=== PATIENT | female | born 1970 | race Hispanic/Latino ===

== ENCOUNTER 2019-10-09 22:31 | Observation (INO) | payer OTHER, SELFPAY ==
--- OUTSIDE RECORDS SUMMARY | 2019-10-09 22:42 | XMS REPORT ---
:1970 [facility] [address] [place] [place] [address] Care Team Providers Name Role Phone UNKNOWN, REFFERING Primary Care Provider Unavailable RASSOLI, AMIR Unavailable Unavailable Payers Payer Name Policy Type Policy Number Effective Date Expiration Date Problems This patient has no known problems. Allergies, Adverse Reactions, Alerts Allergy Allergy Status Severity Reaction(s) Onset Inactive Treating Comments Name Type Date Date Clinician No Known DA Active U 2019-09 Allergies - 00:00:0 0 No Known DA Active U 2019-09 Allergies - 00:00:0 0 No Known DA Active U 2019-08 Allergies - 00:00:0 0 No Known DA Active U 2018-10 Allergies - 00:00:0 0 No Known DA Active U 2011-06 Allergies - 00:00:0 0 Medications This patient has no known medications. Encounters Start End Encounter Admission Attending Care Care Encounter Date/Time Date/Time Type Type Clinicians Facility Department ID 2018-12-08 Inpatient E [facility] 7503 15:29:00 Results Test Description Test Time Test Comments Text Results Atomic Results Result Comments - XR CHEST 1 V 2019-09-14 09:25:00 Patient Name: ESTHER LOZANO Unit No: [id number] EXAMS: CPT: [id number] XR CHEST 1 V 64743 CHEST RADIOGRAPH, ONE VIEW: FRONTAL HISTORY: Shortness of breath. COMPARISON: September 05, 2019. FINDINGS: The lungs are clear and the cardiovascular silhouette is normal. No infiltrates or pulmonary edema is present. No pleural effusions are seen. IMPRESSION: No acute lung findings. at 0925 Reported and signed by: Michael Saucedo MD CC: Sanjeev Quinones MD; Magdiel Good Jr, MD Technologist: Bobbi Avalos Time: DAP (Gy m2): Air Kerma (mGy): Trscr Dt/Tm: 09/14/2019 (09) by:[email or web address] Orig Print D/T: S: 09/14/2019 (928) BATCH NO: N/A Name: ESTHER LOZANO [facility] Phys: Sanjeve Peterson MD [address] [facility] : 1970 Age: 49 Sex: [place] [phone] Loc: N.ERS Exam Date: 09/13/2019 Status: DEP ER PH: FAX: PAGE 1 Signed Report GLUBED 2019-09-13 23:03:00 Test Item Value Reference Range Comments GLUBED (test code=GLUBED) 68 MG/DL 70-105 [id number] 22:50:00 Test Item Value Reference Range Comments GLUBED (test code=GLUBED) 49 MG/DL 70-105 [id number] 22:50:00 Test Item Value Reference Range Comments GLUBED (test code=GLUBED) 44 MG/DL 70-105 BASIC METABOLIC [id number] 22:42:00 Test Item Value Reference Range Comments SODIUM (test code=NA) 129 mmol/L 135-145 POTASSIUM (test code=K) 2.8 mmol/L 3.6-5.0 Critical Value reported toFirst Name:FITO Last Name:CODY READ BACK AND VERIFIEDby [facility], on 09/13/19, @ 6760. CHLORIDE (test code=CL) 90 mmol/L 101-111 CARBON DIOXIDE (test 30 mmol/L 21-31 code=CO2) GLUCOSE (test code=GLU) 75 mg/dl 70-100 BLOOD UREA NITROGEN (test 5 mg/dl 6-20 code=BUN) GLOMERULAR FILTRATION >=60 max estimate >60 The estimated glomerular RATE (test code=GFR) filtration rate is computed usingpatient race, age (>18), sex, and serum creatinine. If anyof the needed data elements are missing the Laboratory cannot compute an estimation of the glomerular filtration rate. CREATININE (test 0.43 mg/dL 0.44-1.03 code=CREAT) CALCIUM (test code=CA) 8.5 mg/dL 8.5-10.5 - XR ABDOMEN [id number] 22:19:00Patient Name: ESTHER LOZANO Unit No: [id number] EXAMS: CPT: [id number] XR ABDOMEN 1V 22070 ABDOMEN 1 VIEW: CLINICAL HISTORY: Abdominal pain COMPARISON: 03/30/2019 FINDINGS: The bowel gas pattern is nonobstructed. There is mild gaseous distention of the left colon. No significant osseous abnormalities are seen. The lung bases are clear. IMPRESSION:Mild colonic distention on the left. at 2219 Reported and signed by: Shan Moe MD CC: Magdiel Good Jr, MD Technologist: Bobbi Avalos Time: DAP (Gy m2): Air Kerma (mGy): Trscr Dt/Tm: 09/13/2019 (2218) by:[email or web address] Orig Print D/T: S: (2223) BATCH NO: N/A Name: ESTHER LOZANO [facility] Phys: Silvano Hammond DO [address] [facility] : 1970 Age: 49 Sex: [place] [phone] Loc: N.ERS Exam Date: 09/13/2019 Status: REG ER PH: FAX: PAGE 1 Signed [id number] 21:40:00 Test Item Value Reference Range Comments TROPONIN-I (test 0.086 ng/mL 0.000-0.034 Critical Value reported toFirst code=TROPI) Name:DR Argueta Name:SAMARIA READ BACK AND VERIFIEDby KWADWO, on 09/13/19, @ 2137. B-TYPE NATRIURETIC [id number] 21:30:00 Test Item Value Reference Range Comments B-TYPE NATRIURETIC PEPTIDE (test code=BNP) 51 pg/ml 0-100 CBC W/AUTO [id number] 21:29:00 Test Item Value Reference Range Comments WHITE BLOOD CELL (test 3.7 x10 3/uL 3.2-11.5 code=WBC) CORRECTED WBC (test code=CWBC) 3.7 x10 3/uL 3.2-11.5 -- | ~~ Corrected WBC Result ~~ || WBC has been corrected due to NRBC | RED BLOOD CELL (test code=RBC) 3.39 x10(6)/m 3.70-5.10 HEMOGLOBIN (test code=HGB) 9.0 g/dL 12.0-15.0 HEMATOCRIT (test code=HCT) 28.6 % 35.7-44.8 MEAN CELL VOLUME (test 84 fL 80-100 code=MCV) MEAN CELL HGB (test code=MCH) 26.6 pg 26.2-33.8 MEAN CELL HGB CONCENTRATION 31.6 g/dL 30.0-34.0 (test code=MCHC) RED CELL DISTRIBUTION WIDTH 19.2 % 11.3-14.5 (test code=RDW) PLATELET COUNT (test code=PLT) 149 x10 3/uL 130-408 MEAN PLATELET VOLUME (test 8.5 fl 6.4-10.5 code=MPV) WBC [id number] 21:29:00 Test Item Value Reference Range Comments TOTAL CELLS COUNTED (test code=TCC) 100 #CELLS SEGMENTED NEUTROPHILS (test code=SEG) 45 % 43-65 BAND NEUTROPHIL (test code=BAND) 1 % 0-1 LYMPHOCYTE (test code=LYMPH) 49 % 20.5-45.5 MONOCYTE (test code=MON) 4 % 5.5-11.7 METAMYELOCYTE (test code=META) 1 % 0-0 BAND ABSOLUTE (test code=BAND#) 0.04 10 3/uL 0.00-0.70 NEUTROPHIL ABSOLUTE (test code=SEG#) 1.67 10 3/uL 6.00-26.00 LYMPH ABSOLUTE (test code=LYMPH#) 1.8 10 3/uL 2.00-17.00 ATYPICAL LYMPH ABSOLUTE (test code=ALYMPH#) 0.00 10 3/uL 0.00-0.00 MONOCYTE ABSOLUTE (test code=MON#) 0.14 10 3/uL 0.40-3.10 BASOPHIL ABSOLUTE (test code=BASO#) 0.00 10 3/uL 0.00-0.20 EOSINOPHIL ABSOLUTE (test code=EOS#) 0.00 10 3/uL 0.00-0.50 METAMYELOCYTE ABSOLUTE (test code=META#) 0.04 10 3/uL 0.00-0.00 MYELOCYTE ABSOLUTE (test code=MYELO#) 0.00 10 3/uL 0.00-0.00 PROMYELOCYTE ABSOLUTE (test code=PROM#) 0.00 10 3/uL 0.00-0.00 BLASTS ABSOLUTE (test code=BLAST#) 0.00 10 3/uL 0.00-0.00 OTHER CELLS ABSOLUTE (test code=OCT#) 0.00 10 3/uL 0.00-0.00 ANISOCYTOSIS (test code=ANISO) 1+ NONE SEEN RBC MORPHOLOGY COMMENT (test code=MOC) See comment NORMAL PLATELET MORPHOLOGY (test code=PLTMORPH) NORMAL NORMAL BASIC METABOLIC [id number] 21:28:00 Test Item Value Reference Range Comments SODIUM (test code=NA) 126 mmol/L 135-145 POTASSIUM (test code=K) 3.2 mmol/L 3.6-5.0 CHLORIDE (test code=CL) 87 mmol/L 101-111 CARBON DIOXIDE (test 26 mmol/L 21-31 code=CO2) GLUCOSE (test code=GLU) 196 mg/dl 70-100 BLOOD UREA NITROGEN (test 6 mg/dl 6-20 code=BUN) GLOMERULAR FILTRATION >=60 max estimate >60 The estimated glomerular RATE (test code=GFR) filtration rate is computed usingpatient race, age (>18), sex, and serum creatinine. If anyof the needed data elements are missing the Laboratory cannot compute an estimation of the glomerular filtration rate. CREATININE (test 0.53 mg/dL 0.44-1.03 code=CREAT) CALCIUM (test code=CA) 8.8 mg/dL 8.5-10.5 LIVER FUNCTION [id number] 21:28:00 Test Item Value Reference Range Comments TOTAL PROTEIN (test code=PROT) 6.6 g/dL 6.7-8.2 ALBUMIN (test code=ALB) 3.6 g/dL 3.2-5.5 BILIRUBIN TOTAL (test code=BILT) 1.20 mg/dL 0.2-1.3 BILIRUBIN DIRECT (test code=BILD) 0.2 mg/dL 0.00-0.20 SGOT/AST (test code=AST) 178 U/L 10-42 SGPT/ALT (test code=ALT) 111 U/L 10-60 ALKALINE PHOSPHATASE (test code=ALKP) 129 U/L 42-121 [id number] 21:28:00 Test Item Value Reference Range Comments LIPASE (test code=LIP) 31 IU/L 22-51 HCG SERUM [id number] 21:19:00 Test Item Value Reference Range Comments HCG SERUM QUAL (test NEGATIVE NEGATIVE This is a qualitative screening code=HCGQL) test.The quantitative Bhcg may be helpful.Weakly positive results should be repeated in 48 hours. BASIC METABOLIC [id number] 21:16:00 Test Item Value Reference Range Comments SODIUM (test code=NA) 126 mmol/L 135-145 POTASSIUM (test code=K) 3.2 mmol/L 3.6-5.0 CHLORIDE (test code=CL) 87 mmol/L 101-111 CARBON DIOXIDE (test 26 mmol/L 21-31 code=CO2) GLUCOSE (test code=GLU) 196 mg/dl 70-100 BLOOD UREA NITROGEN (test 6 mg/dl 6-20 code=BUN) GLOMERULAR FILTRATION >=60 max estimate >60 The estimated glomerular RATE (test code=GFR) filtration rate is computed usingpatient race, age (>18), sex, and serum creatinine. If anyof the needed data elements are missing the Laboratory cannot compute an estimation of the glomerular filtration rate. CREATININE (test 0.53 mg/dL 0.44-1.03 code=CREAT) CALCIUM (test code=CA) 8.8 mg/dL 8.5-10.5 LIVER FUNCTION [id number] 21:16:00 Test Item Value Reference Range Comments TOTAL PROTEIN (test code=PROT) 6.6 g/dL 6.7-8.2 ALBUMIN (test code=ALB) 3.6 g/dL 3.2-5.5 BILIRUBIN TOTAL (test code=BILT) mg/dL 0.2-1.3 BILIRUBIN DIRECT (test code=BILD) mg/dL 0.00-0.20 SGOT/AST (test code=AST) U/L 10-42 SGPT/ALT (test code=ALT) U/L 10-60 ALKALINE PHOSPHATASE (test code=ALKP) U/L 42-121 [id number] 21:16:00 Test Item Value Reference Range Comments LIPASE (test code=LIP) 31 IU/L 22-51 CBC W/AUTO [id number] 21:06:00 Test Item Value Reference Range Comments WHITE BLOOD CELL (test code=WBC) 3.7 x10 3/uL 3.2-11.5 RED BLOOD CELL (test code=RBC) 3.39 x10(6)/m 3.70-5.10 HEMOGLOBIN (test code=HGB) 9.0 g/dL 12.0-15.0 HEMATOCRIT (test code=HCT) 28.6 % 35.7-44.8 MEAN CELL VOLUME (test code=MCV) 84 fL 80-100 MEAN CELL HGB (test code=MCH) 26.6 pg 26.2-33.8 MEAN CELL HGB CONCENTRATION (test code=MCHC) 31.6 g/dL 30.0-34.0 RED CELL DISTRIBUTION WIDTH (test code=RDW) 19.2 % 11.3-14.5 PLATELET COUNT (test code=PLT) 149 x10 3/uL 130-408 MEAN PLATELET VOLUME (test code=MPV) 8.5 fl 6.4-10.5 WBC [id number] 21:06:00 Test Item Value Reference Range Comments TOTAL CELLS COUNTED (test code=TCC) #CELLS RBC MORPHOLOGY COMMENT (test code=MOC) NORMAL PLATELET MORPHOLOGY (test code=PLTMORPH) NORMAL URINALYSIS [id number] 21:06:00 Test Item Value Reference Range Comments UA COLOR (test code=COLU) Colorless YELLOW UA APPEARANCE (test code=APPU) Clear CLEAR UA GLUCOSE DIPSTICK (test code=DGLUU) 3+ NEGATIVE UA BILIRUBIN DIPSTICK (test code=BILU) NEGATIVE NEGATIVE UA KETONE DIPSTICK (test code=KETU) Trace NEGATIVE UA SPECIFIC GRAVITY (test code=SGU) 1.006 1.001-1.030 UA BLOOD DIPSTICK (test code=TRISHA) NEGATIVE NEGATIVE UA PH DIPSTICK (test code=HELENA) 6.0 5.0-9.0 UA PROTEIN DIPSTICK (test code=PROU) NEGATIVE NEGATIVE UA UROBILINOGEN DIPSTICK (test code=URO) NEGATIVE <=1.0 UA NITRITE DIPSTICK (test code=BRIAN) NEGATIVE NEGATIVE UA ASCORBIC ACID DIPSTICK (test code=AAU) NEGATIVE UA LEUKOCYTE ESTERASE DIPSTICK (test code=LEUU) NEGATIVE NEGATIVE UA WBC (test code=WBCU) 0-5 /HPF 0-5 UA RBC (test code=RBCU) None /HPF 0-5 UA EPITHELIAL CELLS (test code=EPIU) RARE /LPF NONE-FEW UA BACTERIA (test code=BACU) None /HPF NONE SEEN CBC W/AUTO [id number] 21:04:00 Test Item Value Reference Range Comments WHITE BLOOD CELL (test code=WBC) 3.7 x10 3/uL 3.2-11.5 RED BLOOD CELL (test code=RBC) 3.39 x10(6)/m 3.70-5.10 HEMOGLOBIN (test code=HGB) 9.0 g/dL 12.0-15.0 HEMATOCRIT (test code=HCT) 28.6 % 35.7-44.8 MEAN CELL VOLUME (test code=MCV) 84 fL 80-100 MEAN CELL HGB (test code=MCH) 26.6 pg 26.2-33.8 MEAN CELL HGB CONCENTRATION (test code=MCHC) 31.6 g/dL 30.0-34.0 RED CELL DISTRIBUTION WIDTH (test code=RDW) 19.2 % 11.3-14.5 PLATELET COUNT (test code=PLT) 149 x10 3/uL 130-408 MEAN PLATELET VOLUME (test code=MPV) 8.5 fl 6.4-10.5 WBC [id number] 21:04:00 Test Item Value Reference Range Comments TOTAL CELLS COUNTED (test code=TCC) #CELLS RBC MORPHOLOGY COMMENT (test code=MOC) NORMAL PLATELET MORPHOLOGY (test code=PLTMORPH) NORMAL [id number] 20:52:00 Test Item Value Reference Range Comments GLUBED (test code=GLUBED) 243 MG/DL 70-105 [id number] 15:45:00 Test Item Value Reference Range Comments GLUBED (test code=GLUBED) 86 MG/DL 70-105 BASIC METABOLIC [id number] 14:12:00 Test Item Value Reference Range Comments SODIUM (test code=NA) 135 mmol/L 135-145 POTASSIUM (test code=K) 3.4 mmol/L 3.6-5.0 CHLORIDE (test code=CL) 101 mmol/L 101-111 CARBON DIOXIDE (test 24 mmol/L 21-31 code=CO2) GLUCOSE (test code=GLU) 141 mg/dl 70-100 BLOOD UREA NITROGEN (test < 5 mg/dl 6-20 code=BUN) GLOMERULAR FILTRATION >=60 max estimate >60 The estimated glomerular RATE (test code=GFR) filtration rate is computed usingpatient race, age (>18), sex, and serum creatinine. If anyof the needed data elements are missing the Laboratory cannot compute an estimation of the glomerular filtration rate. CREATININE (test 0.53 mg/dL 0.44-1.03 code=CREAT) CALCIUM (test code=CA) 8.3 mg/dL 8.5-10.5 BASIC METABOLIC [id number] 09:30:00 Test Item Value Reference Range Comments SODIUM (test code=NA) 135 mmol/L 135-145 POTASSIUM (test code=K) 2.7 mmol/L 3.6-5.0 Critical Value reported toFirst Name:MIGNON Last Name:SEDRICK RESULTS READ BACK AND VERIFIEDby N.LAB.CL, on 09/07/19, @ 3415. CHLORIDE (test code=CL) 103 mmol/L 101-111 CARBON DIOXIDE (test 27 mmol/L 21-31 code=CO2) GLUCOSE (test code=GLU) 66 mg/dl 70-100 BLOOD UREA NITROGEN (test < 5 mg/dl 6-20 code=BUN) GLOMERULAR FILTRATION >=60 max estimate >60 The estimated glomerular RATE (test code=GFR) filtration rate is computed usingpatient race, age (>18), sex, and serum creatinine. If anyof the needed data elements are missing the Laboratory cannot compute an estimation of the glomerular filtration rate. CREATININE (test 0.35 mg/dL 0.44-1.03 code=CREAT) CALCIUM (test code=CA) 8.5 mg/dL 8.5-10.5 CBC W/AUTO [id number] 09:18:00 Test Item Value Reference Range Comments WHITE BLOOD CELL (test code=WBC) 3.0 x10 3/uL 3.2-11.5 RED BLOOD CELL (test code=RBC) 3.16 x10(6)/m 3.70-5.10 HEMOGLOBIN (test code=HGB) 8.5 g/dL 12.0-15.0 HEMATOCRIT (test code=HCT) 26.1 % 35.7-44.8 MEAN CELL VOLUME (test code=MCV) 82 fL 80-100 MEAN CELL HGB (test code=MCH) 27.0 pg 26.2-33.8 MEAN CELL HGB CONCENTRATION (test code=MCHC) 32.7 g/dL 30.0-34.0 RED CELL DISTRIBUTION WIDTH (test code=RDW) 17.7 % 11.3-14.5 PLATELET COUNT (test code=PLT) 151 x10 3/uL 130-408 MEAN PLATELET VOLUME (test code=MPV) 7.9 fl 6.4-10.5 NEUTROPHIL % (test code=NT%) 38.5 % 40.0-70.0 LYMPHOCYTE % (test code=LY%) 49.4 % 20-40 MONOCYTE % (test code=MO%) 9.3 % 1-10 EOSINOPHIL % (test code=EO%) 1.6 % 1.0-5.0 BASOPHIL % (test code=BA%) 1.2 % 0.0-1.0 NEUTROPHIL # (test code=NT#) 1.1 x10 3/uL 1.6-7.2 LYMPHOCYTE # (test code=LY#) 1.50 x10 3/uL 1.1-2.7 MONOCYTE # (test code=MO#) 0.3 x10 3/uL 0.3-0.8 EOSINOPHIL # (test code=EO#) 0.0 x10 3/uL 0.0-0.5 BASOPHIL # (test code=BA#) 0.0 x10 3/uL 0.0-0.1 [id number] 06:45:00 Test Item Value Reference Range Comments GLUBED (test code=GLUBED) 102 MG/DL 70-105 [id number] 22:06:00 Test Item Value Reference Range Comments TROPONIN-I (test code=TROPI) 0.083 ng/mL 0.000-0.034 PREVIOUSLY CALLED [id number] 21:28:00 Test Item Value Reference Range Comments GLUBED (test code=GLUBED) 196 MG/DL 70-105 [id number] 19:05:00 Test Item Value Reference Range Comments GLUBED (test code=GLUBED) 241 MG/DL 70-105 [id number] 16:12:00 Test Item Value Reference Range Comments GLUBED (test code=GLUBED) 254 MG/DL 70-105 [id number] 15:34:00 Test Item Value Reference Range Comments GLUBED (test code=GLUBED) 273 MG/DL 70-105 [id number] 11:20:00 Test Item Value Reference Range Comments GLUBED (test code=GLUBED) 51 MG/DL 70-105 [id number] 11:20:00 Test Item Value Reference Range Comments GLUBED (test code=GLUBED) 54 MG/DL 70-105 CBC W/AUTO [id number] 08:07:00 Test Item Value Reference Range Comments WHITE BLOOD CELL (test 4.1 x10 3/uL 3.2-11.5 code=WBC) RED BLOOD CELL (test code=RBC) 3.18 x10(6)/m 3.70-5.10 HEMOGLOBIN (test code=HGB) 8.5 g/dL 12.0-15.0 HEMATOCRIT (test code=HCT) 26.3 % 35.7-44.8 MEAN CELL VOLUME (test 83 fL 80-100 VERIFIED BY RECOLLECTION code=MCV) MEAN CELL HGB (test code=MCH) 26.6 pg 26.2-33.8 MEAN CELL HGB CONCENTRATION 32.2 g/dL 30.0-34.0 (test code=MCHC) RED CELL DISTRIBUTION WIDTH 17.7 % 11.3-14.5 (test code=RDW) PLATELET COUNT (test code=PLT) 179 x10 3/uL 130-408 MEAN PLATELET VOLUME (test 7.8 fl 6.4-10.5 code=MPV) NEUTROPHIL % (test code=NT%) 57.7 % 40.0-70.0 LYMPHOCYTE % (test code=LY%) 28.1 % 20-40 MONOCYTE % (test code=MO%) 12.3 % 1-10 EOSINOPHIL % (test code=EO%) 1.2 % 1.0-5.0 BASOPHIL % (test code=BA%) 0.7 % 0.0-1.0 NEUTROPHIL # (test code=NT#) 2.3 x10 3/uL 1.6-7.2 LYMPHOCYTE # (test code=LY#) 1.10 x10 3/uL 1.1-2.7 MONOCYTE # (test code=MO#) 0.5 x10 3/uL 0.3-0.8 EOSINOPHIL # (test code=EO#) 0.0 x10 3/uL 0.0-0.5 BASOPHIL # (test code=BA#) 0.0 x10 3/uL 0.0-0.1 BASIC METABOLIC [id number] 06:25:00 Test Item Value Reference Range Comments SODIUM (test code=NA) 130 mmol/L 135-145 POTASSIUM (test code=K) 3.9 mmol/L 3.6-5.0 CHLORIDE (test code=CL) 101 mmol/L 101-111 CARBON DIOXIDE (test 19 mmol/L 21-31 code=CO2) GLUCOSE (test code=GLU) 252 mg/dl 70-100 BLOOD UREA NITROGEN (test < 5 mg/dl 6-20 code=BUN) GLOMERULAR FILTRATION >=60 max estimate >60 The estimated glomerular RATE (test code=GFR) filtration rate is computed usingpatient race, age (>18), sex, and serum creatinine. If anyof the needed data elements are missing the Laboratory cannot compute an estimation of the glomerular filtration rate. CREATININE (test 0.61 mg/dL 0.44-1.03 code=CREAT) CALCIUM (test code=CA) 7.8 mg/dL 8.5-10.5 [id number] 06:25:00 Test Item Value Reference Range Comments PHOSPHOROUS (test code=PHOS) 4.7 mg/dl 2.5-4.6 [id number] 06:25:00 Test Item Value Reference Range Comments MAGNESIUM (test code=MAG) 1.6 mg/dl 1.8-2.5 [id number] 21:50:00 Test Item Value Reference Range Comments GLUBED (test code=GLUBED) 86 MG/DL 70-105 BASIC METABOLIC [id number] 21:43:00 Test Item Value Reference Range Comments SODIUM (test code=NA) 131 mmol/L 135-145 POTASSIUM (test code=K) 3.2 mmol/L 3.6-5.0 CHLORIDE (test code=CL) 103 mmol/L 101-111 CARBON DIOXIDE (test 16 mmol/L 21-31 code=CO2) GLUCOSE (test code=GLU) 59 mg/dl 70-100 BLOOD UREA NITROGEN (test 6 mg/dl 6-20 code=BUN) GLOMERULAR FILTRATION >=60 max estimate >60 The estimated glomerular RATE (test code=GFR) filtration rate is computed usingpatient race, age (>18), sex, and serum creatinine. If anyof the needed data elements are missing the Laboratory cannot compute an estimation of the glomerular filtration rate. CREATININE (test 0.83 mg/dL 0.44-1.03 code=CREAT) CALCIUM (test code=CA) 8.5 mg/dL 8.5-10.5 [id number] 21:43:00 Test Item Value Reference Range Comments PHOSPHOROUS (test code=PHOS) < 1.0 mg/dl 2.5-4.6 Critical Value reported toFirst Name: Last Name:RESULTS READ BACK AND VERIFIEDby XI, on 09/05/19, @ 2143. [id number] 21:43:00 Test Item Value Reference Range Comments MAGNESIUM (test code=MAG) 2.0 mg/dl 1.8-2.5 [id number] 20:31:00 Test Item Value Reference Range Comments GLUBED (test code=GLUBED) 80 MG/DL 70-105 [id number] 19:46:00 Test Item Value Reference Range Comments GLUBED (test code=GLUBED) 129 MG/DL 70-105 [id number] 19:15:00 Test Item Value Reference Range Comments GLUBED (test code=GLUBED) 211 MG/DL 70-105 BASIC METABOLIC [id number] 18:31:00 Test Item Value Reference Range Comments SODIUM (test code=NA) 128 mmol/L 135-145 POTASSIUM (test code=K) 3.6 mmol/L 3.6-5.0 CHLORIDE (test code=CL) 99 mmol/L 101-111 CARBON DIOXIDE (test 6 mmol/L 21-31 Critical Value reported code=CO2) toFirst Name:TA Last Name:JG READ BACK AND VERIFIEDby N.LAB.LAC, on 09/05/19, @ 1831. GLUCOSE (test code=GLU) 348 mg/dl 70-100 BLOOD UREA NITROGEN (test 8 mg/dl 6-20 code=BUN) GLOMERULAR FILTRATION RATE 44 >60 The estimated glomerular (test code=GFR) filtration rate is computed usingpatient race, age (>18), sex, and serum creatinine. If anyof the needed data elements are missing the Laboratory cannot compute an estimation of the glomerular filtration rate. CREATININE (test code=CREAT) 1.36 mg/dL 0.44-1.03 CALCIUM (test code=CA) 8.2 mg/dL 8.5-10.5 [id number] 18:31:00 Test Item Value Reference Range Comments PHOSPHOROUS (test code=PHOS) 1.9 mg/dl 2.5-4.6 [id number] 18:31:00 Test Item Value Reference Range Comments MAGNESIUM (test code=MAG) 1.5 mg/dl 1.8-2.5 [id number] 18:21:00 Test Item Value Reference Range Comments TROPONIN-I (test code=TROPI) 0.086 ng/mL 0.000-0.034 PREVIOUSLY CALLED. HGBA1C - GLYCOSYLATED [id number] 18:07:00 Test Item Value Reference Range Comments GLYCOSYLATED HEMOGLOBIN (HA1C) 10.6 % 4.0-6.0 Interpretive Data: Caution (test code=GLYHGB) should be exercised when interpreting the HgbA1c in patients with hemolytic anemia, iron deficiency and when the total hemoglobin is < 9g/dL, due to a decrease in average age of red blood cells URINALYSIS [id number] 17:29:00 Test Item Value Reference Range Comments UA COLOR (test code=COLU) STRAW YELLOW UA APPEARANCE (test code=APPU) CLEAR CLEAR UA GLUCOSE DIPSTICK (test code=DGLUU) 3+ NEGATIVE UA BILIRUBIN DIPSTICK (test code=BILU) NEGATIVE NEGATIVE UA KETONE DIPSTICK (test code=KETU) 3+ NEGATIVE UA SPECIFIC GRAVITY (test code=SGU) 1.019 1.001-1.030 UA BLOOD DIPSTICK (test code=TRISHA) NEGATIVE NEGATIVE UA PH DIPSTICK (test code=HELENA) 5.0 5.0-9.0 UA PROTEIN DIPSTICK (test code=PROU) NEGATIVE NEGATIVE UA UROBILINOGEN DIPSTICK (test code=URO) NEGATIVE <=1.0 UA NITRITE DIPSTICK (test code=BRIAN) NEGATIVE NEGATIVE UA ASCORBIC ACID DIPSTICK (test code=AAU) Test not performed UA LEUKOCYTE ESTERASE DIPSTICK (test NEGATIVE NEGATIVE code=LEUU) UA WBC (test code=WBCU) 0-5 /HPF 0-5 UA RBC (test code=RBCU) 0-5 /HPF 0-5 UA EPITHELIAL CELLS (test code=EPIU) FEW /LPF NONE-FEW UA BACTERIA (test code=BACU) NONE SEEN /HPF NONE SEEN UA FINE GRANULAR CAST (test code=FINEU) 2-5 /LPF NONE SEEN [id number] 17:18:00 Test Item Value Reference Range Comments GLUBED (test code=GLUBED) 467 MG/DL 70-105 [id number] 15:53:00 Test Item Value Reference Range Comments GLUBED (test code=GLUBED) 527 MG/DL 70-105 [id number] 15:53:00 Test Item Value Reference Range Comments POTASSIUM (test code=K) 4.4 mmol/L 3.6-5.0 [id number] 15:53:00 Test Item Value Reference Range Comments PHOSPHOROUS (test code=PHOS) 4.4 mg/dl 2.5-4.6 [id number] 15:53:00 Test Item Value Reference Range Comments MAGNESIUM (test code=MAG) 1.7 mg/dl 1.8-2.5 THYROID STIMULATING [id number] 15:53:00 Test Item Value Reference Range Comments THYROID STIMULATING HORMONE (test code=TSH) 1.585 uIU/ml 0.450-5.330 [id number] 15:36:00 Test Item Value Reference Range Comments POTASSIUM (test code=K) 4.4 mmol/L 3.6-5.0 [id number] 15:36:00 Test Item Value Reference Range Comments PHOSPHOROUS (test code=PHOS) 4.4 mg/dl 2.5-4.6 [id number] 15:36:00 Test Item Value Reference Range Comments MAGNESIUM (test code=MAG) 1.7 mg/dl 1.8-2.5 THYROID STIMULATING [id number] 15:36:00 Test Item Value Reference Range Comments THYROID STIMULATING HORMONE (test code=TSH) uIU/ml 0.450-5.330 [id number] 15:33:00 Test Item Value Reference Range Comments POTASSIUM (test code=K) 4.4 mmol/L 3.6-5.0 [id number] 15:33:00 Test Item Value Reference Range Comments PHOSPHOROUS (test code=PHOS) 4.4 mg/dl 2.5-4.6 [id number] 15:33:00 Test Item Value Reference Range Comments MAGNESIUM (test code=MAG) mg/dl 1.8-2.5 THYROID STIMULATING [id number] 15:33:00 Test Item Value Reference Range Comments THYROID STIMULATING HORMONE (test code=TSH) uIU/ml 0.450-5.330 [id number] 15:03:00 Test Item Value Reference Range Comments TROPONIN-I (test 0.081 ng/mL 0.000-0.034 Critical Value reported toFirst code=TROPI) Name:TA Argueta Name:HARMONRESULTS READ BACK AND VERIFIEDby N.LAB.VES, on 09/05/19, @ 7545. COMPREHENSIVE METABOLIC [id number] 15:01:00 Test Item Value Reference Range Comments SODIUM (test code=NA) 122 mmol/L 135-145 POTASSIUM (test code=K) 4.3 mmol/L 3.6-5.0 CHLORIDE (test code=CL) 88 mmol/L 101-111 CARBON DIOXIDE (test < 5 mmol/L 21-31 Critical Value reported code=CO2) toFirst Name:TA Argueta Name:CAITLINRESULTS READ BACK AND VERIFIEDby N.LAB.VES, on 09/05/19, @ 1448. GLUCOSE (test code=GLU) 573 mg/dl 70-100 Critical Value reported toFirst Name:TA Last Name:ELEONORAULTS READ BACK AND VERIFIEDby N.LAB.VES, on 09/05/19, @ 1448. BLOOD UREA NITROGEN (test 7 mg/dl 6-20 code=BUN) GLOMERULAR FILTRATION RATE 41 >60 The estimated glomerular (test code=GFR) filtration rate is computed usingpatient race, age (>18), sex, and serum creatinine. If anyof the needed data elements are missing the Laboratory cannot compute an estimation of the glomerular filtration rate. CREATININE (test code=CREAT) 1.45 mg/dL 0.44-1.03 TOTAL PROTEIN (test 7.3 g/dL 6.7-8.2 code=PROT) ALBUMIN (test code=ALB) 4.0 g/dL 3.2-5.5 CALCIUM (test code=CA) 8.4 mg/dL 8.5-10.5 BILIRUBIN TOTAL (test 3.30 mg/dL 0.2-1.3 code=BILT) SGOT/AST (test code=AST) 120 U/L 10-42 SGPT/ALT (test code=ALT) 167 U/L 10-60 ALKALINE PHOSPHATASE (test 209 U/L 42-121 code=ALKP) [id number] 15:01:00 Test Item Value Reference Range Comments LIPASE (test code=LIP) 24 IU/L 22-51 BETA [id number] 15:01:00 Test Item Value Reference Range Comments BETA HYDROBUTYRATE (test code=BETHYD) 11.77 mmol/L 0.02-0.27 COMPREHENSIVE METABOLIC [id number] 14:48:00 Test Item Value Reference Range Comments SODIUM (test code=NA) 122 mmol/L 135-145 POTASSIUM (test code=K) 4.3 mmol/L 3.6-5.0 CHLORIDE (test code=CL) 88 mmol/L 101-111 CARBON DIOXIDE (test < 5 mmol/L 21-31 Critical Value reported code=CO2) toFirst Name:TA Last Name:ELEONORAULTS READ BACK AND VERIFIEDby N.LAB.VES, on 09/05/19, @ 1448. GLUCOSE (test code=GLU) 573 mg/dl 70-100 Critical Value reported toFirst Name:TA Last Name:JOHN READ BACK AND VERIFIEDby N.LAB.VES, on 09/05/19, @ 144. BLOOD UREA NITROGEN (test 7 mg/dl 6-20 code=BUN) GLOMERULAR FILTRATION RATE 41 >60 The estimated glomerular (test code=GFR) filtration rate is computed usingpatient race, age (>18), sex, and serum creatinine. If anyof the needed data elements are missing the Laboratory cannot compute an estimation of the glomerular filtration rate. CREATININE (test code=CREAT) 1.45 mg/dL 0.44-1.03 TOTAL PROTEIN (test 7.3 g/dL 6.7-8.2 code=PROT) ALBUMIN (test code=ALB) 4.0 g/dL 3.2-5.5 CALCIUM (test code=CA) 8.4 mg/dL 8.5-10.5 BILIRUBIN TOTAL (test 3.30 mg/dL 0.2-1.3 code=BILT) SGOT/AST (test code=AST) 120 U/L 10-42 SGPT/ALT (test code=ALT) 167 U/L 10-60 ALKALINE PHOSPHATASE (test 209 U/L 42-121 code=ALKP) [id number] 14:48:00 Test Item Value Reference Range Comments LIPASE (test code=LIP) 24 IU/L 22-51 BETA [id number] 14:48:00 Test Item Value Reference Range Comments BETA HYDROBUTYRATE (test code=BETHYD) mmol/L 0.02-0.27 CBC W/AUTO [id number] 14:33:00 Test Item Value Reference Range Comments WHITE BLOOD CELL (test code=WBC) 6.2 x10 3/uL 3.2-11.5 RED BLOOD CELL (test code=RBC) 3.68 x10(6)/m 3.70-5.10 HEMOGLOBIN (test code=HGB) 9.9 g/dL 12.0-15.0 HEMATOCRIT (test code=HCT) 34.5 % 35.7-44.8 MEAN CELL VOLUME (test code=MCV) 94 fL 80-100 MEAN CELL HGB (test code=MCH) 26.8 pg 26.2-33.8 MEAN CELL HGB CONCENTRATION (test code=MCHC) 28.6 g/dL 30.0-34.0 RED CELL DISTRIBUTION WIDTH (test code=RDW) 18.2 % 11.3-14.5 PLATELET COUNT (test code=PLT) 285 x10 3/uL 130-408 MEAN PLATELET VOLUME (test code=MPV) 8.2 fl 6.4-10.5 NEUTROPHIL % (test code=NT%) 63.8 % 40.0-70.0 LYMPHOCYTE % (test code=LY%) 21.9 % 20-40 MONOCYTE % (test code=MO%) 13.0 % 1-10 EOSINOPHIL % (test code=EO%) 0.1 % 1.0-5.0 BASOPHIL % (test code=BA%) 1.2 % 0.0-1.0 NEUTROPHIL # (test code=NT#) 4.0 x10 3/uL 1.6-7.2 LYMPHOCYTE # (test code=LY#) 1.40 x10 3/uL 1.1-2.7 MONOCYTE # (test code=MO#) 0.8 x10 3/uL 0.3-0.8 EOSINOPHIL # (test code=EO#) 0.0 x10 3/uL 0.0-0.5 BASOPHIL # (test code=BA#) 0.1 x10 3/uL 0.0-0.1 - XR CHEST 1 [id number] 14:12:00Patient Name: ESTHER LOZANO Unit No: [id number] EXAMS: CPT: [id number] XR CHEST 1 V 15165 STUDY: - XR CHEST 1 V INDICATION: Shortness of breathTECHNIQUE: Single AP view of the chest. COMPARISON: Chest radiograph from . FINDINGS: No mediastinal shift or enlargement. Normal cardiac silhouette. Normal symmetric lung inflation. No evidence of pulmonary edema, airspace pathology, pleural effusion or pneumothorax. Degenerative changes about bilateral shoulders and along the thoracic spine. Right upper quadrant abdomen surgical clips. IMPRESSION: No evidence of acute pulmonary process. at 1412 Reported and signed by: JOURDAN SOLIMAN MD CC: Magdiel Good Jr, MD Technologist: Ej Avalos Time: DAP (Gy m2): Air Kerma (mGy): Trscr Dt/Tm: 09/05/2019 (1412) by:Shyla Orig Print D/T: S: 09/05 (1415) BATCH NO: N /A Name: ESTHER LOZANO [facility] Phys: ROME. - Bora Alexander MD [address] [place] : 1970 Age: 49 Sex: [place] [address] Loc: N.ERS Exam Date: 03/2019 Status:PRE ER PH: FAX: PAGE 1 Signed [id number] 13:40:00 Test Item Value Reference Range Comments GLUBED (test code=GLUBED) 558 MG/DL 70-105 [id number] 11:41:00 Test Item Value Reference Range Comments GLUBED (test code=GLUBED) 279 MG/DL 70-105 BASIC METABOLIC [id number] 06:41:00 Test Item Value Reference Range Comments SODIUM (test code=NA) 131 mmol/L 135-145 POTASSIUM (test code=K) 4.6 mmol/L 3.6-5.0 CHLORIDE (test code=CL) 96 mmol/L 101-111 CARBON DIOXIDE (test 30 mmol/L 21-31 code=CO2) GLUCOSE (test code=GLU) 312 mg/dl 70-100 BLOOD UREA NITROGEN (test 5 mg/dl 6-20 code=BUN) GLOMERULAR FILTRATION >=60 max estimate >60 The estimated glomerular RATE (test code=GFR) filtration rate is computed usingpatient race, age (>18), sex, and serum creatinine. If anyof the needed data elements are missing the Laboratory cannot compute an estimation of the glomerular filtration rate. CREATININE (test 0.42 mg/dL 0.44-1.03 code=CREAT) CALCIUM (test code=CA) 8.5 mg/dL 8.5-10.5 CBC W/AUTO [id number] 06:23:00 Test Item Value Reference Range Comments WHITE BLOOD CELL (test code=WBC) 3.1 x10 3/uL 3.2-11.5 RED BLOOD CELL (test code=RBC) 3.32 x10(6)/m 3.70-5.10 HEMOGLOBIN (test code=HGB) 8.9 g/dL 12.0-15.0 HEMATOCRIT (test code=HCT) 27.8 % 35.7-44.8 MEAN CELL VOLUME (test code=MCV) 84 fL 80-100 MEAN CELL HGB (test code=MCH) 26.9 pg 26.2-33.8 MEAN CELL HGB CONCENTRATION (test code=MCHC) 32.2 g/dL 30.0-34.0 RED CELL DISTRIBUTION WIDTH (test code=RDW) 17.7 % 11.3-14.5 PLATELET COUNT (test code=PLT) 157 x10 3/uL 130-408 MEAN PLATELET VOLUME (test code=MPV) 8.5 fl 6.4-10.5 NEUTROPHIL % (test code=NT%) 47.2 % 40.0-70.0 LYMPHOCYTE % (test code=LY%) 40.0 % 20-40 MONOCYTE % (test code=MO%) 10.4 % 1-10 EOSINOPHIL % (test code=EO%) 1.7 % 1.0-5.0 BASOPHIL % (test code=BA%) 0.7 % 0.0-1.0 NEUTROPHIL # (test code=NT#) 1.5 x10 3/uL 1.6-7.2 LYMPHOCYTE # (test code=LY#) 1.20 x10 3/uL 1.1-2.7 MONOCYTE # (test code=MO#) 0.3 x10 3/uL 0.3-0.8 EOSINOPHIL # (test code=EO#) 0.1 x10 3/uL 0.0-0.5 BASOPHIL # (test code=BA#) 0.0 x10 3/uL 0.0-0.1 [id number] 06:08:00 Test Item Value Reference Range Comments GLUBED (test code=GLUBED) 323 MG/DL 70-105 [id number] 21:00:00 Test Item Value Reference Range Comments GLUBED (test code=GLUBED) 217 MG/DL 70-105 [id number] 16:59:00 Test Item Value Reference Range Comments GLUBED (test code=GLUBED) 99 MG/DL 70-105 CBC W/AUTO [id number] 11:19:00 Test Item Value Reference Range Comments WHITE BLOOD CELL (test code=WBC) 3.0 x10 3/uL 3.2-11.5 RED BLOOD CELL (test code=RBC) 3.26 x10(6)/m 3.70-5.10 HEMOGLOBIN (test code=HGB) 8.6 g/dL 12.0-15.0 HEMATOCRIT (test code=HCT) 26.9 % 35.7-44.8 MEAN CELL VOLUME (test code=MCV) 82 fL 80-100 MEAN CELL HGB (test code=MCH) 26.4 pg 26.2-33.8 MEAN CELL HGB CONCENTRATION (test code=MCHC) 32.0 g/dL 30.0-34.0 RED CELL DISTRIBUTION WIDTH (test code=RDW) 17.1 % 11.3-14.5 PLATELET COUNT (test code=PLT) 112 x10 3/uL 130-408 MEAN PLATELET VOLUME (test code=MPV) 8.2 fl 6.4-10.5 NEUTROPHIL % (test code=NT%) 54.2 % 40.0-70.0 LYMPHOCYTE % (test code=LY%) 31.5 % 20-40 MONOCYTE % (test code=MO%) 11.8 % 1-10 EOSINOPHIL % (test code=EO%) 1.5 % 1.0-5.0 BASOPHIL % (test code=BA%) 1.0 % 0.0-1.0 NEUTROPHIL # (test code=NT#) 1.6 x10 3/uL 1.6-7.2 LYMPHOCYTE # (test code=LY#) 0.90 x10 3/uL 1.1-2.7 MONOCYTE # (test code=MO#) 0.4 x10 3/uL 0.3-0.8 EOSINOPHIL # (test code=EO#) 0.0 x10 3/uL 0.0-0.5 BASOPHIL # (test code=BA#) 0.0 x10 3/uL 0.0-0.1 [id number] 10:58:00 Test Item Value Reference Range Comments TROPONIN-I (test code=TROPI) 0.078 ng/mL 0.000-0.034 PREVIOUSLY CALLED. [id number] 10:56:00 Test Item Value Reference Range Comments MAGNESIUM (test code=MAG) 1.7 mg/dl 1.8-2.5 Spec Comments: Repeat Serum Magnesium level in AM if not alreadyComments to Phleb: ordered.Comments to Phleb: Repeat Serum K level in AM if not already ordered.[id number] 10:54:00 Test Item Value Reference Range Comments GLUBED (test code=GLUBED) 313 MG/DL 70-105 BASIC METABOLIC [id number] 10:54:00 Test Item Value Reference Range Comments SODIUM (test code=NA) 133 mmol/L 135-145 POTASSIUM (test code=K) 3.7 mmol/L 3.6-5.0 CHLORIDE (test code=CL) 98 mmol/L 101-111 CARBON DIOXIDE (test 27 mmol/L 21-31 code=CO2) GLUCOSE (test code=GLU) 209 mg/dl 70-100 BLOOD UREA NITROGEN (test < 5 mg/dl 6-20 code=BUN) GLOMERULAR FILTRATION >=60 max estimate >60 The estimated glomerular RATE (test code=GFR) filtration rate is computed usingpatient race, age (>18), sex, and serum creatinine. If anyof the needed data elements are missing the Laboratory cannot compute an estimation of the glomerular filtration rate. CREATININE (test 0.53 mg/dL 0.44-1.03 code=CREAT) CALCIUM (test code=CA) 8.6 mg/dL 8.5-10.5 [id number] 06:36:00 Test Item Value Reference Range Comments GLUBED (test code=GLUBED) 214 MG/DL 70-105 [id number] 19:50:00 Test Item Value Reference Range Comments GLUBED (test code=GLUBED) 91 MG/DL 70-105 BASIC METABOLIC [id number] 19:35:00 Test Item Value Reference Range Comments SODIUM (test code=NA) 131 mmol/L 135-145 POTASSIUM (test code=K) 2.7 mmol/L 3.6-5.0 Critical Value reported toFirst Name:HERMILA Last Name:ABDULAZIZANGELA READ BACK AND VERIFIEDby N.LAB.NB1, on 08/27/19, @ 1933. CHLORIDE (test code=CL) 96 mmol/L 101-111 CARBON DIOXIDE (test 26 mmol/L -31 code=CO2) GLUCOSE (test code=GLU) 39 mg/dl 70-100 Critical Value reported toFirst Name:HERMILA Last Name:LOREN READ BACK AND VERIFIEDby N.LAB.NB1, on 08/27/19, @ 1935. BLOOD UREA NITROGEN (test < 5 mg/dl 6-20 code=BUN) GLOMERULAR FILTRATION >=60 max estimate >60 The estimated glomerular RATE (test code=GFR) filtration rate is computed usingpatient race, age (>18), sex, and serum creatinine. If anyof the needed data elements are missing the Laboratory cannot compute an estimation of the glomerular filtration rate. CREATININE (test 0.61 mg/dL 0.44-1.03 code=CREAT) CALCIUM (test code=CA) 8.9 mg/dL 8.5-10.5 [id number] 16:19:00 Test Item Value Reference Range Comments GLUBED (test code=GLUBED) 222 MG/DL 70-105 BASIC METABOLIC [id number] 13:40:00 Test Item Value Reference Range Comments SODIUM (test code=NA) 131 mmol/L 135-145 POTASSIUM (test code=K) 3.6 mmol/L 3.6-5.0 CHLORIDE (test code=CL) 93 mmol/L 101-111 CARBON DIOXIDE (test 22 mmol/L 21-31 code=CO2) GLUCOSE (test code=GLU) 210 mg/dl 70-100 BLOOD UREA NITROGEN (test < 5 mg/dl 6-20 code=BUN) GLOMERULAR FILTRATION >=60 max estimate >60 The estimated glomerular RATE (test code=GFR) filtration rate is computed usingpatient race, age (>18), sex, and serum creatinine. If anyof the needed data elements are missing the Laboratory cannot compute an estimation of the glomerular filtration rate. CREATININE (test 0.59 mg/dL 0.44-1.03 code=CREAT) CALCIUM (test code=CA) 8.8 mg/dL 8.5-10.5 LACTIC [id number] 13:17:00 Test Item Value Reference Range Comments LACTIC ACID (test code=LACT) 1.3 mmol/L 0.5-2.0 [id number] 12:51:00 Test Item Value Reference Range Comments GLUBED (test code=GLUBED) 232 MG/DL 70-105 HGBA1C - GLYCOSYLATED [id number] 12:11:00 Test Item Value Reference Range Comments GLYCOSYLATED HEMOGLOBIN (HA1C) 11.3 % 4.0-6.0 Interpretive Data: Caution (test code=GLYHGB) should be exercised when interpreting the HgbA1c in patients with hemolytic anemia, iron deficiency and when the total hemoglobin is < 9g/dL, due to a decrease in average age of red blood cells [id number] 10:17:00 Test Item Value Reference Range Comments GLUBED (test code=GLUBED) 180 MG/DL 70-105 [id number] 09:17:00 Test Item Value Reference Range Comments GLUBED (test code=GLUBED) 273 MG/DL 70-105 B-TYPE NATRIURETIC [id number] 08:38:00 Test Item Value Reference Range Comments B-TYPE NATRIURETIC PEPTIDE (test code=BNP) 48 pg/ml 0-100 BASIC METABOLIC [id number] 08:25:00 Test Item Value Reference Range Comments SODIUM (test code=NA) 127 mmol/L 135-145 POTASSIUM (test code=K) 3.2 mmol/L 3.6-5.0 CHLORIDE (test code=CL) 89 mmol/L 101-111 CARBON DIOXIDE (test 22 mmol/L 21-31 code=CO2) GLUCOSE (test code=GLU) 334 mg/dl 70-100 BLOOD UREA NITROGEN (test 8 mg/dl 6-20 code=BUN) GLOMERULAR FILTRATION >=60 max estimate >60 The estimated glomerular RATE (test code=GFR) filtration rate is computed usingpatient race, age (>18), sex, and serum creatinine. If anyof the needed data elements are missing the Laboratory cannot compute an estimation of the glomerular filtration rate. CREATININE (test 0.69 mg/dL 0.44-1.03 code=CREAT) CALCIUM (test code=CA) 8.6 mg/dL 8.5-10.5 THYROID STIMULATING [id number] 08:25:00 Test Item Value Reference Range Comments THYROID STIMULATING HORMONE (test code=TSH) 1.052 uIU/ml 0.450-5.330 [id number] 08:24:00 Test Item Value Reference Range Comments TROPONIN-I (test code=TROPI) 0.078 ng/mL 0.000-0.034 PREVIOUSLY CALLED. LIPID PROFILE (CORONARY RISK)[id number] 08:14:00 Test Item Value Reference Range Comments TRIGLYCERIDES (test code=TRIG) 83 mg/dL 35-160 CHOLESTEROL (test code=CHOL) 144 mg/dL 0-200 HDL CHOLESTEROL (test 40 mg/dL 29-89 code=HDL) LIPOPROTEIN LDL (test 88 mg/dl 0-100 LDL NORMAL RANGE:Desirable code=LDLC) <100 mg/dLBorderline Risk 130-159 mg/dLHigh Risk >160 mg/dL CORONARY RISK FACTOR (test 3.60 Interpretive Datai1: LDL Calc code=RISK) LDL Normal Range Desirable <100 mg/dl Borderline High 130-159 mg/dl >160 mg/dl High Risk >160 mg/dl i2: Chol/HDL Ratio of Total Cholesterol to HDL Risk Men Women Very Low (1/2 avg) <3.4 <3.3 Low Risk 4.0 3.8 Avg Risk 5.0 4.5 Moderate Risk (2x avg) 9.5 7.0 High Risk (3x risk) >23 >11 CBC W/AUTO [id number] 08:07:00 Test Item Value Reference Range Comments WHITE BLOOD CELL (test code=WBC) 4.8 x10 3/uL 3.2-11.5 RED BLOOD CELL (test code=RBC) 3.55 x10(6)/m 3.70-5.10 HEMOGLOBIN (test code=HGB) 9.4 g/dL 12.0-15.0 HEMATOCRIT (test code=HCT) 28.9 % 35.7-44.8 MEAN CELL VOLUME (test code=MCV) 81 fL 80-100 MEAN CELL HGB (test code=MCH) 26.4 pg 26.2-33.8 MEAN CELL HGB CONCENTRATION (test code=MCHC) 32.5 g/dL 30.0-34.0 RED CELL DISTRIBUTION WIDTH (test code=RDW) 16.5 % 11.3-14.5 PLATELET COUNT (test code=PLT) 235 x10 3/uL 130-408 MEAN PLATELET VOLUME (test code=MPV) 8.1 fl 6.4-10.5 NEUTROPHIL % (test code=NT%) 50.6 % 40.0-70.0 LYMPHOCYTE % (test code=LY%) 37.0 % 20-40 MONOCYTE % (test code=MO%) 11.0 % 1-10 EOSINOPHIL % (test code=EO%) 0.6 % 1.0-5.0 BASOPHIL % (test code=BA%) 0.8 % 0.0-1.0 NEUTROPHIL # (test code=NT#) 2.4 x10 3/uL 1.6-7.2 LYMPHOCYTE # (test code=LY#) 1.80 x10 3/uL 1.1-2.7 MONOCYTE # (test code=MO#) 0.5 x10 3/uL 0.3-0.8 EOSINOPHIL # (test code=EO#) 0.0 x10 3/uL 0.0-0.5 BASOPHIL # (test code=BA#) 0.0 x10 3/uL 0.0-0.1 BASIC METABOLIC [id number] 08:05:00 Test Item Value Reference Range Comments SODIUM (test code=NA) 127 mmol/L 135-145 POTASSIUM (test code=K) 3.2 mmol/L 3.6-5.0 CHLORIDE (test code=CL) 89 mmol/L 101-111 CARBON DIOXIDE (test 22 mmol/L 21-31 code=CO2) GLUCOSE (test code=GLU) 334 mg/dl 70-100 BLOOD UREA NITROGEN (test 8 mg/dl 6-20 code=BUN) GLOMERULAR FILTRATION >=60 max estimate >60 The estimated glomerular RATE (test code=GFR) filtration rate is computed usingpatient race, age (>18), sex, and serum creatinine. If anyof the needed data elements are missing the Laboratory cannot compute an estimation of the glomerular filtration rate. CREATININE (test 0.69 mg/dL 0.44-1.03 code=CREAT) CALCIUM (test code=CA) 8.6 mg/dL 8.5-10.5 THYROID STIMULATING [id number] 08:05:00 Test Item Value Reference Range Comments THYROID STIMULATING HORMONE (test code=TSH) uIU/ml 0.450-5.330 [id number] 07:29:00 Test Item Value Reference Range Comments GLUBED (test code=GLUBED) 355 MG/DL 70-105 OSMOLALITY [id number] 03:03:00 Test Item Value Reference Range Comments OSMOLALITY SERUM (test code=OSMO) 285 mOsm/kg 275-295 - XR CHEST 1 [id number] 03:03:00Patient Name: ESTHER LOZANO Unit No: [id number] EXAMS: CPT: [id number] XR CHEST 1 V 24691 CHEST 1 VIEW CLINICAL HISTORY: Chest pain COMPARISON :06/20/2019. A single frontal view of the chest is submitted. FINDINGS: The cardiac silhouette is normal in size. Vascularity appears normal. The lungs areclear. No pleural effusion or pneumothorax is seen. No osseous abnormalities are seen. IMPRESSION: Negative chest radiograph. at 0303 Reported and signed by: Shan Moe MD CC : Magdiel Good Jr, MD Technologist: PRESTON Avalos Time: DAP (Gy m2): Air Kerma (mGy): Trscr Dt/Tm: 2018 (302) by:[email or web address] Orig Print D/T: S: 08/27/2019 (030) BATCH NO: N/ A Name: ESTHER LOZANO [facility] Phys: Silvano Hammond DO [address] [place] : 03/1970 Age: 49 Sex: [place] [address] Loc: N.ERSD 1 Exam Date: Status: ADM IN PH: FAX: PAGE 1 Signed ReportB-TYPE NATRIURETIC [id number] 02:52:00 Test Item Value Reference Range Comments B-TYPE NATRIURETIC PEPTIDE (test code=BNP) 40 pg/ml 0-100 DRUGS OF ABUSE SCREEN [id number] 02:46:00 Test Item Value Reference Range Comments UR COCAINE (test code=COCAU) NEGATIVE NEGATIVE This is a toxicology qualitative screening test only. Ifconfirmatory testing is desired please request drug screenconfirmation. These results are unconfirmed and should beused only for medical purposes. Cut-off concentration for Cocaine is 300 ng/mLRecommended screening cut-off concentrations by the[facility] Abuse and Mental Health Services Administration. UR CANABINOIDS (test NEGATIVE NEGATIVE This is a toxicology qualitative code=CANU) screening test only. Ifconfirmatory testing is desired please request drug screenconfirmation. These results are unconfirmed and should beused only for medical purposes. Cut-off concentration for THC is 50 ng/mLRecommended screening cut-off concentrations by theSubstance Abuse and Mental Health Services Administration. UR AMPHETAMINE (test NEGATIVE NEGATIVE The ingestion of natural herbal code=AMPHU) and plant productscontaining Ephedra/Ephedra-Metabolites can produce in urineone or more substances capable of cross-reacting withAmphetamine/Methamphetamine immunoassays. This testprovides a preliminary result only. A more specificalternative chemical method must be used to obtain aconfirmed analytical result. This is a toxicology qualitative screening test only. Ifconfirmatory testing is desired please request drug screenconfirmation. These results are unconfirmed and should beused only for medical purposes. Cut-off concentration for Amphetamines is 1000 ng/mLRecommended screening cut-off concentrations by theSubstance Abuse and Mental Health Services Administration. UR BARBITURATE (test NEGATIVE NEGATIVE This is a toxicology qualitative code=BARBQLU) screening test only. Ifconfirmatory testing is desired please request drug screenconfirmation. These results are unconfirmed and should beused only for medical purposes. Cut-off concentration for Barbiturates is 200 ng/mLRecommended screening cut-off concentrations by theSubstance Abuse and Mental Health Services Administration. UR BENZODIAZEPINE (test NEGATIVE NEGATIVE This is a toxicology qualitative code=BENZU) screening test only. Ifconfirmatory testing is desired please request drug screenconfirmation. These results are unconfirmed and should beused only for medical purposes. Cut-off concentration for Benzodiazepines is 200 ng/mLRecommended screening cut-off concentrations by theSubstance Abuse and Mental Health Services Administration. UR OPIATES QUAL (test NEGATIVE NEGATIVE This is a toxicology qualitative code=OPIAQLU) screening test only. Ifconfirmatory testing is desired please request drug screenconfirmation. These results are unconfirmed and should beused only for medical purposes. Cut-off concentration for Opiates is 300 ng/mLRecommended screening cut-off concentrations by theSubstance Abuse and Mental Health Services Administration. UR PHENCYCLIDINE (PCP) (test NEGATIVE NEGATIVE This is a toxicology qualitative code=PHENCU) screening test only. Ifconfirmatory testing is desired please request drug screenconfirmation. These results are unconfirmed and should beused only for medical purposes. Cut-off concentration for PCP is 25 ng/mLRecommended screening cut-off concentrations by the[facility] Abuse and Mental Health Services Administration. PROTHROMBIN [id number] 02:12:00 Test Item Value Reference Range Comments PROTHROMBIN TIME PATIENT 11.5 SECONDS 9.6-13.0 (test code=PTP) INTERNATIONAL NORMAL RATIO 1.0 The INR is to be used only (test code=INR) for monitoring oral anticoagulanttherapy. INDICATION INR VALUE 1. Prophylaxis, deep venous thrombosis, 2.0 - 2.5 including high-risk surgery.2. Prophylaxis, deep venous thrombosis, 2.0 - 3.0 hip surgery, treatment for deep venous thrombosis or pulmonary prevention of systemic embolism in patients with valvular heart disease, atrial fibrillation, tissue heart valve, or acute myocardial infarction.3. Mechanical prosthesis heart valves, 3.0 - 4.5 recurrent systemic embolism. THROMBOPLASTIN TIME [id number] 02:12:00 Test Item Value Reference Range Comments THROMBOPLASTIN TIME PARTIAL (test code=PTT) 24 SECONDS 25-37 [id number] 02:12:00 Test Item Value Reference Range Comments TROPONIN-I (test 0.074 ng/mL 0.000-0.034 Critical Value reported toFirst code=TROPI) Name:PASCALEGEOVANI Argueta Name:STELLA READ BACK AND VERIFIEDby N.LAB., on 08/27/19, @ 0212. LACTIC [id number] 02:12:00 Test Item Value Reference Range Comments LACTIC ACID (test 2.1 mmol/L 0.5-2.0 Critical Value reported toFirst code=LACT) Name:PASCALE Argueta Name:STELLA READ BACK AND VERIFIEDby N.LAB., on 08/27/19, @ 0212. BASIC METABOLIC [id number] 02:11:00 Test Item Value Reference Range Comments SODIUM (test code=NA) 125 mmol/L 135-145 POTASSIUM (test code=K) 3.6 mmol/L 3.6-5.0 CHLORIDE (test code=CL) 86 mmol/L 101-111 CARBON DIOXIDE (test 21 mmol/L 21-31 code=CO2) GLUCOSE (test code=GLU) 303 mg/dl 70-100 BLOOD UREA NITROGEN (test 9 mg/dl 6-20 code=BUN) GLOMERULAR FILTRATION >=60 max estimate >60 The estimated glomerular RATE (test code=GFR) filtration rate is computed usingpatient race, age (>18), sex, and serum creatinine. If anyof the needed data elements are missing the Laboratory cannot compute an estimation of the glomerular filtration rate. CREATININE (test 0.77 mg/dL 0.44-1.03 code=CREAT) CALCIUM (test code=CA) 9.2 mg/dL 8.5-10.5 LIVER FUNCTION [id number] 02:11:00 Test Item Value Reference Range Comments TOTAL PROTEIN (test code=PROT) 8.1 g/dL 6.7-8.2 ALBUMIN (test code=ALB) 4.4 g/dL 3.2-5.5 BILIRUBIN TOTAL (test code=BILT) 1.50 mg/dL 0.2-1.3 BILIRUBIN DIRECT (test code=BILD) 0.2 mg/dL 0.00-0.20 SGOT/AST (test code=AST) 67 U/L 10-42 SGPT/ALT (test code=ALT) 101 U/L 10-60 ALKALINE PHOSPHATASE (test code=ALKP) 143 U/L 42-121 [id number] 02:11:00 Test Item Value Reference Range Comments LIPASE (test code=LIP) 20 IU/L 22-51 BETA [id number] 02:11:00 Test Item Value Reference Range Comments BETA HYDROBUTYRATE (test code=BETHYD) 3.87 mmol/L 0.02-0.27 HCG SERUM [id number] 02:07:00 Test Item Value Reference Range Comments HCG SERUM QUAL (test NEGATIVE NEGATIVE This is a qualitative screening code=HCGQL) test.The quantitative Bhcg may be helpful.Weakly positive results should be repeated in 48 hours. CBC W/AUTO [id number] 02:00:00 Test Item Value Reference Range Comments WHITE BLOOD CELL (test code=WBC) 4.7 x10 3/uL 3.2-11.5 RED BLOOD CELL (test code=RBC) 4.06 x10(6)/m 3.70-5.10 HEMOGLOBIN (test code=HGB) 10.7 g/dL 12.0-15.0 HEMATOCRIT (test code=HCT) 33.2 % 35.7-44.8 MEAN CELL VOLUME (test code=MCV) 82 fL 80-100 MEAN CELL HGB (test code=MCH) 26.3 pg 26.2-33.8 MEAN CELL HGB CONCENTRATION (test code=MCHC) 32.1 g/dL 30.0-34.0 RED CELL DISTRIBUTION WIDTH (test code=RDW) 17.1 % 11.3-14.5 PLATELET COUNT (test code=PLT) 269 x10 3/uL 130-408 MEAN PLATELET VOLUME (test code=MPV) 8.1 fl 6.4-10.5 NEUTROPHIL % (test code=NT%) 58.0 % 40.0-70.0 LYMPHOCYTE % (test code=LY%) 33.6 % 20-40 MONOCYTE % (test code=MO%) 6.8 % 1-10 EOSINOPHIL % (test code=EO%) 0.2 % 1.0-5.0 BASOPHIL % (test code=BA%) 1.4 % 0.0-1.0 NEUTROPHIL # (test code=NT#) 2.7 x10 3/uL 1.6-7.2 LYMPHOCYTE # (test code=LY#) 1.60 x10 3/uL 1.1-2.7 MONOCYTE # (test code=MO#) 0.3 x10 3/uL 0.3-0.8 EOSINOPHIL # (test code=EO#) 0.0 x10 3/uL 0.0-0.5 BASOPHIL # (test code=BA#) 0.1 x10 3/uL 0.0-0.1 BASIC METABOLIC [id number] 01:59:00 Test Item Value Reference Range Comments SODIUM (test code=NA) 125 mmol/L 135-145 POTASSIUM (test code=K) 3.6 mmol/L 3.6-5.0 CHLORIDE (test code=CL) 86 mmol/L 101-111 CARBON DIOXIDE (test 21 mmol/L 21-31 code=CO2) GLUCOSE (test code=GLU) 303 mg/dl 70-100 BLOOD UREA NITROGEN (test 9 mg/dl 6-20 code=BUN) GLOMERULAR FILTRATION >=60 max estimate >60 The estimated glomerular RATE (test code=GFR) filtration rate is computed usingpatient race, age (>18), sex, and serum creatinine. If anyof the needed data elements are missing the Laboratory cannot compute an estimation of the glomerular filtration rate. CREATININE (test 0.77 mg/dL 0.44-1.03 code=CREAT) CALCIUM (test code=CA) 9.2 mg/dL 8.5-10.5 LIVER FUNCTION [id number] 01:59:00 Test Item Value Reference Range Comments TOTAL PROTEIN (test code=PROT) 8.1 g/dL 6.7-8.2 ALBUMIN (test code=ALB) 4.4 g/dL 3.2-5.5 BILIRUBIN TOTAL (test code=BILT) mg/dL 0.2-1.3 BILIRUBIN DIRECT (test code=BILD) mg/dL 0.00-0.20 SGOT/AST (test code=AST) U/L 10-42 SGPT/ALT (test code=ALT) U/L 10-60 ALKALINE PHOSPHATASE (test code=ALKP) U/L 42-121 [id number] 01:59:00 Test Item Value Reference Range Comments LIPASE (test code=LIP) 20 IU/L 22-51 BETA [id number] 01:59:00 Test Item Value Reference Range Comments BETA HYDROBUTYRATE (test code=BETHYD) mmol/L 0.02-0.27 UA RFLX MICR CULT IF [id number] 01:58:00 Test Item Value Reference Range Comments UA COLOR (test code=COLU) YELLOW YELLOW UA APPEARANCE (test code=APPU) HAZY CLEAR UA GLUCOSE DIPSTICK (test code=DGLUU) 3+ NEGATIVE UA BILIRUBIN DIPSTICK (test code=BILU) NEGATIVE NEGATIVE UA KETONE DIPSTICK (test code=KETU) 1+ NEGATIVE UA SPECIFIC GRAVITY (test code=SGU) 1.023 1.001-1.030 UA BLOOD DIPSTICK (test code=TRISHA) NEGATIVE NEGATIVE UA PH DIPSTICK (test code=HELENA) 6.0 5.0-9.0 UA PROTEIN DIPSTICK (test code=PROU) NEGATIVE NEGATIVE UA UROBILINOGEN DIPSTICK (test code=URO) NEGATIVE <=1.0 UA NITRITE DIPSTICK (test code=BRIAN) POSITIVE NEGATIVE UA ASCORBIC ACID DIPSTICK (test code=AAU) NEGATIVE UA LEUKOCYTE ESTERASE DIPSTICK (test code=LEUU) TRACE NEGATIVE UA WBC (test code=WBCUR) 6-10 /HPF 0-5 UA RBC (test code=RBCU) 0-5 /HPF 0-5 UA EPITHELIAL CELLS (test code=EPIU) RARE /LPF NONE-FEW UA BACTERIA (test code=BACU) 1+ /HPF NONE SEEN UA MUCUS (test code=MUCU) 1+ /LPF NONE SEEN Indication for culture: Sev. Sepsis-no other srcARTERIAL BLOOD [id number] 01:12:00 Test Item Value Reference Range Comments ARTERIAL BLOOD GAS PH (test code=PHA) 7.401 7.35-7.45 ARTERIAL BLOOD GAS PCO2 (test code=PCO2A) 32.4 mmHg 45-55 ARTERIAL BLOOD GAS PO2 (test code=PO2A) 134.5 mmHg 80-100 BICARBONATE TOTAL HCO3 (test code=HCO3) 19.7 mmol/L 22-26 BASE EXCESS (test code=TEJAS) -4.3 mmol/L (+/-)2.0 ABG O2 SATURATION (test code=SATA) 98.4 % 95.0-100.0 ABG TYPE (test code=TYPEA) Arterial ARTERIAL FIO2 (test code=FIO2A) 21.0 % ABG VENT MODE (test code=MODEA) Room Air ALLENS TEST (test code=ALLENS) Yes TOTAL HGB (test code=THB) 10.7 g/dL 12.0-16.0 [id number] 16:43:00 Test Item Value Reference Range Comments GLUBED (test code=GLUBED) 350 MG/DL 70-105 [id number] 11:30:00 Test Item Value Reference Range Comments GLUBED (test code=GLUBED) 126 MG/DL 70-105 BASIC METABOLIC [id number] 09:46:00 Test Item Value Reference Range Comments SODIUM (test code=NA) 133 mmol/L 135-145 POTASSIUM (test code=K) 3.1 mmol/L 3.6-5.0 CHLORIDE (test code=CL) 99 mmol/L 101-111 CARBON DIOXIDE (test 23 mmol/L 21-31 code=CO2) GLUCOSE (test code=GLU) 192 mg/dl 70-100 BLOOD UREA NITROGEN (test < 5 mg/dl 6-20 code=BUN) GLOMERULAR FILTRATION >=60 max estimate >60 The estimated glomerular RATE (test code=GFR) filtration rate is computed usingpatient race, age (>18), sex, and serum creatinine. If anyof the needed data elements are missing the Laboratory cannot compute an estimation of the glomerular filtration rate. CREATININE (test 0.59 mg/dL 0.44-1.03 code=CREAT) CALCIUM (test code=CA) 8.9 mg/dL 8.5-10.5 CBC W/AUTO [id number] 08:45:00 Test Item Value Reference Range Comments WHITE BLOOD CELL (test code=WBC) 4.3 x10 3/uL 3.2-11.5 RED BLOOD CELL (test code=RBC) 3.85 x10(6)/m 3.70-5.10 HEMOGLOBIN (test code=HGB) 10.6 g/dL 12.0-15.0 HEMATOCRIT (test code=HCT) 33.6 % 35.7-44.8 MEAN CELL VOLUME (test code=MCV) 87 fL 80-100 MEAN CELL HGB (test code=MCH) 27.5 pg 26.2-33.8 MEAN CELL HGB CONCENTRATION (test code=MCHC) 31.5 g/dL 30.0-34.0 RED CELL DISTRIBUTION WIDTH (test code=RDW) 17.3 % 11.3-14.5 PLATELET COUNT (test code=PLT) 200 x10 3/uL 130-408 MEAN PLATELET VOLUME (test code=MPV) 8.1 fl 6.4-10.5 NEUTROPHIL % (test code=NT%) 41.2 % 40.0-70.0 LYMPHOCYTE % (test code=LY%) 48.7 % 20-40 MONOCYTE % (test code=MO%) 6.9 % 1-10 EOSINOPHIL % (test code=EO%) 2.3 % 1.0-5.0 BASOPHIL % (test code=BA%) 0.9 % 0.0-1.0 NEUTROPHIL # (test code=NT#) 1.8 x10 3/uL 1.6-7.2 LYMPHOCYTE # (test code=LY#) 2.10 x10 3/uL 1.1-2.7 MONOCYTE # (test code=MO#) 0.3 x10 3/uL 0.3-0.8 EOSINOPHIL # (test code=EO#) 0.1 x10 3/uL 0.0-0.5 BASOPHIL # (test code=BA#) 0.0 x10 3/uL 0.0-0.1 [id number] 08:21:00 Test Item Value Reference Range Comments GLUBED (test code=GLUBED) 235 MG/DL 70-105 [id number] 06:52:00 Test Item Value Reference Range Comments GLUBED (test code=GLUBED) 288 MG/DL 70-105 [id number] 20:06:00 Test Item Value Reference Range Comments GLUBED (test code=GLUBED) 262 MG/DL 70-105 [id number] 17:48:00 Test Item Value Reference Range Comments GLUBED (test code=GLUBED) 225 MG/DL 70-105 [id number] 16:52:00 Test Item Value Reference Range Comments GLUBED (test code=GLUBED) 60 MG/DL 70-105 [id number] 16:52:00 Test Item Value Reference Range Comments GLUBED (test code=GLUBED) 53 MG/DL 70-105 [id number] 11:53:00 Test Item Value Reference Range Comments GLUBED (test code=GLUBED) 214 MG/DL 70-105 [id number] 06:28:00 Test Item Value Reference Range Comments GLUBED (test code=GLUBED) 214 MG/DL 70-105 BASIC METABOLIC [id number] 05:08:00 Test Item Value Reference Range Comments SODIUM (test code=NA) 132 mmol/L 135-145 POTASSIUM (test code=K) 4.7 mmol/L 3.6-5.0 CHLORIDE (test code=CL) 105 mmol/L 101-111 CARBON DIOXIDE (test 18 mmol/L 21-31 code=CO2) GLUCOSE (test code=GLU) 226 mg/dl 70-100 BLOOD UREA NITROGEN (test < 5 mg/dl 6-20 code=BUN) GLOMERULAR FILTRATION >=60 max estimate >60 The estimated glomerular RATE (test code=GFR) filtration rate is computed usingpatient race, age (>18), sex, and serum creatinine. If anyof the needed data elements are missing the Laboratory cannot compute an estimation of the glomerular filtration rate. CREATININE (test 0.62 mg/dL 0.44-1.03 code=CREAT) CALCIUM (test code=CA) 7.9 mg/dL 8.5-10.5 [id number] 05:08:00 Test Item Value Reference Range Comments PHOSPHOROUS (test code=PHOS) 2.6 mg/dl 2.5-4.6 [id number] 05:08:00 Test Item Value Reference Range Comments MAGNESIUM (test code=MAG) 1.7 mg/dl 1.8-2.5 [id number] 04:51:00 Test Item Value Reference Range Comments GLUBED (test code=GLUBED) 141 MG/DL 70-105 [id number] 03:42:00 Test Item Value Reference Range Comments GLUBED (test code=GLUBED) 90 MG/DL 70-105 [id number] 02:50:00 Test Item Value Reference Range Comments GLUBED (test code=GLUBED) 117 MG/DL 70-105 [id number] 01:08:00 Test Item Value Reference Range Comments GLUBED (test code=GLUBED) 191 MG/DL 70-105 BASIC METABOLIC [id number] 00:17:00 Test Item Value Reference Range Comments SODIUM (test code=NA) 131 mmol/L 135-145 POTASSIUM (test code=K) 4.4 mmol/L 3.6-5.0 CHLORIDE (test code=CL) 104 mmol/L 101-111 CARBON DIOXIDE (test 11 mmol/L 21-31 Critical Value reported code=CO2) toFirst Name:SHAQ Last Name:ARELY READ BACK AND VERIFIEDby [email or web address], on 06/21/19, @ 0017. GLUCOSE (test code=GLU) 289 mg/dl 70-100 BLOOD UREA NITROGEN (test < 5 mg/dl 6-20 code=BUN) GLOMERULAR FILTRATION >=60 max estimate >60 The estimated glomerular RATE (test code=GFR) filtration rate is computed usingpatient race, age (>18), sex, and serum creatinine. If anyof the needed data elements are missing the Laboratory cannot compute an estimation of the glomerular filtration rate. CREATININE (test 0.84 mg/dL 0.44-1.03 code=CREAT) CALCIUM (test code=CA) 7.7 mg/dL 8.5-10.5 [id number] 00:17:00 Test Item Value Reference Range Comments PHOSPHOROUS (test code=PHOS) 3.1 mg/dl 2.5-4.6 [id number] 00:17:00 Test Item Value Reference Range Comments MAGNESIUM (test code=MAG) 2.9 mg/dl 1.8-2.5 [id number] 00:10:00 Test Item Value Reference Range Comments GLUBED (test code=GLUBED) 248 MG/DL 70-105 [id number] 23:00:00 Test Item Value Reference Range Comments GLUBED (test code=GLUBED) 202 MG/DL 70-105 [id number] 21:43:00 Test Item Value Reference Range Comments GLUBED (test code=GLUBED) 139 MG/DL 70-105 COMPREHENSIVE METABOLIC [id number] 21:09:00 Test Item Value Reference Range Comments SODIUM (test code=NA) 134 mmol/L 135-145 POTASSIUM (test code=K) 3.1 mmol/L 3.6-5.0 CHLORIDE (test code=CL) 107 mmol/L 101-111 CARBON DIOXIDE (test 13 mmol/L 21-31 code=CO2) GLUCOSE (test code=GLU) 160 mg/dl 70-100 BLOOD UREA NITROGEN (test 5 mg/dl 6-20 code=BUN) GLOMERULAR FILTRATION >=60 max estimate >60 The estimated glomerular RATE (test code=GFR) filtration rate is computed usingpatient race, age (>18), sex, and serum creatinine. If anyof the needed data elements are missing the Laboratory cannot compute an estimation of the glomerular filtration rate. CREATININE (test 1.01 mg/dL 0.44-1.03 code=CREAT) TOTAL PROTEIN (test 6.3 g/dL 6.7-8.2 code=PROT) ALBUMIN (test code=ALB) 3.2 g/dL 3.2-5.5 CALCIUM (test code=CA) 7.6 mg/dL 8.5-10.5 BILIRUBIN TOTAL (test 1.80 mg/dL 0.2-1.3 code=BILT) SGOT/AST (test code=AST) 41 U/L 10-42 SGPT/ALT (test code=ALT) 49 U/L 10-60 ALKALINE PHOSPHATASE 91 U/L 42-121 (test code=ALKP) [id number] 21:09:00 Test Item Value Reference Range Comments PHOSPHOROUS (test code=PHOS) 1.5 mg/dl 2.5-4.6 [id number] 21:09:00 Test Item Value Reference Range Comments MAGNESIUM (test code=MAG) 1.4 mg/dl 1.8-2.5 THYROID STIMULATING [id number] 21:09:00 Test Item Value Reference Range Comments THYROID STIMULATING HORMONE (test code=TSH) 1.407 uIU/ml 0.450-5.330 HGBA1C - GLYCOSYLATED [id number] 21:02:00 Test Item Value Reference Range Comments GLYCOSYLATED HEMOGLOBIN (HA1C) 11.9 % 4.0-6.0 Interpretive Data: Caution (test code=GLYHGB) should be exercised when interpreting the HgbA1c in patients with hemolytic anemia, iron deficiency and when the total hemoglobin is < 9g/dL, due to a decrease in average age of red blood cells COMPREHENSIVE METABOLIC [id number] 20:58:00 Test Item Value Reference Range Comments SODIUM (test code=NA) 134 mmol/L 135-145 POTASSIUM (test code=K) 3.1 mmol/L 3.6-5.0 CHLORIDE (test code=CL) 107 mmol/L 101-111 CARBON DIOXIDE (test 13 mmol/L code=CO2) GLUCOSE (test code=GLU) 160 mg/dl 70-100 BLOOD UREA NITROGEN (test 5 mg/dl 6-20 code=BUN) GLOMERULAR FILTRATION >=60 max estimate >60 The estimated glomerular RATE (test code=GFR) filtration rate is computed usingpatient race, age (>18), sex, and serum creatinine. If anyof the needed data elements are missing the Laboratory cannot compute an estimation of the glomerular filtration rate. CREATININE (test 1.01 mg/dL 0.44-1.03 code=CREAT) TOTAL PROTEIN (test 6.3 g/dL 6.7-8.2 code=PROT) ALBUMIN (test code=ALB) 3.2 g/dL 3.2-5.5 CALCIUM (test code=CA) 7.6 mg/dL 8.5-10.5 BILIRUBIN TOTAL (test 1.80 mg/dL 0.2-1.3 code=BILT) SGOT/AST (test code=AST) 41 U/L 10-42 SGPT/ALT (test code=ALT) 49 U/L 10-60 ALKALINE PHOSPHATASE 91 U/L 42-121 (test code=ALKP) [id number] 20:58:00 Test Item Value Reference Range Comments PHOSPHOROUS (test code=PHOS) 1.5 mg/dl 2.5-4.6 [id number] 20:58:00 Test Item Value Reference Range Comments MAGNESIUM (test code=MAG) 1.4 mg/dl 1.8-2.5 THYROID STIMULATING [id number] 20:58:00 Test Item Value Reference Range Comments THYROID STIMULATING HORMONE (test code=TSH) uIU/ml 0.450-5.330 [id number] 20:37:00 Test Item Value Reference Range Comments GLUBED (test code=GLUBED) 96 MG/DL 70-105 THYROID STIMULATING [id number] 19:49:00 Test Item Value Reference Range Comments THYROID STIMULATING HORMONE (test code=TSH) 1.135 uIU/ml 0.450-5.330 [id number] 19:05:00 Test Item Value Reference Range Comments GLUBED (test code=GLUBED) 241 MG/DL 70-105 [id number] 18:38:00 Test Item Value Reference Range Comments GLUBED (test code=GLUBED) 273 MG/DL 70-105 [id number] 17:42:00 Test Item Value Reference Range Comments GLUBED (test code=GLUBED) 521 MG/DL 70-105 ARTERIAL BLOOD [id number] 16:50:00 Test Item Value Reference Range Comments ARTERIAL BLOOD GAS PH (test 7.103 7.35-7.45 Critical Value reported code=PHA) toFirst Name:CLOUD ENGAGEMENT PARTNER Last Name:BOBBYULTS READ BACK AND VERIFIEDby Marisa, on 06/20/19, @ 1650. ARTERIAL BLOOD GAS PCO2 (test 15.4 mmHg 35-45 Critical Value reported code=PCO2A) toFirst Name:CLOUD ENGAGEMENT PARTNER Last Name:YI READ BACK AND VERIFIEDby [email or web address], on 06/20/19, @ 1650. ARTERIAL BLOOD GAS PO2 (test 124.0 mmHg 80-100 code=PO2A) BICARBONATE TOTAL HCO3 (test 4.7 mmol/L 22-26 code=HCO3) BASE EXCESS (test code=TEJAS) -22.9 mmol/L (+/-)2.0 ABG O2 SATURATION (test 97.5 % 95.0-100.0 code=SATA) ABG TYPE (test code=TYPEA) Arterial ARTERIAL FIO2 (test 21.0 % code=FIO2A) ABG VENT MODE (test Room Air code=MODEA) ABG SITE (test code=SITEA) Right Radial ALLENS TEST (test Yes code=ALLENS) TOTAL HGB (test code=THB) 11.0 g/dL 12.0-16.0 BASIC METABOLIC [id number] 16:50:00 Test Item Value Reference Range Comments SODIUM (test code=NA) 127 mmol/L 135-145 POTASSIUM (test code=K) 4.5 mmol/L 3.6-5.0 CHLORIDE (test code=CL) 93 mmol/L 101-111 CARBON DIOXIDE (test 7 mmol/L 21-31 Critical Value reported code=CO2) toFirst Name:STEPH Last Name:HUEY READ BACK AND VERIFIEDby N.LAB.NB1, on 06/20/19, @ 1646. GLUCOSE (test code=GLU) 517 mg/dl 70-100 Critical Value reported toFirst Name:JUDIE Last Name:HUEY READ BACK AND VERIFIEDby N.LAB.NB1, on 06/20/19, @ 1650. BLOOD UREA NITROGEN (test 6 mg/dl 6-20 code=BUN) GLOMERULAR FILTRATION RATE 47 >60 The estimated glomerular (test code=GFR) filtration rate is computed usingpatient race, age (>18), sex, and serum creatinine. If anyof the needed data elements are missing the Laboratory cannot compute an estimation of the glomerular filtration rate. CREATININE (test code=CREAT) 1.28 mg/dL 0.44-1.03 CALCIUM (test code=CA) 8.6 mg/dL 8.5-10.5 LIVER FUNCTION [id number] 16:50:00 Test Item Value Reference Range Comments TOTAL PROTEIN (test code=PROT) 7.8 g/dL 6.7-8.2 ALBUMIN (test code=ALB) 4.0 g/dL 3.2-5.5 BILIRUBIN TOTAL (test code=BILT) 2.60 mg/dL 0.2-1.3 BILIRUBIN DIRECT (test code=BILD) 0.2 mg/dL 0.00-0.20 SGOT/AST (test code=AST) 39 U/L 10-42 SGPT/ALT (test code=ALT) 60 U/L 10-60 ALKALINE PHOSPHATASE (test code=ALKP) 117 U/L 42-121 [id number] 16:50:00 Test Item Value Reference Range Comments TROPONIN-I (test code=TROPI) 0.080 ng/mL 0.000-0.034 PREVIOUSLY CALLED. UA RFLX MICR CULT IF [id number] 16:15:00 Test Item Value Reference Range Comments UA COLOR (test code=COLU) Straw YELLOW UA APPEARANCE (test code=APPU) Clear CLEAR UA GLUCOSE DIPSTICK (test code=DGLUU) 3+ NEGATIVE UA BILIRUBIN DIPSTICK (test code=BILU) NEGATIVE NEGATIVE UA KETONE DIPSTICK (test code=KETU) 2+ NEGATIVE UA SPECIFIC GRAVITY (test code=SGU) 1.021 1.001-1.030 UA BLOOD DIPSTICK (test code=TRISHA) 1+ NEGATIVE UA PH DIPSTICK (test code=HELENA) 5.0 5.0-9.0 UA PROTEIN DIPSTICK (test code=PROU) 1+ NEGATIVE UA UROBILINOGEN DIPSTICK (test code=URO) NEGATIVE <=1.0 UA NITRITE DIPSTICK (test code=BRIAN) NEGATIVE NEGATIVE UA ASCORBIC ACID DIPSTICK (test code=AAU) NEGATIVE UA LEUKOCYTE ESTERASE DIPSTICK (test code=LEUU) NEGATIVE NEGATIVE UA WBC (test code=WBCUR) 6-10 /HPF 0-5 UA RBC (test code=RBCU) 0-5 /HPF 0-5 UA EPITHELIAL CELLS (test code=EPIU) RARE /LPF NONE-FEW UA BACTERIA (test code=BACU) 1+ /HPF NONE SEEN UA MUCUS (test code=MUCU) 1+ /LPF NONE SEEN Indication for culture: Sev. Sepsis-no other srcLACTIC [id number] 16:12: 00 Test Item Value Reference Range Comments LACTIC ACID (test code=LACT) 1.5 mmol/L 0.5-2.0 CBC W/AUTO [id number] 15:54:00 Test Item Value Reference Range Comments WHITE BLOOD CELL (test code=WBC) 6.4 x10 3/uL 3.2-11.5 RED BLOOD CELL (test code=RBC) 4.05 x10(6)/m 3.70-5.10 HEMOGLOBIN (test code=HGB) 11.1 g/dL 12.0-15.0 HEMATOCRIT (test code=HCT) 37.0 % 35.7-44.8 MEAN CELL VOLUME (test code=MCV) 92 fL 80-100 MEAN CELL HGB (test code=MCH) 27.4 pg 26.2-33.8 MEAN CELL HGB CONCENTRATION (test code=MCHC) 30.0 g/dL 30.0-34.0 RED CELL DISTRIBUTION WIDTH (test code=RDW) 17.2 % 11.3-14.5 PLATELET COUNT (test code=PLT) 239 x10 3/uL 130-408 MEAN PLATELET VOLUME (test code=MPV) 8.5 fl 6.4-10.5 NEUTROPHIL % (test code=NT%) 73.7 % 40.0-70.0 LYMPHOCYTE % (test code=LY%) 16.8 % 20-40 MONOCYTE % (test code=MO%) 8.7 % 1-10 EOSINOPHIL % (test code=EO%) 0.1 % 1.0-5.0 BASOPHIL % (test code=BA%) 0.7 % 0.0-1.0 NEUTROPHIL # (test code=NT#) 4.7 x10 3/uL 1.6-7.2 LYMPHOCYTE # (test code=LY#) 1.10 x10 3/uL 1.1-2.7 MONOCYTE # (test code=MO#) 0.6 x10 3/uL 0.3-0.8 EOSINOPHIL # (test code=EO#) 0.0 x10 3/uL 0.0-0.5 BASOPHIL # (test code=BA#) 0.0 x10 3/uL 0.0-0.1 - XR CHEST 1 [id number] 15:13:00Patient Name: ESTHER LOZANO Unit No: [id number] EXAMS: CPT: [id number] XR CHEST 1 V [id number] History: Weakness Portable AP chest compared to 05/23/2019: The heart size and mediastinum are within normal limits. Advanced chronic obstructive lung disease and emphysematous changes of the lungs unchanged from before.IMPRESSION: No acute abnormalities. Electronically Signed by Sukhwinder Yadav on at 1513 Reported and signed by: Sukhwinder De La Rosa MD CC: Chucho Perez MD; Magdiel Good Jr, MD Technologist: Kaz Avalos Time: DAP (Gy m2): Air Kerma (mGy): Trscr Dt/Tm: 06/20/2019 (151) by:Jaswinder Orig Print D/T: S: 2018 (151) BATCH NO: N/A Name: [facility] EDPhys: Chucho Sow MD [facility] : 1970 Age: 49 Sex: F [place], [place] [address] Loc: N.ERS Exam Date: 06/20/2019 Status: PRE ER PH: FAX: PAGE1 Signed [id number] 12:03:00 Test Item Value Reference Range Comments GLUBED (test code=GLUBED) 82 MG/DL 70-105 [id number] 05:53:00 Test Item Value Reference Range Comments GLUBED (test code=GLUBED) 212 MG/DL 70-105 BASIC METABOLIC [id number] 05:24:00 Test Item Value Reference Range Comments SODIUM (test code=NA) 137 mmol/L 135-145 POTASSIUM (test code=K) 3.9 mmol/L 3.6-5.0 CHLORIDE (test code=CL) 105 mmol/L 101-111 CARBON DIOXIDE (test 28 mmol/L 21-31 code=CO2) GLUCOSE (test code=GLU) 194 mg/dl 70-100 BLOOD UREA NITROGEN (test < 5 mg/dl 6-20 code=BUN) GLOMERULAR FILTRATION >=60 max estimate >60 The estimated glomerular RATE (test code=GFR) filtration rate is computed usingpatient race, age (>18), sex, and serum creatinine. If anyof the needed data elements are missing the Laboratory cannot compute an estimation of the glomerular filtration rate. CREATININE (test 0.36 mg/dL 0.44-1.03 code=CREAT) CALCIUM (test code=CA) 8.0 mg/dL 8.5-10.5 LIPID PROFILE (CORONARY RISK)[id number] 05:24:00 Test Item Value Reference Range Comments TRIGLYCERIDES (test code=TRIG) 77 mg/dL 35-160 CHOLESTEROL (test code=CHOL) 128 mg/dL 0-200 HDL CHOLESTEROL (test 46 mg/dL 29-89 code=HDL) LIPOPROTEIN LDL (test 67 mg/dl 0-100 LDL NORMAL RANGE:Desirable code=LDLC) <100 mg/dLBorderline Risk 130-159 mg/dLHigh Risk >160 mg/dL CORONARY RISK FACTOR (test 2.78 Interpretive Datai1: LDL Calc code=RISK) LDL Normal Range Desirable <100 mg/dl Borderline High 130-159 mg/dl >160 mg/dl High Risk >160 mg/dl i2: Chol/HDL Ratio of Total Cholesterol to HDL Risk Men Women Very Low (1/2 avg) <3.4 <3.3 Low Risk 4.0 3.8 Avg Risk 5.0 4.5 Moderate Risk (2x avg) 9.5 7.0 High Risk (3x risk) >23 >11 [id number] 05:24:00 Test Item Value Reference Range Comments MAGNESIUM (test code=MAG) 1.6 mg/dl 1.8-2.5 CBC W/AUTO [id number] 05:18:00 Test Item Value Reference Range Comments WHITE BLOOD CELL (test code=WBC) 3.6 x10 3/uL 3.2-11.5 RED BLOOD CELL (test code=RBC) 3.01 x10(6)/m 3.70-5.10 HEMOGLOBIN (test code=HGB) 8.6 g/dL 12.0-15.0 HEMATOCRIT (test code=HCT) 26.2 % 35.7-44.8 MEAN CELL VOLUME (test code=MCV) 87 fL 80-100 MEAN CELL HGB (test code=MCH) 28.7 pg 26.2-33.8 MEAN CELL HGB CONCENTRATION (test code=MCHC) 33.0 g/dL 30.0-34.0 RED CELL DISTRIBUTION WIDTH (test code=RDW) 17.3 % 11.3-14.5 PLATELET COUNT (test code=PLT) 218 x10 3/uL 130-408 MEAN PLATELET VOLUME (test code=MPV) 8.2 fl 6.4-10.5 NEUTROPHIL % (test code=NT%) 49.9 % 40.0-70.0 LYMPHOCYTE % (test code=LY%) 36.4 % 20-40 MONOCYTE % (test code=MO%) 11.6 % 1-10 EOSINOPHIL % (test code=EO%) 1.4 % 1.0-5.0 BASOPHIL % (test code=BA%) 0.7 % 0.0-1.0 NEUTROPHIL # (test code=NT#) 1.8 x10 3/uL 1.6-7.2 LYMPHOCYTE # (test code=LY#) 1.30 x10 3/uL 1.1-2.7 MONOCYTE # (test code=MO#) 0.4 x10 3/uL 0.3-0.8 EOSINOPHIL # (test code=EO#) 0.1 x10 3/uL 0.0-0.5 BASOPHIL # (test code=BA#) 0.0 x10 3/uL 0.0-0.1 [id number] 21:00:00 Test Item Value Reference Range Comments GLUBED (test code=GLUBED) 169 MG/DL 70-105 [id number] 16:21:00 Test Item Value Reference Range Comments GLUBED (test code=GLUBED) 202 MG/DL 70-105 - XR CHEST 1 [id number] 16:09:00Patient Name: ESTHER LOZANO Unit No: [id number] EXAMS: CPT: [id number] XR CHEST 1 V [id number] CHEST RADIOGRAPH, ONE VIEW: FRONTAL HISTORY: Shortness of breath. COMPARISON: May 14, 2019 FINDINGS: The lungs are clear and the cardiovascular silhouette is normal. No infiltrates or pulmonary edema is present. No pleural effusions are seen. IMPRESSION: No acute lung findings. at 1609 Reported and signed by:Michael Saucedo MD CC: Helena Silver DO; Jory Olmstead DO; Magdiel Good Jr, MD Technologist: Harley Avalos Time: DAP (Gy m2): AirKerma (mGy): Trscr Dt/Tm: 05/23/2019 (4028) by:[email or web address] Orig Print D/T: S: 05/23/2019 (1613) BATCH NO: N/A Name: ESTHER LOZANO [facility] Phys: HENRY Ian Jory Olmstead [address] [place] : 1970 Age: 49 Sex: F [place] [id number] Loc: N.[id number] 1 Exam Date: 05/23/2019 Status: ADM IN PH: FAX: PAGE 1 Signed [id number] 11:50:00 Test Item Value Reference Range Comments GLUBED (test code=GLUBED) 92 MG/DL 70-105 BASIC METABOLIC [id number] 11:39:00 Test Item Value Reference Range Comments SODIUM (test code=NA) 135 mmol/L 135-145 POTASSIUM (test code=K) 3.4 mmol/L 3.6-5.0 CHLORIDE (test code=CL) 103 mmol/L 101-111 CARBON DIOXIDE (test 26 mmol/L 21-31 code=CO2) GLUCOSE (test code=GLU) 107 mg/dl 70-100 BLOOD UREA NITROGEN (test < 5 mg/dl 6-20 code=BUN) GLOMERULAR FILTRATION >=60 max estimate >60 The estimated glomerular RATE (test code=GFR) filtration rate is computed usingpatient race, age (>18), sex, and serum creatinine. If anyof the needed data elements are missing the Laboratory cannot compute an estimation of the glomerular filtration rate. CREATININE (test 0.49 mg/dL 0.44-1.03 code=CREAT) CALCIUM (test code=CA) 8.2 mg/dL 8.5-10.5 [id number] 11:39:00 Test Item Value Reference Range Comments MAGNESIUM (test code=MAG) 1.7 mg/dl 1.8-2.5 CBC W/AUTO [id number] 11:28:00 Test Item Value Reference Range Comments WHITE BLOOD CELL (test code=WBC) 3.1 x10 3/uL 3.2-11.5 RED BLOOD CELL (test code=RBC) 3.32 x10(6)/m 3.70-5.10 HEMOGLOBIN (test code=HGB) 9.4 g/dL 12.0-15.0 HEMATOCRIT (test code=HCT) 29.1 % 35.7-44.8 MEAN CELL VOLUME (test code=MCV) 87 fL 80-100 MEAN CELL HGB (test code=MCH) 28.3 pg 26.2-33.8 MEAN CELL HGB CONCENTRATION (test code=MCHC) 32.4 g/dL 30.0-34.0 RED CELL DISTRIBUTION WIDTH (test code=RDW) 17.2 % 11.3-14.5 PLATELET COUNT (test code=PLT) 230 x10 3/uL 130-408 MEAN PLATELET VOLUME (test code=MPV) 8.0 fl 6.4-10.5 NEUTROPHIL % (test code=NT%) 54.9 % 40.0-70.0 LYMPHOCYTE % (test code=LY%) 32.5 % 20-40 MONOCYTE % (test code=MO%) 10.4 % 1-10 EOSINOPHIL % (test code=EO%) 1.5 % 1.0-5.0 BASOPHIL % (test code=BA%) 0.7 % 0.0-1.0 NEUTROPHIL # (test code=NT#) 1.7 x10 3/uL 1.6-7.2 LYMPHOCYTE # (test code=LY#) 1.00 x10 3/uL 1.1-2.7 MONOCYTE # (test code=MO#) 0.3 x10 3/uL 0.3-0.8 EOSINOPHIL # (test code=EO#) 0.0 x10 3/uL 0.0-0.5 BASOPHIL # (test code=BA#) 0.0 x10 3/uL 0.0-0.1 [id number] 09:38:00 Test Item Value Reference Range Comments GLUBED (test code=GLUBED) 62 MG/DL 70-105 [id number] 05:50:00 Test Item Value Reference Range Comments GLUBED (test code=GLUBED) 111 MG/DL 70-105 [id number] 21:20:00 Test Item Value Reference Range Comments GLUBED (test code=GLUBED) 126 MG/DL 70-105 [id number] 17:50:00 Test Item Value Reference Range Comments GLUBED (test code=GLUBED) 200 MG/DL 70-105 [id number] 17:02:00 Test Item Value Reference Range Comments GLUBED (test code=GLUBED) 50 MG/DL 70-105 [id number] 13:36:00 Test Item Value Reference Range Comments GLUBED (test code=GLUBED) 164 MG/DL 70-105 [id number] 12:28:00 Test Item Value Reference Range Comments GLUBED (test code=GLUBED) 68 MG/DL 70-105 [id number] 11:59:00 Test Item Value Reference Range Comments GLUBED (test code=GLUBED) 35 MG/DL 70-105 [id number] 08:40:00 Test Item Value Reference Range Comments GLUBED (test code=GLUBED) 221 MG/DL 70-105 [id number] 07:19:00 Test Item Value Reference Range Comments GLUBED (test code=GLUBED) 517 MG/DL 70-105 [id number] 06:14:00 Test Item Value Reference Range Comments GLUBED (test code=GLUBED) 234 MG/DL 70-105 [id number] 03:28:00 Test Item Value Reference Range Comments GLUBED (test code=GLUBED) 166 MG/DL 70-105 [id number] 01:24:00 Test Item Value Reference Range Comments GLUBED (test code=GLUBED) 80 MG/DL 70-105 BASIC METABOLIC [id number] 01:22:00 Test Item Value Reference Range Comments SODIUM (test code=NA) 136 mmol/L 135-145 POTASSIUM (test code=K) 4.3 mmol/L 3.6-5.0 CHLORIDE (test code=CL) 107 mmol/L 101-111 CARBON DIOXIDE (test 20 mmol/L 21-31 code=CO2) GLUCOSE (test code=GLU) 137 mg/dl 70-100 BLOOD UREA NITROGEN (test < 5 mg/dl 6-20 code=BUN) GLOMERULAR FILTRATION >=60 max estimate >60 The estimated glomerular RATE (test code=GFR) filtration rate is computed usingpatient race, age (>18), sex, and serum creatinine. If anyof the needed data elements are missing the Laboratory cannot compute an estimation of the glomerular filtration rate. CREATININE (test 0.58 mg/dL 0.44-1.03 code=CREAT) CALCIUM (test code=CA) 7.5 mg/dL 8.5-10.5 [id number] 01:22:00 Test Item Value Reference Range Comments PHOSPHOROUS (test code=PHOS) 1.6 mg/dl 2.5-4.6 [id number] 01:22:00 Test Item Value Reference Range Comments MAGNESIUM (test code=MAG) 1.9 mg/dl 1.8-2.5 [id number] 00:26:00 Test Item Value Reference Range Comments GLUBED (test code=GLUBED) 145 MG/DL 70-105 [id number] 22:35:00 Test Item Value Reference Range Comments GLUBED (test code=GLUBED) 264 MG/DL 70-105 [id number] 21:44:00 Test Item Value Reference Range Comments GLUBED (test code=GLUBED) 204 MG/DL 70-105 BASIC METABOLIC [id number] 21:02:00 Test Item Value Reference Range Comments SODIUM (test code=NA) 129 mmol/L 135-145 POTASSIUM (test code=K) 2.8 mmol/L 3.6-5.0 Critical Value reported toFirst Name:HUMBERTO Last Name:LAILABRYAN READ BACK AND VERIFIEDby N.LAB.IBT, on 05/21/19, @ 2050. CHLORIDE (test code=CL) 102 mmol/L 101-111 CARBON DIOXIDE (test 11 mmol/L 21-31 Critical Value reported code=CO2) toFirst Name:HUMBERTO Last Name:HEVER READ BACK AND VERIFIEDby N.LAB.IBT, on 05/21/19, @ 2050. GLUCOSE (test code=GLU) 290 mg/dl 70-100 BLOOD UREA NITROGEN (test 5 mg/dl 20 code=BUN) GLOMERULAR FILTRATION >=60 max estimate >60 The estimated glomerular RATE (test code=GFR) filtration rate is computed usingpatient race, age (>18), sex, and serum creatinine. If anyof the needed data elements are missing the Laboratory cannot compute an estimation of the glomerular filtration rate. CREATININE (test 0.97 mg/dL 0.44-1.03 code=CREAT) CALCIUM (test code=CA) 7.1 mg/dL 8.5-10.5 Spec Comments: If not previously obtained.Spec Comments: Q1S-Ywnah on insulin drip. If K is < 3.3 change orComments to Phleb: order to Q1H.[id number] 21:02:00 Test Item Value Reference Range Comments PHOSPHOROUS (test code=PHOS) 1.0 mg/dl 2.5-4.6 Critical Value reported toFirst Name:HUMBERTO Last Name:HEVER READ BACK AND VERIFIEDby ARNOLDIBT, on 05/21/19, @ 2051. Spec Comments: If not previously obtained.Spec Comments: U5N-Qymmh on insulin drip. If K is < 3.3 change orComments to Phleb: order to Q1H.CREATINE KINASE (CK)2019-05-21 21:02:00 Test Item Value Reference Range Comments CREATINE KINASE (CK) (test code=CK) 29 U/L 0-210 Spec Comments: If not previously obtained.Spec Comments: V1A-Qewtn on insulin drip. If K is < 3.3 change orComments to Phleb: order to Q1H.[id number] 21:02:00 Test Item Value Reference Range Comments AMYLASE (test code=BHARAT) 18 U/L 25-125 Spec Comments: If not previously obtained.Spec Comments: N8H-Teudr on insulin drip. If K is < 3.3 change orComments to Phleb: order to Q1H.[id number] 21:02:00 Test Item Value Reference Range Comments MAGNESIUM (test code=MAG) 1.7 mg/dl 1.8-2.5 Spec Comments: If not previously obtained.Spec Comments: Q2W-Lesdu on insulin drip. If K is < 3.3 change orComments to Phleb: order to Q1H.THYROID STIMULATING [id number] 21:02:00 Test Item Value Reference Range Comments THYROID STIMULATING HORMONE (test code=TSH) 0.616 uIU/ml 0.450-5.330 Spec Comments: If not previously obtained.Spec Comments: H6M-Htmcy on insulin drip. If K is < 3.3 change orComments to Phleb: order to Q1H.BASIC METABOLIC [id number] 20:52:00 Test Item Value Reference Range Comments SODIUM (test code=NA) 129 mmol/L 135-145 POTASSIUM (test code=K) 2.8 mmol/L 3.6-5.0 Critical Value reported toFirst Name:HUMBERTO Last Name:HEVER READ BACK AND VERIFIEDby N.LAB.IBT, on 05/21/19, @ 2050. CHLORIDE (test code=CL) 102 mmol/L 101-111 CARBON DIOXIDE (test 11 mmol/L 21-31 Critical Value reported code=CO2) toFirst Name:HUMBERTO Last Name:HEVER READ BACK AND VERIFIEDby N.LAB.IBT, on 05/21/19, @ 2050. GLUCOSE (test code=GLU) 290 mg/dl 70-100 BLOOD UREA NITROGEN (test 5 mg/dl 6-20 code=BUN) GLOMERULAR FILTRATION >=60 max estimate >60 The estimated glomerular RATE (test code=GFR) filtration rate is computed usingpatient race, age (>18), sex, and serum creatinine. If anyof the needed data elements are missing the Laboratory cannot compute an estimation of the glomerular filtration rate. CREATININE (test 0.97 mg/dL 0.44-1.03 code=CREAT) CALCIUM (test code=CA) 7.1 mg/dL 8.5-10.5 Spec Comments: If not previously obtained.Spec Comments: Y2L-Dnjoe on insulin drip. If K is < 3.3 change orComments to Phleb: order to Q1H.[id number] 20:52:00 Test Item Value Reference Range Comments PHOSPHOROUS (test code=PHOS) 1.0 mg/dl 2.5-4.6 Critical Value reported toFirst Name:HUMBERTO Last Name:HEVER READ BACK AND VERIFIEDby N.LAB.IBT, on 05/21/19, @ 2051. Spec Comments: If not previously obtained.Spec Comments: A6H-Cbodi on insulin drip. If K is < 3.3 change orComments to Phleb: order to Q1H.CREATINE KINASE (CK)2019-05-21 20:52:00 Test Item Value Reference Range Comments CREATINE KINASE (CK) (test code=CK) 29 U/L 0-210 Spec Comments: If not previously obtained.Spec Comments: Y4A-Vitvr on insulin drip. If K is < 3.3 change orComments to Phleb: order to Q1H.[id number] 20:52:00 Test Item Value Reference Range Comments AMYLASE (test code=BHARAT) 18 U/L 25-125 Spec Comments: If not previously obtained.Spec Comments: M8W-Whdxr on insulin drip. If K is < 3.3 change orComments to Phleb: order to Q1H.[id number] 20:52:00 Test Item Value Reference Range Comments MAGNESIUM (test code=MAG) 1.7 mg/dl 1.8-2.5 Spec Comments: If not previously obtained.Spec Comments: B4Z-Vujxg on insulin drip. If K is < 3.3 change orComments to Phleb: order to Q1H.THYROID STIMULATING [id number] 20:52:00 Test Item Value Reference Range Comments THYROID STIMULATING HORMONE (test code=TSH) uIU/ml 0.450-5.330 Spec Comments: If not previously obtained.Spec Comments: J8G-Cpkhq on insulin drip. If K is < 3.3 change orComments to Phleb: order to Q1H.[id number] 20:42:00 Test Item Value Reference Range Comments GLUBED (test code=GLUBED) 300 MG/DL 70-105 [id number] 20:37:00 Test Item Value Reference Range Comments TROPONIN-I (test code=TROPI) 0.086 ng/mL 0.000-0.034 PREVIOUSLY CALLED. [id number] 20:18:00 Test Item Value Reference Range Comments GLUBED (test code=GLUBED) 326 MG/DL 70-105 HGBA1C - GLYCOSYLATED [id number] 18:10:00 Test Item Value Reference Range Comments GLYCOSYLATED HEMOGLOBIN (HA1C) 10.7 % 4.0-6.0 Interpretive Data: Caution (test code=GLYHGB) should be exercised when interpreting the HgbA1c in patients with hemolytic anemia, iron deficiency and when the total hemoglobin is < 9g/dL, due to a decrease in average age of red blood cells BASIC METABOLIC [id number] 17:24:00 Test Item Value Reference Range Comments SODIUM (test code=NA) 123 mmol/L 135-145 POTASSIUM (test code=K) 4.2 mmol/L 3.6-5.0 CHLORIDE (test code=CL) 84 mmol/L 101-111 CARBON DIOXIDE (test 10 mmol/L 21-31 Critical Value reported code=CO2) toFirst Name:JUSTUS Last Name:PARIS READ BACK AND VERIFIEDby N.LAB.IBT, on 05/21/19, @ 1723. GLUCOSE (test code=GLU) 562 mg/dl 70-100 Critical Value reported toFirst Name:JUSTUS Last Name:BEVERLEY READ BACK AND VERIFIEDby N.LAB.IBT, on 05/21/19, @ 1724. BLOOD UREA NITROGEN (test 7 mg/dl 6-20 code=BUN) GLOMERULAR FILTRATION RATE 56 >60 The estimated glomerular (test code=GFR) filtration rate is computed usingpatient race, age (>18), sex, and serum creatinine. If anyof the needed data elements are missing the Laboratory cannot compute an estimation of the glomerular filtration rate. CREATININE (test code=CREAT) 1.11 mg/dL 0.44-1.03 CALCIUM (test code=CA) 8.2 mg/dL 8.5-10.5 [id number] 17:24:00 Test Item Value Reference Range Comments MAGNESIUM (test code=MAG) 1.7 mg/dl 1.8-2.5 [id number] 17:22:00 Test Item Value Reference Range Comments TROPONIN-I (test code=TROPI) 0.091 ng/mL 0.000-0.034 PREVIOUSLY CALLED. URINALYSIS [id number] 17:09:00 Test Item Value Reference Range Comments UA COLOR (test code=COLU) Straw YELLOW UA APPEARANCE (test code=APPU) Clear CLEAR UA GLUCOSE DIPSTICK (test code=DGLUU) 3+ NEGATIVE UA BILIRUBIN DIPSTICK (test code=BILU) NEGATIVE NEGATIVE UA KETONE DIPSTICK (test code=KETU) 2+ NEGATIVE UA SPECIFIC GRAVITY (test code=SGU) 1.017 1.001-1.030 UA BLOOD DIPSTICK (test code=TRISHA) 1+ NEGATIVE UA PH DIPSTICK (test code=HELENA) 5.0 5.0-9.0 UA PROTEIN DIPSTICK (test code=PROU) NEGATIVE NEGATIVE UA UROBILINOGEN DIPSTICK (test code=URO) NEGATIVE <=1.0 UA NITRITE DIPSTICK (test code=BRIAN) NEGATIVE NEGATIVE UA ASCORBIC ACID DIPSTICK (test code=AAU) NEGATIVE UA LEUKOCYTE ESTERASE DIPSTICK (test code=LEUU) NEGATIVE NEGATIVE UA WBC (test code=WBCU) 0-5 /HPF 0-5 UA RBC (test code=RBCU) 0-5 /HPF 0-5 UA EPITHELIAL CELLS (test code=EPIU) OCC /LPF NONE-FEW UA BACTERIA (test code=BACU) None /HPF NONE SEEN UA HYALINE CAST (test code=HYALU) 0-1 /LPF 0-1 UA MUCUS (test code=MUCU) 1+ /LPF NONE SEEN Spec Comments: If not previously obtainedOSMOLALITY [id number] 17:06:00 Test Item Value Reference Range Comments OSMOLALITY SERUM (test code=OSMO) 301 mOsm/kg 275-295 LACTIC [id number] 16:54:00 Test Item Value Reference Range Comments LACTIC ACID (test 2.6 mmol/L 0.5-2.0 Critical Value reported code=LACT) toFirst Name:DR ROSALES READ BACK AND VERIFIEDby N.LAB.IBT, on 05/21/19, @ 0682. ARTERIAL BLOOD [id number] 14:00:00 Test Item Value Reference Range Comments ARTERIAL BLOOD GAS PH (test 7.198 7.35-7.45 Critical Value reported code=PHA) toFirst Name:CLOUD ENGAGEMENT PARTNER Last Name:YI READ BACK AND VERIFIEDby [email or web address], on 05/21/19, @ 1400. ARTERIAL BLOOD GAS PCO2 (test 16.7 mmHg 35-45 Critical Value reported code=PCO2A) toFirst Name:CLOUD ENGAGEMENT PARTNER Last Name:YI READ BACK AND VERIFIEDby [email or web address], on 05/21/19, @ 1400. ARTERIAL BLOOD GAS PO2 (test 115.4 mmHg 80-100 code=PO2A) BICARBONATE TOTAL HCO3 (test 6.4 mmol/L 22-26 code=HCO3) BASE EXCESS (test code=TEJAS) -19.6 mmol/L (+/-)2.0 ABG O2 SATURATION (test 97.0 % 95.0-100.0 code=SATA) ABG TYPE (test code=TYPEA) Arterial ARTERIAL FIO2 (test 21.0 % code=FIO2A) ABG VENT MODE (test Room Air code=MODEA) ALLENS TEST (test Yes code=ALLENS) TOTAL HGB (test code=THB) 10.7 g/dL 12.0-16.0 COMPREHENSIVE METABOLIC [id number] 13:58:00 Test Item Value Reference Range Comments SODIUM (test code=NA) 122 mmol/L 135-145 POTASSIUM (test code=K) 3.8 mmol/L 3.6-5.0 CHLORIDE (test code=CL) 87 mmol/L 101-111 CARBON DIOXIDE (test 7 mmol/L 21-31 Critical Value reported code=CO2) toFirst Name:TRANG Last Name:ANA READ BACK AND VERIFIEDby N.LAB.IBT, on 05/21/19, @ 1256. GLUCOSE (test code=GLU) 574 mg/dl 70-100 Critical Value reported toFirst Name:TRANG Last Name:ANA READ BACK AND VERIFIEDby N.LAB.IBT, on 05/21/19, @ 1256. BLOOD UREA NITROGEN (test 7 mg/dl 6-20 code=BUN) GLOMERULAR FILTRATION RATE 48 >60 The estimated glomerular (test code=GFR) filtration rate is computed usingpatient race, age (>18), sex, and serum creatinine. If anyof the needed data elements are missing the Laboratory cannot compute an estimation of the glomerular filtration rate. CREATININE (test code=CREAT) 1.26 mg/dL 0.44-1.03 TOTAL PROTEIN (test 7.7 g/dL 6.7-8.2 code=PROT) ALBUMIN (test code=ALB) 3.5 g/dL 3.2-5.5 CALCIUM (test code=CA) 7.9 mg/dL 8.5-10.5 BILIRUBIN TOTAL (test 3.00 mg/dL 0.2-1.3 code=BILT) SGOT/AST (test code=AST) 51 U/L 10-42 SGPT/ALT (test code=ALT) 41 U/L 10-60 ALKALINE PHOSPHATASE (test 152 U/L 42-121 code=ALKP) BETA [id number] 13:58:00 Test Item Value Reference Range Comments BETA HYDROBUTYRATE (test code=BETHYD) 11.95 mmol/L 0.02-0.27 COMPREHENSIVE METABOLIC [id number] 12:56:00 Test Item Value Reference Range Comments SODIUM (test code=NA) 122 mmol/L 135-145 POTASSIUM (test code=K) 3.8 mmol/L 3.6-5.0 CHLORIDE (test code=CL) 87 mmol/L 101-111 CARBON DIOXIDE (test 7 mmol/L 21-31 Critical Value reported code=CO2) toFirst Name:TRANG Last Name:ANA READ BACK AND VERIFIEDby N.LAB.IBT, on 05/21/19, @ 1256. GLUCOSE (test code=GLU) 574 mg/dl 70-100 Critical Value reported toFirst Name:TRANG Last Name:ANA READ BACK AND VERIFIEDby N.LAB.IBT, on 05/21/19, @ 1256. BLOOD UREA NITROGEN (test 7 mg/dl 6-20 code=BUN) GLOMERULAR FILTRATION RATE 48 >60 The estimated glomerular (test code=GFR) filtration rate is computed usingpatient race, age (>18), sex, and serum creatinine. If anyof the needed data elements are missing the Laboratory cannot compute an estimation of the glomerular filtration rate. CREATININE (test code=CREAT) 1.26 mg/dL 0.44-1.03 TOTAL PROTEIN (test 7.7 g/dL 6.7-8.2 code=PROT) ALBUMIN (test code=ALB) 3.5 g/dL 3.2-5.5 CALCIUM (test code=CA) 7.9 mg/dL 8.5-10.5 BILIRUBIN TOTAL (test 3.00 mg/dL 0.2-1.3 code=BILT) SGOT/AST (test code=AST) 51 U/L 10-42 SGPT/ALT (test code=ALT) 41 U/L 10-60 ALKALINE PHOSPHATASE (test 152 U/L 42-121 code=ALKP) BETA [id number] 12:56:00 Test Item Value Reference Range Comments BETA HYDROBUTYRATE (test code=BETHYD) mmol/L 0.02-0.27 PROTHROMBIN [id number] 12:48:00 Test Item Value Reference Range Comments PROTHROMBIN TIME PATIENT 11.2 SECONDS 9.6-13.0 (test code=PTP) INTERNATIONAL NORMAL RATIO 1.0 The INR is to be used only (test code=INR) for monitoring oral anticoagulanttherapy. INDICATION INR VALUE 1. Prophylaxis, deep venous thrombosis, 2.0 - 2.5 including high-risk surgery.2. Prophylaxis, deep venous thrombosis, 2.0 - 3.0 hip surgery, treatment for deep venous thrombosis or pulmonary prevention of systemic embolism in patients with valvular heart disease, atrial fibrillation, tissue heart valve, or acute myocardial infarction.3. Mechanical prosthesis heart valves, 3.0 - 4.5 recurrent systemic embolism. THROMBOPLASTIN TIME [id number] 12:48:00 Test Item Value Reference Range Comments THROMBOPLASTIN TIME PARTIAL (test code=PTT) 17 SECONDS 25-37 CBC W/AUTO [id number] 12:29:00 Test Item Value Reference Range Comments WHITE BLOOD CELL (test code=WBC) 9.4 x10 3/uL 3.2-11.5 RED BLOOD CELL (test code=RBC) 3.71 x10(6)/m 3.70-5.10 HEMOGLOBIN (test code=HGB) 10.7 g/dL 12.0-15.0 HEMATOCRIT (test code=HCT) 34.2 % 35.7-44.8 MEAN CELL VOLUME (test code=MCV) 92 fL 80-100 MEAN CELL HGB (test code=MCH) 28.7 pg 26.2-33.8 MEAN CELL HGB CONCENTRATION (test code=MCHC) 31.2 g/dL 30.0-34.0 RED CELL DISTRIBUTION WIDTH (test code=RDW) 17.2 % 11.3-14.5 PLATELET COUNT (test code=PLT) 424 x10 3/uL 130-408 MEAN PLATELET VOLUME (test code=MPV) 8.1 fl 6.4-10.5 NEUTROPHIL % (test code=NT%) 74.6 % 40.0-70.0 LYMPHOCYTE % (test code=LY%) 15.2 % 20-40 MONOCYTE % (test code=MO%) 9.5 % 1-10 EOSINOPHIL % (test code=EO%) 0.1 % 1.0-5.0 BASOPHIL % (test code=BA%) 0.6 % 0.0-1.0 NEUTROPHIL # (test code=NT#) 7.0 x10 3/uL 1.6-7.2 LYMPHOCYTE # (test code=LY#) 1.40 x10 3/uL 1.1-2.7 MONOCYTE # (test code=MO#) 0.9 x10 3/uL 0.3-0.8 EOSINOPHIL # (test code=EO#) 0.0 x10 3/uL 0.0-0.5 BASOPHIL # (test code=BA#) 0.1 x10 3/uL 0.0-0.1 GLUCOSE BEDSIDE [id number] 17:01:00 Test Item Value Reference Range Comments GLUCOSE BEDSIDE TESTING (test code=GLUBED) 105 mg/dL 70-110 COMPREHENSIVE METABOLIC [id number] 16:02:00 Test Item Value Reference Range Comments SODIUM (test code=NA) 133 mmol/L 134-147 POTASSIUM (test code=K) 3.4 mmol/L 3.4-5.0 CHLORIDE (test code=CL) 97 mmol/L 100-108 CARBON DIOXIDE (test code=CO2) 24 mmol/L 21-32 ANION GAP (test code=GAP) 12.0 GAP calc 4.0-15.0 GLUCOSE (test code=GLU) 296 MG/DL 70-110 BLOOD UREA NITROGEN (test code=BUN) 2 MG/DL 7-18 GLOMERULAR FILTRATION RATE (test >=60 max estimate estGFR >60 code=GFR) CREATININE (test code=CREAT) 0.6 MG/DL 0.6-1.0 TOTAL PROTEIN (test code=PROT) 7.5 G/DL 6.4-8.2 ALBUMIN (test code=ALB) 3.4 G/DL 3.4-5.0 GLOBULIN (test code=GLOB) 4.1 GM/dL ALBUMIN/GLOBULIN RATIO (test 0.8 RATIO 1.2-2.2 code=A/G) CALCIUM (test code=CA) 7.9 MG/DL 8.5-10.1 BILIRUBIN TOTAL (test code=BILT) 0.60 MG/DL 0.2-1.2 SGOT/AST (test code=AST) 196 Unit/L 15-37 SGPT/ALT (test code=ALT) 86 Unit/L 12-78 ALKALINE PHOSPHATASE TOTAL (test 208 Unit/L 45-117 code=ALKP) Completed by Nursing: [id number] 16:02:00 Test Item Value Reference Range Comments TROPONIN-I (test < 0.015 NG/ML 0.000-0.045 Negative: </=0.045 Positive: code=TROPI) >/=0.046 Correlation with serial results, other cardiac markers, and clinical findings is necessary to determine the clinical significance of this result. Quantitative results using different methodologies should not be compared to one another as numerical results may varyby method. Completed by Nursing: NOURINALYSIS [id number] 15:45:00 Test Item Value Reference Range Comments UA GLUCOSE DIPSTICK (test code=DGLUU) NEGATIVE mg/dL NEG UA BILIRUBIN DIPSTICK (test code=BILU) NEGATIVE mg/DL (NEG) 0 UA KETONE DIPSTICK (test code=KETU) NEGATIVE mg/DL (NEG) 0 UA SPECIFIC GRAVITY (test code=SGU) 1.000 SG 1.005-1.030 UA BLOOD DIPSTICK (test code=TRISHA) NEGATIVE Norberto/mcL (NEG) 0 UA PH DIPSTICK (test code=HELENA) <=5.0 pH UNITS 5.0-7.0 UA PROTEIN DIPSTICK (test code=PROU) NEG mg/DL <30 UA UROBILINIOGEN DIPSTICK (test code=URO) NORMAL mg/DL (NORM) <2.0 UA NITRITE DIPSTICK (test code=BRIAN) NEGATIVE SCREEN NEG UA LEUKOCYTE ESTERASE DIPSTICK (test NEGATIVE Leuk/mcL (NEG) 0 code=LEUU) Urine Specimen Type: Clean CatchCBC W/AUTO [id number] 15:43:00 Test Item Value Reference Range Comments WHITE BLOOD CELL (test code=WBC) 4.5 K/mm3 3.5-11.0 RED BLOOD CELL (test code=RBC) 3.29 M/mm3 4.70-6.10 HEMOGLOBIN (test code=HGB) 9.7 G/DL 10.4-14.9 HEMATOCRIT (test code=HCT) 29.3 % 31.5-44.1 MEAN CELL VOLUME (test code=MCV) 89.1 Fl 84.5-98.6 MEAN CELL HGB (test code=MCH) 29.5 pg 27.0-34.2 MEAN CELL HGB CONCETRATION (test code=MCHC) 33.1 G/DL 31.5-34.0 RED CELL DISTRIBUTION WIDTH (test code=RDW) 16.8 SD 11.5-14.5 PLATELET COUNT (test code=PLT) 193.0 K/mm3 150-450 MEAN PLATELET VOLUME (test code=MPV) 11.40 fL 7.0-10.5 NEUTROPHIL % (test code=NT%) 41.2 % 40-76 LYMPHOCYTE % (test code=LY%) 44.8 % 20.5-51.1 MONOCYTE % (test code=MO%) 12.4 % 1.7-9.3 EOSINOPHIL % (test code=EO%) 0.7 % 0.0-6.0 BASOPHIL % (test code=BA%) 0.9 % 0.0-2.0 NEUTROPHIL # (test code=NT#) 1.86 K/mm3 1.8-7.6 LYMPHOCYTE # (test code=LY#) 2.0 K/mm3 0.6-3.2 MONOCYTE # (test code=MO#) 0.6 K/mm3 0.3-1.1 EOSINOPHIL # (test code=EO#) 0.0 K/mm3 0.0-0.4 BASOPHIL # (test code=BA#) 0.0 K/mm3 0.0-0.1 MANUAL DIFF REQUIRED (test code=MDIFF) NO DIFF/SCN CRITERIA - XR CHEST 1 [id number] 15:40:00 Name: ESTHER LOZANO [facility] : 1970 Age/S: 49 / F [id number] Unit #: [id number] Loc: [place] [address] Phys: Mingo James MD Acct: [id number] Dis Date: Status: REG ER PHONE #: [phone] Exam Date: 02/21/2019 1530 FAX #: Reason: chest tightness EXAMS: CPT: [id number] XR CHEST 1 V 34434 Fluoro Time: DAP (Gy m2): Air Kerma (mGy): Location of dictation: B2 Portable chest one view. HISTORY: chest tightness COMMENT: Compared to 02/02/19. The heart and mediastinum are normal. The lungs are clear with no new consolidation , pneumothorax or effusion. There are spondylitic changes of the spine. There has been no significant changes. IMPRESSION: No active disease in the chest. at 1540 Reported and signed by: Rika Abernathy M.D. CC: Mingo James MD PAGE 1 Signed Report Name: ESTHER LOZANO [place] : 03/1970 Age/S: 49 / F [id number] Unit #: [id number] Loc: [place] [address] Phys: Mingo James MD Acct: [id number] Dis Date: Status: REG ER PHONE #: [phone] Exam Date: 02/21/2019 1530 FAX #: Reason: chest tightness EXAMS: CPT: [id number] XR CHEST 1 V 25922 Fluoro Time: DAP (Gy m2): Air Kerma (mGy): <Continued> Technologist: Samara Tavarez RT(R)(CT)( MRI) Trnscb Date/Time: 02/21/2019 (0280) [id number] Orig Print D/T: S: 02/21/2019(8706) PAGE 2 Signed ReportGLUCOSE BEDSIDE [id number] 15:15: 00 Test Item Value Reference Range Comments GLUCOSE BEDSIDE TESTING (test code=GLUBED) 290 mg/dL 70-110 GLUCOSE BEDSIDE [id number] 12:06:00 Test Item Value Reference Range Comments GLUCOSE BEDSIDE TESTING (test code=GLUBED) 214 mg/dL 70-110 GLUCOSE BEDSIDE [id number] 07:54:00 Test Item Value Reference Range Comments GLUCOSE BEDSIDE TESTING (test code=GLUBED) 73 mg/dL 70-110 BASIC METABOLIC [id number] 06:15:00 Test Item Value Reference Range Comments SODIUM (test code=NA) 141 mmol/L 134-147 POTASSIUM (test code=K) 3.7 mmol/L 3.4-5.0 CHLORIDE (test code=CL) 103 mmol/L 100-108 CARBON DIOXIDE (test code=CO2) 34 mmol/L 21-32 ANION GAP (test code=GAP) 4.0 GAP calc 4.0-15.0 GLUCOSE (test code=GLU) 68 MG/DL 70-110 BLOOD UREA NITROGEN (test code=BUN) 3 MG/DL 7-18 GLOMERULAR FILTRATION RATE (test >=60 max estimate estGFR >60 code=GFR) CREATININE (test code=CREAT) 0.3 MG/DL 0.6-1.0 CALCIUM (test code=CA) 7.4 MG/DL 8.5-10.1 CBC W/AUTO [id number] 06:15:00 Test Item Value Reference Range Comments WHITE BLOOD CELL (test code=WBC) 4.1 K/mm3 3.5-11.0 RED BLOOD CELL (test code=RBC) 2.86 M/mm3 4.70-6.10 HEMOGLOBIN (test code=HGB) 8.3 G/DL 10.4-14.9 HEMATOCRIT (test code=HCT) 26.9 % 31.5-44.1 MEAN CELL VOLUME (test code=MCV) 94.1 Fl 84.5-98.6 MEAN CELL HGB (test code=MCH) 29.0 pg 27.0-34.2 MEAN CELL HGB CONCETRATION (test code=MCHC) 30.9 G/DL 31.5-34.0 RED CELL DISTRIBUTION WIDTH (test code=RDW) 19.7 SD 11.5-14.5 PLATELET COUNT (test code=PLT) 100.0 K/mm3 150-450 MEAN PLATELET VOLUME (test code=MPV) 10.90 fL 7.0-10.5 NEUTROPHIL % (test code=NT%) 48.4 % 40-76 LYMPHOCYTE % (test code=LY%) 35.9 % 20.5-51.1 MONOCYTE % (test code=MO%) 12.3 % 1.7-9.3 EOSINOPHIL % (test code=EO%) 3.2 % 0.0-6.0 BASOPHIL % (test code=BA%) 0.2 % 0.0-2.0 NEUTROPHIL # (test code=NT#) 1.97 K/mm3 1.8-7.6 LYMPHOCYTE # (test code=LY#) 1.5 K/mm3 0.6-3.2 MONOCYTE # (test code=MO#) 0.5 K/mm3 0.3-1.1 EOSINOPHIL # (test code=EO#) 0.1 K/mm3 0.0-0.4 BASOPHIL # (test code=BA#) 0.0 K/mm3 0.0-0.1 MANUAL DIFF REQUIRED (test code=MDIFF) NO DIFF/SCN CRITERIA GLUCOSE BEDSIDE [id number] 21:16:00 Test Item Value Reference Range Comments GLUCOSE BEDSIDE TESTING (test code=GLUBED) 111 mg/dL 70-110 CK [id number] 17:07:00 Test Item Value Reference Range Comments CK ISOENZYMES (test code=CKISOT) 35 U/L 24-173 CK MACRO TYPE 2 (test 0 % Not Observed code=CKMC2%) CKMM/CK3 % (test code=CKMM%) 100 % 97-100 CK MACRO TYPE 1 (test 0 % Not Observed code=CKMC1%) CKMB/CK2 % (test code=CKMB%) 0 % 0-3 CKBB/CK1 % (test code=CKBB%) 0 % >0 Performed At: [facility] [address] [id number] Kyle L MD Ph:[phone] At: [facility] [address] [place], [place] [id number] CN MD Ph:[phone] GLUCOSE BEDSIDE [id number] 11:43:00 Test Item Value Reference Range Comments GLUCOSE BEDSIDE TESTING (test code=GLUBED) 161 mg/dL 70-110 GLUCOSE BEDSIDE [id number] 07:47:00 Test Item Value Reference Range Comments GLUCOSE BEDSIDE TESTING (test code=GLUBED) 149 mg/dL 70-110 PROTHROMBIN [id number] 07:32:00 Test Item Value Reference Range Comments PT PATIENT (test code=PTP) 12.6 SECONDS 9.3-12.9 INTERNATIONAL NORMAL RATIO (test code=INR) 1.09 INR Unit 0.8-1.2 THROMBOPLASTIN TIME [id number] 07:32:00 Test Item Value Reference Range Comments THROMBOPLASTIN TIME PARTIAL (test code=PTT) 25.2 SECONDS 26-35 [id number] 07:32:00 Test Item Value Reference Range Comments FIBRINOGEN (test code=FIB) 143 mg/dL 185-453 PLATELET COUNT W/ [id number] 06:17:00 Test Item Value Reference Range Comments PLATELET COUNT (test code=PLT) 116.0 K/mm3 150-450 MEAN PLATELET VOLUME (test code=MPV) 10.50 fL 7.0-10.5 COMPREHENSIVE METABOLIC [id number] 05:52:00 Test Item Value Reference Range Comments SODIUM (test code=NA) 142 mmol/L 134-147 POTASSIUM (test code=K) 3.6 mmol/L 3.4-5.0 CHLORIDE (test code=CL) 104 mmol/L 100-108 CARBON DIOXIDE (test code=CO2) 33 mmol/L 21-32 ANION GAP (test code=GAP) 5.0 GAP calc 4.0-15.0 GLUCOSE (test code=GLU) 187 MG/DL 70-110 BLOOD UREA NITROGEN (test code=BUN) 2 MG/DL 7-18 GLOMERULAR FILTRATION RATE (test >=60 max estimate estGFR >60 code=GFR) CREATININE (test code=CREAT) 0.5 MG/DL 0.6-1.0 TOTAL PROTEIN (test code=PROT) 5.3 G/DL 6.4-8.2 ALBUMIN (test code=ALB) 2.3 G/DL 3.4-5.0 GLOBULIN (test code=GLOB) 3.0 GM/dL ALBUMIN/GLOBULIN RATIO (test 0.8 RATIO 1.2-2.2 code=A/G) CALCIUM (test code=CA) 7.2 MG/DL 8.5-10.1 BILIRUBIN TOTAL (test code=BILT) 0.20 MG/DL 0.2-1.2 SGOT/AST (test code=AST) 44 Unit/L 15-37 SGPT/ALT (test code=ALT) 33 Unit/L 12-78 ALKALINE PHOSPHATASE TOTAL (test 114 Unit/L 45-117 code=ALKP) COMPREHENSIVE METABOLIC [id number] 05:50:00 Test Item Value Reference Range Comments SODIUM (test code=NA) 142 mmol/L 134-147 POTASSIUM (test code=K) 3.6 mmol/L 3.4-5.0 CHLORIDE (test code=CL) 104 mmol/L 100-108 CARBON DIOXIDE (test code=CO2) 33 mmol/L 21-32 ANION GAP (test code=GAP) 5.0 GAP calc 4.0-15.0 GLUCOSE (test code=GLU) 187 MG/DL 70-110 BLOOD UREA NITROGEN (test code=BUN) 2 MG/DL 7-18 GLOMERULAR FILTRATION RATE (test code=GFR) estGFR >60 CREATININE (test code=CREAT) MG/DL 0.6-1.0 TOTAL PROTEIN (test code=PROT) G/DL 6.4-8.2 ALBUMIN (test code=ALB) 2.3 G/DL 3.4-5.0 GLOBULIN (test code=GLOB) GM/dL ALBUMIN/GLOBULIN RATIO (test code=A/G) RATIO 1.2-2.2 CALCIUM (test code=CA) 7.2 MG/DL 8.5-10.1 BILIRUBIN TOTAL (test code=BILT) MG/DL 0.2-1.2 SGOT/AST (test code=AST) Unit/L 15-37 SGPT/ALT (test code=ALT) Unit/L 12-78 ALKALINE PHOSPHATASE TOTAL (test code=ALKP) Unit/L 45-117 CBC W/AUTO [id number] 05:41:00 Test Item Value Reference Range Comments WHITE BLOOD CELL (test code=WBC) 3.0 K/mm3 3.5-11.0 RED BLOOD CELL (test code=RBC) 2.66 M/mm3 4.70-6.10 HEMOGLOBIN (test code=HGB) 7.8 G/DL 10.4-14.9 HEMATOCRIT (test code=HCT) 25.3 % 31.5-44.1 MEAN CELL VOLUME (test code=MCV) 95.1 Fl 84.5-98.6 MEAN CELL HGB (test code=MCH) 29.3 pg 27.0-34.2 MEAN CELL HGB CONCETRATION (test code=MCHC) 30.8 G/DL 31.5-34.0 RED CELL DISTRIBUTION WIDTH (test code=RDW) 19.4 SD 11.5-14.5 PLATELET COUNT (test code=PLT) 104.0 K/mm3 150-450 MEAN PLATELET VOLUME (test code=MPV) 11.20 fL 7.0-10.5 NEUTROPHIL % (test code=NT%) 50.7 % 40-76 LYMPHOCYTE % (test code=LY%) 35.1 % 20.5-51.1 MONOCYTE % (test code=MO%) 9.9 % 1.7-9.3 EOSINOPHIL % (test code=EO%) 4.0 % 0.0-6.0 BASOPHIL % (test code=BA%) 0.3 % 0.0-2.0 NEUTROPHIL # (test code=NT#) 1.53 K/mm3 1.8-7.6 LYMPHOCYTE # (test code=LY#) 1.1 K/mm3 0.6-3.2 MONOCYTE # (test code=MO#) 0.3 K/mm3 0.3-1.1 EOSINOPHIL # (test code=EO#) 0.1 K/mm3 0.0-0.4 BASOPHIL # (test code=BA#) 0.0 K/mm3 0.0-0.1 MANUAL DIFF REQUIRED (test code=MDIFF) NO DIFF/SCN CRITERIA GLUCOSE BEDSIDE [id number] 22:25:00 Test Item Value Reference Range Comments GLUCOSE BEDSIDE TESTING (test code=GLUBED) 144 mg/dL 70-110 GLUCOSE BEDSIDE [id number] 16:44:00 Test Item Value Reference Range Comments GLUCOSE BEDSIDE TESTING (test code=GLUBED) 144 mg/dL 70-110 GLUCOSE BEDSIDE [id number] 11:58:00 Test Item Value Reference Range Comments GLUCOSE BEDSIDE TESTING (test code=GLUBED) 122 mg/dL 70-110 GLUCOSE BEDSIDE [id number] 07:26:00 Test Item Value Reference Range Comments GLUCOSE BEDSIDE TESTING (test code=GLUBED) 91 mg/dL 70-110 FE W/TOTAL IRON BINDING CAP.2019-02-05 06:43:00 Test Item Value Reference Range Comments SERUM IRON (test code=IRON) 41 mcG/DL 50-170 TOTAL IRON BINDING CAPACITY (test code=TIBC) 289 mcG/DL 250-450 IRON SATURATION (test code=FESAT) 14 % calc 12-57 [id number] 06:43:00 Test Item Value Reference Range Comments FERRITIN (test code=YAN) 36.5 NG/ML 3.0-105.0 CBC W/AUTO [id number] 06:21:00 Test Item Value Reference Range Comments WHITE BLOOD CELL (test code=WBC) 3.8 K/mm3 3.5-11.0 RED BLOOD CELL (test code=RBC) 2.91 M/mm3 4.70-6.10 HEMOGLOBIN (test code=HGB) 8.4 G/DL 10.4-14.9 HEMATOCRIT (test code=HCT) 27.2 % 31.5-44.1 MEAN CELL VOLUME (test code=MCV) 93.5 Fl 84.5-98.6 MEAN CELL HGB (test code=MCH) 28.9 pg 27.0-34.2 MEAN CELL HGB CONCETRATION (test code=MCHC) 30.9 G/DL 31.5-34.0 RED CELL DISTRIBUTION WIDTH (test code=RDW) 19.0 SD 11.5-14.5 PLATELET COUNT (test code=PLT) 107.0 K/mm3 150-450 MEAN PLATELET VOLUME (test code=MPV) 10.60 fL 7.0-10.5 NEUTROPHIL % (test code=NT%) 55.6 % 40-76 LYMPHOCYTE % (test code=LY%) 33.9 % 20.5-51.1 MONOCYTE % (test code=MO%) 8.6 % 1.7-9.3 EOSINOPHIL % (test code=EO%) 1.6 % 0.0-6.0 BASOPHIL % (test code=BA%) 0.3 % 0.0-2.0 NEUTROPHIL # (test code=NT#) 2.13 K/mm3 1.8-7.6 LYMPHOCYTE # (test code=LY#) 1.3 K/mm3 0.6-3.2 MONOCYTE # (test code=MO#) 0.3 K/mm3 0.3-1.1 EOSINOPHIL # (test code=EO#) 0.1 K/mm3 0.0-0.4 BASOPHIL # (test code=BA#) 0.0 K/mm3 0.0-0.1 MANUAL DIFF REQUIRED (test code=MDIFF) NO DIFF/SCN CRITERIA BASIC METABOLIC [id number] 05:55:00 Test Item Value Reference Range Comments SODIUM (test code=NA) 140 mmol/L 134-147 POTASSIUM (test code=K) 3.9 mmol/L 3.4-5.0 CHLORIDE (test code=CL) 106 mmol/L 100-108 CARBON DIOXIDE (test code=CO2) 30 mmol/L 21-32 ANION GAP (test code=GAP) 4.0 GAP calc 4.0-15.0 GLUCOSE (test code=GLU) 93 MG/DL 70-110 BLOOD UREA NITROGEN (test code=BUN) 1 MG/DL 7-18 GLOMERULAR FILTRATION RATE (test >=60 max estimate estGFR >60 code=GFR) CREATININE (test code=CREAT) 0.4 MG/DL 0.6-1.0 CALCIUM (test code=CA) 7.5 MG/DL 8.5-10.1 GLUCOSE BEDSIDE [id number] 21:10:00 Test Item Value Reference Range Comments GLUCOSE BEDSIDE TESTING (test code=GLUBED) 148 mg/dL 70-110 GLUCOSE BEDSIDE [id number] 16:26:00 Test Item Value Reference Range Comments GLUCOSE BEDSIDE TESTING (test code=GLUBED) 69 mg/dL 70-110 - CT ABD PELVIS [id number] 16:25:00 Name: ESTHER LOZANO [facility] : 1970 Age/S: 49 / F [address] Unit #: [id number] Loc: [place] [address] Phys: Nasim Hunt MD Acct: [id number] Dis Date: Status : ADM IN PHONE #: [phone] Exam Date: 02/04/2019 8446 FAX #: Reason: Diarrhea , r/o Pancreatitis chronic EXAMS: CPT: [id number] CT ABD PELVIS W/CONT 60940 CLINICAL INFORMATION: Diarrhea. Chronic pancreatitis.. Dictation location: R 16 COMPARISON: CT 01/27/2011 reported cholelithiasis Technique: Axial scans reviewed in lung, soft tissue and bone windows. Coronal and axial reconstructions were made. Image optimization and dose reduction techniques were used. DLP 342 mGy-cm. FINDINGS: Breast implantsare noted with normal heart size. There is bibasilar compression atelectasis with air bronchograms and small pleural effusions. There is been a cholecystectomy. There is postsurgical change about the stomach in the left upper quadrant. No liver mass identified. The spleen, pancreas and adrenal glands appeared unremarkable. Both kidneys function with no apparent hydronephrosis, stones, or soft tissue mass. No periaortic adenopathy or aneurysm. No free air or fluid is seen in the abdomen. No dilated bowel loops identified. In the pelvis the urinary bladder is moderately distended. Postsurgical change about the cecum could be from appendix surgery. No gynecologic mass identified. No pelvic or inguinal adenopathy is noted. There is spondylosis with no apparent destructive bone lesion. IMPRESSION: 1. Breast implants. 2. Bibasilar atelectasis or infiltrates with effusions. 3. Cholecystectomy. 4. Postsurgical change about the stomach. 5. No urolithiasis. 6. Appendix not identified and may be surgically absent to be correlated clinically. 7. Spondylosis. Electronically Signed by Radha Farah on02/04/2019 at 1625 Reported and signed by: Mingo Farah M.D. CC: Nasim Hunt MD Technologist:Audra Sevilla, RT(R); ... CTDI: DLP : Trnscb Date/Time: 02/04/2019 (259) t.SDR.AGV Orig Print D/T: S:02/04/2019 (8472) CTDI: DLP: PAGE 1 Signed ReportGLUCOSE BEDSIDE [id number] 11:38:00 Test Item Value Reference Range Comments GLUCOSE BEDSIDE TESTING (test code=GLUBED) 164 mg/dL 70-110 GLUCOSE BEDSIDE [id number] 07:46:00 Test Item Value Reference Range Comments GLUCOSE BEDSIDE TESTING (test code=GLUBED) 73 mg/dL 70-110 BASIC METABOLIC [id number] 06:53:00 Test Item Value Reference Range Comments SODIUM (test code=NA) 142 mmol/L 134-147 POTASSIUM (test code=K) 3.6 mmol/L 3.4-5.0 CHLORIDE (test code=CL) 111 mmol/L 100-108 CARBON DIOXIDE (test code=CO2) 26 mmol/L 21-32 ANION GAP (test code=GAP) 5.0 GAP calc 4.0-15.0 GLUCOSE (test code=GLU) 68 MG/DL 70-110 BLOOD UREA NITROGEN (test code=BUN) 2 MG/DL 7-18 GLOMERULAR FILTRATION RATE (test >=60 max estimate estGFR >60 code=GFR) CREATININE (test code=CREAT) 0.5 MG/DL 0.6-1.0 CALCIUM (test code=CA) 8.0 MG/DL 8.5-10.1 CBC W/AUTO [id number] 06:52:00 Test Item Value Reference Range Comments WHITE BLOOD CELL (test code=WBC) 4.7 K/mm3 3.5-11.0 RED BLOOD CELL (test code=RBC) 3.30 M/mm3 4.70-6.10 HEMOGLOBIN (test code=HGB) 9.6 G/DL 10.4-14.9 HEMATOCRIT (test code=HCT) 30.7 % 31.5-44.1 MEAN CELL VOLUME (test code=MCV) 93.0 Fl 84.5-98.6 MEAN CELL HGB (test code=MCH) 29.1 pg 27.0-34.2 MEAN CELL HGB CONCETRATION (test code=MCHC) 31.3 G/DL 31.5-34.0 RED CELL DISTRIBUTION WIDTH (test code=RDW) 19.1 SD 11.5-14.5 PLATELET COUNT (test code=PLT) 142.0 K/mm3 150-450 MEAN PLATELET VOLUME (test code=MPV) 10.50 fL 7.0-10.5 NEUTROPHIL % (test code=NT%) 54.7 % 40-76 LYMPHOCYTE % (test code=LY%) 35.5 % 20.5-51.1 MONOCYTE % (test code=MO%) 6.4 % 1.7-9.3 EOSINOPHIL % (test code=EO%) 3.2 % 0.0-6.0 BASOPHIL % (test code=BA%) 0.2 % 0.0-2.0 NEUTROPHIL # (test code=NT#) 2.58 K/mm3 1.8-7.6 LYMPHOCYTE # (test code=LY#) 1.7 K/mm3 0.6-3.2 MONOCYTE # (test code=MO#) 0.3 K/mm3 0.3-1.1 EOSINOPHIL # (test code=EO#) 0.2 K/mm3 0.0-0.4 BASOPHIL # (test code=BA#) 0.0 K/mm3 0.0-0.1 MANUAL DIFF REQUIRED (test code=MDIFF) NO DIFF/SCN CRITERIA BASIC METABOLIC [id number] 06:49:00 Test Item Value Reference Range Comments SODIUM (test code=NA) 142 mmol/L 134-147 POTASSIUM (test code=K) 3.6 mmol/L 3.4-5.0 CHLORIDE (test code=CL) 111 mmol/L 100-108 CARBON DIOXIDE (test code=CO2) 26 mmol/L 21-32 ANION GAP (test code=GAP) 5.0 GAP calc 4.0-15.0 GLUCOSE (test code=GLU) 68 MG/DL 70-110 BLOOD UREA NITROGEN (test code=BUN) 2 MG/DL 7-18 GLOMERULAR FILTRATION RATE (test code=GFR) estGFR >60 CREATININE (test code=CREAT) MG/DL 0.6-1.0 CALCIUM (test code=CA) 8.0 MG/DL 8.5-10.1 PROCALCITONIN (PCT)2019-02-04 03:02:00 Test Item Value Reference Range Comments PROCALCITONIN (PCT) (test 0.07 ng/mL 0.00-0.05 PROCALCITONIN (PCT) NORMAL code=PROCAL) RANGE (ADULT): <0.05 NG/ML. * a concentration <0.5 ng/mL represents a low risk of severe sepsis and/or septic shock.* a concentration >2 ng/mL represents a high risk of severe sepsis and/or septic shock.Nevertheless, concentrations <0.5 ng/mL do not exclude aninfection, on account of localized infections (withoutsystemic signs) which can be associated with such lowconcentrations, or a systemic infection in its initialstages (< 6 hours). Furthermore, increased procalcitonincan occur without infection. PCT concentrations between 0.5and 2.0 ng/mL should be interpreted taking into account thepatient's history. It is recommended to retest PCT within6-24 hours if any concentrations <2 ng/mL are obtained. PROCALCITONIN (PCT)2019-02-04 03:02:00 Test Item Value Reference Range Comments PROCALCITONIN (PCT) (test 0.07 ng/mL 0.00-0.05 PROCALCITONIN (PCT) NORMAL code=PROCAL) RANGE (ADULT): <0.05 NG/ML. * a concentration <0.5 ng/mL represents a low risk of severe sepsis and/or septic shock.* a concentration >2 ng/mL represents a high risk of severe sepsis and/or septic shock.Nevertheless, concentrations <0.5 ng/mL do not exclude aninfection, on account of localized infections (withoutsystemic signs) which can be associated with such lowconcentrations, or a systemic infection in its initialstages (< 6 hours). Furthermore, increased procalcitonincan occur without infection. PCT concentrations between 0.5and 2.0 ng/mL should be interpreted taking into account thepatient's history. It is recommended to retest PCT within6-24 hours if any concentrations <2 ng/mL are obtained. GLUCOSE BEDSIDE [id number] 20:38:00 Test Item Value Reference Range Comments GLUCOSE BEDSIDE TESTING (test code=GLUBED) 135 mg/dL 70-110 GLUCOSE BEDSIDE [id number] 16:35:00 Test Item Value Reference Range Comments GLUCOSE BEDSIDE TESTING (test code=GLUBED) 332 mg/dL 70-110 GLUCOSE BEDSIDE [id number] 11:55:00 Test Item Value Reference Range Comments GLUCOSE BEDSIDE TESTING (test code=GLUBED) > 600 mg/dL 70-110 CHEMISTRY 8 [id number] 11:53:00 Test Item Value Reference Range Comments ISTAT-SODIUM (test code=NAP) 123 mmol/L 135-146 ISTAT-POTASSIUM (test code=KP) 4.2 mmol/L 3.5-4.9 ISTAT-CHLORIDE (test code=CLP) 83 mmol/L 98-109 ISTAT-CARBON DIOXIDE (test code=ISTAT-CO2) 18 mmol/L 24-29 ISTAT CALCIUM IONIZED (test code=ISTAT-IMANI) 1.11 mmol/L 1.12-1.32 ISTAT-GLUCOSE (test code=GLUP) > 700 mg/dL 70-105 ISTAT-BUN (test code=BUNP) 6 mg/dL 8-26 BEDSIDE CREATININE (test code=CREATBED) 0.9 mg/dL 0.6-1.3 GLOMERULAR FILTRATION RATE POC (test 71 58-135 code=GFRBED) CHEMISTRY 8 [id number] 11:52:00 Test Item Value Reference Range Comments ISTAT-SODIUM (test code=NAP) mmol/L 135-146 ISTAT-POTASSIUM (test code=KP) mmol/L 3.5-4.9 ISTAT-CHLORIDE (test code=CLP) mmol/L 98-109 ISTAT-CARBON DIOXIDE (test code=ISTAT-CO2) mmol/L 24-29 ISTAT CALCIUM IONIZED (test code=ISTAT-IMANI) mmol/L 1.12-1.32 ISTAT-GLUCOSE (test code=GLUP) mg/dL 70-105 ISTAT-BUN (test code=BUNP) mg/dL 8-26 BEDSIDE CREATININE (test code=CREATBED) mg/dL 0.6-1.3 GLOMERULAR FILTRATION RATE POC (test code=GFRBED) 71 58-135 CHEMISTRY 8 [id number] 11:52:00 Test Item Value Reference Range Comments ISTAT-SODIUM (test code=NAP) 123 mmol/L 135-146 ISTAT-POTASSIUM (test code=KP) 4.2 mmol/L 3.5-4.9 ISTAT-CHLORIDE (test code=CLP) 83 mmol/L 98-109 ISTAT-CARBON DIOXIDE (test code=ISTAT-CO2) 18 mmol/L 24-29 ISTAT CALCIUM IONIZED (test code=ISTAT-IMANI) 1.11 mmol/L 1.12-1.32 ISTAT-GLUCOSE (test code=GLUP) mg/dL 70-105 ISTAT-BUN (test code=BUNP) 6 mg/dL 8-26 BEDSIDE CREATININE (test code=CREATBED) 0.9 mg/dL 0.6-1.3 GLOMERULAR FILTRATION RATE POC (test 71 58-135 code=GFRBED) GLUCOSE BEDSIDE [id number] 11:34:00 Test Item Value Reference Range Comments GLUCOSE BEDSIDE TESTING (test code=GLUBED) 115 mg/dL 70-110 GLUCOSE BEDSIDE [id number] 07:52:00 Test Item Value Reference Range Comments GLUCOSE BEDSIDE TESTING (test code=GLUBED) 262 mg/dL 70-110 [id number] 04:36:00 Test Item Value Reference Range Comments PHOSPHOROUS (test code=PHOS) 1.8 MG/DL 2.5-4.9 Completed by Nursing: [id number] 04:36:00 Test Item Value Reference Range Comments TROPONIN-I (test < 0.015 NG/ML 0.000-0.045 Negative: </=0.045 Positive: code=TROPI) >/=0.046 Correlation with serial results, other cardiac markers, and clinical findings is necessary to determine the clinical significance of this result. Quantitative results using different methodologies should not be compared to one another as numerical results may varyby method. Completed by Nursing: NOBASIC METABOLIC [id number] 04:25:00 Test Item Value Reference Range Comments SODIUM (test code=NA) 140 mmol/L 134-147 POTASSIUM (test code=K) 3.3 mmol/L 3.4-5.0 CHLORIDE (test code=CL) 106 mmol/L 100-108 CARBON DIOXIDE (test code=CO2) 27 mmol/L 21-32 ANION GAP (test code=GAP) 7.0 GAP calc 4.0-15.0 GLUCOSE (test code=GLU) 134 MG/DL 70-110 BLOOD UREA NITROGEN (test code=BUN) 3 MG/DL 7-18 GLOMERULAR FILTRATION RATE (test >=60 max estimate estGFR >60 code=GFR) CREATININE (test code=CREAT) 0.7 MG/DL 0.6-1.0 CALCIUM (test code=CA) 8.3 MG/DL 8.5-10.1 [id number] 04:25:00 Test Item Value Reference Range Comments MAGNESIUM (test code=MAG) 2.4 MG/DL 1.8-2.4 GLUCOSE BEDSIDE [id number] 04:16:00 Test Item Value Reference Range Comments GLUCOSE BEDSIDE TESTING (test code=GLUBED) 136 mg/dL 70-110 CBC W/AUTO [id number] 04:15:00 Test Item Value Reference Range Comments WHITE BLOOD CELL (test code=WBC) 6.2 K/mm3 3.5-11.0 RED BLOOD CELL (test code=RBC) 3.12 M/mm3 4.70-6.10 HEMOGLOBIN (test code=HGB) 9.2 G/DL 10.4-14.9 HEMATOCRIT (test code=HCT) 27.8 % 31.5-44.1 MEAN CELL VOLUME (test code=MCV) 89.1 Fl 84.5-98.6 MEAN CELL HGB (test code=MCH) 29.5 pg 27.0-34.2 MEAN CELL HGB CONCETRATION (test code=MCHC) 33.1 G/DL 31.5-34.0 RED CELL DISTRIBUTION WIDTH (test code=RDW) 17.7 SD 11.5-14.5 PLATELET COUNT (test code=PLT) 144.0 K/mm3 150-450 MEAN PLATELET VOLUME (test code=MPV) 10.20 fL 7.0-10.5 NEUTROPHIL % (test code=NT%) 48.4 % 40-76 LYMPHOCYTE % (test code=LY%) 34.8 % 20.5-51.1 MONOCYTE % (test code=MO%) 12.6 % 1.7-9.3 EOSINOPHIL % (test code=EO%) 4.0 % 0.0-6.0 BASOPHIL % (test code=BA%) 0.2 % 0.0-2.0 NEUTROPHIL # (test code=NT#) 2.99 K/mm3 1.8-7.6 LYMPHOCYTE # (test code=LY#) 2.2 K/mm3 0.6-3.2 MONOCYTE # (test code=MO#) 0.8 K/mm3 0.3-1.1 EOSINOPHIL # (test code=EO#) 0.3 K/mm3 0.0-0.4 BASOPHIL # (test code=BA#) 0.0 K/mm3 0.0-0.1 MANUAL DIFF REQUIRED (test code=MDIFF) NO DIFF/SCN CRITERIA GLUCOSE BEDSIDE [id number] 03:16:00 Test Item Value Reference Range Comments GLUCOSE BEDSIDE TESTING (test code=GLUBED) 25 mg/dL 70-110 [id number] 01:51:00 Test Item Value Reference Range Comments TROPONIN-I (test < 0.015 NG/ML 0.000-0.045 Negative: </=0.045 Positive: code=TROPI) >/=0.046 Correlation with serial results, other cardiac markers, and clinical findings is necessary to determine the clinical significance of this result. Quantitative results using different methodologies should not be compared to one another as numerical results may varyby method. Completed by Nursing: NOCOMPREHENSIVE METABOLIC [id number] 01:39:00 Test Item Value Reference Range Comments SODIUM (test code=NA) 122 mmol/L 134-147 POTASSIUM (test code=K) 4.5 mmol/L 3.4-5.0 CHLORIDE (test code=CL) 82 mmol/L 100-108 CARBON DIOXIDE (test 16 mmol/L 21-32 code=CO2) ANION GAP (test code=GAP) 24.0 GAP calc 4.0-15.0 GLUCOSE (test code=GLU) 811 MG/DL 70-110 Previously reported result: 811 MG/DLEdited by: LUCRETIA on 02/03/19:0139 BLOOD UREA NITROGEN (test 7 MG/DL 7-18 code=BUN) GLOMERULAR FILTRATION RATE 51 estGFR >60 (test code=GFR) CREATININE (test code=CREAT) 1.2 MG/DL 0.6-1.0 TOTAL PROTEIN (test 8.3 G/DL 6.4-8.2 code=PROT) ALBUMIN (test code=ALB) 3.5 G/DL 3.4-5.0 GLOBULIN (test code=GLOB) 4.8 GM/dL ALBUMIN/GLOBULIN RATIO (test 0.7 RATIO 1.2-2.2 code=A/G) CALCIUM (test code=CA) 8.4 MG/DL 8.5-10.1 BILIRUBIN TOTAL (test 1.10 MG/DL 0.2-1.2 code=BILT) SGOT/AST (test code=AST) 74 Unit/L 15-37 SGPT/ALT (test code=ALT) 58 Unit/L 12-78 ALKALINE PHOSPHATASE TOTAL 197 Unit/L 45-117 (test code=ALKP) GLUCOSE BEDSIDE [id number] 01:15:00 Test Item Value Reference Range Comments GLUCOSE BEDSIDE TESTING (test code=GLUBED) 120 mg/dL 70-110 GLUCOSE BEDSIDE [id number] 00:32:00 Test Item Value Reference Range Comments GLUCOSE BEDSIDE TESTING (test code=GLUBED) 153 mg/dL 70-110 BASIC METABOLIC [id number] 23:48:00 Test Item Value Reference Range Comments SODIUM (test code=NA) 140 mmol/L 134-147 POTASSIUM (test code=K) 2.8 mmol/L 3.4-5.0 CHLORIDE (test code=CL) 104 mmol/L 100-108 CARBON DIOXIDE (test code=CO2) 29 mmol/L 21-32 ANION GAP (test code=GAP) 7.0 GAP calc 4.0-15.0 GLUCOSE (test code=GLU) 129 MG/DL 70-110 BLOOD UREA NITROGEN (test code=BUN) 4 MG/DL 7-18 GLOMERULAR FILTRATION RATE (test >=60 max estimate estGFR >60 code=GFR) CREATININE (test code=CREAT) 0.7 MG/DL 0.6-1.0 CALCIUM (test code=CA) 8.0 MG/DL 8.5-10.1 [id number] 23:48:00 Test Item Value Reference Range Comments PHOSPHOROUS (test code=PHOS) 1.8 MG/DL 2.5-4.9 [id number] 23:48:00 Test Item Value Reference Range Comments MAGNESIUM (test code=MAG) 1.3 MG/DL 1.8-2.4 HCG SERUM [id number] 23:23:00 Test Item Value Reference Range Comments HCG SERUM QUAL (test code=HCGQL) SERUM NEGATIVE SCREEN NEGATIVE GLUCOSE BEDSIDE [id number] 23:16:00 Test Item Value Reference Range Comments GLUCOSE BEDSIDE TESTING (test code=GLUBED) 123 mg/dL 70-110 GLUCOSE BEDSIDE [id number] 22:16:00 Test Item Value Reference Range Comments GLUCOSE BEDSIDE TESTING (test code=GLUBED) 26 mg/dL 70-110 GLUCOSE BEDSIDE [id number] 21:21:00 Test Item Value Reference Range Comments GLUCOSE BEDSIDE TESTING (test code=GLUBED) 140 mg/dL 70-110 GLUCOSE BEDSIDE [id number] 19:42:00 Test Item Value Reference Range Comments GLUCOSE BEDSIDE TESTING (test code=GLUBED) 404 mg/dL 70-110 RENAL FUNCTION [id number] 19:36:00 Test Item Value Reference Range Comments SODIUM (test code=NA) 122 mmol/L 134-147 POTASSIUM (test code=K) 4.4 mmol/L 3.4-5.0 CHLORIDE (test code=CL) 81 mmol/L 100-108 CARBON DIOXIDE (test code=CO2) 15 mmol/L 21-32 Previously reported result: 15 mmol/LEdited by: L.[email or web address] on 02/02/19:1858 GLUCOSE (test code=GLU) 772 MG/DL 70-110 Previously reported result: 772 MG/DLEdited by: L.[email or web address] on 02/02/19:1936~~~~~~~~~~~~~~~ ~~~~~~~~~~~~~~~~~~~~~~~~~ This is a CORRECTED REPORT BLOOD UREA NITROGEN (test 7 MG/DL 7-18 code=BUN) GLOMERULAR FILTRATION RATE 57 estGFR >60 (test code=GFR) CREATININE (test code=CREAT) 1.1 MG/DL 0.6-1.0 ALBUMIN (test code=ALB) 3.4 G/DL 3.4-5.0 CALCIUM (test code=CA) 8.4 MG/DL 8.5-10.1 PHOSPHOROUS (test code=PHOS) 3.8 MG/DL 2.5-4.9 Completed by Nursing: NOLIPID PROFILE (CORONARY RISK)2019-02-02 19:36:00 Test Item Value Reference Range Comments TRIGLYCERIDES (test code=TRIG) 450 MG/DL 0-150 CHOLESTEROL (test code=CHOL) 173 MG/DL 133-200 CHOLESTEROL/HDL RATIO (test code=CHOLHDL) 2.58 RATIO >0 HDL CHOLESTEROL (test code=HDL) 67 MG/DL 40-59 NON-HDL CHOLESTEROL (test code=NHDL) 106 mg/dL <130 LIPOPROTEIN LDL (test code=LDL) 62 MG/DL 0-129 LDL/HDL (test code=LDL/HDL) 0.92 Ratio 1.48-3.22 Avg Completed by Nursing: [id number] 19:36:00 Test Item Value Reference Range Comments AMYLASE (test code=BHARAT) 20 Unit/L 25-115 Completed by Nursing: [id number] 19:36:00 Test Item Value Reference Range Comments LIPASE (test code=LIP) 295 Unit/L 114-286 Completed by Nursing: [id number] 19:36:00 Test Item Value Reference Range Comments MAGNESIUM (test code=MAG) 1.7 MG/DL 1.8-2.4 Completed by Nursing: NOCPK-MB [id number] 19:36:00 Test Item Value Reference Range Comments CREATINE KINASE (CK) (test code=CK) 63 Unit/L 26-192 CKMB (test code=CKMBT) < 1.0 NG/ML 0.0-4.9 RELATIVE % INDEX (test code=REL%) 1.5 % 0.0-2.5 Completed by Nursing: [id number] 19:36:00 Test Item Value Reference Range Comments TROPONIN-I (test < 0.015 NG/ML 0.000-0.045 Negative: </=0.045 Positive: code=TROPI) >/=0.046 Correlation with serial results, other cardiac markers, and clinical findings is necessary to determine the clinical significance of this result. Quantitative results using different methodologies should not be compared to one another as numerical results may varyby method. Completed by Nursing: NOCK [id number] 19:36:00 Test Item Value Reference Range Comments CK MACRO TYPE 2 (test code=CKMC2%) CKMM/CK3 % (test code=CKMM%) CK MACRO TYPE 1 (test code=CKMC1%) CKMB/CK2 % (test code=CKMB%) CKBB/CK1 % (test code=CKBB%) Completed by Nursing: NOGLYCOSYLATED HEMOGLOBIN (HA1C)2019-02-02 19:33:00 Test Item Value Reference Range Comments GLYCOSYLATED HEMOGLOBIN (HA1C) (test code=GLYHGB) 10.3 % A1C 4.2-6.3 RENAL FUNCTION [id number] 18:59:00 Test Item Value Reference Range Comments SODIUM (test code=NA) 122 mmol/L 134-147 POTASSIUM (test code=K) 4.4 mmol/L 3.4-5.0 CHLORIDE (test code=CL) 81 mmol/L 100-108 CARBON DIOXIDE (test code=CO2) 15 mmol/L 21-32 Previously reported result: 15 mmol/LEdited by: L.LAB.DTS on 02/02/19:1858 GLUCOSE (test code=GLU) 772 MG/DL 70-110 BLOOD UREA NITROGEN (test 7 MG/DL 7-18 code=BUN) GLOMERULAR FILTRATION RATE 57 estGFR >60 (test code=GFR) CREATININE (test code=CREAT) 1.1 MG/DL 0.6-1.0 ALBUMIN (test code=ALB) 3.4 G/DL 3.4-5.0 CALCIUM (test code=CA) 8.4 MG/DL 8.5-10.1 PHOSPHOROUS (test code=PHOS) 3.8 MG/DL 2.5-4.9 Completed by Nursing: NOLIPID PROFILE (CORONARY RISK)2019-02-02 18:59:00 Test Item Value Reference Range Comments TRIGLYCERIDES (test code=TRIG) 450 MG/DL 0-150 CHOLESTEROL (test code=CHOL) 173 MG/DL 133-200 CHOLESTEROL/HDL RATIO (test code=CHOLHDL) 2.58 RATIO >0 HDL CHOLESTEROL (test code=HDL) 67 MG/DL 40-59 NON-HDL CHOLESTEROL (test code=NHDL) 106 mg/dL <130 LIPOPROTEIN LDL (test code=LDL) 62 MG/DL 0-129 LDL/HDL (test code=LDL/HDL) 0.92 Ratio 1.48-3.22 Avg Completed by Nursing: [id number] 18:59:00 Test Item Value Reference Range Comments AMYLASE (test code=BHARAT) 20 Unit/L 25-115 Completed by Nursing: [id number] 18:59:00 Test Item Value Reference Range Comments LIPASE (test code=LIP) 295 Unit/L 114-286 Completed by Nursing: [id number] 18:59:00 Test Item Value Reference Range Comments MAGNESIUM (test code=MAG) 1.7 MG/DL 1.8-2.4 Completed by Nursing: NOHCG SERUM [id number] 18:59:00 Test Item Value Reference Range Comments HCG SERUM QUAL (test code=HCGQL) SCREEN NEGATIVE Completed by Nursing: NOCPK-MB [id number] 18:59:00 Test Item Value Reference Range Comments CREATINE KINASE (CK) (test code=CK) 63 Unit/L 26-192 CKMB (test code=CKMBT) < 1.0 NG/ML 0.0-4.9 RELATIVE % INDEX (test code=REL%) 1.5 % 0.0-2.5 Completed by Nursing: [id number] 18:59:00 Test Item Value Reference Range Comments TROPONIN-I (test < 0.015 NG/ML 0.000-0.045 Negative: </=0.045 Positive: code=TROPI) >/=0.046 Correlation with serial results, other cardiac markers, and clinical findings is necessary to determine the clinical significance of this result. Quantitative results using different methodologies should not be compared to one another as numerical results may varyby method. Completed by Nursing: NOCK [id number] 18:59:00 Test Item Value Reference Range Comments CK MACRO TYPE 2 (test code=CKMC2%) CKMM/CK3 % (test code=CKMM%) CK MACRO TYPE 1 (test code=CKMC1%) CKMB/CK2 % (test code=CKMB%) CKBB/CK1 % (test code=CKBB%) Completed by Nursing: NORENAL FUNCTION [id number] 18:44:00 Test Item Value Reference Range Comments SODIUM (test code=NA) 122 mmol/L 134-147 POTASSIUM (test code=K) 4.4 mmol/L 3.4-5.0 CHLORIDE (test code=CL) 81 mmol/L 100-108 CARBON DIOXIDE (test code=CO2) 15 mmol/L 21-32 GLUCOSE (test code=GLU) 772 MG/DL 70-110 BLOOD UREA NITROGEN (test code=BUN) 7 MG/DL 7-18 GLOMERULAR FILTRATION RATE (test code=GFR) 57 estGFR >60 CREATININE (test code=CREAT) 1.1 MG/DL 0.6-1.0 ALBUMIN (test code=ALB) 3.4 G/DL 3.4-5.0 CALCIUM (test code=CA) 8.4 MG/DL 8.5-10.1 PHOSPHOROUS (test code=PHOS) 3.8 MG/DL 2.5-4.9 Completed by Nursing: NOLIPID PROFILE (CORONARY RISK)2019-02-02 18:44:00 Test Item Value Reference Range Comments TRIGLYCERIDES (test code=TRIG) 450 MG/DL 0-150 CHOLESTEROL (test code=CHOL) 173 MG/DL 133-200 CHOLESTEROL/HDL RATIO (test code=CHOLHDL) 2.58 RATIO >0 HDL CHOLESTEROL (test code=HDL) 67 MG/DL 40-59 NON-HDL CHOLESTEROL (test code=NHDL) 106 mg/dL <130 LIPOPROTEIN LDL (test code=LDL) 62 MG/DL 0-129 LDL/HDL (test code=LDL/HDL) 0.92 Ratio 1.48-3.22 Avg Completed by Nursing: [id number] 18:44:00 Test Item Value Reference Range Comments AMYLASE (test code=BHARAT) 20 Unit/L 25-115 Completed by Nursing: [id number] 18:44:00 Test Item Value Reference Range Comments LIPASE (test code=LIP) 295 Unit/L 114-286 Completed by Nursing: [id number] 18:44:00 Test Item Value Reference Range Comments MAGNESIUM (test code=MAG) 1.7 MG/DL 1.8-2.4 Completed by Nursing: NOHCG SERUM [id number] 18:44:00 Test Item Value Reference Range Comments HCG SERUM QUAL (test code=HCGQL) SCREEN NEGATIVE Completed by Nursing: NOCPK-MB [id number] 18:44:00 Test Item Value Reference Range Comments CREATINE KINASE (CK) (test code=CK) 63 Unit/L 26-192 CKMB (test code=CKMBT) < 1.0 NG/ML 0.0-4.9 RELATIVE % INDEX (test code=REL%) 1.5 % 0.0-2.5 Completed by Nursing: [id number] 18:44:00 Test Item Value Reference Range Comments TROPONIN-I (test < 0.015 NG/ML 0.000-0.045 Negative: </=0.045 Positive: code=TROPI) >/=0.046 Correlation with serial results, other cardiac markers, and clinical findings is necessary to determine the clinical significance of this result. Quantitative results using different methodologies should not be compared to one another as numerical results may varyby method. Completed by Nursing: NOCK [id number] 18:44:00 Test Item Value Reference Range Comments CK MACRO TYPE 2 (test code=CKMC2%) CKMM/CK3 % (test code=CKMM%) CK MACRO TYPE 1 (test code=CKMC1%) CKMB/CK2 % (test code=CKMB%) CKBB/CK1 % (test code=CKBB%) Completed by Nursing: NOGLUCOSE BEDSIDE [id number] 18:28:00 Test Item Value Reference Range Comments GLUCOSE BEDSIDE TESTING (test code=GLUBED) 542 mg/dL 70-110 [id number] 18:15:00 Test Item Value Reference Range Comments ARTERIAL BLOOD GAS PH (test code=PHA) 7.22 pH units 7.35-7.45 ARTERIAL BLOOD GAS PCO2 (test 38 mmHg 35-45 code=PCO2A) ARTERIAL BLOOD GAS PO2 (test code=PO2A) 101 mmHg 80-100 BICARBONATE TOTAL HCO3 (test code=HCO3) 15.5 mmol/L 22.0-26.0 BASE EXCESS (test code=TEJAS) -11.4 mmol/L -3.0-3.0 ABG O2 SATURATION (test code=SATA) 96 % 90-100 FIO2 (test code=FIO2A) 21 % e 21-100 ABG VENT MODE (test code=MODEA) Room Air Descript Vent Mode ABG SITE (test code=SITEA) Right Radial ARTKIT DESCRIPTION MODIFIED ITALO'S (test code=MODALL) Yes Circ.CHK POSITIVE TOTAL HGB (test code=THB) 9.4 GRAM/DL 12.0-18.0 HGB O2 SAT (test code=HBOSAT) 94.7 % (justin) 95.0-100.0 CARBOXYHEMOGLOBIN (test code=HOHGBT) 0.2 % 0.5-1.5 METHEMOGLOBIN (test code=METHGB) 0.9 % 0.0-0.0 COMPREHENSIVE METABOLIC [id number] 17:36:00 Test Item Value Reference Range Comments SODIUM (test code=NA) 122 mmol/L 134-147 POTASSIUM (test code=K) 4.5 mmol/L 3.4-5.0 CHLORIDE (test code=CL) 82 mmol/L 100-108 CARBON DIOXIDE (test code=CO2) 16 mmol/L 21-32 ANION GAP (test code=GAP) 24.0 GAP calc 4.0-15.0 GLUCOSE (test code=GLU) 811 MG/DL 70-110 BLOOD UREA NITROGEN (test code=BUN) 7 MG/DL 7-18 GLOMERULAR FILTRATION RATE (test code=GFR) 51 estGFR >60 CREATININE (test code=CREAT) 1.2 MG/DL 0.6-1.0 TOTAL PROTEIN (test code=PROT) 8.3 G/DL 6.4-8.2 ALBUMIN (test code=ALB) 3.5 G/DL 3.4-5.0 GLOBULIN (test code=GLOB) 4.8 GM/dL ALBUMIN/GLOBULIN RATIO (test code=A/G) 0.7 RATIO 1.2-2.2 CALCIUM (test code=CA) 8.4 MG/DL 8.5-10.1 BILIRUBIN TOTAL (test code=BILT) 1.10 MG/DL 0.2-1.2 SGOT/AST (test code=AST) 74 Unit/L 15-37 SGPT/ALT (test code=ALT) 58 Unit/L 12-78 ALKALINE PHOSPHATASE TOTAL (test code=ALKP) 197 Unit/L 45-117 GLUCOSE BEDSIDE [id number] 17:35:00 Test Item Value Reference Range Comments GLUCOSE BEDSIDE TESTING (test code=GLUBED) 504 mg/dL 70-110 URINALYSIS [id number] 17:29:00 Test Item Value Reference Range Comments UA COLOR (test code=COLU) LIGHT YELLOW discript YEL/STRAW UA APPEARANCE (test code=APPU) CLEAR discript CLEAR UA GLUCOSE DIPSTICK (test code=DGLUU) >1000 mg/dL NEG UA BILIRUBIN DIPSTICK (test code=BILU) NEGATIVE mg/DL (NEG) 0 UA KETONE DIPSTICK (test code=KETU) 2+ mg/DL (NEG) 0 UA SPECIFIC GRAVITY (test code=SGU) 1.005 SG 1.005-1.030 UA BLOOD DIPSTICK (test code=TRISHA) NEGATIVE Norberto/mcL (NEG) 0 UA PH DIPSTICK (test code=HELENA) <=5.0 pH UNITS 5.0-7.0 UA PROTEIN DIPSTICK (test code=PROU) NEGATIVE mg/DL <30 UA UROBILINIOGEN DIPSTICK (test NORMAL mg/DL (NORM) <2.0 code=URO) UA NITRITE DIPSTICK (test code=BRIAN) NEGATIVE SCREEN NEG UA LEUKOCYTE ESTERASE DIPSTICK (test NEGATIVE Leuk/mcL (NEG) 0 code=LEUU) DRUGS OF ABUSE SCREEN [id number] 17:29:00 Test Item Value Reference Range Comments URN COCAINE (test code=COCAURN) NEGATIVE SCcutoff <300 NG/ML URN CANNABINOIDS (test code=CANNABURN) NEGATIVE SCcutoff <50 NG/ML URN AMPHETAMINE (test code=AMPHETURN) NEGATIVE SCcutoff <1000 NG/ML URN BARBITURATE (test code=BARBITURN) NEGATIVE SCcutoff <200 NG/ML URN BENZODIAZEPINE (test code=BENZOURN) NEGATIVE SCcutoff <200 NG/ML URN OPIATES (test code=OPIATURN) NEGATIVE SCcutoff <2000 NG/ML URN PHENCYCLIDINE (PCP) (test NEGATIVE SCcutoff <25 NG/ML code=PHENCURN) URN METHADONE (test code=METHAURN) NEGATIVE SCcutoff <300 NG/ML URINALYSIS [id number] 17:07:00 Test Item Value Reference Range Comments UA COLOR (test code=COLU) LIGHT YELLOW discript YEL/STRAW UA APPEARANCE (test code=APPU) CLEAR discript CLEAR UA GLUCOSE DIPSTICK (test code=DGLUU) >1000 mg/dL NEG UA BILIRUBIN DIPSTICK (test code=BILU) NEGATIVE mg/DL (NEG) 0 UA KETONE DIPSTICK (test code=KETU) 2+ mg/DL (NEG) 0 UA SPECIFIC GRAVITY (test code=SGU) 1.005 SG 1.005-1.030 UA BLOOD DIPSTICK (test code=TRISHA) NEGATIVE Norberto/mcL (NEG) 0 UA PH DIPSTICK (test code=HELENA) <=5.0 pH UNITS 5.0-7.0 UA PROTEIN DIPSTICK (test code=PROU) NEGATIVE mg/DL <30 UA UROBILINIOGEN DIPSTICK (test NORMAL mg/DL (NORM) <2.0 code=URO) UA NITRITE DIPSTICK (test code=BRIAN) NEGATIVE SCREEN NEG UA LEUKOCYTE ESTERASE DIPSTICK (test NEGATIVE Leuk/mcL (NEG) 0 code=LEUU) DRUGS OF ABUSE SCREEN [id number] 17:07:00 Test Item Value Reference Range Comments URN COCAINE (test code=COCAURN) SCcutoff <300 NG/ML URN CANNABINOIDS (test code=CANNABURN) SCcutoff <50 NG/ML URN AMPHETAMINE (test code=AMPHETURN) SCcutoff <1000 NG/ML URN BARBITURATE (test code=BARBITURN) SCcutoff <200 NG/ML URN BENZODIAZEPINE (test code=BENZOURN) SCcutoff <200 NG/ML URN OPIATES (test code=OPIATURN) SCcutoff <2000 NG/ML URN PHENCYCLIDINE (PCP) (test code=PHENCURN) SCcutoff <25 NG/ML URN METHADONE (test code=METHAURN) SCcutoff <300 NG/ML HEPATIC FUNCTION [id number] 16:18:00 Test Item Value Reference Range Comments TOTAL PROTEIN (test code=PROT) 8.1 G/DL 6.4-8.2 ALBUMIN (test code=ALB) 3.5 G/DL 3.4-5.0 BILIRUBIN TOTAL (test code=BILT) 1.10 MG/DL 0.2-1.2 BILIRUBIN DIRECT (test code=BILD) 0.20 MG/DL 0.00-0.30 BILIRUBIN INDIRECT (test code=BILIND) 0.90 MG/DL 0.2-1.2 SGOT/AST (test code=AST) 71 Unit/L 15-37 SGPT/ALT (test code=ALT) 57 Unit/L 12-78 ALKALINE PHOSPHATASE TOTAL (test code=ALKP) 197 Unit/L 45-117 [id number] 16:18:00 Test Item Value Reference Range Comments LIPASE (test code=LIP) 286 Unit/L 114-286 NT PRO-BRAIN NATRIURETIC [id number] 16:18:00 Test Item Value Reference Range Comments NT PRO-BRAIN NATRIURETIC PEPTI (test code=PROBNP) 438 PG/ML 0-100 CPK-MB [id number] 16:18:00 Test Item Value Reference Range Comments CREATINE KINASE (CK) (test code=CK) 60 Unit/L 26-192 CKMB (test code=CKMBT) < 1.0 NG/ML 0.0-4.9 RELATIVE % INDEX (test code=REL%) 1.6 % 0.0-2.5 CBC W/O [id number] 15:55:00 Test Item Value Reference Range Comments WHITE BLOOD CELL (test code=WBC) 6.5 K/mm3 3.5-11.0 RED BLOOD CELL (test code=RBC) 3.53 M/mm3 4.70-6.10 HEMOGLOBIN (test code=HGB) 10.3 G/DL 10.4-14.9 HEMATOCRIT (test code=HCT) 32.4 % 31.5-44.1 MEAN CELL VOLUME (test code=MCV) 91.8 Fl 84.5-98.6 MEAN CELL HGB (test code=MCH) 29.2 pg 27.0-34.2 MEAN CELL HGB CONCETRATION (test code=MCHC) 31.8 G/DL 31.5-34.0 RED CELL DISTRIBUTION WIDTH (test code=RDW) 18.3 SD 11.5-14.5 PLATELET COUNT (test code=PLT) 219.0 K/mm3 150-450 MEAN PLATELET VOLUME (test code=MPV) 10.00 fL 7.0-10.5 PROTHROMBIN [id number] 15:55:00 Test Item Value Reference Range Comments PT PATIENT (test code=PTP) 10.7 SECONDS 9.3-12.9 INTERNATIONAL NORMAL RATIO (test code=INR) 0.93 INR Unit 0.8-1.2 - XR CHEST 1 [id number] 15:47:00 Name: ESTHER LOZANO [facility]ly [facility] : 1970 Age/S: 48 / F [address] Unit #: [id number] Loc: [place] [address] Phys: Weston Mittal MD Acct: [id number] Dis Date: Status: REG ER PHONE #: [phone] Exam Date: 02/02/2019 1530 FAX #: Reason: chest pain EXAMS: CPT: [id number] XR CHEST 1 V [id number] Fluoro Time: DAP (Gy m2): Air Kerma (mGy): EXAMINATION: - XR CHEST 1 V. LOCATION: B2. HISTORY : chest pain. COMPARISON: Radiograph dated 01/08/19. TECHNIQUE: Single AP view of the chest was obtained. FINDINGS: Theheart is normal in size. The lungs are clear. No acute osseous abnormality is identified. IMPRESSION: No acute cardiopulmonary abnormality. at 1547 Reported and signed by: Radha Hughes CC: Weston Mittal MD PAGE 1 Signed Report Name: ESTHER LOZANO [facility]ly [facility] : 1970 Age/S: 48 / F [address] [id number] Loc: [place] [address] Phys: Weston Mittal MD Acct: [id number] Dis Date: Status:REG ER PHONE #: [phone] Exam Date: 02/02/2019 1530 FAX #: Reason: chest pain EXAMS: CPT: [id number] XR CHEST 1 V [id number] Fluoro Time: DAP (Gy m2): Air Kerma (mGy): <Continued> Technologist: Ag Machuca, RT(R)(CT); ... Trnscb Date /Time: 02/02/2019 (8207) t.[id number] Orig Print D/T: S: 01/2019 (5347) PAGE 2 Signed ReportTROPONIN I [id number] 15:38:00 Test Item Value Reference Range Comments TROPONIN I RAPID (test 0.00 ng/mL 0.00-0.08 - The use of serial sampling code=TROPIRAP) and testing protocol is a recommended practice- An elevated troponin level alone is often not sufficient for diagnosis of myocardial infarction. GLUCOSE BEDSIDE [id number] 12:22:00 Test Item Value Reference Range Comments GLUCOSE BEDSIDE TESTING (test code=GLUBED) 123 mg/dL 70-110 GLUCOSE BEDSIDE [id number] 08:37:00 Test Item Value Reference Range Comments GLUCOSE BEDSIDE TESTING (test code=GLUBED) 201 mg/dL 70-110 BASIC METABOLIC [id number] 05:09:00 Test Item Value Reference Range Comments SODIUM (test code=NA) 138 mmol/L 134-147 POTASSIUM (test code=K) 4.1 mmol/L 3.4-5.0 CHLORIDE (test code=CL) 99 mmol/L 100-108 CARBON DIOXIDE (test code=CO2) 32 mmol/L 21-32 ANION GAP (test code=GAP) 7.0 GAP calc 4.0-15.0 GLUCOSE (test code=GLU) 252 MG/DL 70-110 BLOOD UREA NITROGEN (test code=BUN) 12 MG/DL 7-18 GLOMERULAR FILTRATION RATE (test code=GFR) 57 estGFR >60 CREATININE (test code=CREAT) 1.1 MG/DL 0.6-1.0 CALCIUM (test code=CA) 8.0 MG/DL 8.5-10.1 CBC W/AUTO [id number] 05:04:00 Test Item Value Reference Range Comments WHITE BLOOD CELL (test code=WBC) 3.6 K/mm3 3.5-11.0 RED BLOOD CELL (test code=RBC) 2.46 M/mm3 4.70-6.10 HEMOGLOBIN (test code=HGB) 6.8 G/DL 10.4-14.9 HEMATOCRIT (test code=HCT) 22.3 % 31.5-44.1 MEAN CELL VOLUME (test code=MCV) 90.7 Fl 84.5-98.6 MEAN CELL HGB (test code=MCH) 27.6 pg 27.0-34.2 MEAN CELL HGB CONCETRATION (test code=MCHC) 30.5 G/DL 31.5-34.0 RED CELL DISTRIBUTION WIDTH (test code=RDW) 18.4 SD 11.5-14.5 PLATELET COUNT (test code=PLT) 151.0 K/mm3 150-450 MEAN PLATELET VOLUME (test code=MPV) 10.60 fL 7.0-10.5 NEUTROPHIL % (test code=NT%) 34.4 % 40-76 LYMPHOCYTE % (test code=LY%) 36.4 % 20.5-51.1 MONOCYTE % (test code=MO%) 26.7 % 1.7-9.3 EOSINOPHIL % (test code=EO%) 2.2 % 0.0-6.0 BASOPHIL % (test code=BA%) 0.3 % 0.0-2.0 NEUTROPHIL # (test code=NT#) 1.24 K/mm3 1.8-7.6 LYMPHOCYTE # (test code=LY#) 1.3 K/mm3 0.6-3.2 MONOCYTE # (test code=MO#) 1.0 K/mm3 0.3-1.1 EOSINOPHIL # (test code=EO#) 0.1 K/mm3 0.0-0.4 BASOPHIL # (test code=BA#) 0.0 K/mm3 0.0-0.1 MANUAL DIFF REQUIRED (test code=MDIFF) NO DIFF/SCN CRITERIA GLUCOSE BEDSIDE [id number] 01:46:00 Test Item Value Reference Range Comments GLUCOSE BEDSIDE TESTING (test code=GLUBED) 263 mg/dL 70-110 GLUCOSE BEDSIDE [id number] 20:42:00 Test Item Value Reference Range Comments GLUCOSE BEDSIDE TESTING (test code=GLUBED) 195 mg/dL 70-110 GLUCOSE BEDSIDE [id number] 17:29:00 Test Item Value Reference Range Comments GLUCOSE BEDSIDE TESTING (test code=GLUBED) 75 mg/dL 70-110 GLUCOSE BEDSIDE [id number] 13:02:00 Test Item Value Reference Range Comments GLUCOSE BEDSIDE TESTING (test code=GLUBED) 64 mg/dL 70-110 CBC W/AUTO [id number] 11:34:00 Test Item Value Reference Range Comments WHITE BLOOD CELL (test code=WBC) 3.2 K/mm3 3.5-11.0 RED BLOOD CELL (test code=RBC) 2.62 M/mm3 4.70-6.10 HEMOGLOBIN (test code=HGB) 7.4 G/DL 10.4-14.9 HEMATOCRIT (test code=HCT) 23.2 % 31.5-44.1 MEAN CELL VOLUME (test code=MCV) 88.5 Fl 84.5-98.6 MEAN CELL HGB (test code=MCH) 28.2 pg 27.0-34.2 MEAN CELL HGB CONCETRATION (test code=MCHC) 31.9 G/DL 31.5-34.0 RED CELL DISTRIBUTION WIDTH (test code=RDW) 17.7 SD 11.5-14.5 PLATELET COUNT (test code=PLT) 96.0 K/mm3 150-450 MEAN PLATELET VOLUME (test code=MPV) 11.10 fL 7.0-10.5 NEUTROPHIL % (test code=NT%) 43.3 % 40-76 LYMPHOCYTE % (test code=LY%) 28.8 % 20.5-51.1 MONOCYTE % (test code=MO%) 26.3 % 1.7-9.3 EOSINOPHIL % (test code=EO%) 1.3 % 0.0-6.0 BASOPHIL % (test code=BA%) 0.3 % 0.0-2.0 NEUTROPHIL # (test code=NT#) 1.39 K/mm3 1.8-7.6 LYMPHOCYTE # (test code=LY#) 0.9 K/mm3 0.6-3.2 MONOCYTE # (test code=MO#) 0.8 K/mm3 0.3-1.1 EOSINOPHIL # (test code=EO#) 0.0 K/mm3 0.0-0.4 BASOPHIL # (test code=BA#) 0.0 K/mm3 0.0-0.1 MANUAL DIFF REQUIRED (test code=MDIFF) NO DIFF/SCN CRITERIA RBC [id number] 11:34:00 Test Item Value Reference Range Comments PLATELET ESTIMATE (test SLIGHTLY DECREASED ADEQUATE PLATE COUNT REVIEWED code=PLTEST) THOUSAND AND VERIFIED. PLATELET MORPHOLOGY NORMAL (test code=PLTMORPH) CBC W/AUTO [id number] 11:32:00 Test Item Value Reference Range Comments WHITE BLOOD CELL (test code=WBC) 3.2 K/mm3 3.5-11.0 RED BLOOD CELL (test code=RBC) 2.62 M/mm3 4.70-6.10 HEMOGLOBIN (test code=HGB) 7.4 G/DL 10.4-14.9 HEMATOCRIT (test code=HCT) 23.2 % 31.5-44.1 MEAN CELL VOLUME (test code=MCV) 88.5 Fl 84.5-98.6 MEAN CELL HGB (test code=MCH) 28.2 pg 27.0-34.2 MEAN CELL HGB CONCETRATION (test code=MCHC) 31.9 G/DL 31.5-34.0 RED CELL DISTRIBUTION WIDTH (test code=RDW) 17.7 SD 11.5-14.5 PLATELET COUNT (test code=PLT) 96.0 K/mm3 150-450 MEAN PLATELET VOLUME (test code=MPV) 11.10 fL 7.0-10.5 NEUTROPHIL % (test code=NT%) 43.3 % 40-76 LYMPHOCYTE % (test code=LY%) 28.8 % 20.5-51.1 MONOCYTE % (test code=MO%) 26.3 % 1.7-9.3 EOSINOPHIL % (test code=EO%) 1.3 % 0.0-6.0 BASOPHIL % (test code=BA%) 0.3 % 0.0-2.0 NEUTROPHIL # (test code=NT#) 1.39 K/mm3 1.8-7.6 LYMPHOCYTE # (test code=LY#) 0.9 K/mm3 0.6-3.2 MONOCYTE # (test code=MO#) 0.8 K/mm3 0.3-1.1 EOSINOPHIL # (test code=EO#) 0.0 K/mm3 0.0-0.4 BASOPHIL # (test code=BA#) 0.0 K/mm3 0.0-0.1 MANUAL DIFF REQUIRED (test code=MDIFF) NO DIFF/SCN CRITERIA CBC W/AUTO [id number] 11:32:00 Test Item Value Reference Range Comments WHITE BLOOD CELL (test code=WBC) 3.2 K/mm3 3.5-11.0 RED BLOOD CELL (test code=RBC) 2.62 M/mm3 4.70-6.10 HEMOGLOBIN (test code=HGB) 7.4 G/DL 10.4-14.9 HEMATOCRIT (test code=HCT) 23.2 % 31.5-44.1 MEAN CELL VOLUME (test code=MCV) 88.5 Fl 84.5-98.6 MEAN CELL HGB (test code=MCH) 28.2 pg 27.0-34.2 MEAN CELL HGB CONCETRATION (test code=MCHC) 31.9 G/DL 31.5-34.0 RED CELL DISTRIBUTION WIDTH (test code=RDW) 17.7 SD 11.5-14.5 PLATELET COUNT (test code=PLT) 96.0 K/mm3 150-450 MEAN PLATELET VOLUME (test code=MPV) 11.10 fL 7.0-10.5 NEUTROPHIL % (test code=NT%) 43.3 % 40-76 LYMPHOCYTE % (test code=LY%) 28.8 % 20.5-51.1 MONOCYTE % (test code=MO%) 26.3 % 1.7-9.3 EOSINOPHIL % (test code=EO%) 1.3 % 0.0-6.0 BASOPHIL % (test code=BA%) 0.3 % 0.0-2.0 NEUTROPHIL # (test code=NT#) 1.39 K/mm3 1.8-7.6 LYMPHOCYTE # (test code=LY#) 0.9 K/mm3 0.6-3.2 MONOCYTE # (test code=MO#) 0.8 K/mm3 0.3-1.1 EOSINOPHIL # (test code=EO#) 0.0 K/mm3 0.0-0.4 BASOPHIL # (test code=BA#) 0.0 K/mm3 0.0-0.1 MANUAL DIFF REQUIRED (test code=MDIFF) NO DIFF/SCN CRITERIA GLYCOSYLATED HEMOGLOBIN [id number] 10:40:00 Test Item Value Reference Range Comments GLYCOSYLATED HEMOGLOBIN (HA1C) (test 10.1 % A1C 4.2-6.3 code=GLYHGB) ESTIMATED AVERAGE GLUCOSE (test code=EAG) 243 MG/DLest GLUCOSE BEDSIDE [id number] 07:11:00 Test Item Value Reference Range Comments GLUCOSE BEDSIDE TESTING (test code=GLUBED) 178 mg/dL 70-110 COMPREHENSIVE METABOLIC [id number] 06:41:00 Test Item Value Reference Range Comments SODIUM (test code=NA) 137 mmol/L 134-147 POTASSIUM (test code=K) 2.8 mmol/L 3.4-5.0 CHLORIDE (test code=CL) 97 mmol/L 100-108 CARBON DIOXIDE (test code=CO2) 32 mmol/L 21-32 ANION GAP (test code=GAP) 8.0 GAP calc 4.0-15.0 GLUCOSE (test code=GLU) 178 MG/DL 70-110 BLOOD UREA NITROGEN (test code=BUN) 9 MG/DL 7-18 GLOMERULAR FILTRATION RATE (test code=GFR) 51 estGFR >60 CREATININE (test code=CREAT) 1.2 MG/DL 0.6-1.0 TOTAL PROTEIN (test code=PROT) 5.7 G/DL 6.4-8.2 ALBUMIN (test code=ALB) 2.5 G/DL 3.4-5.0 GLOBULIN (test code=GLOB) 3.2 GM/dL ALBUMIN/GLOBULIN RATIO (test code=A/G) 0.8 RATIO 1.2-2.2 CALCIUM (test code=CA) 8.2 MG/DL 8.5-10.1 BILIRUBIN TOTAL (test code=BILT) 0.40 MG/DL 0.2-1.2 SGOT/AST (test code=AST) 82 Unit/L 15-37 SGPT/ALT (test code=ALT) 35 Unit/L 12-78 ALKALINE PHOSPHATASE TOTAL (test code=ALKP) 93 Unit/L 45-117 CBC W/AUTO [id number] 06:31:00 Test Item Value Reference Range Comments WHITE BLOOD CELL (test code=WBC) 3.2 K/mm3 3.5-11.0 RED BLOOD CELL (test code=RBC) 2.62 M/mm3 4.70-6.10 HEMOGLOBIN (test code=HGB) 7.4 G/DL 10.4-14.9 HEMATOCRIT (test code=HCT) 23.2 % 31.5-44.1 MEAN CELL VOLUME (test code=MCV) 88.5 Fl 84.5-98.6 MEAN CELL HGB (test code=MCH) 28.2 pg 27.0-34.2 MEAN CELL HGB CONCETRATION (test code=MCHC) 31.9 G/DL 31.5-34.0 RED CELL DISTRIBUTION WIDTH (test code=RDW) 17.7 SD 11.5-14.5 PLATELET COUNT (test code=PLT) 96.0 K/mm3 150-450 MEAN PLATELET VOLUME (test code=MPV) 11.10 fL 7.0-10.5 NEUTROPHIL % (test code=NT%) % 40-76 LYMPHOCYTE % (test code=LY%) % 20.5-51.1 MONOCYTE % (test code=MO%) % 1.7-9.3 EOSINOPHIL % (test code=EO%) % 0.0-6.0 BASOPHIL % (test code=BA%) % 0.0-2.0 NEUTROPHIL # (test code=NT#) K/mm3 1.8-7.6 LYMPHOCYTE # (test code=LY#) K/mm3 0.6-3.2 MONOCYTE # (test code=MO#) K/mm3 0.3-1.1 EOSINOPHIL # (test code=EO#) K/mm3 0.0-0.4 BASOPHIL # (test code=BA#) K/mm3 0.0-0.1 MANUAL DIFF REQUIRED (test code=MDIFF) DIFF/SCN CRITERIA GLUCOSE BEDSIDE [id number] 05:13:00 Test Item Value Reference Range Comments GLUCOSE BEDSIDE TESTING (test code=GLUBED) 133 mg/dL 70-110 GLUCOSE BEDSIDE [id number] 04:39:00 Test Item Value Reference Range Comments GLUCOSE BEDSIDE TESTING (test code=GLUBED) 91 mg/dL 70-110 GLUCOSE BEDSIDE [id number] 04:39:00 Test Item Value Reference Range Comments GLUCOSE BEDSIDE TESTING (test code=GLUBED) 18 mg/dL 70-110 GLUCOSE BEDSIDE [id number] 20:48:00 Test Item Value Reference Range Comments GLUCOSE BEDSIDE TESTING (test code=GLUBED) 228 mg/dL 70-110 GLUCOSE BEDSIDE [id number] 17:05:00 Test Item Value Reference Range Comments GLUCOSE BEDSIDE TESTING (test code=GLUBED) 81 mg/dL 70-110 GLUCOSE BEDSIDE [id number] 11:42:00 Test Item Value Reference Range Comments GLUCOSE BEDSIDE TESTING (test code=GLUBED) 71 mg/dL 70-110 CBC W/AUTO [id number] 07:54:00 Test Item Value Reference Range Comments WHITE BLOOD CELL (test code=WBC) 3.5 K/mm3 3.5-11.0 RED BLOOD CELL (test code=RBC) 2.67 M/mm3 4.70-6.10 HEMOGLOBIN (test code=HGB) 7.5 G/DL 10.4-14.9 HEMATOCRIT (test code=HCT) 23.2 % 31.5-44.1 MEAN CELL VOLUME (test code=MCV) 86.9 Fl 84.5-98.6 MEAN CELL HGB (test code=MCH) 28.1 pg 27.0-34.2 MEAN CELL HGB CONCETRATION (test code=MCHC) 32.3 G/DL 31.5-34.0 RED CELL DISTRIBUTION WIDTH (test code=RDW) 17.6 SD 11.5-14.5 PLATELET COUNT (test code=PLT) 63.0 K/mm3 150-450 MEAN PLATELET VOLUME (test code=MPV) 11.20 fL 7.0-10.5 NEUTROPHIL % (test code=NT%) 40.4 % 40-76 LYMPHOCYTE % (test code=LY%) 35.9 % 20.5-51.1 MONOCYTE % (test code=MO%) 20.9 % 1.7-9.3 EOSINOPHIL % (test code=EO%) 2.5 % 0.0-6.0 BASOPHIL % (test code=BA%) 0.3 % 0.0-2.0 NEUTROPHIL # (test code=NT#) 1.43 K/mm3 1.8-7.6 LYMPHOCYTE # (test code=LY#) 1.3 K/mm3 0.6-3.2 MONOCYTE # (test code=MO#) 0.7 K/mm3 0.3-1.1 EOSINOPHIL # (test code=EO#) 0.1 K/mm3 0.0-0.4 BASOPHIL # (test code=BA#) 0.0 K/mm3 0.0-0.1 MANUAL DIFF REQUIRED (test code=MDIFF) NO DIFF/SCN CRITERIA RBC [id number] 07:54:00 Test Item Value Reference Range Comments PLATELET ESTIMATE (test ADEQUATE THOUSAND ADEQUATE PLATELET COUNT REVIEWED code=PLTEST) AND VERIFIED. PLATELET MORPHOLOGY (test NORMAL A FEW AGGREGATES SEEN. code=PLTMORPH) CBC W/AUTO [id number] 07:51:00 Test Item Value Reference Range Comments WHITE BLOOD CELL (test code=WBC) 3.5 K/mm3 3.5-11.0 RED BLOOD CELL (test code=RBC) 2.67 M/mm3 4.70-6.10 HEMOGLOBIN (test code=HGB) 7.5 G/DL 10.4-14.9 HEMATOCRIT (test code=HCT) 23.2 % 31.5-44.1 MEAN CELL VOLUME (test code=MCV) 86.9 Fl 84.5-98.6 MEAN CELL HGB (test code=MCH) 28.1 pg 27.0-34.2 MEAN CELL HGB CONCETRATION (test code=MCHC) 32.3 G/DL 31.5-34.0 RED CELL DISTRIBUTION WIDTH (test code=RDW) 17.6 SD 11.5-14.5 PLATELET COUNT (test code=PLT) 63.0 K/mm3 150-450 MEAN PLATELET VOLUME (test code=MPV) 11.20 fL 7.0-10.5 NEUTROPHIL % (test code=NT%) 40.4 % 40-76 LYMPHOCYTE % (test code=LY%) 35.9 % 20.5-51.1 MONOCYTE % (test code=MO%) 20.9 % 1.7-9.3 EOSINOPHIL % (test code=EO%) 2.5 % 0.0-6.0 BASOPHIL % (test code=BA%) 0.3 % 0.0-2.0 NEUTROPHIL # (test code=NT#) 1.43 K/mm3 1.8-7.6 LYMPHOCYTE # (test code=LY#) 1.3 K/mm3 0.6-3.2 MONOCYTE # (test code=MO#) 0.7 K/mm3 0.3-1.1 EOSINOPHIL # (test code=EO#) 0.1 K/mm3 0.0-0.4 BASOPHIL # (test code=BA#) 0.0 K/mm3 0.0-0.1 MANUAL DIFF REQUIRED (test code=MDIFF) NO DIFF/SCN CRITERIA CBC W/AUTO [id number] 07:51:00 Test Item Value Reference Range Comments WHITE BLOOD CELL (test code=WBC) 3.5 K/mm3 3.5-11.0 RED BLOOD CELL (test code=RBC) 2.67 M/mm3 4.70-6.10 HEMOGLOBIN (test code=HGB) 7.5 G/DL 10.4-14.9 HEMATOCRIT (test code=HCT) 23.2 % 31.5-44.1 MEAN CELL VOLUME (test code=MCV) 86.9 Fl 84.5-98.6 MEAN CELL HGB (test code=MCH) 28.1 pg 27.0-34.2 MEAN CELL HGB CONCETRATION (test code=MCHC) 32.3 G/DL 31.5-34.0 RED CELL DISTRIBUTION WIDTH (test code=RDW) 17.6 SD 11.5-14.5 PLATELET COUNT (test code=PLT) 63.0 K/mm3 150-450 MEAN PLATELET VOLUME (test code=MPV) 11.20 fL 7.0-10.5 NEUTROPHIL % (test code=NT%) 40.4 % 40-76 LYMPHOCYTE % (test code=LY%) 35.9 % 20.5-51.1 MONOCYTE % (test code=MO%) 20.9 % 1.7-9.3 EOSINOPHIL % (test code=EO%) 2.5 % 0.0-6.0 BASOPHIL % (test code=BA%) 0.3 % 0.0-2.0 NEUTROPHIL # (test code=NT#) 1.43 K/mm3 1.8-7.6 LYMPHOCYTE # (test code=LY#) 1.3 K/mm3 0.6-3.2 MONOCYTE # (test code=MO#) 0.7 K/mm3 0.3-1.1 EOSINOPHIL # (test code=EO#) 0.1 K/mm3 0.0-0.4 BASOPHIL # (test code=BA#) 0.0 K/mm3 0.0-0.1 MANUAL DIFF REQUIRED (test code=MDIFF) NO DIFF/SCN CRITERIA GLUCOSE BEDSIDE [id number] 07:27:00 Test Item Value Reference Range Comments GLUCOSE BEDSIDE TESTING (test code=GLUBED) 206 mg/dL 70-110 BASIC METABOLIC [id number] 06:20:00 Test Item Value Reference Range Comments SODIUM (test code=NA) 137 mmol/L 134-147 POTASSIUM (test code=K) 3.3 mmol/L 3.4-5.0 CHLORIDE (test code=CL) 97 mmol/L 100-108 CARBON DIOXIDE (test code=CO2) 34 mmol/L 21-32 ANION GAP (test code=GAP) 6.0 GAP calc 4.0-15.0 GLUCOSE (test code=GLU) 242 MG/DL 70-110 BLOOD UREA NITROGEN (test code=BUN) 8 MG/DL 7-18 GLOMERULAR FILTRATION RATE (test code=GFR) 57 estGFR >60 CREATININE (test code=CREAT) 1.1 MG/DL 0.6-1.0 CALCIUM (test code=CA) 8.1 MG/DL 8.5-10.1 CBC W/AUTO [id number] 06:18:00 Test Item Value Reference Range Comments WHITE BLOOD CELL (test code=WBC) 3.5 K/mm3 3.5-11.0 RED BLOOD CELL (test code=RBC) 2.67 M/mm3 4.70-6.10 HEMOGLOBIN (test code=HGB) 7.5 G/DL 10.4-14.9 HEMATOCRIT (test code=HCT) 23.2 % 31.5-44.1 MEAN CELL VOLUME (test code=MCV) 86.9 Fl 84.5-98.6 MEAN CELL HGB (test code=MCH) 28.1 pg 27.0-34.2 MEAN CELL HGB CONCETRATION (test code=MCHC) 32.3 G/DL 31.5-34.0 RED CELL DISTRIBUTION WIDTH (test code=RDW) 17.6 SD 11.5-14.5 PLATELET COUNT (test code=PLT) 63.0 K/mm3 150-450 MEAN PLATELET VOLUME (test code=MPV) 11.20 fL 7.0-10.5 NEUTROPHIL % (test code=NT%) % 40-76 LYMPHOCYTE % (test code=LY%) % 20.5-51.1 MONOCYTE % (test code=MO%) % 1.7-9.3 EOSINOPHIL % (test code=EO%) % 0.0-6.0 BASOPHIL % (test code=BA%) % 0.0-2.0 NEUTROPHIL # (test code=NT#) K/mm3 1.8-7.6 LYMPHOCYTE # (test code=LY#) K/mm3 0.6-3.2 MONOCYTE # (test code=MO#) K/mm3 0.3-1.1 EOSINOPHIL # (test code=EO#) K/mm3 0.0-0.4 BASOPHIL # (test code=BA#) K/mm3 0.0-0.1 MANUAL DIFF REQUIRED (test code=MDIFF) DIFF/SCN CRITERIA GLUCOSE BEDSIDE [id number] 20:45:00 Test Item Value Reference Range Comments GLUCOSE BEDSIDE TESTING (test code=GLUBED) 283 mg/dL 70-110 GLUCOSE BEDSIDE [id number] 19:47:00 Test Item Value Reference Range Comments GLUCOSE BEDSIDE TESTING (test code=GLUBED) 150 mg/dL 70-110 GLUCOSE BEDSIDE [id number] 16:52:00 Test Item Value Reference Range Comments GLUCOSE BEDSIDE TESTING (test code=GLUBED) 114 mg/dL 70-110 GLUCOSE BEDSIDE [id number] 07:49:00 Test Item Value Reference Range Comments GLUCOSE BEDSIDE TESTING (test code=GLUBED) 288 mg/dL 70-110 CBC W/AUTO [id number] 07:11:00 Test Item Value Reference Range Comments WHITE BLOOD CELL (test 3.8 K/mm3 3.5-11.0 code=WBC) RED BLOOD CELL (test code=RBC) 2.80 M/mm3 4.70-6.10 HEMOGLOBIN (test code=HGB) 7.8 G/DL 10.4-14.9 HEMATOCRIT (test code=HCT) 24.1 % 31.5-44.1 MEAN CELL VOLUME (test 86.1 Fl 84.5-98.6 code=MCV) MEAN CELL HGB (test code=MCH) 27.9 pg 27.0-34.2 MEAN CELL HGB CONCETRATION 32.4 G/DL 31.5-34.0 (test code=MCHC) RED CELL DISTRIBUTION WIDTH 16.8 SD 11.5-14.5 (test code=RDW) PLATELET COUNT (test code=PLT) 61.0 K/mm3 150-450 MEAN PLATELET VOLUME (test 11.50 fL 7.0-10.5 code=MPV) NEUTROPHIL % (test code=NT%) 43.5 % 40-76 LYMPHOCYTE % (test code=LY%) 38.6 % 20.5-51.1 MONOCYTE % (test code=MO%) 16.3 % 1.7-9.3 EOSINOPHIL % (test code=EO%) 1.3 % 0.0-6.0 BASOPHIL % (test code=BA%) 0.3 % 0.0-2.0 NEUTROPHIL # (test code=NT#) 1.66 K/mm3 1.8-7.6 LYMPHOCYTE # (test code=LY#) 1.5 K/mm3 0.6-3.2 MONOCYTE # (test code=MO#) 0.6 K/mm3 0.3-1.1 EOSINOPHIL # (test code=EO#) 0.1 K/mm3 0.0-0.4 BASOPHIL # (test code=BA#) 0.0 K/mm3 0.0-0.1 MANUAL DIFF REQUIRED (test NO DIFF/SCN CRITERIA SLIDE REVIEW CONSISTANT code=MDIFF) WITH AUTO DIFFERENTIAL. CBC W/AUTO [id number] 07:11:00 Test Item Value Reference Range Comments WHITE BLOOD CELL (test 3.8 K/mm3 3.5-11.0 code=WBC) RED BLOOD CELL (test code=RBC) 2.80 M/mm3 4.70-6.10 HEMOGLOBIN (test code=HGB) 7.8 G/DL 10.4-14.9 HEMATOCRIT (test code=HCT) 24.1 % 31.5-44.1 MEAN CELL VOLUME (test 86.1 Fl 84.5-98.6 code=MCV) MEAN CELL HGB (test code=MCH) 27.9 pg 27.0-34.2 MEAN CELL HGB CONCETRATION 32.4 G/DL 31.5-34.0 (test code=MCHC) RED CELL DISTRIBUTION WIDTH 16.8 SD 11.5-14.5 (test code=RDW) PLATELET COUNT (test code=PLT) 61.0 K/mm3 150-450 MEAN PLATELET VOLUME (test 11.50 fL 7.0-10.5 code=MPV) NEUTROPHIL % (test code=NT%) 43.5 % 40-76 LYMPHOCYTE % (test code=LY%) 38.6 % 20.5-51.1 MONOCYTE % (test code=MO%) 16.3 % 1.7-9.3 EOSINOPHIL % (test code=EO%) 1.3 % 0.0-6.0 BASOPHIL % (test code=BA%) 0.3 % 0.0-2.0 NEUTROPHIL # (test code=NT#) 1.66 K/mm3 1.8-7.6 LYMPHOCYTE # (test code=LY#) 1.5 K/mm3 0.6-3.2 MONOCYTE # (test code=MO#) 0.6 K/mm3 0.3-1.1 EOSINOPHIL # (test code=EO#) 0.1 K/mm3 0.0-0.4 BASOPHIL # (test code=BA#) 0.0 K/mm3 0.0-0.1 MANUAL DIFF REQUIRED (test NO DIFF/SCN CRITERIA SLIDE REVIEW CONSISTANT code=MDIFF) WITH AUTO DIFFERENTIAL. RBC [id number] 07:11:00 Test Item Value Reference Range Comments PLATELET ESTIMATE (test code=PLTEST) 92,000-115,000 THOUSAND ADEQUATE PLATELET MORPHOLOGY (test NORMAL code=PLTMORPH) CBC W/AUTO [id number] 07:11:00 Test Item Value Reference Range Comments WHITE BLOOD CELL (test 3.8 K/mm3 3.5-11.0 code=WBC) RED BLOOD CELL (test code=RBC) 2.80 M/mm3 4.70-6.10 HEMOGLOBIN (test code=HGB) 7.8 G/DL 10.4-14.9 HEMATOCRIT (test code=HCT) 24.1 % 31.5-44.1 MEAN CELL VOLUME (test 86.1 Fl 84.5-98.6 code=MCV) MEAN CELL HGB (test code=MCH) 27.9 pg 27.0-34.2 MEAN CELL HGB CONCETRATION 32.4 G/DL 31.5-34.0 (test code=MCHC) RED CELL DISTRIBUTION WIDTH 16.8 SD 11.5-14.5 (test code=RDW) PLATELET COUNT (test code=PLT) 61.0 K/mm3 150-450 MEAN PLATELET VOLUME (test 11.50 fL 7.0-10.5 code=MPV) NEUTROPHIL % (test code=NT%) 43.5 % 40-76 LYMPHOCYTE % (test code=LY%) 38.6 % 20.5-51.1 MONOCYTE % (test code=MO%) 16.3 % 1.7-9.3 EOSINOPHIL % (test code=EO%) 1.3 % 0.0-6.0 BASOPHIL % (test code=BA%) 0.3 % 0.0-2.0 NEUTROPHIL # (test code=NT#) 1.66 K/mm3 1.8-7.6 LYMPHOCYTE # (test code=LY#) 1.5 K/mm3 0.6-3.2 MONOCYTE # (test code=MO#) 0.6 K/mm3 0.3-1.1 EOSINOPHIL # (test code=EO#) 0.1 K/mm3 0.0-0.4 BASOPHIL # (test code=BA#) 0.0 K/mm3 0.0-0.1 MANUAL DIFF REQUIRED (test NO DIFF/SCN CRITERIA SLIDE REVIEW CONSISTANT code=MDIFF) WITH AUTO DIFFERENTIAL. COMPREHENSIVE METABOLIC [id number] 06:34:00 Test Item Value Reference Range Comments SODIUM (test code=NA) 136 mmol/L 134-147 POTASSIUM (test code=K) 2.7 mmol/L 3.4-5.0 CHLORIDE (test code=CL) 94 mmol/L 100-108 CARBON DIOXIDE (test code=CO2) 37 mmol/L 21-32 ANION GAP (test code=GAP) 5.0 GAP calc 4.0-15.0 GLUCOSE (test code=GLU) 249 MG/DL 70-110 BLOOD UREA NITROGEN (test code=BUN) 6 MG/DL 7-18 GLOMERULAR FILTRATION RATE (test code=GFR) 57 estGFR >60 CREATININE (test code=CREAT) 1.1 MG/DL 0.6-1.0 TOTAL PROTEIN (test code=PROT) 5.2 G/DL 6.4-8.2 ALBUMIN (test code=ALB) 2.2 G/DL 3.4-5.0 GLOBULIN (test code=GLOB) 3.0 GM/dL ALBUMIN/GLOBULIN RATIO (test code=A/G) 0.7 RATIO 1.2-2.2 CALCIUM (test code=CA) 7.3 MG/DL 8.5-10.1 BILIRUBIN TOTAL (test code=BILT) 0.90 MG/DL 0.2-1.2 SGOT/AST (test code=AST) 44 Unit/L 15-37 SGPT/ALT (test code=ALT) 25 Unit/L 12-78 ALKALINE PHOSPHATASE TOTAL (test code=ALKP) 73 Unit/L 45-117 [id number] 06:34:00 Test Item Value Reference Range Comments PHOSPHOROUS (test code=PHOS) 1.9 MG/DL 2.5-4.9 [id number] 06:34:00 Test Item Value Reference Range Comments MAGNESIUM (test code=MAG) 1.3 MG/DL 1.8-2.4 CBC W/AUTO [id number] 06:25:00 Test Item Value Reference Range Comments WHITE BLOOD CELL (test code=WBC) 3.8 K/mm3 3.5-11.0 RED BLOOD CELL (test code=RBC) 2.80 M/mm3 4.70-6.10 HEMOGLOBIN (test code=HGB) 7.8 G/DL 10.4-14.9 HEMATOCRIT (test code=HCT) 24.1 % 31.5-44.1 MEAN CELL VOLUME (test code=MCV) 86.1 Fl 84.5-98.6 MEAN CELL HGB (test code=MCH) 27.9 pg 27.0-34.2 MEAN CELL HGB CONCETRATION (test code=MCHC) 32.4 G/DL 31.5-34.0 RED CELL DISTRIBUTION WIDTH (test code=RDW) 16.8 SD 11.5-14.5 PLATELET COUNT (test code=PLT) 61.0 K/mm3 150-450 MEAN PLATELET VOLUME (test code=MPV) 11.50 fL 7.0-10.5 NEUTROPHIL % (test code=NT%) % 40-76 LYMPHOCYTE % (test code=LY%) % 20.5-51.1 MONOCYTE % (test code=MO%) % 1.7-9.3 EOSINOPHIL % (test code=EO%) % 0.0-6.0 BASOPHIL % (test code=BA%) % 0.0-2.0 NEUTROPHIL # (test code=NT#) K/mm3 1.8-7.6 LYMPHOCYTE # (test code=LY#) K/mm3 0.6-3.2 MONOCYTE # (test code=MO#) K/mm3 0.3-1.1 EOSINOPHIL # (test code=EO#) K/mm3 0.0-0.4 BASOPHIL # (test code=BA#) K/mm3 0.0-0.1 MANUAL DIFF REQUIRED (test code=MDIFF) DIFF/SCN CRITERIA PROCALCITONIN (PCT)[id number] 03:20:00 Test Item Value Reference Range Comments PROCALCITONIN (PCT) (test 0.36 ng/mL 0.00-0.05 PROCALCITONIN (PCT) NORMAL code=PROCAL) RANGE (ADULT): <0.05 NG/ML. * a concentration <0.5 ng/mL represents a low risk of severe sepsis and/or septic shock.* a concentration >2 ng/mL represents a high risk of severe sepsis and/or septic shock.Nevertheless, concentrations <0.5 ng/mL do not exclude aninfection, on account of localized infections (withoutsystemic signs) which can be associated with such lowconcentrations, or a systemic infection in its initialstages (< 6 hours). Furthermore, increased procalcitonincan occur without infection. PCT concentrations between 0.5and 2.0 ng/mL should be interpreted taking into account thepatient's history. It is recommended to retest PCT within6-24 hours if any concentrations <2 ng/mL are obtained. PROCALCITONIN (PCT)[id number] 03:19:00 Test Item Value Reference Range Comments PROCALCITONIN (PCT) (test 0.36 ng/mL 0.00-0.05 PROCALCITONIN (PCT) NORMAL code=PROCAL) RANGE (ADULT): <0.05 NG/ML. * a concentration <0.5 ng/mL represents a low risk of severe sepsis and/or septic shock.* a concentration >2 ng/mL represents a high risk of severe sepsis and/or septic shock.Nevertheless, concentrations <0.5 ng/mL do not exclude aninfection, on account of localized infections (withoutsystemic signs) which can be associated with such lowconcentrations, or a systemic infection in its initialstages (< 6 hours). Furthermore, increased procalcitonincan occur without infection. PCT concentrations between 0.5and 2.0 ng/mL should be interpreted taking into account thepatient's history. It is recommended to retest PCT within6-24 hours if any concentrations <2 ng/mL are obtained. GLUCOSE BEDSIDE [id number] 22:22:00 Test Item Value Reference Range Comments GLUCOSE BEDSIDE TESTING (test code=GLUBED) 91 mg/dL 70-110 GLUCOSE BEDSIDE [id number] 21:49:00 Test Item Value Reference Range Comments GLUCOSE BEDSIDE TESTING (test code=GLUBED) 66 mg/dL 70-110 GLUCOSE BEDSIDE [id number] 21:27:00 Test Item Value Reference Range Comments GLUCOSE BEDSIDE TESTING (test code=GLUBED) 63 mg/dL 70-110 GLUCOSE BEDSIDE [id number] 18:18:00 Test Item Value Reference Range Comments GLUCOSE BEDSIDE TESTING (test code=GLUBED) 171 mg/dL 70-110 GLUCOSE BEDSIDE [id number] 18:18:00 Test Item Value Reference Range Comments GLUCOSE BEDSIDE TESTING (test code=GLUBED) 164 mg/dL 70-110 GLUCOSE BEDSIDE [id number] 18:18:00 Test Item Value Reference Range Comments GLUCOSE BEDSIDE TESTING (test code=GLUBED) 145 mg/dL 70-110 GLUCOSE BEDSIDE [id number] 18:18:00 Test Item Value Reference Range Comments GLUCOSE BEDSIDE TESTING (test code=GLUBED) 163 mg/dL 70-110 GLUCOSE BEDSIDE [id number] 16:20:00 Test Item Value Reference Range Comments GLUCOSE BEDSIDE TESTING (test code=GLUBED) 251 mg/dL 70-110 BASIC METABOLIC [id number] 14:11:00 Test Item Value Reference Range Comments SODIUM (test code=NA) 144 mmol/L 134-147 POTASSIUM (test code=K) 3.2 mmol/L 3.4-5.0 CHLORIDE (test code=CL) 104 mmol/L 100-108 CARBON DIOXIDE (test code=CO2) 34 mmol/L 21-32 ANION GAP (test code=GAP) 6.0 GAP calc 4.0-15.0 GLUCOSE (test code=GLU) 186 MG/DL 70-110 BLOOD UREA NITROGEN (test code=BUN) 8 MG/DL 7-18 GLOMERULAR FILTRATION RATE (test code=GFR) 47 estGFR >60 CREATININE (test code=CREAT) 1.3 MG/DL 0.6-1.0 CALCIUM (test code=CA) 7.5 MG/DL 8.5-10.1 BASIC METABOLIC [id number] 14:04:00 Test Item Value Reference Range Comments SODIUM (test code=NA) 144 mmol/L 134-147 POTASSIUM (test code=K) 3.2 mmol/L 3.4-5.0 CHLORIDE (test code=CL) 104 mmol/L 100-108 CARBON DIOXIDE (test code=CO2) 34 mmol/L 21-32 ANION GAP (test code=GAP) 6.0 GAP calc 4.0-15.0 GLUCOSE (test code=GLU) 186 MG/DL 70-110 BLOOD UREA NITROGEN (test code=BUN) 8 MG/DL 7-18 GLOMERULAR FILTRATION RATE (test code=GFR) estGFR >60 CREATININE (test code=CREAT) MG/DL 0.6-1.0 CALCIUM (test code=CA) 7.5 MG/DL 8.5-10.1 GLUCOSE BEDSIDE [id number] 13:18:00 Test Item Value Reference Range Comments GLUCOSE BEDSIDE TESTING (test code=GLUBED) 202 mg/dL 70-110 GLUCOSE BEDSIDE [id number] 13:18:00 Test Item Value Reference Range Comments GLUCOSE BEDSIDE TESTING (test code=GLUBED) 233 mg/dL 70-110 GLUCOSE BEDSIDE [id number] 13:18:00 Test Item Value Reference Range Comments GLUCOSE BEDSIDE TESTING (test code=GLUBED) 254 mg/dL 70-110 GLUCOSE BEDSIDE [id number] 13:18:00 Test Item Value Reference Range Comments GLUCOSE BEDSIDE TESTING (test code=GLUBED) 269 mg/dL 70-110 GLUCOSE BEDSIDE [id number] 13:18:00 Test Item Value Reference Range Comments GLUCOSE BEDSIDE TESTING (test code=GLUBED) 222 mg/dL 70-110 BASIC METABOLIC [id number] 06:51:00 Test Item Value Reference Range Comments SODIUM (test code=NA) 145 mmol/L 134-147 POTASSIUM (test code=K) 2.7 mmol/L 3.4-5.0 CHLORIDE (test code=CL) 108 mmol/L 100-108 CARBON DIOXIDE (test code=CO2) 29 mmol/L 21-32 ANION GAP (test code=GAP) 8.0 GAP calc 4.0-15.0 GLUCOSE (test code=GLU) 97 MG/DL 70-110 BLOOD UREA NITROGEN (test code=BUN) 9 MG/DL 7-18 GLOMERULAR FILTRATION RATE (test code=GFR) 40 estGFR >60 CREATININE (test code=CREAT) 1.5 MG/DL 0.6-1.0 CALCIUM (test code=CA) 7.7 MG/DL 8.5-10.1 CBC W/AUTO [id number] 06:35:00 Test Item Value Reference Range Comments WHITE BLOOD CELL (test code=WBC) 5.9 K/mm3 3.5-11.0 RED BLOOD CELL (test code=RBC) 3.36 M/mm3 4.70-6.10 HEMOGLOBIN (test code=HGB) 9.4 G/DL 10.4-14.9 HEMATOCRIT (test code=HCT) 28.3 % 31.5-44.1 MEAN CELL VOLUME (test code=MCV) 84.2 Fl 84.5-98.6 MEAN CELL HGB (test code=MCH) 28.0 pg 27.0-34.2 MEAN CELL HGB CONCETRATION (test code=MCHC) 33.2 G/DL 31.5-34.0 RED CELL DISTRIBUTION WIDTH (test code=RDW) 16.3 SD 11.5-14.5 PLATELET COUNT (test code=PLT) 118.0 K/mm3 150-450 MEAN PLATELET VOLUME (test code=MPV) 10.90 fL 7.0-10.5 NEUTROPHIL % (test code=NT%) 68.0 % 40-76 LYMPHOCYTE % (test code=LY%) 17.9 % 20.5-51.1 MONOCYTE % (test code=MO%) 13.3 % 1.7-9.3 EOSINOPHIL % (test code=EO%) 0.5 % 0.0-6.0 BASOPHIL % (test code=BA%) 0.3 % 0.0-2.0 NEUTROPHIL # (test code=NT#) 4.02 K/mm3 1.8-7.6 LYMPHOCYTE # (test code=LY#) 1.1 K/mm3 0.6-3.2 MONOCYTE # (test code=MO#) 0.8 K/mm3 0.3-1.1 EOSINOPHIL # (test code=EO#) 0.0 K/mm3 0.0-0.4 BASOPHIL # (test code=BA#) 0.0 K/mm3 0.0-0.1 MANUAL DIFF REQUIRED (test code=MDIFF) NO DIFF/SCN CRITERIA GLUCOSE BEDSIDE [id number] 06:34:00 Test Item Value Reference Range Comments GLUCOSE BEDSIDE TESTING (test code=GLUBED) 95 mg/dL 70-110 GLUCOSE BEDSIDE [id number] 05:14:00 Test Item Value Reference Range Comments GLUCOSE BEDSIDE TESTING (test code=GLUBED) 122 mg/dL 70-110 GLUCOSE BEDSIDE [id number] 02:34:00 Test Item Value Reference Range Comments GLUCOSE BEDSIDE TESTING (test code=GLUBED) 197 mg/dL 70-110 GLUCOSE BEDSIDE [id number] 00:39:00 Test Item Value Reference Range Comments GLUCOSE BEDSIDE TESTING (test code=GLUBED) 135 mg/dL 70-110 VANCOMYCIN [id number] 22:37:00 Test Item Value Reference Range Comments VANCOMYCIN TROUGH (test code=VANCT) 21.6 mcG/ML 5-15 GLUCOSE BEDSIDE [id number] 22:33:00 Test Item Value Reference Range Comments GLUCOSE BEDSIDE TESTING (test code=GLUBED) 95 mg/dL 70-110 BASIC METABOLIC [id number] 22:25:00 Test Item Value Reference Range Comments SODIUM (test code=NA) 143 mmol/L 134-147 POTASSIUM (test code=K) 3.5 mmol/L 3.4-5.0 CHLORIDE (test code=CL) 111 mmol/L 100-108 CARBON DIOXIDE (test code=CO2) 25 mmol/L 21-32 ANION GAP (test code=GAP) 7.0 GAP calc 4.0-15.0 GLUCOSE (test code=GLU) 100 MG/DL 70-110 BLOOD UREA NITROGEN (test code=BUN) 11 MG/DL 7-18 GLOMERULAR FILTRATION RATE (test code=GFR) 40 estGFR >60 CREATININE (test code=CREAT) 1.5 MG/DL 0.6-1.0 CALCIUM (test code=CA) 7.9 MG/DL 8.5-10.1 GLUCOSE BEDSIDE [id number] 21:47:00 Test Item Value Reference Range Comments GLUCOSE BEDSIDE TESTING (test code=GLUBED) 93 mg/dL 70-110 GLUCOSE BEDSIDE [id number] 20:46:00 Test Item Value Reference Range Comments GLUCOSE BEDSIDE TESTING (test code=GLUBED) 98 mg/dL 70-110 GLUCOSE BEDSIDE [id number] 19:38:00 Test Item Value Reference Range Comments GLUCOSE BEDSIDE TESTING (test code=GLUBED) 213 mg/dL 70-110 GLUCOSE BEDSIDE [id number] 19:38:00 Test Item Value Reference Range Comments GLUCOSE BEDSIDE TESTING (test code=GLUBED) 205 mg/dL 70-110 GLUCOSE BEDSIDE [id number] 19:38:00 Test Item Value Reference Range Comments GLUCOSE BEDSIDE TESTING (test code=GLUBED) 306 mg/dL 70-110 BASIC METABOLIC [id number] 18:13:00 Test Item Value Reference Range Comments SODIUM (test code=NA) 140 mmol/L 134-147 POTASSIUM (test code=K) 2.6 mmol/L 3.4-5.0 CHLORIDE (test code=CL) 110 mmol/L 100-108 CARBON DIOXIDE (test code=CO2) 19 mmol/L 21-32 ANION GAP (test code=GAP) 11.0 GAP calc 4.0-15.0 GLUCOSE (test code=GLU) 242 MG/DL 70-110 BLOOD UREA NITROGEN (test code=BUN) 12 MG/DL 7-18 GLOMERULAR FILTRATION RATE (test code=GFR) 34 estGFR >60 CREATININE (test code=CREAT) 1.7 MG/DL 0.6-1.0 CALCIUM (test code=CA) 7.6 MG/DL 8.5-10.1 GLUCOSE BEDSIDE [id number] 16:57:00 Test Item Value Reference Range Comments GLUCOSE BEDSIDE TESTING (test code=GLUBED) 384 mg/dL 70-110 GLUCOSE BEDSIDE [id number] 16:57:00 Test Item Value Reference Range Comments GLUCOSE BEDSIDE TESTING (test code=GLUBED) 465 mg/dL 70-110 BASIC METABOLIC [id number] 16:04:00 Test Item Value Reference Range Comments SODIUM (test code=NA) 130 mmol/L 134-147 POTASSIUM (test code=K) 3.8 mmol/L 3.4-5.0 CHLORIDE (test code=CL) 99 mmol/L 100-108 CARBON DIOXIDE (test code=CO2) 13 mmol/L 21-32 ANION GAP (test code=GAP) 18.0 GAP calc 4.0-15.0 GLUCOSE (test code=GLU) 489 MG/DL 70-110 BLOOD UREA NITROGEN (test code=BUN) 14 MG/DL 7-18 GLOMERULAR FILTRATION RATE (test code=GFR) 34 estGFR >60 CREATININE (test code=CREAT) 1.7 MG/DL 0.6-1.0 CALCIUM (test code=CA) 7.5 MG/DL 8.5-10.1 URINALYSIS [id number] 13:51:00 Test Item Value Reference Range Comments UA COLOR (test code=COLU) YELLOW discript YEL/STRAW UA APPEARANCE (test code=APPU) CLEAR discript CLEAR UA GLUCOSE DIPSTICK (test code=DGLUU) 2+ mg/dL NEG UA BILIRUBIN DIPSTICK (test code=BILU) NEGATIVE mg/dL NEG UA KETONE DIPSTICK (test code=KETU) 3+ mg/dL NEG UA SPECIFIC GRAVITY (test code=SGU) 1.010 SG 1.005-1.030 UA BLOOD DIPSTICK (test code=TRISHA) TRACE mg/DL NEG UA PH DIPSTICK (test code=HELENA) 5.5 pH UNITS 5.0-7.0 UA PROTEIN DIPSTICK (test code=PROU) TRACE mg/dL NEG UA UROBILINIOGEN DIPSTICK (test code=URO) 0.2 mg/dL <2.0 UA NITRITE DIPSTICK (test code=BRIAN) NEGATIVE SCREEN NEG UA LEUKOCYTE ESTERASE DIPSTICK (test NEGATIVE Leuk/mcL NEGATIVE code=LEUU) UA WBC (test code=WBCU) 0-1 #WBC/HPF 0-3 UA RBC (test code=RBCU) 0-1 #RBC/HPF 0-3 UA BACTERIA (test code=BACU) NONE SEEN /HPF NONE-TRACE UA SQUAMOUS CELLS (test code=SQU) TRACE /HPF NONE URINALYSIS [id number] 13:14:00 Test Item Value Reference Range Comments UA COLOR (test code=COLU) YELLOW discript YEL/STRAW UA APPEARANCE (test code=APPU) CLEAR discript CLEAR UA GLUCOSE DIPSTICK (test code=DGLUU) 2+ mg/dL NEG UA BILIRUBIN DIPSTICK (test code=BILU) NEGATIVE mg/dL NEG UA KETONE DIPSTICK (test code=KETU) 3+ mg/dL NEG UA SPECIFIC GRAVITY (test code=SGU) 1.010 SG 1.005-1.030 UA BLOOD DIPSTICK (test code=TRISHA) TRACE mg/DL NEG UA PH DIPSTICK (test code=HELENA) 5.5 pH UNITS 5.0-7.0 UA PROTEIN DIPSTICK (test code=PROU) TRACE mg/dL NEG UA UROBILINIOGEN DIPSTICK (test code=URO) 0.2 mg/dL <2.0 UA NITRITE DIPSTICK (test code=BRIAN) NEGATIVE SCREEN NEG UA LEUKOCYTE ESTERASE DIPSTICK (test NEGATIVE Leuk/mcL NEGATIVE code=LEUU) - CT HEAD/BRAIN W/O [id number] 12:48:00 Name: ESTHER LOZANO [facility] : 1970 Age/S: 48 / F [id number] Unit #: [id number] Loc: [place] [address] Phys: Nasim Hunt MD Acct: [id number] Dis Date: Status : ADM IN PHONE #: [phone] Exam Date: 01/08/2019 1235 FAX #: Reason: AMS EXAMS: CPT: [id number] CT HEAD/BRAIN W/O CONT 21690 CT HEAD WITHOUT CONTRAST CLINICAL HISTORY : AMS COMPARISON: None available. TECHNIQUE: 5 mm axial images of the brain were obtained withoutcontrast. Coronal and sagittal reformats were obtained. One or more of the following dose reduction techniques were used: Automated exposure control , adjustment of the mA and/or kV according to patient size, and/or utilization of iterative reconstruction technique. FINDINGS: There is no acute intracranial hemorrhage or extra-axial collection. Wiley-white matter differentiation is well-preserved without evidence of edema or acute infarct. There is no hydrocephalus, midline shift, or mass effect. The cranial vault and skull base are intact. Mild mucosal thickening is seen in the left maxillary sinus. IMPRESSION: No acute intracranial abnormality Location: R16 Electronically Signed by Radha Valdivia on 2018 at 1248 Reported and signed by: Kaveh Valdivia M.D. CC: Nasim Hunt MD Technologist:TORIN STANTON , RT(R)(CT)(MR) CTDI: DLP: Trnscb Date/Time: 01/08/2019 (1248) [email or web address].[email or web address] Orig Print D/T: S: 01/08/2019 (7081)CTDI: DLP: PAGE 1 Signed ReportHCG [id number] 12:12:00 Test Item Value Reference Range Comments HCG SERUM (test code=HCG) < 1 mi-IU/ML 0-6 0 - 6 NOT > 6 SUGGESTIVE OF EARLY RISES TWO FOLD EVERY 2 DAYS; SUGGEST RECONFIRMING AFTER 2 DAYS. 150,000-200,[address] TRIMESTER 10,000 - 50,000 2ND & 3RD TRIMESTER - USG NDL PLACEMENT (Bxg/Asp)2019-01-08 10:59:00 Name: ESTHER LOZANO [facility] : 1970 Age/S: 48 / F [address] Unit #: [id number] Loc: [place] [address] Phys: Nasim Hunt MD Acct: [id number] Dis Date: Status : ADM IN PHONE #: [phone] Exam Date: 01/08/2019 1043 FAX #: Reason: CENTRALLINE PLACEMENT EXAMS: CPT: [id number] USG NDL PLACEMENT (Bxg/Asp) 21190 ULTRASOUND-GUIDED CENTRAL LINE PLACEMENT CLINICAL HISTORY: Diabetic ketoacidosis. PROCEDURE : Written informed consent was obtained. The right neck was evaluated with real-time ultrasound, and the right internal jugular vein was deemed to be patent and compressible.The skin overlying the area was sterilely prepped and draped and anesthetized with 1% lidocaine. All elements of maximal sterile barrier technique were employed. Under real -time ultrasound guidance, access into the right internal jugular vein was gained. An image was saved to the permanent record. A J-wire was advanced centrally. The needle was removed, and the soft tissues were dilated. Finally, a triple-lumen catheter was placed over the wire. The wire was removed. All ports aspirated and flushed well. The catheter was then secured to skin with nonabsorbable suture. The patient tolerated the procedure well. FINDINGS: Position: The post procedure chest radiograph shows the catheter tip in the right atrium. Complications: None IMPRESSION: Successful placement of a right neck central line. The line is ready for use. Location: R16 at 1059 Reported and signed by: Kaveh Valdivia M.D. CC: Nasim Hunt MD Technologist: AB CHINO Munoz SUPERVISOR [employer] RVS Trnscb Date/Time: 01/08/2019 (1059) [email or web address] PAGE 1 Signed Report Name: ESTHER LOZANO [place] : 1970 Age/S: 48 / F [address] Unit #: [id number] Loc: [place] [address] Phys: Nasim Hunt MD Acct: [id number] Dis Date: Status: ADM IN PHONE #: [phone] Exam Date: 01/08/2019 1043 FAX #: Reason: CENTRAL LINE PLACEMENT EXAMS:CPT: [id number] USG NDL PLACEMENT (Bxg/Asp) 44748 <Continued> Orig Print D/T: S: 01/08/2019 (6300) Probe: PAGE 2 Signed Report- XR CHEST 1 [id number] 10:56:00 Name: ESTHER LOZANO [place] : 1970 Age/S: 48 / F [address] Unit #: [id number] Loc: [place] [address] Phys: Nasim Hunt MD Acct: [id number] Dis Date: Status: ADM IN PHONE #: [phone] Exam Date: 01/08/2019 1045 FAX #: Reason: CENTRAL LINE PLACEMENT EXAMS: CPT: [id number] XR CHEST 1 V 20425 Fluoro Time: DAP (Gy m2): Air Kerma (mGy): Chest Radiograph History: CENTRAL LINE PLACEMENT Comparison: January 07, 2019 Location: R16 [place] frontal view of the chest is submitted. The heart appears unchanged in size. Pulmonary vasculature is unremarkable. The visualized lung bagley appear to be free of disease. The bones appear unchanged. IMPRESSION: There is no radiographic evidence of acute cardiopulmonary disease. A central venous catheter terminates in the right atrium. No pneumothorax is identified. at 1056 Reported and signed by: Regino Silva M.D. CC : Nasim Hunt MD PAGE 1 Signed Report Name: ESTHER LOZANO [place] : 1970 Age/S: 48 / F [address] Unit #: [id number] Loc: [place] [address] Phys: Nasim Hunt MD Acct: [id number] Dis Date: Status: ADM IN PHONE #: [phone] Exam Date: 01/08/2019 1045 FAX #: Reason: CENTRAL LINE PLACEMENT EXAMS: CPT: [id number] XR CHEST 1 V 13516 Fluoro Time: DAP (Gy m2): Air Kerma (mGy): <Continued> Technologist: Rita Melo, RT(R)(MR) Trnscb Date/Time: 01/08/2019 (1056) t.SDR.PMT Orig Print D/T:S: 01/09/2019 (010) PAGE 2 Signed ReportBASI METABOLIC [id number] 10:49:00 Test Item Value Reference Range Comments SODIUM (test code=NA) 130 mmol/L 134-147 POTASSIUM (test code=K) 2.6 mmol/L 3.4-5.0 Previously reported result: 2.6 mmol/LEdited by: SERINADTS on 01/08/19:1010 ~~~~~~~~~~~~~~~~~~~~~~~~~~~ ~~~~~~~~~~~~~ CHLORIDE (test code=CL) 99 mmol/L 100-108 CARBON DIOXIDE (test 8 mmol/L 21-32 Previously reported result: code=CO2) 8 mmol/LEdited by: SERINADTS on 01/08/19:1011~~~~~~~~~~~~~~ ~~~~~~~~~~~~~~~~~~~~~~~~~~* This is a CORRECTED REPORT ANION GAP (test code=GAP) 23.0 GAP calc 4.0-15.0 GLUCOSE (test code=GLU) 516 MG/DL 70-110 Previously reported result: 516 MG/DLEdited by: SERINADTS on 01/08/19:1048~~~~~~~~~~~~~~ ~~~~~~~~~~~~~~~~~~~~~~~~~~* This is a CORRECTED REPORT BLOOD UREA NITROGEN (test 15 MG/DL 18 code=BUN) GLOMERULAR FILTRATION RATE 34 estGFR >60 (test code=GFR) CREATININE (test code=CREAT) 1.7 MG/DL 0.6-1.0 CALCIUM (test code=CA) 7.4 MG/DL 8.5-10.1 PROTHROMBIN [id number] 10:12:00 Test Item Value Reference Range Comments PT PATIENT (test code=PTP) 12.3 SECONDS 9.3-12.9 INTERNATIONAL NORMAL RATIO (test code=INR) 1.07 INR Unit 0.8-1.2 THROMBOPLASTIN TIME [id number] 10:12:00 Test Item Value Reference Range Comments THROMBOPLASTIN TIME PARTIAL (test code=PTT) 26.5 SECONDS 26-35 BASIC METABOLIC [id number] 10:11:00 Test Item Value Reference Range Comments SODIUM (test code=NA) 130 mmol/L 134-147 POTASSIUM (test code=K) 2.6 mmol/L 3.4-5.0 Previously reported result: 2.6 mmol/LEdited by: L.LAB.DTS on 01/08/19:1010 ~~~~~~~~~~~~~~~~~~~~~~~~~~~ ~~~~~~~~~~~~~ CHLORIDE (test code=CL) 99 mmol/L 100-108 CARBON DIOXIDE (test 8 mmol/L 21-32 Previously reported result: code=CO2) 8 mmol/LEdited by: L.LAB.DTS on 01/08/19:1011~~~~~~~~~~~~~~ ~~~~~~~~~~~~~~~~~~~~~~~~~~* This is a CORRECTED REPORT ANION GAP (test code=GAP) 23.0 GAP calc 4.0-15.0 GLUCOSE (test code=GLU) 516 MG/DL 70-110 BLOOD UREA NITROGEN (test 15 MG/DL 05-18 code=BUN) GLOMERULAR FILTRATION RATE 34 estGFR >60 (test code=GFR) CREATININE (test code=CREAT) 1.7 MG/DL 0.6-1.0 CALCIUM (test code=CA) 7.4 MG/DL 8.5-10.1 BASIC METABOLIC [id number] 10:08:00 Test Item Value Reference Range Comments SODIUM (test code=NA) 130 mmol/L 134-147 POTASSIUM (test code=K) 2.6 mmol/L 3.4-5.0 CHLORIDE (test code=CL) 99 mmol/L 100-108 CARBON DIOXIDE (test code=CO2) 8 mmol/L 21-32 ANION GAP (test code=GAP) 23.0 GAP calc 4.0-15.0 GLUCOSE (test code=GLU) 516 MG/DL 70-110 BLOOD UREA NITROGEN (test code=BUN) 15 MG/DL 7-18 GLOMERULAR FILTRATION RATE (test code=GFR) 34 estGFR >60 CREATININE (test code=CREAT) 1.7 MG/DL 0.6-1.0 CALCIUM (test code=CA) 7.4 MG/DL 8.5-10.1 BASIC METABOLIC [id number] 10:01:00 Test Item Value Reference Range Comments SODIUM (test code=NA) 129 mmol/L 134-147 POTASSIUM (test code=K) 4.1 mmol/L 3.4-5.0 CHLORIDE (test code=CL) 98 mmol/L 100-108 CARBON DIOXIDE (test 6 mmol/L 21-32 Previously reported result: code=CO2) 6 mmol/LEdited by: L.LAB.DTS on 01/08/19:0748 ANION GAP (test code=GAP) 25.0 GAP calc 4.0-15.0 GLUCOSE (test code=GLU) 481 MG/DL 70-110 Previously reported result: 481 MG/DLEdited by: L.LAB.DTS on 01/08/19:1001 BLOOD UREA NITROGEN (test 14 MG/DL 7-18 code=BUN) GLOMERULAR FILTRATION RATE 40 estGFR >60 (test code=GFR) CREATININE (test code=CREAT) 1.5 MG/DL 0.6-1.0 CALCIUM (test code=CA) 7.3 MG/DL 8.5-10.1 GLUCOSE BEDSIDE [id number] 09:59:00 Test Item Value Reference Range Comments GLUCOSE BEDSIDE TESTING (test code=GLUBED) 491 mg/dL 70-110 CBC W/AUTO [id number] 09:12:00 Test Item Value Reference Range Comments WHITE BLOOD CELL (test 9.4 K/mm3 3.5-11.0 code=WBC) RED BLOOD CELL (test code=RBC) 3.45 M/mm3 4.70-6.10 HEMOGLOBIN (test code=HGB) 9.6 G/DL 10.4-14.9 HEMATOCRIT (test code=HCT) 29.5 % 31.5-44.1 MEAN CELL VOLUME (test 85.5 Fl 84.5-98.6 code=MCV) MEAN CELL HGB (test code=MCH) 27.8 pg 27.0-34.2 MEAN CELL HGB CONCETRATION 32.5 G/DL 31.5-34.0 (test code=MCHC) RED CELL DISTRIBUTION WIDTH 15.8 SD 11.5-14.5 (test code=RDW) PLATELET COUNT (test code=PLT) 126.0 K/mm3 150-450 MEAN PLATELET VOLUME (test 11.80 fL 7.0-10.5 code=MPV) NEUTROPHIL % (test code=NT%) 68.0 % 40-76 LYMPHOCYTE % (test code=LY%) 16.1 % 20.5-51.1 MONOCYTE % (test code=MO%) 14.4 % 1.7-9.3 EOSINOPHIL % (test code=EO%) 0.1 % 0.0-6.0 BASOPHIL % (test code=BA%) 1.4 % 0.0-2.0 NEUTROPHIL # (test code=NT#) 6.39 K/mm3 1.8-7.6 LYMPHOCYTE # (test code=LY#) 1.5 K/mm3 0.6-3.2 MONOCYTE # (test code=MO#) 1.4 K/mm3 0.3-1.1 EOSINOPHIL # (test code=EO#) 0.0 K/mm3 0.0-0.4 BASOPHIL # (test code=BA#) 0.1 K/mm3 0.0-0.1 MANUAL DIFF REQUIRED (test NO DIFF/SCN CRITERIA SLIDE REVIEW CONSISTANT code=MDIFF) WITH AUTO DIFFERENTIAL. BASIC METABOLIC [id number] 07:48:00 Test Item Value Reference Range Comments SODIUM (test code=NA) 129 mmol/L 134-147 POTASSIUM (test code=K) 4.1 mmol/L 3.4-5.0 CHLORIDE (test code=CL) 98 mmol/L 100-108 CARBON DIOXIDE (test 6 mmol/L 21-32 Previously reported result: code=CO2) 6 mmol/LEdited by: SERINADTS on 01/08/19:0748 ANION GAP (test code=GAP) 25.0 GAP calc 4.0-15.0 GLUCOSE (test code=GLU) 481 MG/DL 70-110 BLOOD UREA NITROGEN (test 14 MG/DL 7-18 code=BUN) GLOMERULAR FILTRATION RATE 40 estGFR >60 (test code=GFR) CREATININE (test code=CREAT) 1.5 MG/DL 0.6-1.0 CALCIUM (test code=CA) 7.3 MG/DL 8.5-10.1 GLUCOSE BEDSIDE [id number] 07:32:00 Test Item Value Reference Range Comments GLUCOSE BEDSIDE TESTING (test code=GLUBED) 467 mg/dL 70-110 BASIC METABOLIC [id number] 07:27:00 Test Item Value Reference Range Comments SODIUM (test code=NA) 129 mmol/L 134-147 POTASSIUM (test code=K) 4.1 mmol/L 3.4-5.0 CHLORIDE (test code=CL) 98 mmol/L 100-108 CARBON DIOXIDE (test code=CO2) 6 mmol/L -32 ANION GAP (test code=GAP) 25.0 GAP calc 4.0-15.0 GLUCOSE (test code=GLU) 481 MG/DL 70-110 BLOOD UREA NITROGEN (test code=BUN) 14 MG/DL 7-18 GLOMERULAR FILTRATION RATE (test code=GFR) 40 estGFR >60 CREATININE (test code=CREAT) 1.5 MG/DL 0.6-1.0 CALCIUM (test code=CA) 7.3 MG/DL 8.5-10.1 RULE OUT IL [id number] 07:22:00 Test Item Value Reference Range Comments CREATINE KINASE (CK) 33 Unit/L 26-192 (test code=CK) TROPONIN-I (test < 0.015 NG/ML 0.000-0.045 Negative: </=0.045 Positive: code=TROPI) >/=0.046 Correlation with serial results, other cardiac markers, and clinical findings is necessary to determine the clinical significance of this result. Quantitative results using different methodologies should not be compared to one another as numerical results may varyby method. CBC W/AUTO [id number] 07:06:00 Test Item Value Reference Range Comments WHITE BLOOD CELL (test code=WBC) 9.4 K/mm3 3.5-11.0 RED BLOOD CELL (test code=RBC) 3.45 M/mm3 4.70-6.10 HEMOGLOBIN (test code=HGB) 9.6 G/DL 10.4-14.9 HEMATOCRIT (test code=HCT) 29.5 % 31.5-44.1 MEAN CELL VOLUME (test code=MCV) 85.5 Fl 84.5-98.6 MEAN CELL HGB (test code=MCH) 27.8 pg 27.0-34.2 MEAN CELL HGB CONCETRATION (test code=MCHC) 32.5 G/DL 31.5-34.0 RED CELL DISTRIBUTION WIDTH (test code=RDW) 15.8 SD 11.5-14.5 PLATELET COUNT (test code=PLT) 126.0 K/mm3 150-450 MEAN PLATELET VOLUME (test code=MPV) 11.80 fL 7.0-10.5 NEUTROPHIL % (test code=NT%) 68.0 % 40-76 LYMPHOCYTE % (test code=LY%) 16.1 % 20.5-51.1 MONOCYTE % (test code=MO%) 14.4 % 1.7-9.3 EOSINOPHIL % (test code=EO%) 0.1 % 0.0-6.0 BASOPHIL % (test code=BA%) 1.4 % 0.0-2.0 NEUTROPHIL # (test code=NT#) 6.39 K/mm3 1.8-7.6 LYMPHOCYTE # (test code=LY#) 1.5 K/mm3 0.6-3.2 MONOCYTE # (test code=MO#) 1.4 K/mm3 0.3-1.1 EOSINOPHIL # (test code=EO#) 0.0 K/mm3 0.0-0.4 BASOPHIL # (test code=BA#) 0.1 K/mm3 0.0-0.1 MANUAL DIFF REQUIRED (test code=MDIFF) DIFF/SCN CRITERIA PROCALCITONIN (PCT)2019-01-08 04:29:00 Test Item Value Reference Range Comments PROCALCITONIN (PCT) (test 0.67 ng/mL 0.00-0.05 PROCALCITONIN (PCT) NORMAL code=PROCAL) RANGE (ADULT): <0.05 NG/ML. * a concentration <0.5 ng/mL represents a low risk of severe sepsis and/or septic shock.* a concentration >2 ng/mL represents a high risk of severe sepsis and/or septic shock.Nevertheless, concentrations <0.5 ng/mL do not exclude aninfection, on account of localized infections (withoutsystemic signs) which can be associated with such lowconcentrations, or a systemic infection in its initialstages (< 6 hours). Furthermore, increased procalcitonincan occur without infection. PCT concentrations between 0.5and 2.0 ng/mL should be interpreted taking into account thepatient's history. It is recommended to retest PCT within6-24 hours if any concentrations <2 ng/mL are obtained. BASIC METABOLIC [id number] 04:29:00 Test Item Value Reference Range Comments SODIUM (test code=NA) 130 mmol/L 134-147 POTASSIUM (test code=K) 3.7 mmol/L 3.4-5.0 CHLORIDE (test code=CL) 101 mmol/L 100-108 CARBON DIOXIDE (test code=CO2) 11 mmol/L 21-32 ANION GAP (test code=GAP) 18.0 GAP calc 4.0-15.0 GLUCOSE (test code=GLU) 117 MG/DL 70-110 BLOOD UREA NITROGEN (test code=BUN) 12 MG/DL 7-18 GLOMERULAR FILTRATION RATE (test code=GFR) 51 estGFR >60 CREATININE (test code=CREAT) 1.2 MG/DL 0.6-1.0 CALCIUM (test code=CA) 7.5 MG/DL 8.5-10.1 PROCALCITONIN (PCT)2019-01-08 04:29:00 Test Item Value Reference Range Comments PROCALCITONIN (PCT) (test 0.67 ng/mL 0.00-0.05 PROCALCITONIN (PCT) NORMAL code=PROCAL) RANGE (ADULT): <0.05 NG/ML. * a concentration <0.5 ng/mL represents a low risk of severe sepsis and/or septic shock.* a concentration >2 ng/mL represents a high risk of severe sepsis and/or septic shock.Nevertheless, concentrations <0.5 ng/mL do not exclude aninfection, on account of localized infections (withoutsystemic signs) which can be associated with such lowconcentrations, or a systemic infection in its initialstages (< 6 hours). Furthermore, increased procalcitonincan occur without infection. PCT concentrations between 0.5and 2.0 ng/mL should be interpreted taking into account thepatient's history. It is recommended to retest PCT within6-24 hours if any concentrations <2 ng/mL are obtained. RULE OUT IL [id number] 00:34:00 Test Item Value Reference Range Comments CREATINE KINASE (CK) 38 Unit/L 26-192 (test code=CK) TROPONIN-I (test < 0.015 NG/ML 0.000-0.045 Negative: </=0.045 Positive: code=TROPI) >/=0.046 Correlation with serial results, other cardiac markers, and clinical findings is necessary to determine the clinical significance of this result. Quantitative results using different methodologies should not be compared to one another as numerical results may varyby method. GLUCOSE BEDSIDE [id number] 00:23:00 Test Item Value Reference Range Comments GLUCOSE BEDSIDE TESTING (test code=GLUBED) 196 mg/dL 70-110 - XR CHEST 1 [id number] 22:59:00 Name: ESTHER LOZANO [place] : 1970 Age/S: 48 / F [address] Unit #: [id number] Loc: [place] [address] Phys: Nasim Hunt MD Acct: [id number] Dis Date: Status: ADM IN PHONE #: [phone] Exam Date: 01/07/2019 7778 FAX #: Reason: SOB EXAMS: CPT: [id number] XR CHEST 1 V 61025 Fluoro Time: DAP (Gy m2): Air Kerma (mGy): HISTORY : Shortness of breath Location code: B2 FINDINGS: Frontal view of the chest demonstrates normal cardiomediastinal silhouette. The trachea is midline. The lungs are clear. There is no effusion or pneumothorax. The bones are intact. IMPRESSION: No acute pulmonary process. at 1766 Reported and signed by: Zaheer Hunt M.D. CC: Nasim Hunt MD PAGE 1 Signed Report Name : ESTHER LOZANO : 1970 Age/S : 48 / F [address] Unit #: [id number] Loc: [place] [address] Phys: Nasim Hunt MD Acct: [id number] Dis Date: Status: ADM IN PHONE #: [phone] Exam Date: 01/07/20192252 FAX #: Reason: SOB EXAMS: CPT: [id number] XR CHEST 1 V 30935 Fluoro Time: DAP (Gy m2): Air Kerma (mGy): <Continued&gt ; Technologist: Makenna Kern, RT(R)(CT); ... Trnscb Date/Time: 2018 (2258) [email or web address] Orig Print D/T: S: 01/07/2019 (0967 ) PAGE 2 Signed [id number] 22:58:00 Test Item Value Reference Range Comments ARTERIAL BLOOD GAS PH (test code=PHA) 7.17 pH units 7.35-7.45 ARTERIAL BLOOD GAS PCO2 (test 23 mmHg 35-45 code=PCO2A) ARTERIAL BLOOD GAS PO2 (test code=PO2A) 77 mmHg 80-100 BICARBONATE TOTAL HCO3 (test code=HCO3) 8.3 mmol/L 22.0-26.0 BASE EXCESS (test code=TEJAS) -18.5 mmol/L -3.0-3.0 ABG O2 SATURATION (test code=SATA) 95 % 90-100 FIO2 (test code=FIO2A) 21 % e 21-100 ABG SITE (test code=SITEA) Right Radial ARTKIT DESCRIPTION MODIFIED ITALO'S (test code=MODALL) Yes Circ.CHK POSITIVE TOTAL HGB (test code=THB) 9.2 GRAM/DL 12.0-18.0 HGB O2 SAT (test code=HBOSAT) 93.4 % (justin) 95.0-100.0 CARBOXYHEMOGLOBIN (test code=HOHGBT) 0.3 % 0.5-1.5 METHEMOGLOBIN (test code=METHGB) 1.0 % 0.0-0.0 BASIC METABOLIC [id number] 22:44:00 Test Item Value Reference Range Comments SODIUM (test code=NA) 130 mmol/L 134-147 POTASSIUM (test code=K) 3.7 mmol/L 3.4-5.0 CHLORIDE (test code=CL) 101 mmol/L 100-108 CARBON DIOXIDE (test code=CO2) 11 mmol/L 21-32 ANION GAP (test code=GAP) 18.0 GAP calc 4.0-15.0 GLUCOSE (test code=GLU) 117 MG/DL 70-110 BLOOD UREA NITROGEN (test code=BUN) 12 MG/DL 7-18 GLOMERULAR FILTRATION RATE (test code=GFR) 51 estGFR >60 CREATININE (test code=CREAT) 1.2 MG/DL 0.6-1.0 CALCIUM (test code=CA) 7.5 MG/DL 8.5-10.1 PROCALCITONIN (PCT)2019-01-07 22:44:00 Test Item Value Reference Range Comments PROCALCITONIN (PCT) (test code=PROCAL) ng/ml LACTIC [id number] 22:44:00 Test Item Value Reference Range Comments LACTIC ACID (test code=LACT) 0.8 mmol/L 0.4-2.0 GLUCOSE BEDSIDE [id number] 21:51:00 Test Item Value Reference Range Comments GLUCOSE BEDSIDE TESTING (test code=GLUBED) 126 mg/dL 70-110 GLUCOSE BEDSIDE [id number] 21:28:00 Test Item Value Reference Range Comments GLUCOSE BEDSIDE TESTING (test code=GLUBED) 129 mg/dL 70-110 GLUCOSE BEDSIDE [id number] 20:50:00 Test Item Value Reference Range Comments GLUCOSE BEDSIDE TESTING (test code=GLUBED) 11 mg/dL 70-110 GLUCOSE BEDSIDE [id number] 20:50:00 Test Item Value Reference Range Comments GLUCOSE BEDSIDE TESTING (test code=GLUBED) 127 mg/dL 70-110 BASIC METABOLIC [id number] 17:50:00 Test Item Value Reference Range Comments SODIUM (test code=NA) 129 mmol/L 134-147 POTASSIUM (test code=K) 4.6 mmol/L 3.4-5.0 CHLORIDE (test code=CL) 97 mmol/L 100-108 CARBON DIOXIDE (test code=CO2) 4 mmol/L 21-32 ANION GAP (test code=GAP) 28.0 GAP calc 4.0-15.0 GLUCOSE (test code=GLU) 231 MG/DL 70-110 BLOOD UREA NITROGEN (test code=BUN) 12 MG/DL 7-18 GLOMERULAR FILTRATION RATE (test code=GFR) 57 estGFR >60 CREATININE (test code=CREAT) 1.1 MG/DL 0.6-1.0 CALCIUM (test code=CA) 7.6 MG/DL 8.5-10.1 Completed by Nursing: [id number] 17:50:00 Test Item Value Reference Range Comments TROPONIN-I (test < 0.015 NG/ML 0.000-0.045 Negative: </=0.045 Positive: code=TROPI) >/=0.046 Correlation with serial results, other cardiac markers, and clinical findings is necessary to determine the clinical significance of this result. Quantitative results using different methodologies should not be compared to one another as numerical results may varyby method. Completed by Nursing: NOGLUCOSE BEDSIDE [id number] 16:49:00 Test Item Value Reference Range Comments GLUCOSE BEDSIDE TESTING (test code=GLUBED) 236 mg/dL 70-110 GLUCOSE BEDSIDE [id number] 12:02:00 Test Item Value Reference Range Comments GLUCOSE BEDSIDE TESTING (test code=GLUBED) 72 mg/dL 70-110 LACTIC [id number] 10:52:00 Test Item Value Reference Range Comments LACTIC ACID (test code=LACT) 1.3 mmol/L 0.4-2.0 COMPREHENSIVE METABOLIC [id number] 10:47:00 Test Item Value Reference Range Comments SODIUM (test code=NA) 130 mmol/L 134-147 POTASSIUM (test code=K) 3.5 mmol/L 3.4-5.0 CHLORIDE (test code=CL) 96 mmol/L 100-108 CARBON DIOXIDE (test code=CO2) 11 mmol/L 21-32 ANION GAP (test code=GAP) 23.0 GAP calc 4.0-15.0 GLUCOSE (test code=GLU) 65 MG/DL 70-110 BLOOD UREA NITROGEN (test code=BUN) 11 MG/DL 7-18 GLOMERULAR FILTRATION RATE (test >=60 max estimate estGFR >60 code=GFR) CREATININE (test code=CREAT) 0.9 MG/DL 0.6-1.0 TOTAL PROTEIN (test code=PROT) 8.1 G/DL 6.4-8.2 ALBUMIN (test code=ALB) 3.8 G/DL 3.4-5.0 GLOBULIN (test code=GLOB) 4.3 GM/dL ALBUMIN/GLOBULIN RATIO (test 0.9 RATIO 1.2-2.2 code=A/G) CALCIUM (test code=CA) 8.0 MG/DL 8.5-10.1 BILIRUBIN TOTAL (test code=BILT) 1.00 MG/DL 0.2-1.2 SGOT/AST (test code=AST) 28 Unit/L 15-37 SGPT/ALT (test code=ALT) 29 Unit/L 12-78 ALKALINE PHOSPHATASE TOTAL (test 131 Unit/L 45-117 code=ALKP) GLUCOSE BEDSIDE [id number] 10:21:00 Test Item Value Reference Range Comments GLUCOSE BEDSIDE TESTING (test code=GLUBED) 87 mg/dL 70-110 GLUCOSE BEDSIDE [id number] 10:21:00 Test Item Value Reference Range Comments GLUCOSE BEDSIDE TESTING (test code=GLUBED) 313 mg/dL 70-110 GLUCOSE BEDSIDE [id number] 07:03:00 Test Item Value Reference Range Comments GLUCOSE BEDSIDE TESTING (test code=GLUBED) 426 mg/dL 70-110 GLUCOSE BEDSIDE [id number] 07:03:00 Test Item Value Reference Range Comments GLUCOSE BEDSIDE TESTING (test code=GLUBED) 526 mg/dL 70-110 GLUCOSE BEDSIDE [id number] 07:03:00 Test Item Value Reference Range Comments GLUCOSE BEDSIDE TESTING (test code=GLUBED) 525 mg/dL 70-110 LACTIC ACID [id number] 06:02:00 Test Item Value Reference Range Comments LACTIC ACID POC (test code=LACTP) 2.11 MMOL/L 0.90-1.70 VENOUS BLOOD [id number] 05:54:00 Test Item Value Reference Range Comments VENOUS BLOOD GAS PH (test code=PHV) 6.86 pH units 7.26-7.43 VENOUS BLOOD GAS PCO2 (test code=PCO2V) 21 mmHg 33-58 VENOUS BLOOD GAS PO2 (test code=PO2V) 92 mmHg 80-100 VBG HCO3 (test code=HCO3V) 3.6 mmol/L 22.0-26.0 VBG BASE EXCESS (test code=KELLY) -28.8 mmol/L -2.0-2.0 VENOUS BLOOD GAS O2 SAT. (test 93 % (calc) 72-77 code=O2SATV) VENOUS BLOOD GAS FIO2 (test code=FIO2V) 21 % 21-100 VBG VENT MODE (test code=MODEV) Room Air Descript VentMode MARIFER. BLOOD GAS RESP. RATE (test code=RRV) 20 /MIN VENOUS BLOOD GAS SITE (test code=SITEV) Other Site DESCRIPTION [id number] 05:50:00 Test Item Value Reference Range Comments TROPONIN-I (test < 0.015 NG/ML 0.000-0.045 Negative: </=0.045 Positive: code=TROPI) >/=0.046 Correlation with serial results, other cardiac markers, and clinical findings is necessary to determine the clinical significance of this result. Quantitative results using different methodologies should not be compared to one another as numerical results may varyby method. Completed by Nursing: NOACETONE [id number] 05:50:00 Test Item Value Reference Range Comments ACETONE QUAL (test code=ACETNQL) SMALL SCREEN NEG Completed by Nursing: [id number] 05:49:00 Test Item Value Reference Range Comments TROPONIN-I (test < 0.015 NG/ML 0.000-0.045 Negative: </=0.045 Positive: code=TROPI) >/=0.046 Correlation with serial results, other cardiac markers, and clinical findings is necessary to determine the clinical significance of this result. Quantitative results using different methodologies should not be compared to one another as numerical results may varyby method. Completed by Nursing: NOACETONE [id number] 05:49:00 Test Item Value Reference Range Comments ACETONE QUAL (test code=ACETNQL) SCREEN NEG Completed by Nursing: NOCOMPREHENSIVE METABOLIC [id number] 05:46:00 Test Item Value Reference Range Comments SODIUM (test code=NA) 119 mmol/L 134-147 POTASSIUM (test code=K) 3.9 mmol/L 3.4-5.0 CHLORIDE (test code=CL) 81 mmol/L 100-108 CARBON DIOXIDE (test code=CO2) 5 mmol/L 21-32 ANION GAP (test code=GAP) 33.0 GAP calc 4.0-15.0 GLUCOSE (test code=GLU) 495 MG/DL 70-110 BLOOD UREA NITROGEN (test code=BUN) 10 MG/DL 7-18 GLOMERULAR FILTRATION RATE (test code=GFR) 51 estGFR >60 CREATININE (test code=CREAT) 1.2 MG/DL 0.6-1.0 TOTAL PROTEIN (test code=PROT) 8.8 G/DL 6.4-8.2 ALBUMIN (test code=ALB) 4.1 G/DL 3.4-5.0 GLOBULIN (test code=GLOB) 4.7 GM/dL ALBUMIN/GLOBULIN RATIO (test code=A/G) 0.9 RATIO 1.2-2.2 CALCIUM (test code=CA) 8.4 MG/DL 8.5-10.1 BILIRUBIN TOTAL (test code=BILT) 1.10 MG/DL 0.2-1.2 SGOT/AST (test code=AST) 23 Unit/L 15-37 SGPT/ALT (test code=ALT) 30 Unit/L 12-78 ALKALINE PHOSPHATASE TOTAL (test code=ALKP) 157 Unit/L 45-117 [id number] 05:46:00 Test Item Value Reference Range Comments AMYLASE (test code=BHARAT) 38 Unit/L 25-115 [id number] 05:46:00 Test Item Value Reference Range Comments LIPASE (test code=LIP) 334 Unit/L 114-286 CBC W/AUTO [id number] 05:25:00 Test Item Value Reference Range Comments WHITE BLOOD CELL (test code=WBC) 10.2 K/mm3 3.5-11.0 RED BLOOD CELL (test code=RBC) 3.95 M/mm3 4.70-6.10 HEMOGLOBIN (test code=HGB) 11.0 G/DL 10.4-14.9 HEMATOCRIT (test code=HCT) 33.9 % 31.5-44.1 MEAN CELL VOLUME (test code=MCV) 85.8 Fl 84.5-98.6 MEAN CELL HGB (test code=MCH) 27.8 pg 27.0-34.2 MEAN CELL HGB CONCETRATION (test code=MCHC) 32.4 G/DL 31.5-34.0 RED CELL DISTRIBUTION WIDTH (test code=RDW) 14.9 SD 11.5-14.5 PLATELET COUNT (test code=PLT) 178.0 K/mm3 150-450 MEAN PLATELET VOLUME (test code=MPV) 11.70 fL 7.0-10.5 NEUTROPHIL % (test code=NT%) 78.9 % 40-76 LYMPHOCYTE % (test code=LY%) 9.8 % 20.5-51.1 MONOCYTE % (test code=MO%) 10.0 % 1.7-9.3 EOSINOPHIL % (test code=EO%) 0.0 % 0.0-6.0 BASOPHIL % (test code=BA%) 1.3 % 0.0-2.0 NEUTROPHIL # (test code=NT#) 8.06 K/mm3 1.8-7.6 LYMPHOCYTE # (test code=LY#) 1.0 K/mm3 0.6-3.2 MONOCYTE # (test code=MO#) 1.0 K/mm3 0.3-1.1 EOSINOPHIL # (test code=EO#) 0.0 K/mm3 0.0-0.4 BASOPHIL # (test code=BA#) 0.1 K/mm3 0.0-0.1 MANUAL DIFF REQUIRED (test code=MDIFF) NO DIFF/SCN CRITERIA CHEMISTRY 8 [id number] 05:16:00 Test Item Value Reference Range Comments ISTAT-SODIUM (test code=NAP) mmol/L 135-146 ISTAT-POTASSIUM (test code=KP) mmol/L 3.5-4.9 ISTAT-CHLORIDE (test code=CLP) mmol/L 98-109 ISTAT-CARBON DIOXIDE (test code=ISTAT-CO2) mmol/L 24-29 ISTAT CALCIUM IONIZED (test code=ISTAT-IMANI) mmol/L 1.12-1.32 ISTAT-GLUCOSE (test code=GLUP) mg/dL 70-105 ISTAT-BUN (test code=BUNP) mg/dL 8-26 BEDSIDE CREATININE (test code=CREATBED) mg/dL 0.6-1.3 GLOMERULAR FILTRATION RATE POC (test code=GFRBED) 114 58-135 CHEMISTRY 8 [id number] 05:16:00 Test Item Value Reference Range Comments ISTAT-SODIUM (test code=NAP) 121 mmol/L 135-146 ISTAT-POTASSIUM (test code=KP) 3.6 mmol/L 3.5-4.9 ISTAT-CHLORIDE (test code=CLP) 85 mmol/L 98-109 ISTAT-CARBON DIOXIDE (test code=ISTAT-CO2) 8 mmol/L 24-29 ISTAT CALCIUM IONIZED (test code=ISTAT-IMANI) 1.18 mmol/L 1.12-1.32 ISTAT-GLUCOSE (test code=GLUP) 506 mg/dL 70-105 ISTAT-BUN (test code=BUNP) 9 mg/dL 8-26 BEDSIDE CREATININE (test code=CREATBED) 0.6 mg/dL 0.6-1.3 GLOMERULAR FILTRATION RATE POC (test 114 58-135 code=GFRBED) - XR CHEST 1 [id number] 05:16:00 Name: ESTHER LOZANO [facility] : 1970 Age/S: 48 / F [id number] [facility] Unit #: [id number] Loc: [place] [address] Phys: Mingo James MD Acct: [id number] Dis Date: Status: REG ER PHONE #: [phone] Exam Date: 01/07/2019 05 FAX #: Reason: dka EXAMS: CPT: [id number] XR CHEST 1 V 39059 Fluoro Time: DAP (Gy m2): Air Kerma (mGy): HISTORY : Ketoacidosis Location code: B2 FINDINGS: Frontal view of the chest demonstrates normal cardiomediastinal silhouette. The trachea is midline. The lungs are clear. There is no effusion or pneumothorax. The bones are intact. IMPRESSION: No acute pulmonary process. Electronically Signed by Radha Hunt on 2018 at 0516 Reported and signed by: Zaheer Hunt M.D. CC: Mingo James MD PAGE 1 Signed Report Name: [facility] 1970 Age/S: 48 / F [id number] [address] Unit #: [id number] Loc: [place] [address] Phys: Mingo James MD Acct: [id number] Dis Date: Status: REG ER PHONE #: [phone] Exam Date: 01/07/2019 0510 FAX #: Reason: dka EXAMS: CPT: [id number] XR CHEST 1 V 47414 Fluoro Time: DAP (Gy m2): Air Kerma ( mGy): <Continued> Technologist: Leda Brower RT(R)(CT) Trnscb Date/Time: 01/07/2019 (0516) [email or web address] Orig Print D/T: S: 01/07/2019 (0510) PAGE 2 Signed ReportComprehensive Metabolic [id number] 05:56:00 Test Item Value Reference Range Comments Sodium (test code=NA) 139 mmol/L 135-145 Potassium (test code=K) 2.7 mmol/L 3.5-5.1 READ BACK LAB VALUESVERIFIED BY REPEAT TESTINGNikolai @554AM 07/28/2017 KMSDelay due to nurse not avaiable Chloride (test code=CL) 97 mmol/L 98-105 Carbon Dioxide (test 29 mmol/L 22-29 code=CO2) Glucose (test code=GLU) 71 mg/dL 70-115 Blood Urea Nitrogen 7 mg/dL 6-20 (test code=BUN) Creatinine (test 0.5 mg/dL 0.5-0.9 code=CREAT) Calcium (test code=CA) 9.0 mg/dL 8.3-10.5 Prot Total (test 7.2 g/dL 6.4-8.3 code=TP) Albumin (test code=ALB) 4.3 g/dL 3.5-5.2 A/G Ratio (test 1.5 Ratio code=AGRATIO) Globulin (test 2.9 2.9-3.1 code=GLOB) Bili Total (test 1.7 mg/dL 0.1-0.9 code=TBIL) Alk Phos (test 100 U/L 35-104 code=APHOS) AST (test code=AST) 45 U/L 1-32 ALT (test code=ALT) 35 U/L 1-33 BUN/Creatinine Ratio 14.0 (test code=BCRATIO) Anion Gap (test 13 mmol/L 7-16 code=AGAP) Estimated GFR (test >60 mL/min/1.73m2 eGFR (estimated Glomerular code=GFR) Filtration Rate) is an estimated value,calculated from the patient's serum creatinine using the MDRD equation.It is NOT the patient's actual GFR. The eGFR provides a more clinicallyuseful measure of kidney disease than serum creatinine alone.This calculation takes sex and race into account, if the informationis provided. If the race is not provided, and the patient isAfrican-Stateless, multiply by 1.212. If sex is not provided, and thepatient is female, multiply by 0.742. Results for patients <18 years ofage have not been validated by the MDRD study and should be interpretedwith caution.eGFR Result Interpretation:eGFR > or=60 is in the Normal RangeeGFR < 60 may mean kidney diseaseeGFR < 15 may mean kidney failureRanges recommended by the National Kidney Foundation,http://nkdep.nih .gov CBC with [id number] 05:31:00 Test Item Value Reference Range Comments WBC (test code=WBC) 5.5 K/cumm 4.4-10.5 RBC (test code=RBC) 4.44 M/cumm 3.75-5.20 Hemoglobin (test code=HGB) 13.5 gm/dL 12.2-14.8 Hematocrit (test code=HCT) 40.7 % 36.5-44.4 MCV (test code=MCV) 91.6 fL 80-100 MCH (test code=MCH) 30.4 pg 27.0-32.5 MCHC (test code=MCHC) 33.2 g/dL 32.0-37.5 RDW (test code=RDW) 12.8 % 11.5-14.5 Platelet Count (test code=PLTCT) 192 K/cumm 140-440 MPV (test code=MPV) 8.0 fL Diff Method (test code=DIFFM) Manual Neutrophil (test code=NEUT) 33.0 % 36-70 Bands (test code=BAND) 3.0 % 0-6 Lymphocyte (test code=LYMPH) 54.0 % 12-44 Monocyte (test code=MONO) 9.0 % 0-11 Eosinophil (test code=EOS) 1.0 % 0-7 Neutro Abs (test code=ANEUT) 2.0 K/cumm 1.6-7.4 Lymph Abs (test code=ALYMPH) 3.0 K/cumm 0.5-4.6 Hayes Abs (test code=AMONO) 0.5 K/cumm 0.0-1.2 Eos Abs (test code=AEOS) 0.06 K/cumm 0.00-0.74 RBC Morphology (test Not Indicated code=RBCMRPH) Platelet Est (test code=PLTEST) Adequate Platelets on Smear CK [id number] 05:09:00 Test Item Value Reference Range Comments CK (test code=CK) 48 U/L 26-192 Troponin [id number] 05:07:00 Test Item Value Reference Range Comments Troponin T (test code=HIEN) <0.010 ng/mL 0.000-0.090 Urinalysis [id number] 04:50:00 Test Item Value Reference Range Comments Color (test code=COLOR) Yellow Yellow,Straw,Pl yellow Clarity (test code=CLAR) Clear Clear Specific Mcbee (test code=SPGR) 1.005 1.001-1.035 pH (test code=PH) 6.5 5.0-9.0 Ketone (test code=KET) Negative mg/dL Negative Glucose (test code=GLUCUR) Negative mg/dL Negative Protein (test code=PROT) Negative mg/dL Negative Bilirubin (test code=BILI) Negative mg/dL Negative Occult Blood (test code=UDOB) Negative Negative Urobilinogen (test code=UROB) 0.2 mg/dL 0.2-1.0 Nitrite (test code=NIT) Negative Negative Leuk Esterase (test code=LEUK) Negative Negative Micros Exam (test code=MEXAM) Not indicated"
[2019-10-09] MEDS ORDERED: NA CHLORIDE 0.9% 1,000 ML ONE (23:34)
[2019-10-09 23:42] LABS: Absolute Lymphocytes (CBC) 1.9 K/uL (0.7-4.9); Hematocrit 30.1 % (36.0-45.0); Lymphocytes % 33.9 % (15.3-44.8); MPV 8.2 fL (7.6-11.3); RBC Red Blood Cell Count 3.56 M/uL (3.86-4.86)
[2019-10-09 23:43] LABS: Urine Blood NEGATIVE (NEG); Urine Glucose 2+ (NEG); Urine Protein NEGATIVE (NEG); Urine Specific Gravity <1.005 (1.005-1.030)
[2019-10-09 23:43] LABS: Protime INR 0.93
[2019-10-10 00:23] LABS: ALT/SGPT 76 U/L (12-78); AST/SGOT 101 U/L (15-37); Albumin 3.3 g/dL (3.4-5.0); Alkaline Phosphatase 196 U/L (45-117); BUN Blood Urea Nitrogen 8 mg/dL (7-18); Bicarbonate 30 mmol/L (21-32); Bilirubin Direct 0.1 mg/dL (0-0.2); Bilirubin Total 0.4 mg/dL (0.2-1.0); Glucose Level 389 mg/dL (74-106); NT PRO-BNP 351 pg/mL (<125); Potassium 3.9 mmol/L (3.5-5.1); Protein, Total 7.9 g/dL (6.4-8.2); Sodium Level 133 mmol/L (136-145); Troponin (Emerg Dept Use Only) < 0.02 ng/mL (0.0-0.045)
[2019-10-10] MEDS ORDERED: NA CHLORIDE 0.9% 100 ML IV ONE (01:11)
[2019-10-10] MEDS ORDERED: NA CHLORIDE 0.9% 1,000 ML ONE (01:11)
[2019-10-10] MEDS ORDERED: INSULIN -REGULAR HUMAN 50 UNIT/0.5 ML ML ONE (01:11)
[2019-10-10] MEDS ORDERED: D50W 25 GM/50 ML SYRINGE/VIAL IV ONE (03:14)
[2019-10-10] MEDS ORDERED: ONDANSETRON 4 MG/2 ML VIAL ONE (03:14)
--- NOTE | 2019-10-10 03:51 | EDPHYS ---
Physician Documentation [facility] Name: Jocelin Montalvo Age: 49 yrs Sex: Female : 1970 Arrival Date: 10/09/2019 Time: 22:44 Bed 20 Private MD: ED Physician Dimitry Ivory HPI: 10/10 02:37 This 49 yrs old Female presents to ER via EMS with complaints of High Blood Sugar. snw 02:37 The patient or guardian reports hyperglycemia, that was potentially precipitated by snw unknown, with the patient's symptoms witnessed by rehab personnel. Onset: The symptoms/episode began/occurred suddenly, and became persistent. Associated signs and symptoms: Pertinent positives: dry skin, fatigue. Current symptoms: In the emergency department the patient's symptoms are unchanged from the initial presentation. It is unknown whether or not the patient has had similar symptoms in the past. It is unknown whether or not the patient has recently seen a physician. pt admitted to rehab 10/09/19, noted to have high blood sugar. Clinic gave 6 units insulin. 30 min post admin. FSBS>500, sent to ED. 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 22:59 LMP 2015 Historical: - Allergies: 22:59 No Known Allergies; - Home Meds: 22:59 metoprolol tartrate 25 mg Oral tab 1 tab once daily [Active]; Humalog 10 units Sub-Q twice a day [Active]; losartan 50 mg oral tab 1 tab 2 times per day [Active]; clopidogrel 75 mg oral tab 1 tab once daily [Active]; gabapentin 300 mg oral cap 1 cap 3 times per day [Active]; Cholestyramine Light 4 gram oral pwpk daily [Active]; Novolog 6 units Sub-Q three times a day [Active]; - PMHx: 22:59 Diabetes - IDDM; Hypertension; Myocardial infarction; - PSHx: 22:59 Cholecystectomy; Partial Colon Surgery; - Immunization history:: Adult Immunizations not up to date. - Social history:: Smoking status: Patient/guardian denies using tobacco. - Ebola Screening: : Patient negative for fever greater than or equal to 101.5 degrees Fahrenheit, and additional compatible Ebola Virus Disease symptoms Patient denies exposure to infectious person. ROS: 10/10 01:01 Constitutional: Negative for fever, chills, and weight loss, Eyes: Negative for injury, snw pain, redness, and discharge, ENT: Negative for injury, pain, and discharge, Neck: Negative for injury, pain, and swelling, Cardiovascular: Negative for chest pain, palpitations, and edema, Respiratory: Negative for shortness of breath, cough, wheezing, and pleuritic chest pain, Back: Negative for injury and pain, : Negative for injury, bleeding, discharge, and swelling, MS/Extremity: Negative for injury and deformity, Skin: Negative for injury, rash, and discoloration. Abdomen/GI: Positive for abdominal pain, of the suprapubic area. Psych: Positive for fatigue. Exam: 01:00 Head/Face: Normocephalic, atraumatic. Eyes: Pupils equal round and reactive to light, snw extra-ocular motions intact. Lids and lashes normal. Conjunctiva and sclera are non-icteric and not injected. Cornea within normal limits. Periorbital areas with no swelling, redness, or edema. ENT: Nares patent. No nasal discharge, no septal abnormalities noted. Tympanic membranes are normal and external auditory canals are clear. Oropharynx with no redness, swelling, or masses, exudates, or evidence of obstruction, uvula midline. Mucous membranes moist. Neck: Trachea midline, no thyromegaly or masses palpated, and no cervical lymphadenopathy. Supple, full range of motion without nuchal rigidity, or vertebral point tenderness. No Meningismus. Chest/axilla: Normal chest wall appearance and motion. Nontender with no deformity. No lesions are appreciated. Cardiovascular: Regular rate and rhythm with a normal S1 and S2. No gallops, murmurs, or rubs. Normal PMI, no JVD. No pulse deficits. Respiratory: Lungs have equal breath sounds bilaterally, clear to auscultation and percussion. No rales, rhonchi or wheezes noted. No increased work of breathing, no retractions or nasal flaring. Abdomen/GI: Soft, non-tender, with normal bowel sounds. suprapubic tenderness. No distension or tympany. No guarding or rebound. No evidence of tenderness throughout. Back: No spinal tenderness. No costovertebral tenderness. Full range of motion. Skin: Warm, dry with normal turgor. Normal color with no rashes, no lesions, and no evidence of cellulitis. MS/ Extremity: Pulses equal, no cyanosis. Neurovascular intact. Full, normal range of motion. Neuro: Awake and alert, GCS 15, oriented to person, place, time, and situation. Cranial nerves II-XII grossly intact. Motor strength 5/5 in all extremities. Sensory grossly intact. Cerebellar exam normal. Normal gait. 01:00 Constitutional: The patient appears frail, listless, pale. Vital Signs: 10/09 22:51 BP 102 / 74; Pulse 88; Resp 18; Temp 98.1; Pulse Ox 100% ; wh 10/10 00:15 BP 94 / 67; Pulse 78; Resp 18; Pulse Ox 100% ; Weight 67.13 kg; Height 5 ft. 4 in. wh (162.56 cm); 01:30 BP 92 / 69; Pulse 82; Resp 16; Pulse Ox 100% ; wh 02:30 BP 93 / 63; Pulse 72; Resp 16; Pulse Ox 100% on R/A; 03:24 BP 94 / 66; Pulse 76; Resp 18; Pulse Ox 100% ; 04:35 BP 99 / 77; Pulse 79; Resp 18; Pulse Ox 100% on R/A; 05:30 BP 92 / 64; Pulse 80; Resp 18; Pulse Ox 100% on R/A; 00:15 Body Mass Index 25.40 (67.13 kg, 162.56 cm) MDM: 10/09 23:25 Patient medically screened. snw 10/10 03:46 Data reviewed: vital signs, nurses notes. Data interpreted: Pulse oximetry: on room air snw is 100 %. Interpretation: normal. Counseling: I had a detailed discussion with the patient and/or guardian regarding: the historical points, exam findings, and any diagnostic results supporting the discharge/admit diagnosis, lab results, radiology results, the need for further work-up and treatment in the hospital. Physician consultation: Chantal Parker MD was called at 03:47, was contacted at 03:47, regarding admission, to the telemetry unit. 03:48 Response to treatment: pt more alert but FSBS down in the 60's, insulin drip stopped. snw juice x 2 tolerated. FSBS in the 40s, D50 given. Pt started on D5.45NS at 125ml/hr. 10/09 22:50 Order name: Glucose, Ancillary Testing; Complete Time: 23:22 EDMS 10/09 23:20 Order name: Urine Dipstick--Ancillary (enter results); Complete Time: 23:50 mw2 10/09 23:24 Order name: Basic Metabolic Panel; Complete Time: 00:48 snw 10/09 23:24 Order name: CBC with Diff; Complete Time: 23:50 snw 10/09 23:24 Order name: LFT's; Complete Time: 00:48 snw 10/09 23:24 Order name: Magnesium; Complete Time: 00:48 snw 10/09 23:24 Order name: NT PRO-BNP; Complete Time: 00:48 snw 10/09 23:24 Order name: PT-INR; Complete Time: 23:50 snw 10/09 23:24 Order name: Troponin (emerg Dept Use Only); Complete Time: 00:48 snw 10/09 23:24 Order name: Blood Culture Adult (2) snw 10/09 23:24 Order name: Acetone, Serum; Complete Time: 00:48 snw 10/10 02:41 Order name: Glucose, Ancillary Testing; Complete Time: 02:44 EDMS 10/10 03:24 Order name: Glucose, Ancillary Testing; Complete Time: 03:44 EDMS 10/09 23:24 Order name: XRAY Chest (1 view) snw 10/09 23:24 Order name: EKG; Complete Time: 23:25 snw 10/09 23:24 Order name: Cardiac monitoring; Complete Time: 23:29 snw 10/09 23:24 Order name: EKG - Nurse/Tech; Complete Time: 23:29 snw 10/09 23:24 Order name: IV Saline Lock; Complete Time: 23:29 snw 10/10 04:03 Order name: Glucose, Ancillary Testing EDMS 10/10 05:18 Order name: Glucose, Ancillary Testing EDMS 10/10 05:39 Order name: Physical Therapy Consult EDMS 10/10 05:39 Order name: Consistent Carb (ADA) 2000 Dru EDMS 10/10 05:39 Order name: Lipid Profile EDMS 10/09 23:24 Order name: Labs collected and sent; Complete Time: 23:29 snw 10/09 23:24 Order name: O2 Per Protocol; Complete Time: 23:28 snw 10/09 23:24 Order name: O2 Sat Monitoring; Complete Time: 23:28 snw 10/10 01:39 Order name: FSBS: hourly while on insulin drip; Complete Time: 02:34 snw Administered Medications: 10/09 23:36 Drug: NS 0.9% 1000 ml Route: IV; Rate: 1 bolus; Site: right antecubital; 10/10 03:55 Follow up: Response: No adverse reaction; IV Status: Completed infusion 01:20 Drug: NS 0.9% 1000 ml Route: IV; Rate: 1 bolus; Site: right antecubital; 02:46 Follow up: IV Status: Completed infusion 01:20 Drug: Insulin Drip - (Insulin Regular Human 100 units, NS 0.9% 100 ml) {Co-Signature: [email or web address] (José Miguel Dudley RN).} Route: IV; Rate: calculated rate; Site: right antecubital; 02:46 Follow up: Response: No adverse reaction; Blood sugar is lowered; IV Status: IV converted to saline lock 03:15 Drug: D50W 50 ml Route: IVP; Site: right antecubital; 03:56 Follow up: Response: No adverse reaction; Blood sugar is elevated 03:22 Drug: Zofran 4 mg Route: IVP; Site: right antecubital; 03:55 Follow up: Response: No adverse reaction; Nausea is decreased 03:55 Drug: D5-1/2 NS 1000 ml Route: IV; Rate: 125 ml/hr; Site: right antecubital; 05:59 Follow up: Response: No adverse reaction; IV Status: Infusion continued upon admission Disposition: 06:51 Co-signature as Attending Physician, Dimitry Ivory MD I agree with the assessment and 4 plan of care. Disposition: 10/10/19 03:48 Hospitalization ordered by Chantal Parker for Observation. Preliminary diagnosis are Hyperglycemia, unspecified, Lethargy. - Bed requested for Telemetry/MedSurg (observation). - Status is Observation. - Condition is Stable. - Problem is an acute exacerbation. - Symptoms are unchanged. UTI on Admission? No Signatures: Dispatcher [employer] Emerald Paiz RN RN Jamilah Lezama, BUSINESS SYSTEM MANAGER-C BUSINESS SYSTEM MANAGER-[facility] Abad Dimitry Ivory MD MD [id number] José Miguel Dudley RN [email or web address] Corrections: (The following items were deleted from the chart) 10/09 23:35 23:13 BASIC METABOLIC PANEL+C.LAB.BRZ ordered. EDMS EDMS 10/10 05:09 03:48 Hospitalization Ordered by Chantal Parker MD for Observation. Preliminary diagnosis mw is Hyperglycemia, unspecified; Lethargy. Bed requested for Telemetry/MedSurg (observation). Status is Observation. Condition is Stable. Problem is an acute exacerbation. Symptoms are unchanged. UTI on Admission? No. snw 06:34 05:09 10/10/2019 03:48 Hospitalization Ordered by Chantal Parker MD for Observation. Preliminary diagnosis is Hyperglycemia, unspecified; Lethargy. Bed requested for Telemetry/MedSurg (observation). Status is Observation. Condition is Stable. Problem is an acute exacerbation. Symptoms are unchanged. UTI on Admission? No. mw
--- NOTE | 2019-10-10 03:51 | ER ---
Nurse's Notes [facility] Name: Jocelin Montalvo Age: 49 yrs Sex: Female : 1970 Arrival Date: 10/09/2019 Time: 22:44 Bed 20 Private MD: Diagnosis: Hyperglycemia, unspecified;Lethargy Presentation: 10/09 22:44 Presenting complaint: EMS states: PT lives in [place], they were toned because Pt blood sugar was high on Glucometer, at scene BS check was 545. Per EMS Pt was given 6 units Regular Insulin prior to their arrival. Transition of care: patient was received from another setting of care (rehabilitation facility). Onset of symptoms was October 09, 2019. Risk Assessment: Do you want to hurt yourself or someone else? Patient reports no desire to harm self or others. Initial Sepsis Screen: Does the patient meet any 2 criteria? No. Patient's initial sepsis screen is negative. Does the patient have a suspected source of infection? No. Patient's initial sepsis screen is negative. Care prior to arrival: Glucose check: 545. 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 CLOSER: 22:59 LMP 2016 Historical: - Allergies: 22:59 No Known Allergies; - Home Meds: 22:59 metoprolol tartrate 25 mg Oral tab 1 tab once daily [Active]; Humalog 10 units Sub-Q twice a day [Active]; losartan 50 mg oral tab 1 tab 2 times per day [Active]; clopidogrel 75 mg oral tab 1 tab once daily [Active]; gabapentin 300 mg oral cap 1 cap 3 times per day [Active]; Cholestyramine Light 4 gram oral pwpk daily [Active]; Novolog 6 units Sub-Q three times a day [Active]; - PMHx: 22:59 Diabetes - IDDM; Hypertension; Myocardial infarction; - PSHx: 22:59 Cholecystectomy; Partial Colon Surgery; - Immunization history:: Adult Immunizations not up to date. - Social history:: Smoking status: Patient/guardian denies using tobacco. - Ebola Screening: : Patient negative for fever greater than or equal to 101.5 degrees Fahrenheit, and additional compatible Ebola Virus Disease symptoms Patient denies exposure to infectious person. Screenin:47 Abuse screen: Denies threats or abuse. Denies injuries from another. Nutritional wh screening: No deficits noted. Tuberculosis screening: No symptoms or risk factors identified. Fall Risk None identified. Assessment: 22:48 General: Appears in no apparent distress. Behavior is calm, cooperative, appropriate wh for age. Pain: Denies pain. Neuro: Level of Consciousness is awake, alert, obeys commands, Oriented to person, place, time, situation, Appropriate for age. Cardiovascular: Capillary refill < 3 seconds. Respiratory: Airway is patent Respiratory effort is even, unlabored, Respiratory pattern is regular, symmetrical. GI: Abdomen is flat, non-distended. : No signs and/or symptoms were reported regarding the genitourinary system. EENT: No signs and/or symptoms were reported regarding the EENT system. Derm: Skin is intact, is healthy with good turgor, Skin is pink, warm \T\ dry. normal. Musculoskeletal: Circulation, motion, and sensation intact. 10/10 00:10 Reassessment: Patient appears in no apparent distress at this time. No changes from previously documented assessment. Patient and/or family updated on plan of care and expected duration. Pain level reassessed. Patient is alert, oriented x 3, equal unlabored respirations, skin warm/dry/pink. Patient denies pain at this time. 01:36 Reassessment: Patient appears in no apparent distress at this time. No changes from previously documented assessment. Patient and/or family updated on plan of care and expected duration. Pain level reassessed. Patient is alert, oriented x 3, equal unlabored respirations, skin warm/dry/pink. Patient denies pain at this time. 02:30 Reassessment: Patient appears in no apparent distress at this time. No changes from previously documented assessment. Patient and/or family updated on plan of care and expected duration. Pain level reassessed. Patient is alert, oriented x 3, equal unlabored respirations, skin warm/dry/pink. BD Rechecked was 66, insulin dripped stopped, notified Provider, Pt was given orange juice, will cont to monitor Patient denies pain at this time. 03:10 Reassessment: BS rechecked was 44 notified Provider with orders made and carried out. 03:23 Reassessment: Patient appears in no apparent distress at this time. No changes from previously documented assessment. Patient and/or family updated on plan of care and expected duration. Pain level reassessed. Patient is alert, oriented x 3, equal unlabored respirations, skin warm/dry/pink. Patient denies pain at this time. 03:56 Reassessment: BS Recheck at 137 notified provider. 04:34 Reassessment: Patient appears in no apparent distress at this time. No changes from previously documented assessment. Patient and/or family updated on plan of care and expected duration. Pain level reassessed. Patient is alert, oriented x 3, equal unlabored respirations, skin warm/dry/pink. MD at bedside explaining POC need for admit Patient denies pain at this time. 04:42 Reassessment: SHASHI Coon RN at [facility] notified PT will be admitted as observation. 05:40 Reassessment: Patient appears in no apparent distress at this time. No changes from previously documented assessment. Patient and/or family updated on plan of care and expected duration. Pain level reassessed. Patient is alert, oriented x 3, equal unlabored respirations, skin warm/dry/pink. Vital Signs: 10/09 22:51 BP 102 / 74; Pulse 88; Resp 18; Temp 98.1; Pulse Ox 100% ; 10/10 00:15 BP 94 / 67; Pulse 78; Resp 18; Pulse Ox 100% ; Weight 67.13 kg; Height 5 ft. 4 in. (162.56 cm); 01:30 BP 92 / 69; Pulse 82; Resp 16; Pulse Ox 100% ; 02:30 BP 93 / 63; Pulse 72; Resp 16; Pulse Ox 100% on R/A; 03:24 BP 94 / 66; Pulse 76; Resp 18; Pulse Ox 100% ; 04:35 BP 99 / 77; Pulse 79; Resp 18; Pulse Ox 100% on R/A; 05:30 BP 92 / 64; Pulse 80; Resp 18; Pulse Ox 100% on R/A; 00:15 Body Mass Index 25.40 (67.13 kg, 162.56 cm) ED Course: 10/09 22:44 Patient arrived in ED. 22:47 Triage completed. 22:48 Patient has correct armband on for positive identification. Bed in low position. Call light in reach. Side rails up X 1. Pulse ox on. NIBP on. 22:48 Arm band placed on right wrist. 23:12 Abad Black is Primary Nurse. 23:15 Inserted saline lock: 22 gauge in right antecubital area, using aseptic technique. Blood collected. 23:22 Jamilah Lezama FNP-C is PHCP. snw 23:22 Dimitry Ivory MD is Attending Physician. [facility] 10/10 00:08 XRAY Chest (1 view) In Process Unspecified. EDMS 03:47 Chantal Parker MD is Hospitalizing Provider. snw 05:57 No provider procedures requiring assistance completed. Patient admitted, IV remains in place. Administered Medications: 10/09 23:36 Drug: NS 0.9% 1000 ml Route: IV; Rate: 1 bolus; Site: right antecubital; 10/10 03:55 Follow up: Response: No adverse reaction; IV Status: Completed infusion 01:20 Drug: NS 0.9% 1000 ml Route: IV; Rate: 1 bolus; Site: right antecubital; 02:46 Follow up: IV Status: Completed infusion 01:20 Drug: Insulin Drip - (Insulin Regular Human 100 units, NS 0.9% 100 ml) {Co-Signature: [email or web address] (José Miguel Dudley RN).} Route: IV; Rate: calculated rate; Site: right antecubital; 02:46 Follow up: Response: No adverse reaction; Blood sugar is lowered; IV Status: IV wh converted to saline lock 03:15 Drug: D50W 50 ml Route: IVP; Site: right antecubital; 03:56 Follow up: Response: No adverse reaction; Blood sugar is elevated 03:22 Drug: Zofran 4 mg Route: IVP; Site: right antecubital; 03:55 Follow up: Response: No adverse reaction; Nausea is decreased 03:55 Drug: D5-1/2 NS 1000 ml Route: IV; Rate: 125 ml/hr; Site: right antecubital; 05:59 Follow up: Response: No adverse reaction; IV Status: Infusion continued upon admission Outcome: 03:48 Decision to Hospitalize by Provider. snw 05:58 Admitted to Med/surg accompanied by nurse, via wheelchair, room 212, with chart, Report called to Antonieta Verdugo RN 05:58 Condition: stable 05:58 Instructed on the need for admit. 06:34 Patient left the ED. Signatures: Dispatcher [employer] EDJamilah Bloom, HAT BODY INSPECTOR-C HAT BODY INSPECTOR-Csnw Abad Black José Miguel Dudley RN [email or web address]
[2019-10-10] MEDS ORDERED: D5 0.45 NS 1,000 ML IV ONE (03:55)
[2019-10-10] MEDS ORDERED: ONDANSETRON 4 MG/2 ML VIAL IV PRN (05:36)
[2019-10-10] MEDS ORDERED: ACETAMINOPHEN 500 MG TAB PO PRN (05:36)
[2019-10-10] MEDS ORDERED: FOLIC ACID 1 MG, MULTIVITAMINS INJ 10 ML, THIAMINE HCL 100 MG in NA CHLORIDE 0.9% 1,000 ML IV ONE ×2 (05:40→08:30)
--- NOTE | 2019-10-10 05:57 | P.HP ---
Certification for Inpatient Patient admitted to: Observation With expected LOS: <2 Midnights Patient will require the following post-hospital care: None Practitioner: I am a practitioner with admitting privileges, knowledge of patient current condition, hospital course, and medical plan of care. Services: Services provided to patient in accordance with Admission requirements found in Title 42 Section 412.3 of the Code of Federal Regulations Patient History Date of Service: 10/10/19 Reason for admission: hyperglycemia, weakness History of Present Illness: benita demarco is a 49yoF w/ pmhx of type I DM, htn, CAD s/ 1 PCI, neuropathy, alcoholism who drinks 1 bottle of wine daily x 2 weeks trying to wean off of Etoh, but was unsuccessful and thus was checked into the [facility]hab, but transferred to [facility] due to sustained hyperglcemia even after administration of 6units of insulin. on arrival she was placed on insulin gtt for BGL > 450 and dropped to 48, after D50 and started on D5 1/2 NS she improved. she is being admitted for observation due to brittle DM and better management of her insulin. she reports compliance w/ her insulin but reports recent change on 10/09/19 from taking chronically taking humalog to now started on novolog. she still reports compliance. she denies fever, chills, cp, sob, [place], dizziness, LE swelling, cough, sick contacts. she denies tobacco/drugs Allergies No Known Allergies Allergy (Unverified 10/10/19 04:50) Review of Systems General: Weakness, Malaise Eyes: Unremarkable ENT: Unremarkable Respiratory: Unremarkable Cardiovascular: Unremarkable Gastrointestinal: As per HPI, Unremarkable Genitourinary: Unremarkable Musculoskeletal: Foot Pain Neurological: As per HPI (neuropathy) Physical Examination - Physical Exam General: Alert, In no apparent distress, Oriented x3, Cooperative, Other (sleepy ) HEENT: Atraumatic, PERRLA, Other (dry mucous membrane ) Neck: Supple Respiratory: Normal air movement Cardiovascular: No edema, Normal S1 S2, Other Capillary refill: <2 Seconds Gastrointestinal: Normal bowel sounds, Soft and benign, Non-distended, No rebound, No guarding Musculoskeletal: No clubbing, No swelling Integumentary: No rashes, No breakdown Neurological: Normal speech External genitalia: Deferred Rectal: Deferred - Studies Laboratory Data (last 24 hrs) 10/09/19 23:10: PT 11.0, INR 0.93 10/09/19 23:10: WBC 5.5, Hgb 9.6 L, Hct 30.1 L, Plt Count 359 10/09/19 23:10: Sodium 133 L, Potassium 3.9, BUN 8, Creatinine 0.76, Glucose 389 H, Magnesium 2.0, Total Bilirubin 0.4, AST 101 H, ALT 76, Alkaline Phosphatase 196 H 10/09/19 23:10: Sodium Cancelled, Potassium Cancelled, BUN Cancelled, Creatinine Cancelled, Glucose Cancelled Assessment and Plan - Plan 49yoF admitted w/ uncontrolled DM - obtain A1C, c/w IVF and monitor BGL q1 until stabilized obtain tsh, lipid monitor BMP and mag o2 per protocol tele, up w/ assisted ambulation fall risk EtOh thiamine, mvi and folate librium w/ ativan PRN. CAD - no signs of CP or new decompensation monitor for chest pain and trend CE DVT - scd - Advance Directives Does patient have a Living Will: No Does patient have a Durable POA for Healthcare: No
[2019-10-10] MEDS ORDERED: LORAZEPAM 0.5 MG TABLET PO PRN (06:34)
[2019-10-10 06:42] VITALS: O2SAT 100
--- NOTE | 2019-10-10 07:55 | RAD REPORT ---
EXAM DESCRIPTION: RAD - Chest Single View - 10/10/2019 12:04 am CLINICAL HISTORY: Shortness of breath, hyperglycemia COMPARISON: None. TECHNIQUE: AP portable chest image was obtained 2333 hours . FINDINGS: No consolidation, edema or focal lung parenchymal process. Interstitial pattern is not out side of normal range for patient age. Heart and vasculature are normal. No measurable pleural effusio n and no pneumothorax. No acute bony abnormality seen. No acute aortic findings suspected. IMPRESSION: No acute cardiopulmonary process.
[2019-10-10] MEDS: chlordiazePOXIDE HCl 25 MG CAP PO SCH ×2 (08:08→12:33)
[2019-10-10] MEDS: INSULIN -REGULAR HUMAN 50 UNIT/0.5 ML ML SQ SCH ×2 (08:09→12:33)
[2019-10-10] MEDS ORDERED: MULTIVITAMIN TAB PO SCH (09:00)
[2019-10-10] MEDS ORDERED: FOLIC ACID 1 MG TABLET PO SCH (09:00)
[2019-10-10] MEDS ORDERED: THIAMINE HCL 100 MG TABLET PO SCH (09:00)
--- NOTE | 2019-10-10 10:34 | EKG ---
Test Date: 2019-10-09 Test Time: 23:47:13 Parachute Line Tier: REEBL MEASUREMENT RESULTS: Intervals: Rate: 83 WY: 122 QRSD: 86 QT: 374 QTc: 439 [place]: P: 43 WY: 122 QRS: 87 T: 67 INTERPRETIVE STATEMENTS: Normal sinus rhythm Normal ECG No previous ECG available for comparison Electronically Signed On 10-10-19 10:33:34 WHEEL LOADER OPERATOR by Abilio Mohan
--- NOTE | 2019-10-10 13:40 | P.DS ---
Admission Date: 10/10/19 Discharge Date: 10/10/19 Disposition: ROUTINE DISCHARGE Discharge Condition: FAIR Reason for Admission: hyperglycemia, weakness Brief History of Present Illness: as previously dictated Hospital Course: patient with brittle Type I DM not able to follow with Endocrine due to financial issues admitted for persistent hyperglycemia then developed hypoglycemia after IV insulin doses in ER . During admission , her glucose levels improved to the 100s range . She admit to home fluctuating glucose and her fingertips checks at pre-meals . workup shows no infection . She has been advised on need for endocrine follow up and insulin pump use . She will continue with her home insulin sliding scale regime for now but increase frequency to q6h . Follow with her PCP in 3-5 days Vital Signs/Physical Exam: Temp Pulse Resp BP Pulse Ox 97.1 F 92 H 17 92/59 L 99 10/10/19 08:00 10/10/19 08:00 10/10/19 08:00 10/10/19 08:00 10/10/19 08:00 General: Alert, In no apparent distress, Oriented x3 HEENT: Atraumatic, Normocephalic, PERRLA Neck: 2+ carotid pulse no bruit, JVD not distended Respiratory: Clear to auscultation bilaterally, Normal air movement Cardiovascular: No edema, Regular rate/rhythm, Normal S1 S2 Gastrointestinal: Normal bowel sounds, Soft and benign Musculoskeletal: No clubbing, No swelling Integumentary: No rashes, No breakdown Neurological: Normal gait, Normal speech, Normal strength at 5/5 x4 extr External genitalia: No edema, No lesions Laboratory Data at Discharge: WBC 5.5 K/uL (4.3-10.9) 10/09/19 23:10 Hgb 9.6 g/dL (12.0-15.0) L 10/09/19 23:10 Hct 30.1 % (36.0-45.0) L 10/09/19 23:10 Plt Count 359 K/uL (152-406) 10/09/19 23:10 PT 11.0 SECONDS (9.5-12.5) 10/09/19 23:10 INR 0.93 10/09/19 23:10 Sodium 133 mmol/L (136-145) L 10/09/19 23:10 Potassium 3.9 mmol/L (3.5-5.1) 10/09/19 23:10 BUN 8 mg/dL (7-18) 10/09/19 23:10 Creatinine 0.76 mg/dL (0.55-1.3) 10/09/19 23:10 Glucose 389 mg/dL (74-106) H 10/09/19 23:10 Magnesium 2.0 mg/dL (1.8-2.4) 10/09/19 23:10 Total Bilirubin 0.4 mg/dL (0.2-1.0) 10/09/19 23:10 AST 101 U/L (15-37) H 10/09/19 23:10 ALT 76 U/L (12-78) 10/09/19 23:10 Alkaline Phosphatase 196 U/L (45-117) H 10/09/19 23:10 Home Medications: Cholestyramine (with Sugar) [Cholestyramine Packet] 4 gm PO DAILY 10/10/19 Clopidogrel Bisulfate [Plavix*] 75 mg PO DAILY 10/10/19 Gabapentin 300 mg PO TID 10/10/19 Insulin Aspart [Novolog] 6 unit SQ AC 10/10/19 Insulin Lispro [Humalog*] 10 unit SQ BID 10/10/19 Losartan Potassium [Cozaar*] 50 mg PO BID 10/10/19 Metoprolol Tartrate [Lopressor*] 25 mg PO DAILY 10/10/19 Patient Discharge Instructions: --Follow with Endocrine , follow with your PCP for referral. -Consider Endocrine appt at [facility] system in [place]. - if living in [place] area , attempt to get Gold card Diet: ADA Activity: Ad marty Time spent managing pt's care (in minutes): 35
[2019-10-10 14:52] VITALS: BP 94/51; TEMP 98.4
== END 2019-10-10 14:53 | disposition home or self-care (01) ==
LOC: ER 22:31 → 2ND 10-10 06:08
PROVIDERS: ADMIT Internal Medicine; ATTEND Internal Medicine
DX: E10.65 Type 1 diabetes mellitus with hyperglycemia (principal); I10 Essential (primary) hypertension; I25.10 Atherosclerotic heart disease of native coronary artery without angina pectoris
CPT/HCPCS: 96365; 96367; 96361; 93005; 87040 ×2; 85025; 80048; 36415; 82010; 83735; 85610; 82947 ×8; 80076; 81003; 84484; 83880; 71045; 97112; 97116; 97161; 96375; 99285; 96366; J3411; J7799; J7030 ×3; J2405; G0378 ×2

== ENCOUNTER 2019-10-20 00:12 | Emergency (ER) | payer OTHER ==
--- OUTSIDE RECORDS SUMMARY | 2019-10-20 00:29 | XMS REPORT ---
:1970 Author Organization [facility] Address [address] [place] [address] Care Team Providers Name Role Phone UNKNOWN, REFFERING Primary Care Provider Unavailable OLGA PALUMBO Unavailable Unavailable Payers Payer Name Policy Type [...] Clinicians Facility Department ID 2018-12-08 Inpatient E [facility] [id number] 15:29:00 Results Test Description Test Time Test Comments Text Results Atomic Results Result Comments - XR CHEST 1 V 2019-09-14 09:25:00 Patient Name: ESTHER LOZANO Unit No: [id number] EXAMS: CPT: [id number] XR CHEST 1 V 90221 CHEST RADIOGRAPH, ONE VIEW: FRONTAL HISTORY: Shortness [...] (09) by:[email or web address] Orig Print D/T: S: 09/14/2019 (09) BATCH NO: N/A Name: ESTHER LOZANO [facility] Phys: Sanjeev Peterson MD [address] [facility] : 1970 Age: 49 Sex: [place] [address] Loc: N.ERS Exam Date: 09/13/2019 Status: DEP ER PH: FAX: PAGE 1 Signed Report GLUBED 2019-09-13 23:03:00 Test Item Value Reference Range Comments GLUBED (test code=GLUBED) 68 MG/DL 70-105 [id number] 22:50:00 Test Item Value Reference Range Comments GLUBED (test code=GLUBED) 49 MG/DL 70-105 [id number] 22:50:00 Test Item Value Reference Range Comments GLUBED (test code=GLUBED) 44 MG/DL 70-105 BASIC METABOLIC [id number] 22:42:00 Test Item Value Reference Range Comments SODIUM (test code=NA) 129 mmol/L 135-145 POTASSIUM (test code=K) 2.8 mmol/L 3.6-5.0 Critical Value reported toFirst Name:FITO Last Name:CODY READ [facility] AND VERIFIEDby [facility], on 09/13/19, @ 9967. CHLORIDE (test code=CL) 90 mmol/L 101-111 CARBON [...] code=CA) 8.5 mg/dL 8.5-10.5 - XR ABDOMEN [id number] 22:19:00Patient Name: ESTHER LOZANO Unit No: [id number] EXAMS: CPT: [id number] XR ABDOMEN 1V 94483 ABDOMEN 1 VIEW: CLINICAL HISTORY: Abdominal pain [...] (2223) BATCH NO: N/A Name: ESTHER LOZANO [facility] Phys: Silvano Hammond DO [address] [facility] : 1970 Age: 49 Sex: [place] [address] Loc: N.ERS Exam Date: 09/13/2019 Status: REG ER PH: FAX: PAGE 1 Signed [id number] 21:40:00 Test Item Value Reference Range Comments TROPONIN-I (test 0.086 ng/mL 0.000-0.034 Critical Value reported toFirst code=TROPI) Name:DR Argueta Name:SAMARIA READ BACK AND VERIFIEDby KWADWO, on 09/13/19, @ 2137. B-TYPE NATRIURETIC [id number] 21:30:00 Test Item Value Reference Range Comments B-TYPE NATRIURETIC PEPTIDE (test code=BNP) 51 pg/ml 0-100 CBC W/AUTO [id number] 21:29:00 Test Item Value Reference Range Comments [...] VOLUME (test 8.5 fl 6.4-10.5 code=MPV) WBC [id number] 21:29:00 Test Item Value Reference Range Comments [...] MORPHOLOGY (test code=PLTMORPH) NORMAL NORMAL BASIC METABOLIC [id number] 21:28:00 Test Item Value Reference Range Comments [...] (test code=CA) 8.8 mg/dL 8.5-10.5 LIVER FUNCTION [id number] 21:28:00 Test Item Value Reference Range Comments TOTAL PROTEIN (test code=PROT) 6.6 g/dL 6.7-8.2 ALBUMIN (test code=ALB) 3.6 g/dL 3.2-5.5 BILIRUBIN TOTAL (test code=BILT) 1.20 mg/dL 0.2-1.3 BILIRUBIN DIRECT (test code=BILD) 0.2 mg/dL 0.00-0.20 SGOT/AST (test code=AST) 178 U/L 10-42 SGPT/ALT (test code=ALT) 111 U/L 10-60 ALKALINE PHOSPHATASE (test code=ALKP) 129 U/L 42-121 [id number] 21:28:00 Test Item Value Reference Range Comments LIPASE (test code=LIP) 31 IU/L 22-51 HCG SERUM [id number] 21:19:00 Test Item Value Reference Range Comments HCG SERUM QUAL (test NEGATIVE NEGATIVE This is a qualitative screening code=HCGQL) test.The quantitative Bhcg may be helpful.Weakly positive results should be repeated in 48 hours. BASIC METABOLIC [id number] 21:16:00 Test Item Value Reference Range Comments [...] (test code=CA) 8.8 mg/dL 8.5-10.5 LIVER FUNCTION [id number] 21:16:00 Test Item Value Reference Range Comments TOTAL PROTEIN (test code=PROT) 6.6 g/dL 6.7-8.2 ALBUMIN (test code=ALB) 3.6 g/dL 3.2-5.5 BILIRUBIN TOTAL (test code=BILT) mg/dL 0.2-1.3 BILIRUBIN DIRECT (test code=BILD) mg/dL 0.00-0.20 SGOT/AST (test code=AST) U/L 10-42 SGPT/ALT (test code=ALT) U/L 10-60 ALKALINE PHOSPHATASE (test code=ALKP) U/L 42-121 [id number] 21:16:00 Test Item Value Reference Range Comments LIPASE (test code=LIP) 31 IU/L 22-51 CBC W/AUTO [id number] 21:06:00 Test Item Value Reference Range Comments [...] VOLUME (test code=MPV) 8.5 fl 6.4-10.5 WBC [id number] 21:06:00 Test Item Value Reference Range Comments TOTAL CELLS COUNTED (test code=TCC) #CELLS RBC MORPHOLOGY COMMENT (test code=MOC) NORMAL PLATELET MORPHOLOGY (test code=PLTMORPH) NORMAL URINALYSIS [id number] 21:06:00 Test Item Value Reference Range Comments [...] code=BACU) None /HPF NONE SEEN CBC W/AUTO [id number] 21:04:00 Test Item Value Reference Range Comments [...] VOLUME (test code=MPV) 8.5 fl 6.4-10.5 WBC [id number] 21:04:00 Test Item Value Reference Range Comments TOTAL CELLS COUNTED (test code=TCC) #CELLS RBC MORPHOLOGY COMMENT (test code=MOC) NORMAL PLATELET MORPHOLOGY (test code=PLTMORPH) NORMAL [id number] 20:52:00 Test Item Value Reference Range Comments GLUBED (test code=GLUBED) 243 MG/DL 70-105 [id number] 15:45:00 Test Item Value Reference Range Comments GLUBED (test code=GLUBED) 86 MG/DL 70-105 BASIC METABOLIC [id number] 14:12:00 Test Item Value Reference Range Comments [...] (test code=CA) 8.3 mg/dL 8.5-10.5 BASIC METABOLIC [id number] 09:30:00 Test Item Value Reference Range Comments SODIUM (test code=NA) 135 mmol/L 135-145 POTASSIUM (test code=K) 2.7 mmol/L 3.6-5.0 Critical Value reported toFirst Name:MIGNON Last Name:SEDRICK RESULTS READ BACK AND VERIFIEDby N.LAB.CL, on 09/07/19, @ 5334. CHLORIDE (test code=CL) 103 mmol/L 101-111 CARBON DIOXIDE (test 27 mmol/L -31 code=CO2) GLUCOSE (test code=GLU) 66 mg/dl 70-100 [...] (test code=CA) 8.5 mg/dL 8.5-10.5 CBC W/AUTO [id number] 09:18:00 Test Item Value Reference Range Comments [...] # (test code=BA#) 0.0 x10 3/uL 0.0-0.1 [id number] 06:45:00 Test Item Value Reference Range Comments GLUBED (test code=GLUBED) 102 MG/DL 70-105 [id number] 22:06:00 Test Item Value Reference Range Comments TROPONIN-I (test code=TROPI) 0.083 ng/mL 0.000-0.034 PREVIOUSLY CALLED [id number] 21:28:00 Test Item Value Reference Range Comments GLUBED (test code=GLUBED) 196 MG/DL 70-105 [id number] 19:05:00 Test Item Value Reference Range Comments GLUBED (test code=GLUBED) 241 MG/DL 70-105 [id number] 16:12:00 Test Item Value Reference Range Comments GLUBED (test code=GLUBED) 254 MG/DL 70-105 [id number] 15:34:00 Test Item Value Reference Range Comments GLUBED (test code=GLUBED) 273 MG/DL 70-105 [id number] 11:20:00 Test Item Value Reference Range Comments GLUBED (test code=GLUBED) 51 MG/DL 70-105 [id number] 11:20:00 Test Item Value Reference Range Comments GLUBED (test code=GLUBED) 54 MG/DL 70-105 CBC W/AUTO [id number] 08:07:00 Test Item Value Reference Range Comments [...] code=BA#) 0.0 x10 3/uL 0.0-0.1 BASIC METABOLIC [id number] 06:25:00 Test Item Value Reference Range Comments [...] code=CREAT) CALCIUM (test code=CA) 7.8 mg/dL 8.5-10.5 [id number] 06:25:00 Test Item Value Reference Range Comments PHOSPHOROUS (test code=PHOS) 4.7 mg/dl 2.5-4.6 [id number] 06:25:00 Test Item Value Reference Range Comments MAGNESIUM (test code=MAG) 1.6 mg/dl 1.8-2.5 [id number] 21:50:00 Test Item Value Reference Range Comments GLUBED (test code=GLUBED) 86 MG/DL 70-105 BASIC METABOLIC [id number] 21:43:00 Test Item Value Reference Range Comments [...] code=CREAT) CALCIUM (test code=CA) 8.5 mg/dL 8.5-10.5 [id number] 21:43:00 Test Item Value Reference Range Comments PHOSPHOROUS (test code=PHOS) < 1.0 mg/dl 2.5-4.6 Critical Value reported toFirst Name: Last Name:RESULTS READ BACK AND VERIFIEDby XI, on 09/05/19, @ 2143. [id number] 21:43:00 Test Item Value Reference Range Comments MAGNESIUM (test code=MAG) 2.0 mg/dl 1.8-2.5 [id number] 20:31:00 Test Item Value Reference Range Comments GLUBED (test code=GLUBED) 80 MG/DL 70-105 [id number] 19:46:00 Test Item Value Reference Range Comments GLUBED (test code=GLUBED) 129 MG/DL 70-105 [id number] 19:15:00 Test Item Value Reference Range Comments GLUBED (test code=GLUBED) 211 MG/DL 70-105 BASIC METABOLIC [id number] 18:31:00 Test Item Value Reference Range Comments [...] 0.44-1.03 CALCIUM (test code=CA) 8.2 mg/dL 8.5-10.5 [id number] 18:31:00 Test Item Value Reference Range Comments PHOSPHOROUS (test code=PHOS) 1.9 mg/dl 2.5-4.6 [id number] 18:31:00 Test Item Value Reference Range Comments MAGNESIUM (test code=MAG) 1.5 mg/dl 1.8-2.5 [id number] 18:21:00 Test Item Value Reference Range Comments TROPONIN-I (test code=TROPI) 0.086 ng/mL 0.000-0.034 PREVIOUSLY CALLED. HGBA1C - GLYCOSYLATED [id number] 18:07:00 Test Item Value Reference Range Comments GLYCOSYLATED HEMOGLOBIN (HA1C) 10.6 % 4.0-6.0 Interpretive Data: Caution (test code=GLYHGB) should be exercised when interpreting the HgbA1c in patients with hemolytic anemia, iron deficiency and when the total hemoglobin is < 9g/dL, due to a decrease in average age of red blood cells URINALYSIS [id number] 17:29:00 Test Item Value Reference Range Comments [...] CAST (test code=FINEU) 2-5 /LPF NONE SEEN [id number] 17:18:00 Test Item Value Reference Range Comments GLUBED (test code=GLUBED) 467 MG/DL 70-105 [id number] 15:53:00 Test Item Value Reference Range Comments GLUBED (test code=GLUBED) 527 MG/DL 70-105 [id number] 15:53:00 Test Item Value Reference Range Comments POTASSIUM (test code=K) 4.4 mmol/L 3.6-5.0 [id number] 15:53:00 Test Item Value Reference Range Comments PHOSPHOROUS (test code=PHOS) 4.4 mg/dl 2.5-4.6 [id number] 15:53:00 Test Item Value Reference Range Comments MAGNESIUM (test code=MAG) 1.7 mg/dl 1.8-2.5 THYROID STIMULATING [id number] 15:53:00 Test Item Value Reference Range Comments THYROID STIMULATING HORMONE (test code=TSH) 1.585 uIU/ml 0.450-5.330 [id number] 15:36:00 Test Item Value Reference Range Comments POTASSIUM (test code=K) 4.4 mmol/L 3.6-5.0 [id number] 15:36:00 Test Item Value Reference Range Comments PHOSPHOROUS (test code=PHOS) 4.4 mg/dl 2.5-4.6 [id number] 15:36:00 Test Item Value Reference Range Comments MAGNESIUM (test code=MAG) 1.7 mg/dl 1.8-2.5 THYROID STIMULATING [id number] 15:36:00 Test Item Value Reference Range Comments THYROID STIMULATING HORMONE (test code=TSH) uIU/ml 0.450-5.330 [id number] 15:33:00 Test Item Value Reference Range Comments POTASSIUM (test code=K) 4.4 mmol/L 3.6-5.0 [id number] 15:33:00 Test Item Value Reference Range Comments PHOSPHOROUS (test code=PHOS) 4.4 mg/dl 2.5-4.6 [id number] 15:33:00 Test Item Value Reference Range Comments MAGNESIUM (test code=MAG) mg/dl 1.8-2.5 THYROID STIMULATING [id number] 15:33:00 Test Item Value Reference Range Comments THYROID STIMULATING HORMONE (test code=TSH) uIU/ml 0.450-5.330 [id number] 15:03:00 Test Item Value Reference Range Comments TROPONIN-I (test 0.081 ng/mL 0.000-0.034 Critical Value reported toFirst code=TROPI) Name:TA Last Name:Vibrow READ BACK AND VERIFIEDby N.LAB.TERRI, on 09/05/19, @ 5672. COMPREHENSIVE METABOLIC [id number] 15:01:00 Test Item Value Reference Range Comments SODIUM (test code=NA) 122 mmol/L 135-145 POTASSIUM (test code=K) 4.3 mmol/L 3.6-5.0 CHLORIDE (test code=CL) 88 mmol/L 101-111 CARBON DIOXIDE (test < 5 mmol/L 21-31 Critical Value reported code=CO2) toFirst Name:TA Last Name:HARMONRESULTS READ BACK AND VERIFIEDby N.LAB.VES, on [...] ALKALINE PHOSPHATASE (test 209 U/L 42-121 code=ALKP) [id number] 15:01:00 Test Item Value Reference Range Comments LIPASE (test code=LIP) 24 IU/L 22-51 BETA [id number] 15:01:00 Test Item Value Reference Range Comments BETA HYDROBUTYRATE (test code=BETHYD) 11.77 mmol/L 0.02-0.27 COMPREHENSIVE METABOLIC [id number] 14:48:00 Test Item Value Reference Range Comments SODIUM (test code=NA) 122 mmol/L 135-145 POTASSIUM (test code=K) 4.3 mmol/L 3.6-5.0 CHLORIDE (test code=CL) 88 mmol/L 101-111 CARBON DIOXIDE (test < 5 mmol/L 21-31 Critical Value reported code=CO2) toFirst Name:TA Last Name:JOHN READ BACK AND VERIFIEDby N.LAB.VES, on 09/05/19, @ 1448. GLUCOSE (test code=GLU) 573 mg/dl 70-100 Critical Value reported toFirst Name:TA Last Name:JOHN READ BACK AND VERIFIEDby KWADWO, on 09/05/19, @ 1443. BLOOD UREA NITROGEN (test 7 mg/dl 6-20 [...] ALKALINE PHOSPHATASE (test 209 U/L 42-121 code=ALKP) [id number] 14:48:00 Test Item Value Reference Range Comments LIPASE (test code=LIP) 24 IU/L 22-51 BETA [id number] 14:48:00 Test Item Value Reference Range Comments BETA HYDROBUTYRATE (test code=BETHYD) mmol/L 0.02-0.27 CBC W/AUTO [id number] 14:33:00 Test Item Value Reference Range Comments [...] x10 3/uL 0.0-0.1 - XR CHEST 1 [id number] 14:12:00Patient Name: ESTHER LOZANO Unit No: [id number] EXAMS: CPT: [id number] XR CHEST 1 V 98262 STUDY: - XR CHEST 1 V INDICATION: [...] CC: Magdiel Good Jr, MD Technologist: Ej Jain Fluoro Time: DAP (Gy m2): Air Kerma (mGy): Trscr Dt/Tm: 09/05/2019 (1412) by:Shyla Orig Print D/T: S: 09/05 (1415) BATCH NO: N /A Name: ESTHER LOZANO [facility] Phys: YOHANNES - Bora Alexander MD [address] : 1970 Age: 49 Sex: [place] [address] Loc: N.ERS Exam Date: 03/2019 Status:PRE ER PH: FAX: PAGE 1 Signed [id number] 13:40:00 Test Item Value Reference Range Comments GLUBED (test code=GLUBED) 558 MG/DL 70-105 [id number] 11:41:00 Test Item Value Reference Range Comments GLUBED (test code=GLUBED) 279 MG/DL 70-105 BASIC METABOLIC [id number] 06:41:00 Test Item Value Reference Range Comments [...] (test code=CA) 8.5 mg/dL 8.5-10.5 CBC W/AUTO [id number] 06:23:00 Test Item Value Reference Range Comments [...] # (test code=BA#) 0.0 x10 3/uL 0.0-0.1 [id number] 06:08:00 Test Item Value Reference Range Comments GLUBED (test code=GLUBED) 323 MG/DL 70-105 [id number] 21:00:00 Test Item Value Reference Range Comments GLUBED (test code=GLUBED) 217 MG/DL 70-105 [id number] 16:59:00 Test Item Value Reference Range Comments GLUBED (test code=GLUBED) 99 MG/DL 70-105 CBC W/AUTO [id number] 11:19:00 Test Item Value Reference Range Comments [...] # (test code=BA#) 0.0 x10 3/uL 0.0-0.1 [id number] 10:58:00 Test Item Value Reference Range Comments TROPONIN-I (test code=TROPI) 0.078 ng/mL 0.000-0.034 PREVIOUSLY CALLED. [id number] 10:56:00 Test Item Value Reference Range Comments MAGNESIUM (test code=MAG) 1.7 mg/dl 1.8-2.5 Spec Comments: Repeat Serum Magnesium level in AM if not alreadyComments to Phleb: ordered.Comments to Phleb: Repeat Serum K level in AM if not already ordered.[id number] 10:54:00 Test Item Value Reference Range Comments GLUBED (test code=GLUBED) 313 MG/DL 70-105 BASIC METABOLIC [id number] 10:54:00 Test Item Value Reference Range Comments [...] code=CREAT) CALCIUM (test code=CA) 8.6 mg/dL 8.5-10.5 [id number] 06:36:00 Test Item Value Reference Range Comments GLUBED (test code=GLUBED) 214 MG/DL 70-105 [id number] 19:50:00 Test Item Value Reference Range Comments GLUBED (test code=GLUBED) 91 MG/DL 70-105 BASIC METABOLIC [id number] 19:35:00 Test Item Value Reference Range Comments SODIUM (test code=NA) 131 mmol/L 135-145 POTASSIUM (test code=K) 2.7 mmol/L 3.6-5.0 Critical Value reported toFirst Name:HERMILA Kendall Name:ABDULAZIZANGELA READ BACK AND VERIFIEDby N.LAB.NB1, on 08/27/19, @ 1933. CHLORIDE (test code=CL) 96 mmol/L 101-111 CARBON DIOXIDE (test 26 mmol/L 21-31 code=CO2) GLUCOSE (test code=GLU) 39 mg/dl 70-100 [...] code=CREAT) CALCIUM (test code=CA) 8.9 mg/dL 8.5-10.5 [id number] 16:19:00 Test Item Value Reference Range Comments GLUBED (test code=GLUBED) 222 MG/DL 70-105 BASIC METABOLIC [id number] 13:40:00 Test Item Value Reference Range Comments [...] CALCIUM (test code=CA) 8.8 mg/dL 8.5-10.5 LACTIC [id number] 13:17:00 Test Item Value Reference Range Comments LACTIC ACID (test code=LACT) 1.3 mmol/L 0.5-2.0 [id number] 12:51:00 Test Item Value Reference Range Comments GLUBED (test code=GLUBED) 232 MG/DL 70-105 HGBA1C - GLYCOSYLATED [id number] 12:11:00 Test Item Value Reference Range Comments GLYCOSYLATED HEMOGLOBIN (HA1C) 11.3 % 4.0-6.0 Interpretive Data: Caution (test code=GLYHGB) should be exercised when interpreting the HgbA1c in patients with hemolytic anemia, iron deficiency and when the total hemoglobin is < 9g/dL, due to a decrease in average age of red blood cells [id number] 10:17:00 Test Item Value Reference Range Comments GLUBED (test code=GLUBED) 180 MG/DL 70-105 [id number] 09:17:00 Test Item Value Reference Range Comments GLUBED (test code=GLUBED) 273 MG/DL 70-105 B-TYPE NATRIURETIC [id number] 08:38:00 Test Item Value Reference Range Comments B-TYPE NATRIURETIC PEPTIDE (test code=BNP) 48 pg/ml 0-100 BASIC METABOLIC [id number] 08:25:00 Test Item Value Reference Range Comments [...] (test code=CA) 8.6 mg/dL 8.5-10.5 THYROID STIMULATING [id number] 08:25:00 Test Item Value Reference Range Comments THYROID STIMULATING HORMONE (test code=TSH) 1.052 uIU/ml 0.450-5.330 [id number] 08:24:00 Test Item Value Reference Range Comments [...] Risk (3x risk) >23 >11 CBC W/AUTO [id number] 08:07:00 Test Item Value Reference Range Comments [...] code=BA#) 0.0 x10 3/uL 0.0-0.1 BASIC METABOLIC [id number] 08:05:00 Test Item Value Reference Range Comments [...] (test code=CA) 8.6 mg/dL 8.5-10.5 THYROID STIMULATING [id number] 08:05:00 Test Item Value Reference Range Comments THYROID STIMULATING HORMONE (test code=TSH) uIU/ml 0.450-5.330 [id number] 07:29:00 Test Item Value Reference Range Comments GLUBED (test code=GLUBED) 355 MG/DL 70-105 OSMOLALITY [id number] 03:03:00 Test Item Value Reference Range Comments OSMOLALITY SERUM (test code=OSMO) 285 mOsm/kg 275-295 - XR CHEST 1 [id number] 03:03:00Patient Name: ESTHER LOZANO Unit No: [id number] EXAMS: CPT: [id number] XR CHEST 1 V 41027 CHEST 1 VIEW CLINICAL HISTORY: Chest pain [...] BATCH NO: N/ A Name: ESTHER LOZANO [facility] Phys: Silvano Hammond DO [facility] [address] : 03/1970 Age: 49 Sex: [place] [address] Loc: N.ERSD 1 Exam Date: Status: ADM IN PH: FAX: PAGE 1 Signed ReportB-TYPE NATRIURETIC [id number] 02:52:00 Test Item Value Reference Range Comments B-TYPE NATRIURETIC PEPTIDE (test code=BNP) 40 pg/ml 0-100 DRUGS OF ABUSE SCREEN [id number] 02:46:00 Test Item Value Reference Range Comments UR COCAINE (test code=COCAU) NEGATIVE NEGATIVE This is a toxicology qualitative screening test only. Ifconfirmatory testing is desired please request drug screenconfirmation. These results are unconfirmed and should beused only for medical purposes. Cut-off concentration for Cocaine is 300 ng/mLRecommended screening cut-off concentrations by the[facility] Abuse and Mental Health Services Administration. UR CANABINOIDS (test NEGATIVE NEGATIVE This is a toxicology qualitative code=CANU) screening test only. Ifconfirmatory testing is desired please request drug screenconfirmation. These results are unconfirmed and should beused only for medical purposes. Cut-off concentration for THC is 50 ng/mLRecommended screening cut-off concentrations by the[facility] Abuse and Mental Health Services Administration. UR [...] is 1000 ng/mLRecommended screening cut-off concentrations by thebstance Abuse and Mental Health Services Administration. UR BARBITURATE (test NEGATIVE NEGATIVE This is a toxicology qualitative code=BARBQLU) screening test only. Ifconfirmatory testing is desired please request drug screenconfirmation. These results are unconfirmed and should beused only for medical purposes. Cut-off concentration for Barbiturates is 200 ng/mLRecommended screening cut-off concentrations by thebstance Abuse and Mental Health Services Administration. UR [...] is 25 ng/mLRecommended screening cut-off concentrations by the[facility] Abuse and Mental Health Services Administration. PROTHROMBIN [id number] 02:12:00 Test Item Value Reference Range Comments [...] - 4.5 recurrent systemic embolism. THROMBOPLASTIN TIME [id number] 02:12:00 Test Item Value Reference Range Comments THROMBOPLASTIN TIME PARTIAL (test code=PTT) 24 SECONDS 25-37 [id number] 02:12:00 Test Item Value Reference Range Comments TROPONIN-I (test 0.074 ng/mL 0.000-0.034 Critical Value reported toFirst code=TROPI) Name:PASCALE Argueta Name:STELLA READ BACK AND VERIFIEDby N.LAB., on 08/27/19, @ 0212. LACTIC [id number] 02:12:00 Test Item Value Reference Range Comments LACTIC ACID (test 2.1 mmol/L 0.5-2.0 Critical Value reported toFirst code=LACT) Name:PASCALE Argueta Name:STELLA READ BACK AND VERIFIEDby N.LAB., on 08/27/19, @ 0212. BASIC METABOLIC [id number] 02:11:00 Test Item Value Reference Range Comments [...] (test code=CA) 9.2 mg/dL 8.5-10.5 LIVER FUNCTION [id number] 02:11:00 Test Item Value Reference Range Comments TOTAL PROTEIN (test code=PROT) 8.1 g/dL 6.7-8.2 ALBUMIN (test code=ALB) 4.4 g/dL 3.2-5.5 BILIRUBIN TOTAL (test code=BILT) 1.50 mg/dL 0.2-1.3 BILIRUBIN DIRECT (test code=BILD) 0.2 mg/dL 0.00-0.20 SGOT/AST (test code=AST) 67 U/L 10-42 SGPT/ALT (test code=ALT) 101 U/L 10-60 ALKALINE PHOSPHATASE (test code=ALKP) 143 U/L 42-121 [id number] 02:11:00 Test Item Value Reference Range Comments LIPASE (test code=LIP) 20 IU/L 22-51 BETA [id number] 02:11:00 Test Item Value Reference Range Comments BETA HYDROBUTYRATE (test code=BETHYD) 3.87 mmol/L 0.02-0.27 HCG SERUM [id number] 02:07:00 Test Item Value Reference Range Comments HCG SERUM QUAL (test NEGATIVE NEGATIVE This is a qualitative screening code=HCGQL) test.The quantitative Bhcg may be helpful.Weakly positive results should be repeated in 48 hours. CBC W/AUTO [id number] 02:00:00 Test Item Value Reference Range Comments [...] code=BA#) 0.1 x10 3/uL 0.0-0.1 BASIC METABOLIC [id number] 01:59:00 Test Item Value Reference Range Comments [...] (test code=CA) 9.2 mg/dL 8.5-10.5 LIVER FUNCTION [id number] 01:59:00 Test Item Value Reference Range Comments TOTAL PROTEIN (test code=PROT) 8.1 g/dL 6.7-8.2 ALBUMIN (test code=ALB) 4.4 g/dL 3.2-5.5 BILIRUBIN TOTAL (test code=BILT) mg/dL 0.2-1.3 BILIRUBIN DIRECT (test code=BILD) mg/dL 0.00-0.20 SGOT/AST (test code=AST) U/L 10-42 SGPT/ALT (test code=ALT) U/L 10-60 ALKALINE PHOSPHATASE (test code=ALKP) U/L 42-121 [id number] 01:59:00 Test Item Value Reference Range Comments LIPASE (test code=LIP) 20 IU/L 22-51 BETA [id number] 01:59:00 Test Item Value Reference Range Comments BETA HYDROBUTYRATE (test code=BETHYD) mmol/L 0.02-0.27 UA RFLX MICR CULT IF [id number] 01:58:00 Test Item Value Reference Range Comments [...] for culture: Sev. Sepsis-no other srcARTERIAL BLOOD [id number] 01:12:00 Test Item Value Reference Range Comments [...] TOTAL HGB (test code=THB) 10.7 g/dL 12.0-16.0 [id number] 16:43:00 Test Item Value Reference Range Comments GLUBED (test code=GLUBED) 350 MG/DL 70-105 [id number] 11:30:00 Test Item Value Reference Range Comments GLUBED (test code=GLUBED) 126 MG/DL 70-105 BASIC METABOLIC [id number] 09:46:00 Test Item Value Reference Range Comments [...] (test code=CA) 8.9 mg/dL 8.5-10.5 CBC W/AUTO [id number] 08:45:00 Test Item Value Reference Range Comments [...] # (test code=BA#) 0.0 x10 3/uL 0.0-0.1 [id number] 08:21:00 Test Item Value Reference Range Comments GLUBED (test code=GLUBED) 235 MG/DL 70-105 [id number] 06:52:00 Test Item Value Reference Range Comments GLUBED (test code=GLUBED) 288 MG/DL 70-105 [id number] 20:06:00 Test Item Value Reference Range Comments GLUBED (test code=GLUBED) 262 MG/DL 70-105 [id number] 17:48:00 Test Item Value Reference Range Comments GLUBED (test code=GLUBED) 225 MG/DL 70-105 [id number] 16:52:00 Test Item Value Reference Range Comments GLUBED (test code=GLUBED) 60 MG/DL 70-105 [id number] 16:52:00 Test Item Value Reference Range Comments GLUBED (test code=GLUBED) 53 MG/DL 70-105 [id number] 11:53:00 Test Item Value Reference Range Comments GLUBED (test code=GLUBED) 214 MG/DL 70-105 [id number] 06:28:00 Test Item Value Reference Range Comments GLUBED (test code=GLUBED) 214 MG/DL 70-105 BASIC METABOLIC [id number] 05:08:00 Test Item Value Reference Range Comments [...] code=CREAT) CALCIUM (test code=CA) 7.9 mg/dL 8.5-10.5 [id number] 05:08:00 Test Item Value Reference Range Comments PHOSPHOROUS (test code=PHOS) 2.6 mg/dl 2.5-4.6 [id number] 05:08:00 Test Item Value Reference Range Comments MAGNESIUM (test code=MAG) 1.7 mg/dl 1.8-2.5 [id number] 04:51:00 Test Item Value Reference Range Comments GLUBED (test code=GLUBED) 141 MG/DL 70-105 [id number] 03:42:00 Test Item Value Reference Range Comments GLUBED (test code=GLUBED) 90 MG/DL 70-105 [id number] 02:50:00 Test Item Value Reference Range Comments GLUBED (test code=GLUBED) 117 MG/DL 70-105 [id number] 01:08:00 Test Item Value Reference Range Comments GLUBED (test code=GLUBED) 191 MG/DL 70-105 BASIC METABOLIC [id number] 00:17:00 Test Item Value Reference Range Comments SODIUM (test code=NA) 131 mmol/L 135-145 POTASSIUM (test code=K) 4.4 mmol/L 3.6-5.0 CHLORIDE (test code=CL) 104 mmol/L 101-111 CARBON DIOXIDE (test 11 mmol/L 21-31 Critical Value reported code=CO2) toFirst Name:SHAQ Last Name:ARELY READ BACK AND VERIFIEDby NSHADIA.JASVIR, on 06/21/19, @ 0017. GLUCOSE (test code=GLU) [...] code=CREAT) CALCIUM (test code=CA) 7.7 mg/dL 8.5-10.5 [id number] 00:17:00 Test Item Value Reference Range Comments PHOSPHOROUS (test code=PHOS) 3.1 mg/dl 2.5-4.6 [id number] 00:17:00 Test Item Value Reference Range Comments MAGNESIUM (test code=MAG) 2.9 mg/dl 1.8-2.5 [id number] 00:10:00 Test Item Value Reference Range Comments GLUBED (test code=GLUBED) 248 MG/DL 70-105 [id number] 23:00:00 Test Item Value Reference Range Comments GLUBED (test code=GLUBED) 202 MG/DL 70-105 [id number] 21:43:00 Test Item Value Reference Range Comments GLUBED (test code=GLUBED) 139 MG/DL 70-105 COMPREHENSIVE METABOLIC [id number] 21:09:00 Test Item Value Reference Range Comments [...] ALKALINE PHOSPHATASE 91 U/L 42-121 (test code=ALKP) [id number] 21:09:00 Test Item Value Reference Range Comments PHOSPHOROUS (test code=PHOS) 1.5 mg/dl 2.5-4.6 [id number] 21:09:00 Test Item Value Reference Range Comments MAGNESIUM (test code=MAG) 1.4 mg/dl 1.8-2.5 THYROID STIMULATING [id number] 21:09:00 Test Item Value Reference Range Comments THYROID STIMULATING HORMONE (test code=TSH) 1.407 uIU/ml 0.450-5.330 HGBA1C - GLYCOSYLATED [id number] 21:02:00 Test Item Value Reference Range Comments GLYCOSYLATED HEMOGLOBIN (HA1C) 11.9 % 4.0-6.0 Interpretive Data: Caution (test code=GLYHGB) should be exercised when interpreting the HgbA1c in patients with hemolytic anemia, iron deficiency and when the total hemoglobin is < 9g/dL, due to a decrease in average age of red blood cells COMPREHENSIVE METABOLIC [id number] 20:58:00 Test Item Value Reference Range Comments [...] ALKALINE PHOSPHATASE 91 U/L 42-121 (test code=ALKP) [id number] 20:58:00 Test Item Value Reference Range Comments PHOSPHOROUS (test code=PHOS) 1.5 mg/dl 2.5-4.6 [id number] 20:58:00 Test Item Value Reference Range Comments MAGNESIUM (test code=MAG) 1.4 mg/dl 1.8-2.5 THYROID STIMULATING [id number] 20:58:00 Test Item Value Reference Range Comments THYROID STIMULATING HORMONE (test code=TSH) uIU/ml 0.450-5.330 [id number] 20:37:00 Test Item Value Reference Range Comments GLUBED (test code=GLUBED) 96 MG/DL 70-105 THYROID STIMULATING [id number] 19:49:00 Test Item Value Reference Range Comments THYROID STIMULATING HORMONE (test code=TSH) 1.135 uIU/ml 0.450-5.330 [id number] 19:05:00 Test Item Value Reference Range Comments GLUBED (test code=GLUBED) 241 MG/DL 70-105 [id number] 18:38:00 Test Item Value Reference Range Comments GLUBED (test code=GLUBED) 273 MG/DL 70-105 [id number] 17:42:00 Test Item Value Reference Range Comments GLUBED (test code=GLUBED) 521 MG/DL 70-105 ARTERIAL BLOOD [id number] 16:50:00 Test Item Value Reference Range Comments ARTERIAL BLOOD GAS PH (test 7.103 7.35-7.45 Critical Value reported code=PHA) toFirst Name:REED DIPPER Last Name:LINDSAYESULTS READ BACK AND VERIFIEDby 70, on 06/20/19, @ 5000. ARTERIAL BLOOD GAS PCO2 (test 15.4 mmHg 35-45 Critical Value reported code=PCO2A) toFirst Name:REED DIPPER Last Name:YI READ BACK AND VERIFIEDby hcaGEN.70, [...] (test code=THB) 11.0 g/dL 12.0-16.0 BASIC METABOLIC [id number] 16:50:00 Test Item Value Reference Range Comments [...] (test code=CA) 8.6 mg/dL 8.5-10.5 LIVER FUNCTION [id number] 16:50:00 Test Item Value Reference Range Comments TOTAL PROTEIN (test code=PROT) 7.8 g/dL 6.7-8.2 ALBUMIN (test code=ALB) 4.0 g/dL 3.2-5.5 BILIRUBIN TOTAL (test code=BILT) 2.60 mg/dL 0.2-1.3 BILIRUBIN DIRECT (test code=BILD) 0.2 mg/dL 0.00-0.20 SGOT/AST (test code=AST) 39 U/L 10-42 SGPT/ALT (test code=ALT) 60 U/L 10-60 ALKALINE PHOSPHATASE (test code=ALKP) 117 U/L 42-121 [id number] 16:50:00 Test Item Value Reference Range Comments TROPONIN-I (test code=TROPI) 0.080 ng/mL 0.000-0.034 PREVIOUSLY CALLED. UA RFLX MICR CULT IF [id number] 16:15:00 Test Item Value Reference Range Comments [...] Indication for culture: Sev. Sepsis-no other srcLACTIC [id number] 16:12: 00 Test Item Value Reference Range Comments LACTIC ACID (test code=LACT) 1.5 mmol/L 0.5-2.0 CBC W/AUTO [id number] 15:54:00 Test Item Value Reference Range Comments [...] x10 3/uL 0.0-0.1 - XR CHEST 1 [id number] 15:13:00Patient Name: ESTHER LOZANO Unit No: [id number] EXAMS: CPT: [id number] XR CHEST 1 V 35370 History: Weakness Portable AP chest compared to [...] m2): Air Kerma (mGy): Trscr Dt/Tm: 06/20/2019 (1512) by:Jaswinder Orig Print D/T: S: 2018 (151) BATCH NO: N/A Name: ESTHER LOZANO [facility] EDPhys: Chucho Sow MD [address] [facility] : 1970 Age: 49 Sex: [place] [address] Loc: N.ERS Exam Date: 06/20/2019 Status: PRE ER PH: FAX: PAGE1 Signed [id number] 12:03:00 Test Item Value Reference Range Comments GLUBED (test code=GLUBED) 82 MG/DL 70-105 [id number] 05:53:00 Test Item Value Reference Range Comments GLUBED (test code=GLUBED) 212 MG/DL 70-105 BASIC METABOLIC [id number] 05:24:00 Test Item Value Reference Range Comments [...] 7.0 High Risk (3x risk) >23 >11 [id number] 05:24:00 Test Item Value Reference Range Comments MAGNESIUM (test code=MAG) 1.6 mg/dl 1.8-2.5 CBC W/AUTO [id number] 05:18:00 Test Item Value Reference Range Comments [...] # (test code=BA#) 0.0 x10 3/uL 0.0-0.1 [id number] 21:00:00 Test Item Value Reference Range Comments GLUBED (test code=GLUBED) 169 MG/DL 70-105 [id number] 16:21:00 Test Item Value Reference Range Comments GLUBED (test code=GLUBED) 202 MG/DL 70-105 - XR CHEST 1 [id number] 16:09:00Patient Name: ESTHER LOZANO Unit No: [id number] EXAMS: CPT: [id number] XR CHEST 1 V 82556 CHEST RADIOGRAPH, ONE VIEW: FRONTAL HISTORY: Shortness [...] (Gy m2): AirKerma (mGy): Trscr Dt/Tm: 05/23/2019 (8763) by:[email or web address] Orig Print D/T: S: 05/23/2019 (1613) BATCH NO: N/A Name: ESTHER LOZANO [facility] Phys: HENRY Ian Jory Olmstead [address] : 1970 Age: 49 Sex: F [place] [address] Loc: N.2042 1 Exam Date: 05/23/2019 Status: ADM IN PH: FAX: PAGE 1 Signed [id number] -[id number] 11:50:00 Test Item Value Reference Range Comments GLUBED (test code=GLUBED) 92 MG/DL 70-105 BASIC METABOLIC [id number] 11:39:00 Test Item Value Reference Range Comments [...] code=CREAT) CALCIUM (test code=CA) 8.2 mg/dL 8.5-10.5 [id number] 11:39:00 Test Item Value Reference Range Comments MAGNESIUM (test code=MAG) 1.7 mg/dl 1.8-2.5 CBC W/AUTO [id number] 11:28:00 Test Item Value Reference Range Comments [...] # (test code=BA#) 0.0 x10 3/uL 0.0-0.1 [id number] 09:38:00 Test Item Value Reference Range Comments GLUBED (test code=GLUBED) 62 MG/DL 70-105 [id number] 05:50:00 Test Item Value Reference Range Comments GLUBED (test code=GLUBED) 111 MG/DL 70-105 [id number] 21:20:00 Test Item Value Reference Range Comments GLUBED (test code=GLUBED) 126 MG/DL 70-105 [id number] 17:50:00 Test Item Value Reference Range Comments GLUBED (test code=GLUBED) 200 MG/DL 70-105 [id number] 17:02:00 Test Item Value Reference Range Comments GLUBED (test code=GLUBED) 50 MG/DL 70-105 [id number] 13:36:00 Test Item Value Reference Range Comments GLUBED (test code=GLUBED) 164 MG/DL 70-105 [id number] 12:28:00 Test Item Value Reference Range Comments GLUBED (test code=GLUBED) 68 MG/DL 70-105 [id number] 11:59:00 Test Item Value Reference Range Comments GLUBED (test code=GLUBED) 35 MG/DL 70-105 [id number] 08:40:00 Test Item Value Reference Range Comments GLUBED (test code=GLUBED) 221 MG/DL 70-105 [id number] 07:19:00 Test Item Value Reference Range Comments GLUBED (test code=GLUBED) 517 MG/DL 70-105 [id number] 06:14:00 Test Item Value Reference Range Comments GLUBED (test code=GLUBED) 234 MG/DL 70-105 [id number] 03:28:00 Test Item Value Reference Range Comments GLUBED (test code=GLUBED) 166 MG/DL 70-105 [id number] 01:24:00 Test Item Value Reference Range Comments GLUBED (test code=GLUBED) 80 MG/DL 70-105 BASIC METABOLIC [id number] 01:22:00 Test Item Value Reference Range Comments [...] code=CREAT) CALCIUM (test code=CA) 7.5 mg/dL 8.5-10.5 [id number] 01:22:00 Test Item Value Reference Range Comments PHOSPHOROUS (test code=PHOS) 1.6 mg/dl 2.5-4.6 [id number] 01:22:00 Test Item Value Reference Range Comments MAGNESIUM (test code=MAG) 1.9 mg/dl 1.8-2.5 [id number] 00:26:00 Test Item Value Reference Range Comments GLUBED (test code=GLUBED) 145 MG/DL 70-105 [id number] 22:35:00 Test Item Value Reference Range Comments GLUBED (test code=GLUBED) 264 MG/DL 70-105 [id number] 21:44:00 Test Item Value Reference Range Comments GLUBED (test code=GLUBED) 204 MG/DL 70-105 BASIC METABOLIC [id number] 21:02:00 Test Item Value Reference Range Comments [...] Spec Comments: If not previously obtained.Spec Comments: O3M-Pivdv on insulin drip. If K is < 3.3 change orComments to Phleb: order to Q1H.[id number] 21:02:00 Test Item Value Reference Range Comments PHOSPHOROUS (test code=PHOS) 1.0 mg/dl 2.5-4.6 Critical Value reported toFirst Name:HUMBERTO Last Name:HEVER READ BACK AND VERIFIEDby NBEULAHIBT, on 05/21/19, @ 2051. Spec Comments: If not previously obtained.Spec Comments: P9D-Vkgwd on insulin drip. If K is < 3.3 change orComments to Phleb: order to Q1H.CREATINE KINASE (CK)2019-05-21 21:02:00 Test Item Value Reference Range Comments CREATINE KINASE (CK) (test code=CK) 29 U/L 0-210 Spec Comments: If not previously obtained.Spec Comments: Z0K-Brjrt on insulin drip. If K is < 3.3 change orComments to Phleb: order to Q1H.[id number] 21:02:00 Test Item Value Reference Range Comments AMYLASE (test code=BHARAT) 18 U/L 25-125 Spec Comments: If not previously obtained.Spec Comments: V4B-Olhac on insulin drip. If K is < 3.3 change orComments to Phleb: order to Q1H.[id number] 21:02:00 Test Item Value Reference Range Comments MAGNESIUM (test code=MAG) 1.7 mg/dl 1.8-2.5 Spec Comments: If not previously obtained.Spec Comments: T0C-Lzzws on insulin drip. If K is < 3.3 change orComments to Phleb: order to Q1H.THYROID STIMULATING [id number] 21:02:00 Test Item Value Reference Range Comments THYROID STIMULATING HORMONE (test code=TSH) 0.616 uIU/ml 0.450-5.330 Spec Comments: If not previously obtained.Spec Comments: Y2N-Ngbwh on insulin drip. If K is < 3.3 change orComments to Phleb: order to Q1H.BASIC METABOLIC [id number] 20:52:00 Test Item Value Reference Range Comments [...] Spec Comments: If not previously obtained.Spec Comments: T6H-Lntjq on insulin drip. If K is < 3.3 change orComments to Phleb: order to Q1H.[id number] 20:52:00 Test Item Value Reference Range Comments PHOSPHOROUS (test code=PHOS) 1.0 mg/dl 2.5-4.6 Critical Value reported toFirst Name:HUMBERTO Last Name:HEVER READ BACK AND VERIFIEDby N.LAB.IBT, on 05/21/19, @ 2051. Spec Comments: If not previously obtained.Spec Comments: Y1S-Qwylu on insulin drip. If K is < 3.3 change orComments to Phleb: order to Q1H.CREATINE KINASE (CK)2019-05-21 20:52:00 Test Item Value Reference Range Comments CREATINE KINASE (CK) (test code=CK) 29 U/L 0-210 Spec Comments: If not previously obtained.Spec Comments: G5J-Dpver on insulin drip. If K is < 3.3 change orComments to Phleb: order to Q1H.[id number] 20:52:00 Test Item Value Reference Range Comments AMYLASE (test code=BHARAT) 18 U/L 25-125 Spec Comments: If not previously obtained.Spec Comments: Z6N-Jqavh on insulin drip. If K is < 3.3 change orComments to Phleb: order to Q1H.[id number] 20:52:00 Test Item Value Reference Range Comments MAGNESIUM (test code=MAG) 1.7 mg/dl 1.8-2.5 Spec Comments: If not previously obtained.Spec Comments: L6P-Zmxhu on insulin drip. If K is < 3.3 change orComments to Phleb: order to Q1H.THYROID STIMULATING [id number] 20:52:00 Test Item Value Reference Range Comments THYROID STIMULATING HORMONE (test code=TSH) uIU/ml 0.450-5.330 Spec Comments: If not previously obtained.Spec Comments: H2V-Ainuy on insulin drip. If K is < 3.3 change orComments to Phleb: order to Q1H.[id number] 20:42:00 Test Item Value Reference Range Comments GLUBED (test code=GLUBED) 300 MG/DL 70-105 [id number] 20:37:00 Test Item Value Reference Range Comments TROPONIN-I (test code=TROPI) 0.086 ng/mL 0.000-0.034 PREVIOUSLY CALLED. [id number] 20:18:00 Test Item Value Reference Range Comments GLUBED (test code=GLUBED) 326 MG/DL 70-105 HGBA1C - GLYCOSYLATED [id number] 18:10:00 Test Item Value Reference Range Comments GLYCOSYLATED HEMOGLOBIN (HA1C) 10.7 % 4.0-6.0 Interpretive Data: Caution (test code=GLYHGB) should be exercised when interpreting the HgbA1c in patients with hemolytic anemia, iron deficiency and when the total hemoglobin is < 9g/dL, due to a decrease in average age of red blood cells BASIC METABOLIC [id number] 17:24:00 Test Item Value Reference Range Comments [...] 0.44-1.03 CALCIUM (test code=CA) 8.2 mg/dL 8.5-10.5 [id number] 17:24:00 Test Item Value Reference Range Comments MAGNESIUM (test code=MAG) 1.7 mg/dl 1.8-2.5 [id number] 17:22:00 Test Item Value Reference Range Comments TROPONIN-I (test code=TROPI) 0.091 ng/mL 0.000-0.034 PREVIOUSLY CALLED. URINALYSIS [id number] 17:09:00 Test Item Value Reference Range Comments [...] code=URO) NEGATIVE <=1.0 UA NITRITE DIPSTICK (test code=BRINA) NEGATIVE NEGATIVE UA ASCORBIC ACID DIPSTICK (test [...] SEEN Spec Comments: If not previously obtainedOSMOLALITY [id number] 17:06:00 Test Item Value Reference Range Comments OSMOLALITY SERUM (test code=OSMO) 301 mOsm/kg 275-295 LACTIC [id number] 16:54:00 Test Item Value Reference Range Comments LACTIC ACID (test 2.6 mmol/L 0.5-2.0 Critical Value reported code=LACT) toFirst Name:DR ROSALES READ BACK AND VERIFIEDby N.LAB.IBT, on 05/21/19, @ 7126. ARTERIAL BLOOD [id number] 14:00:00 Test Item Value Reference Range Comments ARTERIAL BLOOD GAS PH (test 7.198 7.35-7.45 Critical Value reported code=PHA) toFirst Name:REED DIPPER Last Name:YI READ BACK AND VERIFIEDby hcaGEN.70, on 05/21/19, @ 1400. ARTERIAL BLOOD GAS PCO2 (test 16.7 mmHg 35-45 Critical Value reported code=PCO2A) toFirst Name:REED DIPPER Last Name:YI READ BACK AND VERIFIEDby hcaGEN.70, [...] (test code=THB) 10.7 g/dL 12.0-16.0 COMPREHENSIVE METABOLIC [id number] 13:58:00 Test Item Value Reference Range Comments [...] PHOSPHATASE (test 152 U/L 42-121 code=ALKP) BETA [id number] 13:58:00 Test Item Value Reference Range Comments BETA HYDROBUTYRATE (test code=BETHYD) 11.95 mmol/L 0.02-0.27 COMPREHENSIVE METABOLIC [id number] 12:56:00 Test Item Value Reference Range Comments [...] PHOSPHATASE (test 152 U/L 42-121 code=ALKP) BETA [id number] 12:56:00 Test Item Value Reference Range Comments BETA HYDROBUTYRATE (test code=BETHYD) mmol/L 0.02-0.27 PROTHROMBIN [id number] 12:48:00 Test Item Value Reference Range Comments [...] - 4.5 recurrent systemic embolism. THROMBOPLASTIN TIME [id number] 12:48:00 Test Item Value Reference Range Comments THROMBOPLASTIN TIME PARTIAL (test code=PTT) 17 SECONDS 25-37 CBC W/AUTO [id number] 12:29:00 Test Item Value Reference Range Comments [...] code=BA#) 0.1 x10 3/uL 0.0-0.1 GLUCOSE BEDSIDE [id number] 17:01:00 Test Item Value Reference Range Comments GLUCOSE BEDSIDE TESTING (test code=GLUBED) 105 mg/dL 70-110 COMPREHENSIVE METABOLIC [id number] 16:02:00 Test Item Value Reference Range Comments [...] 208 Unit/L 45-117 code=ALKP) Completed by Nursing: [id number] 16:02:00 Test Item Value Reference Range Comments TROPONIN-I (test < 0.015 NG/ML 0.000-0.045 Negative: </=0.045 Positive: code=TROPI) >/=0.046 Correlation with serial results, other cardiac markers, and clinical findings is necessary to determine the clinical significance of this result. Quantitative results using different methodologies should not be compared to one another as numerical results may varyby method. Completed by Nursing: NOURINALYSIS [id number] 15:45:00 Test Item Value Reference Range Comments [...] code=LEUU) Urine Specimen Type: Clean CatchCBC W/AUTO [id number] 15:43:00 Test Item Value Reference Range Comments [...] NO DIFF/SCN CRITERIA - XR CHEST 1 [id number] 15:40:00 Name: ESTHER LOZANO [facility] : 1970 Age/S: 49 / F [address] Unit #: [id number] Loc: [place] [address] Phys: Mingo James MD Acct: [id number] Dis Date: Status: REG ER PHONE #: [phone] Exam Date: 02/21/2019 1530 FAX #: Reason: chest tightness EXAMS: CPT: [id number] XR CHEST 1 V 41725 Fluoro Time: DAP (Gy m2): Air Kerma [...] PAGE 1 Signed Report Name: ESTHER LOZANO [place] : 03/1970 Age/S: 49 / F [address] Unit #: [id number] Loc: [place] [address] Phys: Mingo James MD Acct: [id number] Dis Date: Status: REG ER PHONE #: [phone] Exam Date: 02/21/2019 1530 FAX #: Reason: chest tightness EXAMS: CPT: [id number] XR CHEST 1 V 90482 Fluoro Time: DAP (Gy m2): Air Kerma (mGy): <Continued> Technologist: Samara Tavarez RT(R)(CT)( MRI) Trnscb Date/Time: 02/21/2019 (1540) CarmeloPXC Orig Print D/T: S: 02/21/2019(9880) PAGE 2 Signed ReportGLUCOSE BEDSIDE [id number] 15:15: 00 Test Item Value Reference Range Comments GLUCOSE BEDSIDE TESTING (test code=GLUBED) 290 mg/dL 70-110 GLUCOSE BEDSIDE [id number] 12:06:00 Test Item Value Reference Range Comments GLUCOSE BEDSIDE TESTING (test code=GLUBED) 214 mg/dL 70-110 GLUCOSE BEDSIDE [id number] 07:54:00 Test Item Value Reference Range Comments GLUCOSE BEDSIDE TESTING (test code=GLUBED) 73 mg/dL 70-110 BASIC METABOLIC [id number] 06:15:00 Test Item Value Reference Range Comments [...] (test code=CA) 7.4 MG/DL 8.5-10.1 CBC W/AUTO [id number] 06:15:00 Test Item Value Reference Range Comments [...] (test code=MDIFF) NO DIFF/SCN CRITERIA GLUCOSE BEDSIDE [id number] 21:16:00 Test Item Value Reference Range Comments GLUCOSE BEDSIDE TESTING (test code=GLUBED) 111 mg/dL 70-110 CK [id number] 17:07:00 Test Item Value Reference Range Comments CK ISOENZYMES (test code=CKISOT) 35 U/L 24-173 CK MACRO TYPE 2 (test 0 % Not Observed code=CKMC2%) CKMM/CK3 % (test code=CKMM%) 100 % 97-100 CK MACRO TYPE 1 (test 0 % Not Observed code=CKMC1%) CKMB/CK2 % (test code=CKMB%) 0 % 0-3 CKBB/CK1 % (test code=CKBB%) 0 % >0 Performed At: [facility] [address] [id number] Marvin Mann MD Ph:[phone] At: [facility] [address] [place], [place] [id number] CN MD Ph:[phone] GLUCOSE BEDSIDE [id number] 11:43:00 Test Item Value Reference Range Comments GLUCOSE BEDSIDE TESTING (test code=GLUBED) 161 mg/dL 70-110 GLUCOSE BEDSIDE [id number] 07:47:00 Test Item Value Reference Range Comments GLUCOSE BEDSIDE TESTING (test code=GLUBED) 149 mg/dL 70-110 PROTHROMBIN [id number] 07:32:00 Test Item Value Reference Range Comments PT PATIENT (test code=PTP) 12.6 SECONDS 9.3-12.9 INTERNATIONAL NORMAL RATIO (test code=INR) 1.09 INR Unit 0.8-1.2 THROMBOPLASTIN TIME [id number] 07:32:00 Test Item Value Reference Range Comments THROMBOPLASTIN TIME PARTIAL (test code=PTT) 25.2 SECONDS 26-35 [id number] 07:32:00 Test Item Value Reference Range Comments FIBRINOGEN (test code=FIB) 143 mg/dL 185-453 PLATELET COUNT W/ [id number] 06:17:00 Test Item Value Reference Range Comments PLATELET COUNT (test code=PLT) 116.0 K/mm3 150-450 MEAN PLATELET VOLUME (test code=MPV) 10.50 fL 7.0-10.5 COMPREHENSIVE METABOLIC [id number] 05:52:00 Test Item Value Reference Range Comments [...] (test 114 Unit/L 45-117 code=ALKP) COMPREHENSIVE METABOLIC [id number] 05:50:00 Test Item Value Reference Range Comments [...] TOTAL (test code=ALKP) Unit/L 45-117 CBC W/AUTO [id number] 05:41:00 Test Item Value Reference Range Comments [...] (test code=MDIFF) NO DIFF/SCN CRITERIA GLUCOSE BEDSIDE [id number] 22:25:00 Test Item Value Reference Range Comments GLUCOSE BEDSIDE TESTING (test code=GLUBED) 144 mg/dL 70-110 GLUCOSE BEDSIDE [id number] 16:44:00 Test Item Value Reference Range Comments GLUCOSE BEDSIDE TESTING (test code=GLUBED) 144 mg/dL 70-110 GLUCOSE BEDSIDE [id number] 11:58:00 Test Item Value Reference Range Comments GLUCOSE BEDSIDE TESTING (test code=GLUBED) 122 mg/dL 70-110 GLUCOSE BEDSIDE [id number] 07:26:00 Test Item Value Reference Range Comments GLUCOSE BEDSIDE TESTING (test code=GLUBED) 91 mg/dL 70-110 FE W/TOTAL IRON BINDING CAP.2019-02-05 06:43:00 Test Item Value Reference Range Comments SERUM IRON (test code=IRON) 41 mcG/DL 50-170 TOTAL IRON BINDING CAPACITY (test code=TIBC) 289 mcG/DL 250-450 IRON SATURATION (test code=FESAT) 14 % calc 12-57 [id number] 06:43:00 Test Item Value Reference Range Comments FERRITIN (test code=YAN) 36.5 NG/ML 3.0-105.0 CBC W/AUTO [id number] 06:21:00 Test Item Value Reference Range Comments [...] (test code=MDIFF) NO DIFF/SCN CRITERIA BASIC METABOLIC [id number] 05:55:00 Test Item Value Reference Range Comments [...] (test code=CA) 7.5 MG/DL 8.5-10.1 GLUCOSE BEDSIDE [id number] 21:10:00 Test Item Value Reference Range Comments GLUCOSE BEDSIDE TESTING (test code=GLUBED) 148 mg/dL 70-110 GLUCOSE BEDSIDE [id number] 16:26:00 Test Item Value Reference Range Comments GLUCOSE BEDSIDE TESTING (test code=GLUBED) 69 mg/dL 70-110 - CT ABD PELVIS [id number] 16:25:00 Name: ESTHER LOZANO [facility]ly [facility] : 1970 Age/S: 49 / F [id number] Unit #: [id number] Loc: [place] [address] Phys: Nasim Hunt MD Acct: [id number] Dis Date: Status : ADM IN PHONE #: [phone] Exam Date: 02/04/2019 1320 FAX #: Reason: Diarrhea , r/o Pancreatitis chronic EXAMS: CPT: [id number] CT ABD PELVIS W/CONT [id number] CLINICAL INFORMATION: Diarrhea. Chronic pancreatitis.. Dictation location: [...] ... CTDI: DLP : Trnscb Date/Time: 02/04/2019 (162) [email or web address].AGV Orig Print D/T: S:02/04/2019 (1026) CTDI: DLP: PAGE 1 Signed ReportGLUCOSE BEDSIDE [id number] 11:38:00 Test Item Value Reference Range Comments GLUCOSE BEDSIDE TESTING (test code=GLUBED) 164 mg/dL 70-110 GLUCOSE BEDSIDE [id number] 07:46:00 Test Item Value Reference Range Comments GLUCOSE BEDSIDE TESTING (test code=GLUBED) 73 mg/dL 70-110 BASIC METABOLIC [id number] 06:53:00 Test Item Value Reference Range Comments [...] (test code=CA) 8.0 MG/DL 8.5-10.1 CBC W/AUTO [id number] 06:52:00 Test Item Value Reference Range Comments [...] (test code=MDIFF) NO DIFF/SCN CRITERIA BASIC METABOLIC [id number] 06:49:00 Test Item Value Reference Range Comments [...] concentrations <2 ng/mL are obtained. GLUCOSE BEDSIDE [id number] 20:38:00 Test Item Value Reference Range Comments GLUCOSE BEDSIDE TESTING (test code=GLUBED) 135 mg/dL 70-110 GLUCOSE BEDSIDE [id number] 16:35:00 Test Item Value Reference Range Comments GLUCOSE BEDSIDE TESTING (test code=GLUBED) 332 mg/dL 70-110 GLUCOSE BEDSIDE [id number] 11:55:00 Test Item Value Reference Range Comments GLUCOSE BEDSIDE TESTING (test code=GLUBED) > 600 mg/dL 70-110 CHEMISTRY 8 [id number] 11:53:00 Test Item Value Reference Range Comments [...] POC (test 71 58-135 code=GFRBED) CHEMISTRY 8 [id number] 11:52:00 Test Item Value Reference Range Comments ISTAT-SODIUM (test code=NAP) mmol/L 135-146 ISTAT-POTASSIUM (test code=KP) mmol/L 3.5-4.9 ISTAT-CHLORIDE (test code=CLP) mmol/L 98-109 ISTAT-CARBON DIOXIDE (test code=ISTAT-CO2) mmol/L 24-29 ISTAT CALCIUM IONIZED (test code=ISTAT-IMANI) mmol/L 1.12-1.32 ISTAT-GLUCOSE (test code=GLUP) mg/dL 70-105 ISTAT-BUN (test code=BUNP) mg/dL 8-26 BEDSIDE CREATININE (test code=CREATBED) mg/dL 0.6-1.3 GLOMERULAR FILTRATION RATE POC (test code=GFRBED) 71 58135 CHEMISTRY 8 [id number] 11:52:00 Test Item Value Reference Range Comments ISTAT-SODIUM (test code=NAP) 123 mmol/L 135-146 ISTAT-POTASSIUM (test code=KP) 4.2 mmol/L 3.5-4.9 ISTAT-CHLORIDE (test code=CLP) 83 mmol/L 98-109 ISTAT-CARBON DIOXIDE (test code=ISTAT-CO2) 18 mmol/L 24-29 ISTAT CALCIUM IONIZED (test code=ISTAT-IMANI) 1.11 mmol/L 1.12-1.32 ISTAT-GLUCOSE (test code=GLUP) mg/dL 70-105 ISTAT-BUN (test code=BUNP) 6 mg/dL 8- BEDSIDE CREATININE (test code=CREATBED) 0.9 mg/dL 0.6-1.3 GLOMERULAR FILTRATION RATE POC (test 71 58-725 code=GFRBED) GLUCOSE BEDSIDE [id number] 11:34:00 Test Item Value Reference Range Comments GLUCOSE BEDSIDE TESTING (test code=GLUBED) 115 mg/dL 70-110 GLUCOSE BEDSIDE [id number] 07:52:00 Test Item Value Reference Range Comments GLUCOSE BEDSIDE TESTING (test code=GLUBED) 262 mg/dL 70-110 [id number] 04:36:00 Test Item Value Reference Range Comments PHOSPHOROUS (test code=PHOS) 1.8 MG/DL 2.5-4.9 Completed by Nursing: [id number] 04:36:00 Test Item Value Reference Range Comments TROPONIN-I (test < 0.015 NG/ML 0.000-0.045 Negative: </=0.045 Positive: code=TROPI) >/=0.046 Correlation with serial results, other cardiac markers, and clinical findings is necessary to determine the clinical significance of this result. Quantitative results using different methodologies should not be compared to one another as numerical results may varyby method. Completed by Nursing: NOBASI METABOLIC [id number] 04:25:00 Test Item Value Reference Range Comments [...] 0.6-1.0 CALCIUM (test code=CA) 8.3 MG/DL 8.5-10.1 [id number] 04:25:00 Test Item Value Reference Range Comments MAGNESIUM (test code=MAG) 2.4 MG/DL 1.8-2.4 GLUCOSE BEDSIDE [id number] 04:16:00 Test Item Value Reference Range Comments GLUCOSE BEDSIDE TESTING (test code=GLUBED) 136 mg/dL 70-110 CBC W/AUTO [id number] 04:15:00 Test Item Value Reference Range Comments [...] (test code=MDIFF) NO DIFF/SCN CRITERIA GLUCOSE BEDSIDE [id number] 03:16:00 Test Item Value Reference Range Comments GLUCOSE BEDSIDE TESTING (test code=GLUBED) 25 mg/dL 70-110 [id number] 01:51:00 Test Item Value Reference Range Comments TROPONIN-I (test < 0.015 NG/ML 0.000-0.045 Negative: </=0.045 Positive: code=TROPI) >/=0.046 Correlation with serial results, other cardiac markers, and clinical findings is necessary to determine the clinical significance of this result. Quantitative results using different methodologies should not be compared to one another as numerical results may varyby method. Completed by Nursing: NOCOMPREHENSIVE METABOLIC [id number] 01:39:00 Test Item Value Reference Range Comments SODIUM (test code=NA) 122 mmol/L 134-147 POTASSIUM (test code=K) 4.5 mmol/L 3.4-5.0 CHLORIDE (test code=CL) 82 mmol/L 100-108 CARBON DIOXIDE (test 16 mmol/L 21-32 code=CO2) ANION GAP (test code=GAP) 24.0 GAP calc 4.0-15.0 GLUCOSE (test code=GLU) 811 MG/DL 70-110 Previously reported result: 811 MG/DLEdited by: L.LAB.LZ on 02/03/19:0139 BLOOD UREA NITROGEN (test 7 [...] 197 Unit/L 45-117 (test code=ALKP) GLUCOSE BEDSIDE [id number] 01:15:00 Test Item Value Reference Range Comments GLUCOSE BEDSIDE TESTING (test code=GLUBED) 120 mg/dL 70-110 GLUCOSE BEDSIDE [id number] 00:32:00 Test Item Value Reference Range Comments GLUCOSE BEDSIDE TESTING (test code=GLUBED) 153 mg/dL 70-110 BASIC METABOLIC [id number] 23:48:00 Test Item Value Reference Range Comments [...] 0.6-1.0 CALCIUM (test code=CA) 8.0 MG/DL 8.5-10.1 [id number] 23:48:00 Test Item Value Reference Range Comments PHOSPHOROUS (test code=PHOS) 1.8 MG/DL 2.5-4.9 [id number] 23:48:00 Test Item Value Reference Range Comments MAGNESIUM (test code=MAG) 1.3 MG/DL 1.8-2.4 HCG SERUM [id number] 23:23:00 Test Item Value Reference Range Comments HCG SERUM QUAL (test code=HCGQL) SERUM NEGATIVE SCREEN NEGATIVE GLUCOSE BEDSIDE [id number] 23:16:00 Test Item Value Reference Range Comments GLUCOSE BEDSIDE TESTING (test code=GLUBED) 123 mg/dL 70-110 GLUCOSE BEDSIDE [id number] 22:16:00 Test Item Value Reference Range Comments GLUCOSE BEDSIDE TESTING (test code=GLUBED) 26 mg/dL 70-110 GLUCOSE BEDSIDE [id number] 21:21:00 Test Item Value Reference Range Comments GLUCOSE BEDSIDE TESTING (test code=GLUBED) 140 mg/dL 70-110 GLUCOSE BEDSIDE [id number] 19:42:00 Test Item Value Reference Range Comments GLUCOSE BEDSIDE TESTING (test code=GLUBED) 404 mg/dL 70-110 RENAL FUNCTION [id number] 19:36:00 Test Item Value Reference Range Comments SODIUM (test code=NA) 122 mmol/L 134-147 POTASSIUM (test code=K) 4.4 mmol/L 3.4-5.0 CHLORIDE (test code=CL) 81 mmol/L 100-108 CARBON DIOXIDE (test code=CO2) 15 mmol/L 21-32 Previously reported result: 15 mmol/LEdited by: L.LAB.DTS on 02/02/19:1857 GLUCOSE (test code=GLU) 772 MG/DL 70-110 Previously reported result: 772 MG/DLEdited by: [email or web address] on 02/02/19:1936~~~~~~~~~~~~~~~ ~~~~~~~~~~~~~~~~~~~~~~~~~ This is a CORRECTED [...] 0.92 Ratio 1.48-3.22 Avg Completed by Nursing: [id number] 19:36:00 Test Item Value Reference Range Comments AMYLASE (test code=BHARAT) 20 Unit/L 25-115 Completed by Nursing: [id number] 19:36:00 Test Item Value Reference Range Comments LIPASE (test code=LIP) 295 Unit/L 114-286 Completed by Nursing: [id number] 19:36:00 Test Item Value Reference Range Comments MAGNESIUM (test code=MAG) 1.7 MG/DL 1.8-2.4 Completed by Nursing: NOCPK-MB [id number] 19:36:00 Test Item Value Reference Range Comments CREATINE KINASE (CK) (test code=CK) 63 Unit/L 26-192 CKMB (test code=CKMBT) < 1.0 NG/ML 0.0-4.9 RELATIVE % INDEX (test code=REL%) 1.5 % 0.0-2.5 Completed by Nursing: [id number] 19:36:00 Test Item Value Reference Range Comments TROPONIN-I (test < 0.015 NG/ML 0.000-0.045 Negative: </=0.045 Positive: code=TROPI) >/=0.046 Correlation with serial results, other cardiac markers, and clinical findings is necessary to determine the clinical significance of this result. Quantitative results using different methodologies should not be compared to one another as numerical results may varyby method. Completed by Nursing: NOCK [id number] 19:36:00 Test Item Value Reference Range Comments CK MACRO TYPE 2 (test code=CKMC2%) CKMM/CK3 % (test code=CKMM%) CK MACRO TYPE 1 (test code=CKMC1%) CKMB/CK2 % (test code=CKMB%) CKBB/CK1 % (test code=CKBB%) Completed by Nursing: NOGLYCOSYLATED HEMOGLOBIN (HA1C)2019-02-02 19:33:00 Test Item Value Reference Range Comments GLYCOSYLATED HEMOGLOBIN (HA1C) (test code=GLYHGB) 10.3 % A1C 4.2-6.3 RENAL FUNCTION [id number] 18:59:00 Test Item Value Reference Range Comments [...] 0.92 Ratio 1.48-3.22 Avg Completed by Nursing: [id number] 18:59:00 Test Item Value Reference Range Comments AMYLASE (test code=BHARAT) 20 Unit/L 25-115 Completed by Nursing: [id number] 18:59:00 Test Item Value Reference Range Comments LIPASE (test code=LIP) 295 Unit/L 114-286 Completed by Nursing: [id number] 18:59:00 Test Item Value Reference Range Comments MAGNESIUM (test code=MAG) 1.7 MG/DL 1.8-2.4 Completed by Nursing: NOHCG SERUM [id number] 18:59:00 Test Item Value Reference Range Comments HCG SERUM QUAL (test code=HCGQL) SCREEN NEGATIVE Completed by Nursing: NOCPK-MB [id number] 18:59:00 Test Item Value Reference Range Comments CREATINE KINASE (CK) (test code=CK) 63 Unit/L 26-192 CKMB (test code=CKMBT) < 1.0 NG/ML 0.0-4.9 RELATIVE % INDEX (test code=REL%) 1.5 % 0.0-2.5 Completed by Nursing: [id number] 18:59:00 Test Item Value Reference Range Comments TROPONIN-I (test < 0.015 NG/ML 0.000-0.045 Negative: </=0.045 Positive: code=TROPI) >/=0.046 Correlation with serial results, other cardiac markers, and clinical findings is necessary to determine the clinical significance of this result. Quantitative results using different methodologies should not be compared to one another as numerical results may varyby method. Completed by Nursing: NOCK [id number] 18:59:00 Test Item Value Reference Range Comments CK MACRO TYPE 2 (test code=CKMC2%) CKMM/CK3 % (test code=CKMM%) CK MACRO TYPE 1 (test code=CKMC1%) CKMB/CK2 % (test code=CKMB%) CKBB/CK1 % (test code=CKBB%) Completed by Nursing: NORENAL FUNCTION [id number] 18:44:00 Test Item Value Reference Range Comments [...] 0.92 Ratio 1.48-3.22 Avg Completed by Nursing: [id number] 18:44:00 Test Item Value Reference Range Comments AMYLASE (test code=BHARAT) 20 Unit/L 25-115 Completed by Nursing: [id number] 18:44:00 Test Item Value Reference Range Comments LIPASE (test code=LIP) 295 Unit/L 114-286 Completed by Nursing: [id number] 18:44:00 Test Item Value Reference Range Comments MAGNESIUM (test code=MAG) 1.7 MG/DL 1.8-2.4 Completed by Nursing: NOHCG SERUM [id number] 18:44:00 Test Item Value Reference Range Comments HCG SERUM QUAL (test code=HCGQL) SCREEN NEGATIVE Completed by Nursing: NOCPK-MB [id number] 18:44:00 Test Item Value Reference Range Comments CREATINE KINASE (CK) (test code=CK) 63 Unit/L 26-192 CKMB (test code=CKMBT) < 1.0 NG/ML 0.0-4.9 RELATIVE % INDEX (test code=REL%) 1.5 % 0.0-2.5 Completed by Nursing: [id number] 18:44:00 Test Item Value Reference Range Comments TROPONIN-I (test < 0.015 NG/ML 0.000-0.045 Negative: </=0.045 Positive: code=TROPI) >/=0.046 Correlation with serial results, other cardiac markers, and clinical findings is necessary to determine the clinical significance of this result. Quantitative results using different methodologies should not be compared to one another as numerical results may varyby method. Completed by Nursing: NOCK [id number] 18:44:00 Test Item Value Reference Range Comments CK MACRO TYPE 2 (test code=CKMC2%) CKMM/CK3 % (test code=CKMM%) CK MACRO TYPE 1 (test code=CKMC1%) CKMB/CK2 % (test code=CKMB%) CKBB/CK1 % (test code=CKBB%) Completed by Nursing: NOGLUCOSE BEDSIDE [id number] 18:28:00 Test Item Value Reference Range Comments GLUCOSE BEDSIDE TESTING (test code=GLUBED) 542 mg/dL 70-110 [id number] 18:15:00 Test Item Value Reference Range Comments [...] (test code=METHGB) 0.9 % 0.0-0.0 COMPREHENSIVE METABOLIC [id number] 17:36:00 Test Item Value Reference Range Comments [...] (test code=ALKP) 197 Unit/L 45-117 GLUCOSE BEDSIDE [id number] 17:35:00 Test Item Value Reference Range Comments GLUCOSE BEDSIDE TESTING (test code=GLUBED) 504 mg/dL 70-110 URINALYSIS [id number] 17:29:00 Test Item Value Reference Range Comments [...] (NEG) 0 code=LEUU) DRUGS OF ABUSE SCREEN [id number] 17:29:00 Test Item Value Reference Range Comments [...] (test code=METHAURN) NEGATIVE SCcutoff <300 NG/ML URINALYSIS [id number] 17:07:00 Test Item Value Reference Range Comments [...] (NEG) 0 code=LEUU) DRUGS OF ABUSE SCREEN [id number] 17:07:00 Test Item Value Reference Range Comments [...] (test code=METHAURN) SCcutoff <300 NG/ML HEPATIC FUNCTION [id number] 16:18:00 Test Item Value Reference Range Comments TOTAL PROTEIN (test code=PROT) 8.1 G/DL 6.4-8.2 ALBUMIN (test code=ALB) 3.5 G/DL 3.4-5.0 BILIRUBIN TOTAL (test code=BILT) 1.10 MG/DL 0.2-1.2 BILIRUBIN DIRECT (test code=BILD) 0.20 MG/DL 0.00-0.30 BILIRUBIN INDIRECT (test code=BILIND) 0.90 MG/DL 0.2-1.2 SGOT/AST (test code=AST) 71 Unit/L 15-37 SGPT/ALT (test code=ALT) 57 Unit/L 12-78 ALKALINE PHOSPHATASE TOTAL (test code=ALKP) 197 Unit/L 45-117 [id number] 16:18:00 Test Item Value Reference Range Comments LIPASE (test code=LIP) 286 Unit/L 114-286 NT PRO-BRAIN NATRIURETIC [id number] 16:18:00 Test Item Value Reference Range Comments NT PRO-BRAIN NATRIURETIC PEPTI (test code=PROBNP) 438 PG/ML 0-100 CPK-MB [id number] 16:18:00 Test Item Value Reference Range Comments CREATINE KINASE (CK) (test code=CK) 60 Unit/L 26-192 CKMB (test code=CKMBT) < 1.0 NG/ML 0.0-4.9 RELATIVE % INDEX (test code=REL%) 1.6 % 0.0-2.5 CBC W/O [id number] 15:55:00 Test Item Value Reference Range Comments [...] VOLUME (test code=MPV) 10.00 fL 7.0-10.5 PROTHROMBIN [id number] 15:55:00 Test Item Value Reference Range Comments PT PATIENT (test code=PTP) 10.7 SECONDS 9.3-12.9 INTERNATIONAL NORMAL RATIO (test code=INR) 0.93 INR Unit 0.8-1.2 - XR CHEST 1 [id number] 15:47:00 Name: ESTHER LOZANO [facility]ly [facility] : 1970 Age/S: 48 / F [address] Unit #: [id number] Loc: [place] [address] Phys: Weston Mittal MD Acct: [id number] Dis Date: Status: REG ER PHONE #: [phone] Exam Date: 02/02/2019 1530 FAX #: Reason: chest pain EXAMS: CPT: [id number] XR CHEST 1 V 01956 Fluoro Time: DAP (Gy m2): Air Kerma [...] PAGE 1 Signed Report Name: ESTHER LOZANO [facility] : 1970 Age/S: 48 / F [address] [id number] Loc: [place] [address] Phys: Weston Mittal MD Acct: [id number] Dis Date: Status:REG ER PHONE #: [phone] Exam Date: 02/02/2019 1530 FAX #: Reason: chest pain EXAMS: CPT: [id number] XR CHEST 1 V 47365 Fluoro Time: DAP (Gy m2): Air Kerma (mGy): <Continued> Technologist: Ag Machuca, RT(R)(CT); ... Trnscb Date /Time: 02/02/2019 (3320) t.[email or web address] Orig Print D/T: S: 01/2019 (5730) PAGE 2 Signed ReportTROPONIN I [id number] 15:38:00 Test Item Value Reference Range Comments TROPONIN I RAPID (test 0.00 ng/mL 0.00-0.08 - The use of serial sampling code=TROPIRAP) and testing protocol is a recommended practice- An elevated troponin level alone is often not sufficient for diagnosis of myocardial infarction. GLUCOSE BEDSIDE [id number] 12:22:00 Test Item Value Reference Range Comments GLUCOSE BEDSIDE TESTING (test code=GLUBED) 123 mg/dL 70-110 GLUCOSE BEDSIDE [id number] 08:37:00 Test Item Value Reference Range Comments GLUCOSE BEDSIDE TESTING (test code=GLUBED) 201 mg/dL 70-110 BASIC METABOLIC [id number] 05:09:00 Test Item Value Reference Range Comments [...] (test code=CA) 8.0 MG/DL 8.5-10.1 CBC W/AUTO [id number] 05:04:00 Test Item Value Reference Range Comments [...] (test code=MDIFF) NO DIFF/SCN CRITERIA GLUCOSE BEDSIDE [id number] 01:46:00 Test Item Value Reference Range Comments GLUCOSE BEDSIDE TESTING (test code=GLUBED) 263 mg/dL 70-110 GLUCOSE BEDSIDE [id number] 20:42:00 Test Item Value Reference Range Comments GLUCOSE BEDSIDE TESTING (test code=GLUBED) 195 mg/dL 70-110 GLUCOSE BEDSIDE [id number] 17:29:00 Test Item Value Reference Range Comments GLUCOSE BEDSIDE TESTING (test code=GLUBED) 75 mg/dL 70-110 GLUCOSE BEDSIDE [id number] 13:02:00 Test Item Value Reference Range Comments GLUCOSE BEDSIDE TESTING (test code=GLUBED) 64 mg/dL 70-110 CBC W/AUTO [id number] 11:34:00 Test Item Value Reference Range Comments [...] REQUIRED (test code=MDIFF) NO DIFF/SCN CRITERIA RBC [id number] 11:34:00 Test Item Value Reference Range Comments PLATELET ESTIMATE (test SLIGHTLY DECREASED ADEQUATE PLATE COUNT REVIEWED code=PLTEST) THOUSAND AND VERIFIED. PLATELET MORPHOLOGY NORMAL (test code=PLTMORPH) CBC W/AUTO [id number] 11:32:00 Test Item Value Reference Range Comments [...] (test code=MDIFF) NO DIFF/SCN CRITERIA CBC W/AUTO [id number] 11:32:00 Test Item Value Reference Range Comments [...] (test code=MDIFF) NO DIFF/SCN CRITERIA GLYCOSYLATED HEMOGLOBIN [id number] 10:40:00 Test Item Value Reference Range Comments GLYCOSYLATED HEMOGLOBIN (HA1C) (test 10.1 % A1C 4.2-6.3 code=GLYHGB) ESTIMATED AVERAGE GLUCOSE (test code=EAG) 243 MG/DLest GLUCOSE BEDSIDE [id number] 07:11:00 Test Item Value Reference Range Comments GLUCOSE BEDSIDE TESTING (test code=GLUBED) 178 mg/dL 70-110 COMPREHENSIVE METABOLIC [id number] 06:41:00 Test Item Value Reference Range Comments [...] (test code=ALKP) 93 Unit/L 45-117 CBC W/AUTO [id number] 06:31:00 Test Item Value Reference Range Comments [...] REQUIRED (test code=MDIFF) DIFF/SCN CRITERIA GLUCOSE BEDSIDE [id number] 05:13:00 Test Item Value Reference Range Comments GLUCOSE BEDSIDE TESTING (test code=GLUBED) 133 mg/dL 70-110 GLUCOSE BEDSIDE [id number] 04:39:00 Test Item Value Reference Range Comments GLUCOSE BEDSIDE TESTING (test code=GLUBED) 91 mg/dL 70-110 GLUCOSE BEDSIDE [id number] 04:39:00 Test Item Value Reference Range Comments GLUCOSE BEDSIDE TESTING (test code=GLUBED) 18 mg/dL 70-110 GLUCOSE BEDSIDE [id number] 20:48:00 Test Item Value Reference Range Comments GLUCOSE BEDSIDE TESTING (test code=GLUBED) 228 mg/dL 70-110 GLUCOSE BEDSIDE [id number] 17:05:00 Test Item Value Reference Range Comments GLUCOSE BEDSIDE TESTING (test code=GLUBED) 81 mg/dL 70-110 GLUCOSE BEDSIDE [id number] 11:42:00 Test Item Value Reference Range Comments GLUCOSE BEDSIDE TESTING (test code=GLUBED) 71 mg/dL 70-110 CBC W/AUTO [id number] 07:54:00 Test Item Value Reference Range Comments [...] REQUIRED (test code=MDIFF) NO DIFF/SCN CRITERIA RBC [id number] 07:54:00 Test Item Value Reference Range Comments PLATELET ESTIMATE (test ADEQUATE THOUSAND ADEQUATE PLATELET COUNT REVIEWED code=PLTEST) AND VERIFIED. PLATELET MORPHOLOGY (test NORMAL A FEW AGGREGATES SEEN. code=PLTMORPH) CBC W/AUTO [id number] 07:51:00 Test Item Value Reference Range Comments [...] (test code=MDIFF) NO DIFF/SCN CRITERIA CBC W/AUTO [id number] 07:51:00 Test Item Value Reference Range Comments [...] (test code=MDIFF) NO DIFF/SCN CRITERIA GLUCOSE BEDSIDE [id number] 07:27:00 Test Item Value Reference Range Comments GLUCOSE BEDSIDE TESTING (test code=GLUBED) 206 mg/dL 70-110 BASIC METABOLIC [id number] 06:20:00 Test Item Value Reference Range Comments [...] (test code=CA) 8.1 MG/DL 8.5-10.1 CBC W/AUTO [id number] 06:18:00 Test Item Value Reference Range Comments [...] REQUIRED (test code=MDIFF) DIFF/SCN CRITERIA GLUCOSE BEDSIDE [id number] 20:45:00 Test Item Value Reference Range Comments GLUCOSE BEDSIDE TESTING (test code=GLUBED) 283 mg/dL 70-110 GLUCOSE BEDSIDE [id number] 19:47:00 Test Item Value Reference Range Comments GLUCOSE BEDSIDE TESTING (test code=GLUBED) 150 mg/dL 70-110 GLUCOSE BEDSIDE [id number] 16:52:00 Test Item Value Reference Range Comments GLUCOSE BEDSIDE TESTING (test code=GLUBED) 114 mg/dL 70-110 GLUCOSE BEDSIDE [id number] 07:49:00 Test Item Value Reference Range Comments GLUCOSE BEDSIDE TESTING (test code=GLUBED) 288 mg/dL 70-110 CBC W/AUTO [id number] 07:11:00 Test Item Value Reference Range Comments [...] CONSISTANT code=MDIFF) WITH AUTO DIFFERENTIAL. CBC W/AUTO [id number] 07:11:00 Test Item Value Reference Range Comments [...] REVIEW CONSISTANT code=MDIFF) WITH AUTO DIFFERENTIAL. RBC [id number] 07:11:00 Test Item Value Reference Range Comments PLATELET ESTIMATE (test code=PLTEST) 92,000-115,000 THOUSAND ADEQUATE PLATELET MORPHOLOGY (test NORMAL code=PLTMORPH) CBC W/AUTO [id number] 07:11:00 Test Item Value Reference Range Comments [...] CONSISTANT code=MDIFF) WITH AUTO DIFFERENTIAL. COMPREHENSIVE METABOLIC [id number] 06:34:00 Test Item Value Reference Range Comments [...] PHOSPHATASE TOTAL (test code=ALKP) 73 Unit/L 45-117 [id number] 06:34:00 Test Item Value Reference Range Comments PHOSPHOROUS (test code=PHOS) 1.9 MG/DL 2.5-4.9 [id number] 06:34:00 Test Item Value Reference Range Comments MAGNESIUM (test code=MAG) 1.3 MG/DL 1.8-2.4 CBC W/AUTO [id number] 06:25:00 Test Item Value Reference Range Comments [...] concentrations <2 ng/mL are obtained. GLUCOSE BEDSIDE [id number] 22:22:00 Test Item Value Reference Range Comments GLUCOSE BEDSIDE TESTING (test code=GLUBED) 91 mg/dL 70-110 GLUCOSE BEDSIDE [id number] 21:49:00 Test Item Value Reference Range Comments GLUCOSE BEDSIDE TESTING (test code=GLUBED) 66 mg/dL 70-110 GLUCOSE BEDSIDE [id number] 21:27:00 Test Item Value Reference Range Comments GLUCOSE BEDSIDE TESTING (test code=GLUBED) 63 mg/dL 70-110 GLUCOSE BEDSIDE [id number] 18:18:00 Test Item Value Reference Range Comments GLUCOSE BEDSIDE TESTING (test code=GLUBED) 171 mg/dL 70-110 GLUCOSE BEDSIDE [id number] 18:18:00 Test Item Value Reference Range Comments GLUCOSE BEDSIDE TESTING (test code=GLUBED) 164 mg/dL 70-110 GLUCOSE BEDSIDE [id number] 18:18:00 Test Item Value Reference Range Comments GLUCOSE BEDSIDE TESTING (test code=GLUBED) 145 mg/dL 70-110 GLUCOSE BEDSIDE [id number] 18:18:00 Test Item Value Reference Range Comments GLUCOSE BEDSIDE TESTING (test code=GLUBED) 163 mg/dL 70-110 GLUCOSE BEDSIDE [id number] 16:20:00 Test Item Value Reference Range Comments GLUCOSE BEDSIDE TESTING (test code=GLUBED) 251 mg/dL 70-110 BASIC METABOLIC [id number] 14:11:00 Test Item Value Reference Range Comments [...] (test code=CA) 7.5 MG/DL 8.5-10.1 BASIC METABOLIC [id number] 14:04:00 Test Item Value Reference Range Comments [...] (test code=CA) 7.5 MG/DL 8.5-10.1 GLUCOSE BEDSIDE [id number] 13:18:00 Test Item Value Reference Range Comments GLUCOSE BEDSIDE TESTING (test code=GLUBED) 202 mg/dL 70-110 GLUCOSE BEDSIDE [id number] 13:18:00 Test Item Value Reference Range Comments GLUCOSE BEDSIDE TESTING (test code=GLUBED) 233 mg/dL 70-110 GLUCOSE BEDSIDE [id number] 13:18:00 Test Item Value Reference Range Comments GLUCOSE BEDSIDE TESTING (test code=GLUBED) 254 mg/dL 70-110 GLUCOSE BEDSIDE [id number] 13:18:00 Test Item Value Reference Range Comments GLUCOSE BEDSIDE TESTING (test code=GLUBED) 269 mg/dL 70-110 GLUCOSE BEDSIDE [id number] 13:18:00 Test Item Value Reference Range Comments GLUCOSE BEDSIDE TESTING (test code=GLUBED) 222 mg/dL 70-110 BASIC METABOLIC [id number] 06:51:00 Test Item Value Reference Range Comments [...] (test code=CA) 7.7 MG/DL 8.5-10.1 CBC W/AUTO [id number] 06:35:00 Test Item Value Reference Range Comments [...] (test code=MDIFF) NO DIFF/SCN CRITERIA GLUCOSE BEDSIDE [id number] 06:34:00 Test Item Value Reference Range Comments GLUCOSE BEDSIDE TESTING (test code=GLUBED) 95 mg/dL 70-110 GLUCOSE BEDSIDE [id number] 05:14:00 Test Item Value Reference Range Comments GLUCOSE BEDSIDE TESTING (test code=GLUBED) 122 mg/dL 70-110 GLUCOSE BEDSIDE [id number] 02:34:00 Test Item Value Reference Range Comments GLUCOSE BEDSIDE TESTING (test code=GLUBED) 197 mg/dL 70-110 GLUCOSE BEDSIDE [id number] 00:39:00 Test Item Value Reference Range Comments GLUCOSE BEDSIDE TESTING (test code=GLUBED) 135 mg/dL 70-110 VANCOMYCIN [id number] 22:37:00 Test Item Value Reference Range Comments VANCOMYCIN TROUGH (test code=VANCT) 21.6 mcG/ML 5-15 GLUCOSE BEDSIDE [id number] 22:33:00 Test Item Value Reference Range Comments GLUCOSE BEDSIDE TESTING (test code=GLUBED) 95 mg/dL 70-110 BASIC METABOLIC [id number] 22:25:00 Test Item Value Reference Range Comments [...] (test code=CA) 7.9 MG/DL 8.5-10.1 GLUCOSE BEDSIDE [id number] 21:47:00 Test Item Value Reference Range Comments GLUCOSE BEDSIDE TESTING (test code=GLUBED) 93 mg/dL 70-110 GLUCOSE BEDSIDE [id number] 20:46:00 Test Item Value Reference Range Comments GLUCOSE BEDSIDE TESTING (test code=GLUBED) 98 mg/dL 70-110 GLUCOSE BEDSIDE [id number] 19:38:00 Test Item Value Reference Range Comments GLUCOSE BEDSIDE TESTING (test code=GLUBED) 213 mg/dL 70-110 GLUCOSE BEDSIDE [id number] 19:38:00 Test Item Value Reference Range Comments GLUCOSE BEDSIDE TESTING (test code=GLUBED) 205 mg/dL 70-110 GLUCOSE BEDSIDE [id number] 19:38:00 Test Item Value Reference Range Comments GLUCOSE BEDSIDE TESTING (test code=GLUBED) 306 mg/dL 70-110 BASIC METABOLIC [id number] 18:13:00 Test Item Value Reference Range Comments [...] (test code=CA) 7.6 MG/DL 8.5-10.1 GLUCOSE BEDSIDE [id number] 16:57:00 Test Item Value Reference Range Comments GLUCOSE BEDSIDE TESTING (test code=GLUBED) 384 mg/dL 70-110 GLUCOSE BEDSIDE [id number] 16:57:00 Test Item Value Reference Range Comments GLUCOSE BEDSIDE TESTING (test code=GLUBED) 465 mg/dL 70-110 BASIC METABOLIC [id number] 16:04:00 Test Item Value Reference Range Comments [...] CALCIUM (test code=CA) 7.5 MG/DL 8.5-10.1 URINALYSIS [id number] 13:51:00 Test Item Value Reference Range Comments [...] CELLS (test code=SQU) TRACE /HPF NONE URINALYSIS [id number] 13:14:00 Test Item Value Reference Range Comments [...] Leuk/mcL NEGATIVE code=LEUU) - CT HEAD/BRAIN W/O [id number] 12:48:00 Name: ESTHER LOZANO [facility] : 1970 Age/S: 48 / F [id number] Unit #: [id number] Loc: [place] [address] Phys: Nasim Hunt MD Acct: [id number] Dis Date: Status : ADM IN PHONE #: [phone] Exam Date: 01/08/2019 1233 FAX #: Reason: AMS EXAMS: CPT: [id number] CT HEAD/BRAIN W/O CONT 53636 CT HEAD WITHOUT CONTRAST CLINICAL HISTORY : [...] M.D. CC: Nasim Hunt MD Technologist:TORIN STANTON RT(R)(CT)(MR) CTDI: DLP: Trnscb Date/Time: 01/08/2019 (1248) [email or web address] Orig Print D/T: S: 01/08/2019 (7276)CTDI: DLP: PAGE 1 Signed ReportG [id number] 12:12:00 Test Item Value Reference Range Comments HCG SERUM (test code=HCG) < 1 mi-IU/ML 0-6 0 - 6 NOT > 6 SUGGESTIVE OF EARLY RISES TWO FOLD EVERY 2 DAYS; SUGGEST RECONFIRMING AFTER 2 DAYS. 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 RVS Trnazb Date/Time: 01/08/2019 (1059) [email or web address] PAGE 1 Signed Report Name: ESTHER LOZANO : 1970 Age/S: 48 / F [id number] Unit #: [id number] Loc: [place] [address] Phys: Nasim Hunt MD Acct: [id number] Dis Date: Status: ADM IN PHONE #: [phone] Exam Date: 01/08/2019 1043 FAX #: Reason: CENTRAL LINE PLACEMENT EXAMS:CPT: [id number] USG NDL PLACEMENT (Bxg/Asp) 72956 <Continued> Orig Print D/T: S: 01/08/2019 (1104) Probe: PAGE 2 Signed Report- XR CHEST 1 [id number] 10:56:00 Name: ESTHER LOZANO [place] : 1970 Age/S: 48 / F [id number] Unit #: [id number] Loc: [place] [address] Phys: Nasim Hunt MD Acct: [id number] Dis Date: Status: ADM IN PHONE #: [phone] Exam Date: 01/08/2019 1045 FAX #: Reason: CENTRAL LINE PLACEMENT EXAMS: CPT: [id number] XR CHEST 1 V 59191 Fluoro Time: DAP (Gy m2): Air Kerma [...] PAGE 1 Signed Report Name: ESTHER LOZANO [place] : 1970 Age/S: 48 / F [id number] Unit #: [id number] Loc: [place] [address] Phys: Nasim Hunt MD Acct: [id number] Dis Date: Status: ADM IN PHONE #: [phone] Exam Date: 01/08/2019 1045 FAX #: Reason: CENTRAL LINE PLACEMENT EXAMS: CPT: [id number] XR CHEST 1 V 82227 Fluoro Time: DAP (Gy m2): Air Kerma (mGy): <Continued> Technologist: Rita Melo, RT(R)(MR) Trnscb Date/Time: 01/08/2019 (1056) [email or web address] Orig Print D/T:S: 01/09/2019 (0106) PAGE 2 Signed ReportBASIC METABOLIC [id number] 10:49:00 Test Item Value Reference Range Comments [...] CALCIUM (test code=CA) 7.4 MG/DL 8.5-10.1 PROTHROMBIN [id number] 10:12:00 Test Item Value Reference Range Comments PT PATIENT (test code=PTP) 12.3 SECONDS 9.3-12.9 INTERNATIONAL NORMAL RATIO (test code=INR) 1.07 INR Unit 0.8-1.2 THROMBOPLASTIN TIME [id number] 10:12:00 Test Item Value Reference Range Comments THROMBOPLASTIN TIME PARTIAL (test code=PTT) 26.5 SECONDS 26-35 BASIC METABOLIC [id number] 10:11:00 Test Item Value Reference Range Comments [...] 70-110 BLOOD UREA NITROGEN (test 15 MG/DL 18 code=BUN) GLOMERULAR FILTRATION RATE 34 estGFR >60 (test code=GFR) CREATININE (test code=CREAT) 1.7 MG/DL 0.6-1.0 CALCIUM (test code=CA) 7.4 MG/DL 8.5-10.1 BASIC METABOLIC [id number] 10:08:00 Test Item Value Reference Range Comments [...] (test code=CA) 7.4 MG/DL 8.5-10.1 BASIC METABOLIC [id number] 10:01:00 Test Item Value Reference Range Comments [...] (test code=CA) 7.3 MG/DL 8.5-10.1 GLUCOSE BEDSIDE [id number] 09:59:00 Test Item Value Reference Range Comments GLUCOSE BEDSIDE TESTING (test code=GLUBED) 491 mg/dL 70-110 CBC W/AUTO [id number] 09:12:00 Test Item Value Reference Range Comments [...] CONSISTANT code=MDIFF) WITH AUTO DIFFERENTIAL. BASIC METABOLIC [id number] 07:48:00 Test Item Value Reference Range Comments SODIUM (test code=NA) 129 mmol/L 134-147 POTASSIUM (test code=K) 4.1 mmol/L 3.4-5.0 CHLORIDE (test code=CL) 98 mmol/L 100-108 CARBON DIOXIDE (test 6 mmol/L 21-32 Previously reported result: code=CO2) 6 mmol/LEdited by: SERINADTS on 19:0748 ANION GAP (test code=GAP) 25.0 GAP calc 4.0-15.0 GLUCOSE (test code=GLU) 481 MG/DL 70-110 BLOOD UREA NITROGEN (test 14 MG/DL 7-18 code=BUN) GLOMERULAR FILTRATION RATE 40 estGFR >60 (test code=GFR) CREATININE (test code=CREAT) 1.5 MG/DL 0.6-1.0 CALCIUM (test code=CA) 7.3 MG/DL 8.5-10.1 GLUCOSE BEDSIDE [id number] 07:32:00 Test Item Value Reference Range Comments GLUCOSE BEDSIDE TESTING (test code=GLUBED) 467 mg/dL 70-110 BASIC METABOLIC [id number] 07:27:00 Test Item Value Reference Range Comments SODIUM (test code=NA) 129 mmol/L 134-147 POTASSIUM (test code=K) 4.1 mmol/L 3.4-5.0 CHLORIDE (test code=CL) 98 mmol/L 100-108 CARBON DIOXIDE (test code=CO2) 6 mmol/L 21-32 ANION GAP (test code=GAP) 25.0 GAP calc 4.0-15.0 GLUCOSE (test code=GLU) 481 MG/DL 70-110 BLOOD UREA NITROGEN (test code=BUN) 14 MG/DL 7-18 GLOMERULAR FILTRATION RATE (test code=GFR) 40 estGFR >60 CREATININE (test code=CREAT) 1.5 MG/DL 0.6-1.0 CALCIUM (test code=CA) 7.3 MG/DL 8.5-10.1 RULE OUT VT [id number] 07:22:00 Test Item Value Reference Range Comments [...] numerical results may varyby method. CBC W/AUTO [id number] 07:06:00 Test Item Value Reference Range Comments [...] concentrations <2 ng/mL are obtained. BASIC METABOLIC [id number] 04:29:00 Test Item Value Reference Range Comments [...] concentrations <2 ng/mL are obtained. RULE OUT VT [id number] 00:34:00 Test Item Value Reference Range Comments [...] numerical results may varyby method. GLUCOSE BEDSIDE [id number] 00:23:00 Test Item Value Reference Range Comments GLUCOSE BEDSIDE TESTING (test code=GLUBED) 196 mg/dL 70-110 - XR CHEST 1 [id number] 22:59:00 Name: ESTHER LOZANO [place] : 1970 Age/S: 48 / F [id number] Unit #: [id number] Loc: [place] [address] Phys: Nasim Hunt MD Acct: [id number] Dis Date: Status: ADM IN PHONE #: [phone] Exam Date: 01/07/20196 FAX #: Reason: SOB EXAMS: CPT: [id number] XR CHEST 1 V 10010 Fluoro Time: DAP (Gy m2): Air Kerma (mGy): HISTORY : Shortness of breath Location code: B2 FINDINGS: Frontal view of the chest demonstrates normal cardiomediastinal silhouette. The trachea is midline. The lungs are clear. There is no effusion or pneumothorax. The bones are intact. IMPRESSION: No acute pulmonary process. at 2259 Reported and signed by: Zaheer Hunt M.D. CC: Nasim Hunt MD PAGE 1 Signed Report Name : ESTHER LOZANO : 1970 Age/S : 48 / F [id number] Unit #: [id number] Loc: [place] [address] Phys: Nasim Hunt MD Acct: [id number] Dis Date: Status: ADM IN PHONE #: [phone] Exam Date: 01/07/20192252 FAX #: Reason: SOB EXAMS: CPT: [id number] XR CHEST 1 V 53981 Fluoro Time: DAP (Gy m2): Air Kerma (mGy): <Continued&gt ; Technologist: Makenna Kern, RT(R)(CT); ... Trnscb Date/Time: 2018 (2258) [email or web address] Orig Print D/T: S: 01/07/2019 (6841 ) PAGE 2 Signed [id number] 22:58:00 Test Item Value Reference Range Comments [...] (test code=METHGB) 1.0 % 0.0-0.0 BASIC METABOLIC [id number] 22:44:00 Test Item Value Reference Range Comments [...] Comments PROCALCITONIN (PCT) (test code=PROCAL) ng/ml LACTIC [id number] 22:44:00 Test Item Value Reference Range Comments LACTIC ACID (test code=LACT) 0.8 mmol/L 0.4-2.0 GLUCOSE BEDSIDE [id number] 21:51:00 Test Item Value Reference Range Comments GLUCOSE BEDSIDE TESTING (test code=GLUBED) 126 mg/dL 70-110 GLUCOSE BEDSIDE [id number] 21:28:00 Test Item Value Reference Range Comments GLUCOSE BEDSIDE TESTING (test code=GLUBED) 129 mg/dL 70-110 GLUCOSE BEDSIDE [id number] 20:50:00 Test Item Value Reference Range Comments GLUCOSE BEDSIDE TESTING (test code=GLUBED) 11 mg/dL 70-110 GLUCOSE BEDSIDE [id number] 20:50:00 Test Item Value Reference Range Comments GLUCOSE BEDSIDE TESTING (test code=GLUBED) 127 mg/dL 70-110 BASIC METABOLIC [id number] 17:50:00 Test Item Value Reference Range Comments [...] code=CA) 7.6 MG/DL 8.5-10.1 Completed by Nursing: [id number] 17:50:00 Test Item Value Reference Range Comments TROPONIN-I (test < 0.015 NG/ML 0.000-0.045 Negative: </=0.045 Positive: code=TROPI) >/=0.046 Correlation with serial results, other cardiac markers, and clinical findings is necessary to determine the clinical significance of this result. Quantitative results using different methodologies should not be compared to one another as numerical results may varyby method. Completed by Nursing: NOGLUCOSE BEDSIDE [id number] 16:49:00 Test Item Value Reference Range Comments GLUCOSE BEDSIDE TESTING (test code=GLUBED) 236 mg/dL 70-110 GLUCOSE BEDSIDE [id number] 12:02:00 Test Item Value Reference Range Comments GLUCOSE BEDSIDE TESTING (test code=GLUBED) 72 mg/dL 70-110 LACTIC [id number] 10:52:00 Test Item Value Reference Range Comments LACTIC ACID (test code=LACT) 1.3 mmol/L 0.4-2.0 COMPREHENSIVE METABOLIC [id number] 10:47:00 Test Item Value Reference Range Comments [...] (test 131 Unit/L 45-117 code=ALKP) GLUCOSE BEDSIDE [id number] 10:21:00 Test Item Value Reference Range Comments GLUCOSE BEDSIDE TESTING (test code=GLUBED) 87 mg/dL 70-110 GLUCOSE BEDSIDE [id number] 10:21:00 Test Item Value Reference Range Comments GLUCOSE BEDSIDE TESTING (test code=GLUBED) 313 mg/dL 70-110 GLUCOSE BEDSIDE [id number] 07:03:00 Test Item Value Reference Range Comments GLUCOSE BEDSIDE TESTING (test code=GLUBED) 426 mg/dL 70-110 GLUCOSE BEDSIDE [id number] 07:03:00 Test Item Value Reference Range Comments GLUCOSE BEDSIDE TESTING (test code=GLUBED) 526 mg/dL 70-110 GLUCOSE BEDSIDE [id number] 07:03:00 Test Item Value Reference Range Comments GLUCOSE BEDSIDE TESTING (test code=GLUBED) 525 mg/dL 70-110 LACTIC ACID [id number] 06:02:00 Test Item Value Reference Range Comments LACTIC ACID POC (test code=LACTP) 2.11 MMOL/L 0.90-1.70 VENOUS BLOOD [id number] 05:54:00 Test Item Value Reference Range Comments [...] GAS SITE (test code=SITEV) Other Site DESCRIPTION [id number] 05:50:00 Test Item Value Reference Range Comments TROPONIN-I (test < 0.015 NG/ML 0.000-0.045 Negative: </=0.045 Positive: code=TROPI) >/=0.046 Correlation with serial results, other cardiac markers, and clinical findings is necessary to determine the clinical significance of this result. Quantitative results using different methodologies should not be compared to one another as numerical results may varyby method. Completed by Nursing: NOACETONE [id number] 05:50:00 Test Item Value Reference Range Comments ACETONE QUAL (test code=ACETNQL) SMALL SCREEN NEG Completed by Nursing: [id number] 05:49:00 Test Item Value Reference Range Comments TROPONIN-I (test < 0.015 NG/ML 0.000-0.045 Negative: </=0.045 Positive: code=TROPI) >/=0.046 Correlation with serial results, other cardiac markers, and clinical findings is necessary to determine the clinical significance of this result. Quantitative results using different methodologies should not be compared to one another as numerical results may varyby method. Completed by Nursing: NOACETONE [id number] 05:49:00 Test Item Value Reference Range Comments ACETONE QUAL (test code=ACETNQL) SCREEN NEG Completed by Nursing: NOCOMPREHENSIVE METABOLIC [id number] 05:46:00 Test Item Value Reference Range Comments [...] PHOSPHATASE TOTAL (test code=ALKP) 157 Unit/L 45-117 [id number] 05:46:00 Test Item Value Reference Range Comments AMYLASE (test code=BHARAT) 38 Unit/L 25-115 [id number] 05:46:00 Test Item Value Reference Range Comments LIPASE (test code=LIP) 334 Unit/L 114-286 CBC W/AUTO [id number] 05:25:00 Test Item Value Reference Range Comments [...] (test code=MDIFF) NO DIFF/SCN CRITERIA CHEMISTRY 8 [id number] 05:16:00 Test Item Value Reference Range Comments ISTAT-SODIUM (test code=NAP) mmol/L 135-146 ISTAT-POTASSIUM (test code=KP) mmol/L 3.5-4.9 ISTAT-CHLORIDE (test code=CLP) mmol/L 98-109 ISTAT-CARBON DIOXIDE (test code=ISTAT-CO2) mmol/L 24-29 ISTAT CALCIUM IONIZED (test code=ISTAT-IMANI) mmol/L 1.12-1.32 ISTAT-GLUCOSE (test code=GLUP) mg/dL 70-105 ISTAT-BUN (test code=BUNP) mg/dL 8-26 BEDSIDE CREATININE (test code=CREATBED) mg/dL 0.6-1.3 GLOMERULAR FILTRATION RATE POC (test code=GFRBED) 114 58-135 CHEMISTRY 8 [id number] 05:16:00 Test Item Value Reference Range Comments [...] 114 58-135 code=GFRBED) - XR CHEST 1 [id number] 05:16:00 [facility] [place] [facility] 1970 Age/S: 48 / F [address] [facility] Unit #: [id number] Loc: [place] [address] Phys: Mingo James MD Acct: [id number] Dis Date: Status: REG ER PHONE #: [phone] Exam Date: 01/07/2019 0510 FAX #: Reason: dka EXAMS: CPT: [id number] XR CHEST 1 V 10405 Fluoro Time: DAP (Gy m2): Air Kerma [...] PAGE 1 Signed Report Name: [facility] [place] : 1970 Age/S: 48 / F [id number] Unit #: [id number] Loc: [place] [address] Phys: Mingo James MD Acct: [id number] Dis Date: Status: REG ER PHONE #: [phone] Exam Date: 01/07/2019 0510 FAX #: Reason: dka EXAMS: CPT: [id number] XR CHEST 1 V 20447 Fluoro Time: DAP (Gy m2): Air Kerma ( mGy): <Continued> Technologist: Leda Brower RT(R)(CT) Trnscb Date/Time: 01/07/2019 (0516) CarmeloRK5 Orig Print D/T: S: 01/07/2019 (0591) PAGE 2 Signed ReportComprehensive Metabolic [id number] 05:56:00 Test Item Value Reference Range Comments [...] race is not provided, and the patient isAfrican-[place], multiply by 1.212. If sex is not [...] the National Kidney Foundation,http://nkdep.nih .gov CBC with [id number] 05:31:00 Test Item Value Reference Range Comments [...] Lymph Abs (test code=ALYMPH) 3.0 K/cumm 0.5-4.6 [place] Abs (test code=AMONO) 0.5 K/cumm 0.0-1.2 Eos Abs (test code=AEOS) 0.06 K/cumm 0.00-0.74 RBC Morphology (test Not Indicated code=RBCMRPH) Platelet Est (test code=PLTEST) Adequate Platelets on Smear CK [id number] 05:09:00 Test Item Value Reference Range Comments CK (test code=CK) 48 U/L 26-192 Troponin [id number] 05:07:00 Test Item Value Reference Range Comments Troponin T (test code=HIEN) <0.010 ng/mL 0.000-0.090 Urinalysis [id number] 04:50:00 Test Item Value Reference Range Comments Color (test code=COLOR) Yellow Yellow,Straw,Pl yellow Clarity (test code=CLAR) Clear Clear Specific Assumption (test code=SPGR) 1.005 1.001-1.035 pH (test code=PH) [...]
[2019-10-20] MEDS ORDERED: NA CHLORIDE 0.9% 1,000 ML ONE (00:54)
[2019-10-20 01:53] LABS: Absolute Lymphocytes (CBC) 1.8 K/uL (0.7-4.9); Basophils % 1.3 % (0-1.3); Hematocrit 26.4 % (36.0-45.0); Lymphocytes % 40.5 % (15.3-44.8); MPV 8.5 fL (7.6-11.3); RBC Red Blood Cell Count 3.17 M/uL (3.86-4.86)
[2019-10-20 02:03] LABS: BUN Blood Urea Nitrogen 11 mg/dL (7-18); Bicarbonate 24 mmol/L (21-32); Glucose Level 343 mg/dL (74-106); Potassium 4.6 mmol/L (3.5-5.1); Sodium Level 135 mmol/L (136-145)
--- NOTE | 2019-10-20 03:52 | EDPHYS ---
Physician Documentation [facility] Name: Jocelin Montalvo Age: 49 yrs Sex: Female : 1970 Arrival Date: 10/20/2019 Time: 00:24 Bed 15 Private MD: ED Physician Dimitry Ivory HPI: 10/20 00:54 This 49 yrs old Female presents to ER via EMS with complaints of abd pain. kb 00:54 The patient presents with abdominal pain that is diffuse. Onset: The symptoms/episode kb began/occurred yesterday. The symptoms do not radiate. Associated signs and symptoms: none. The symptoms are described as constant. Modifying factors: The symptoms are alleviated by nothing, the symptoms are aggravated by nothing. Severity of pain: At its worst the pain was moderate in the emergency department the pain is unchanged. The patient has not experienced similar symptoms in the past. The patient has not recently seen a physician. 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 - Irregular menses jd3 Historical: - Allergies: 00:30 No Known Allergies; jd3 - Home Meds: 00:30 clopidogrel 75 mg Oral tab 1 tab once daily [Active]; gabapentin 300 mg Oral cap 1 cap jd3 3 times per day [Active]; Cholestyramine Light 4 gram Oral pwpk daily [Active]; Humalog 10 UNITS Sub-Q twice a day [Active]; losartan 50 mg Oral tab 1 tab 2 times per day [Active]; metoprolol tartrate 25 mg Oral tab 1 tab once daily [Active]; Novolog 6 units Sub-Q three times a day [Active]; Dicyclomine Oral [Active]; - PMHx: 00:30 Hypertension; Diabetes - IDDM; Myocardial infarction; jd3 - PSHx: 00:30 Cholecystectomy; Partial Colon Surgery; Heart stents; jd3 - Immunization history:: Adult Immunizations up to date. - Social history:: Smoking status: Patient/guardian denies using tobacco. - Ebola Screening: : Patient negative for fever greater than or equal to 101.5 degrees Fahrenheit, and additional compatible Ebola Virus Disease symptoms. ROS: 00:53 Constitutional: Negative for fever, chills, and weight loss, ENT: Negative for injury, kb pain, and discharge, Neck: Negative for injury, pain, and swelling, Cardiovascular: Negative for chest pain, palpitations, and edema, Respiratory: Negative for shortness of breath, cough, wheezing, and pleuritic chest pain, Back: Negative for injury and pain, MS/Extremity: Negative for injury and deformity, Skin: Negative for injury, rash, and discoloration, Neuro: Negative for headache, weakness, numbness, tingling, and seizure. 00:53 Abdomen/GI: Positive for abdominal pain, Negative for nausea, vomiting, and diarrhea. Exam: 00:53 Constitutional: This is a well developed, well nourished patient who is awake, alert, kb and in no acute distress. Head/Face: Normocephalic, atraumatic. Chest/axilla: Normal chest wall appearance and motion. Nontender with no deformity. No lesions are appreciated. Cardiovascular: Regular rate and rhythm with a normal S1 and S2. No gallops, murmurs, or rubs. Normal PMI, no JVD. No pulse deficits. Respiratory: Lungs have equal breath sounds bilaterally, clear to auscultation and percussion. No rales, rhonchi or wheezes noted. No increased work of breathing, no retractions or nasal flaring. Skin: Warm, dry with normal turgor. Normal color with no rashes, no lesions, and no evidence of cellulitis. MS/ Extremity: Pulses equal, no cyanosis. Neurovascular intact. Full, normal range of motion. Neuro: Awake and alert, GCS 15, oriented to person, place, time, and situation. Cranial nerves II-XII grossly intact. Motor strength 5/5 in all extremities. Sensory grossly intact. Cerebellar exam normal. Normal gait. 00:53 Abdomen/GI: Inspection: abdomen appears normal, Bowel sounds: normal, in all quadrants, Palpation: soft, in all quadrants, moderate abdominal tenderness, in the left lower quadrant. Vital Signs: 00:31 BP 107 / 76; Pulse 72; Resp 19 S; Temp 97.8(O); Pulse Ox 100% on R/A; Weight 53.52 kg jd3 (R); Height 5 ft. 4 in. (162.56 cm) (R); Pain 8/10; 01:28 BP 92 / 66; Pulse 72; Resp 18 S; Pulse Ox 100% on R/A; jd3 02:57 BP 92 / 66; Pulse 71; Resp 16 S; Pulse Ox 100% on R/A; jd3 04:05 BP 96 / 60; Pulse 75; Resp 15 S; Pulse Ox 100% on R/A; jd3 06:02 Pulse 73; Resp 16 S; Pulse Ox 100% on R/A; jd3 00:31 Body Mass Index 20.25 (53.52 kg, 162.56 cm) jd3 MDM: 00:38 Patient medically screened. kb 00:53 Data reviewed: vital signs, nurses notes. Data interpreted: Pulse oximetry: on room air kb is 100 %. Interpretation: normal. 10/20 00:32 Order name: glucometer results - FOR PT WITH NO ID jd3 10/20 00:35 Order name: Glucose, Ancillary Testing; Complete Time: 00:37 EDMS 10/20 01:17 Order name: Urine Dipstick--Ancillary (enter results) [facility] 10/20 00:37 Order name: IV Start; Complete Time: 01:26 kb 10/20 01:17 Order name: Urine --Ancillary (enter results) [facility] 10/20 01:27 Order name: Basic Metabolic Panel; Complete Time: 02:11 EDMS 10/20 01:27 Order name: Acetone Level; Complete Time: 02:11 EDMS 10/20 01:27 Order name: CBC with Automated Diff; Complete Time: 02:11 EDMS 10/20 02:11 Order name: CT Abd/Pelvis - IV Contrast Only 10/20 02:21 Order name: Abdomen EDMS 10/20 00:37 Order name: Urine Dipstick-Ancillary (obtain specimen); Complete Time: 01:07 kb Administered Medications: 01:25 Drug: NS 0.9% 1000 ml Route: IV; Rate: 1000 ml; Site: left jugular; jd3 03:27 Follow up: Response: No adverse reaction; IV Status: Completed infusion; IV Intake: jd3 1000ml Disposition: 03:55 Co-signature as Attending Physician, Dimitry Ivory MD I agree with the assessment and 4 plan of care. Disposition: 10/20/19 03:48 Discharged to Home. Impression: Unspecified abdominal pain. - Condition is Stable. - Discharge Instructions: Abdominal Pain, Adult, Colic, Eofs-pl-Djot. - Prescriptions for Bentyl 20 mg Oral Tablet - take 1 tablet by ORAL route every 6 hours As needed; 20 tablet. - Medication Reconciliation Form, Thank You Letter, Antibiotic Education, Prescription Opioid Use form. - Follow up: Private Physician; When: Upon discharge from the Emergency Department; Reason: Recheck today's complaints, Continuance of care. - Problem is new. - Symptoms have improved. Signatures: Dispatcher [employer] EDSC Connie Kern, Deven Bell RN RN jd3 Dimitry Ivory MD MD tw4 Corrections: (The following items were deleted from the chart) 06:31 03:48 10/20/2019 03:48 Discharged to Home. Impression: Unspecified abdominal pain. jd3 Condition is Stable. Forms are Medication Reconciliation Form, Thank You Letter, Antibiotic Education, Prescription Opioid Use. Follow up: Private Physician; When: Upon discharge from the Emergency Department; Reason: Recheck today's complaints, Continuance of care. Problem is new. Symptoms have improved. tw4
--- NOTE | 2019-10-20 03:52 | ER ---
Nurse's Notes [facility] Name: Jocelin Montalvo Age: 49 yrs Sex: Female : 1970 Arrival Date: 10/20/2019 Time: 00:24 Bed 15 Private MD: Diagnosis: Unspecified abdominal pain Presentation: 10/20 00:25 Presenting complaint: EMS states: "we pick the pt up from the rehab center, [address] they were performing a random drug test and the pt couldn't urinate. the pt is a type 1 diabetic and they took her blood sugar and got 490. when we arrived we got a blood sugar of 311. the pt is reporting abdominal pain with nausea and neuropathy pain to the left hand, but the primary pain is in her stomach. last dose of insulin was given at 1700 yesterday.". Transition of care: patient was received from another setting of care (rehabilitation facility). Onset of symptoms was October 20, 2019. Risk Assessment: Do you want to hurt yourself or someone else? Patient reports no desire to harm self or others. Initial Sepsis Screen: Does the patient meet any 2 criteria? No. Patient's initial sepsis screen is negative. Does the patient have a suspected source of infection? No. Patient's initial sepsis screen is negative. Care prior to arrival: Glucose check: 311. 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 - Irregular menses jd3 Historical: - Allergies: 00:30 No Known Allergies; jd3 - Home Meds: 00:30 clopidogrel 75 mg Oral tab 1 tab once daily [Active]; gabapentin 300 mg Oral cap 1 cap jd3 3 times per day [Active]; Cholestyramine Light 4 gram Oral pwpk daily [Active]; Humalog 10 UNITS Sub-Q twice a day [Active]; losartan 50 mg Oral tab 1 tab 2 times per day [Active]; metoprolol tartrate 25 mg Oral tab 1 tab once daily [Active]; Novolog 6 units Sub-Q three times a day [Active]; Dicyclomine Oral [Active]; - PMHx: 00:30 Hypertension; Diabetes - IDDM; Myocardial infarction; jd3 - PSHx: 00:30 Cholecystectomy; Partial Colon Surgery; Heart stents; jd3 - Immunization history:: Adult Immunizations up to date. - Social history:: Smoking status: Patient/guardian denies using tobacco. - Ebola Screening: : Patient negative for fever greater than or equal to 101.5 degrees Fahrenheit, and additional compatible Ebola Virus Disease symptoms. Screenin:34 Abuse screen: Denies threats or abuse. Nutritional screening: No deficits noted. jd3 Tuberculosis screening: No symptoms or risk factors identified. Fall Risk Ambulatory Aid- None/Bed Rest/Nurse Assist (0 pts). Gait- Normal/Bed Rest/Wheelchair (0 pts) Mental Status- Oriented to own ability (0 pts). Total Ding Fall Scale indicates No Risk (0-24 pts). Assessment: 00:32 General: Appears in no apparent distress. uncomfortable, Behavior is calm, cooperative, jd3 appropriate for age. Pain: Complains of pain in head and abdomen Quality of pain is described as sharp. Neuro: Level of Consciousness is awake, alert, obeys commands, Oriented to person, place, time, situation. Cardiovascular: Denies chest pain, Capillary refill < 3 seconds Patient's skin is warm and dry. Respiratory: Airway is patent Respiratory effort is even, unlabored, Respiratory pattern is regular, symmetrical, Breath sounds are clear bilaterally. Denies cough, shortness of breath. GI: Abdomen is round non-distended, Abd is soft and non tender X 4 quads. Reports lower abdominal pain, upper abdominal pain, nausea, Patient currently denies diarrhea, vomiting. : No signs and/or symptoms were reported regarding the genitourinary system. EENT: No signs and/or symptoms were reported regarding the EENT system. Derm: Skin is intact, Skin is dry, Skin is normal, Skin temperature is warm. Musculoskeletal: Circulation, motion, and sensation intact. Range of motion: intact in all extremities. 01:28 Reassessment: Patient appears in no apparent distress at this time. No changes from jd3 previously documented assessment. Patient and/or family updated on plan of care and expected duration. Pain level reassessed. Patient is alert, oriented x 3, equal unlabored respirations, skin warm/dry/pink. pt reporting continued pain. provider notified. no new orders at this time. 02:29 Reassessment: Patient appears in no apparent distress at this time. Patient and/or jd3 family updated on plan of care and expected duration. Pain level reassessed. Patient is alert, oriented x 3, equal unlabored respirations, skin warm/dry/pink. pt resting with eyes closed, even and unlabored respirations. no signs of distress. call gibbons in reach. 02:56 Reassessment: Patient appears in no apparent distress at this time. No changes from jd3 previously documented assessment. Patient and/or family updated on plan of care and expected duration. Pain level reassessed. Patient is alert, oriented x 3, equal unlabored respirations, skin warm/dry/pink. back from CT, awaiting CT results. 04:00 Reassessment: Patient appears in no apparent distress at this time. Patient and/or jd3 family updated on plan of care and expected duration. Pain level reassessed. Patient is alert, oriented x 3, equal unlabored respirations, skin warm/dry/pink. provider at bedside discussing plan of care with pt. 04:02 Reassessment: Sebastian at [facility] notified of pt discharge. facility reported it can jd3 take an hour or longer for pt transport back to facility. charge nurse notified. awaiting transfer back to facility. 05:45 Reassessment: Patient appears in no apparent distress at this time. Patient and/or jd3 family updated on plan of care and expected duration. Pain level reassessed. Patient is alert, oriented x 3, equal unlabored respirations, skin warm/dry/pink. [facility] called reporting they were sending transportation. pt reported understanding of discharge instructions. Vital Signs: 00:31 BP 107 / 76; Pulse 72; Resp 19 S; Temp 97.8(O); Pulse Ox 100% on R/A; Weight 53.52 kg jd3 (R); Height 5 ft. 4 in. (162.56 cm) (R); Pain 8/10; 01:28 BP 92 / 66; Pulse 72; Resp 18 S; Pulse Ox 100% on R/A; jd3 02:57 BP 92 / 66; Pulse 71; Resp 16 S; Pulse Ox 100% on R/A; jd3 04:05 BP 96 / 60; Pulse 75; Resp 15 S; Pulse Ox 100% on R/A; jd3 06:02 Pulse 73; Resp 16 S; Pulse Ox 100% on R/A; jd3 00:31 Body Mass Index 20.25 (53.52 kg, 162.56 cm) jd3 ED Course: 00:24 Patient arrived in ED. jd3 00:29 Triage completed. jd3 00:31 Arm band placed on. jd3 00:34 Deven Anderson RN is Primary Nurse. jd3 00:34 Patient has correct armband on for positive identification. Placed in gown. Bed in low jd3 position. Call light in reach. Side rails up X2. 00:37 Connie Kern FNP-C is PHCP. kb 00:37 Dimitry Ivory MD is Attending Physician. kb 00:50 Missed attempt(s): 20 gauge in right antecubital area. Bleeding controlled, band aid jd3 applied, catheter tip intact. 00:55 Missed attempt(s): 22 gauge in right wrist. Bleeding controlled, band aid applied, jd3 catheter tip intact. 01:10 Missed attempt(s): 24 gauge in left hand. Bleeding controlled, band aid applied, aa1 catheter tip intact. 01:15 Missed attempt(s): 24 gauge in left forearm. aa1 01:20 Inserted saline lock: 20 gauge in left EJ, using aseptic technique. Blood collected. aa1 03:05 Abdomen In Process Unspecified. EDMS 04:01 No provider procedures requiring assistance completed. jd3 06:01 IV discontinued, intact, bleeding controlled, No redness/swelling at site. Pressure jd3 dressing applied. Administered Medications: 01:25 Drug: NS 0.9% 1000 ml Route: IV; Rate: 1000 ml; Site: left jugular; jd3 03:27 Follow up: Response: No adverse reaction; IV Status: Completed infusion; IV Intake: jd3 1000ml Intake: 03:27 IV: 1000ml; Total: 1000ml. jd3 Outcome: 03:48 Discharge ordered by . tw4 06:01 Condition: stable jd3 06:01 Discharge instructions given to patient, Instructed on discharge instructions, follow up and referral plans. medication usage, Demonstrated understanding of instructions, follow-up care, medications, Prescriptions given X 1. 06:31 Discharged to sent back to [facility] with [facility] staff. jd3 06:31 Patient left the ED. jd3 Signatures: Dispatcher [employer] EDOH Connie Kern FNP-C FNP-Ckb Doreen Marte RN RN aa1 Deven Anderson RN RN jd3 Dimitry Ivory MD MD tw4 Corrections: (The following items were deleted from the chart) 01:28 00:31 BP 107 / 76; Pulse 72bpm; Resp 19bpm; Spontaneous; Pulse Ox 100% RA; 53.52 kg jd3 Reported; Height 5 ft. 4 in. Reported; BMI: 20.2; Pain 8/10; jd3 04:18 04:02 Reassessment: Sebastain Banner MD [facility] notified of pt discharge. facility reported it jd3 can take an hour or longer for pt transport back to facility. awaiting transfer back to facility. jd3
[2019-10-20 06:51] VITALS: O2SAT 100
[2019-10-20 06:53] VITALS: TEMP 97.8
[2019-10-20 06:55] VITALS: BP 96/60
[2019-10-20 09:16] LABS: Urine Blood NEGATIVE (NEG); Urine Glucose 2+ (NEG); Urine Protein NEGATIVE (NEG); Urine Specific Gravity <1.005 (1.005-1.030); Urine pH 5.5 (5.0-7.0)
--- NOTE | 2019-10-20 11:23 | RAD REPORT ---
EXAM DESCRIPTION: CT - Abdomen Pelvis W Contrast - 10/20/2019 3:42 am CLINICAL HISTORY: Abdominal pain. Hyperglycemia of 490 decreased to 311. COMPARISON: None. TECHNIQUE: Axial CT imaging of the abdomen and pelvis performed with intravenous contrast. Reformatt ed coronal and sagittal images reviewed. A dose reduction technique was utilized with automated exposure control according to patient size. FINDINGS: Clear lung bases. Heart is normal in size. Imaged bilateral breast implants appear intact. Liver is enlarged to nearly 20 cm. There is no mass or biliary dilatation. The gallbladder has been r esected. Normal spleen and pancreas. Normal adrenal glands. There is mild distention of the right and left renal pelvis. AP pelvis is 1 cm and 8 mm respectively. There is no obstructing visualized stone or mass. Both kidneys demonstrate normal enhancement. Normal caliber aorta and inferior vena cava. N o adenopathy. Mesenteric vessels appear normal. There is evidence of prior gastric bypass. The small bowel loops are normal in caliber. Appendix is n ot visualized. There are surgical sutures along the cecum. Unremarkable remaining colon. No free air. There is mild generalized mesenteric and omental edema. There is no tea ascites. The bladder is quite distended. There is no filling defect or wall thickening. Normal uterus. Mild pe lvic free fluid. Mild diffuse disc bulge at L3-4 and L4-5. Intact bony pelvis. Normal hips. Subcutaneous tissues are d iffusely edematous. IMPRESSION: 1. Generalized mesenteric and omental edema with no evidence of enteritis or colitis. Me senteric vessels appear well opacified. 2. Mild hepatomegaly. 3. Mild fullness of the right and left renal pelvis secondary to marked bladder distention. No obstru cting stone or mass. 4. Status post gastric bypass without competition. 5. Anasarca. Electronically signed by: Sarah Fried DO 10/20/2019 3:35 AM SILO TENDER Due to temporary technical issues with the PACS/Fluency reporting system, reports are being signed by the in house radiologist as a courtesy to ensure prompt reporting. The interpreting radiologist is f ully responsible for the content of the report.
== END 2019-10-20 06:31 | disposition home or self-care (01) ==
LOC: ER 00:12
DX: R10.9 Unspecified abdominal pain (principal); I10 Essential (primary) hypertension; E11.9 Type 2 diabetes mellitus without complications; Z95.5 Presence of coronary angioplasty implant and graft
CPT/HCPCS: 96361; 85025; 80048; 36415; 82010; 81025; 82947 ×2; 81003; 74177; 96360; 99284; Q9967; J7030

== ENCOUNTER 2019-10-20 15:47 | Emergency (ER) | payer OTHER ==
--- OUTSIDE RECORDS SUMMARY | 2019-10-20 15:59 | XMS REPORT ---
:1970 [facility] Organization [facility] Address [address] [place] [place] [address] Care Team Providers Name Role Phone UNKNOWN, REFFERING Primary Care Provider Unavailable DEEPALI, AMIR Unavailable Unavailable Payers Payer Name Policy [...] Clinicians Facility Department ID 2018-12-08 Inpatient E [facility] MED 7503 15:29:00 Results Test Description Test Time Test Comments Text Results Atomic Results Result Comments - XR CHEST 1 V 2019-09-14 09:25:00 Patient Name: ESTHER LOZANO Unit No: [id number] EXAMS: CPT: [id number] XR CHEST 1 V 47019 CHEST RADIOGRAPH, ONE VIEW: FRONTAL HISTORY: Shortness [...] (928) BATCH NO: N/A Name: ESTHER LOZANO [facility] Phys: Sanjeev Peterson MD [address] [facility] : 1970 Age: 49 Sex: F [place] [address] Loc: N.ERS Exam Date: 09/13/2019 Status: DEP ER PH: FAX: PAGE 1 Signed Report GLUBED 2019-09-13 23:03:00 Test Item Value Reference Range Comments GLUBED (test code=GLUBED) 68 MG/DL 70-105 [id number] 22:50:00 Test Item Value Reference Range Comments GLUBED (test code=GLUBED) 49 MG/DL 70-105 [id number] 22:50:00 Test Item Value Reference Range Comments GLUBED (test code=GLUBED) 44 MG/DL 70-105 BASIC METABOLIC [id number] 22:42:00 Test Item Value Reference Range Comments SODIUM (test code=NA) 129 mmol/L 135-145 POTASSIUM (test code=K) 2.8 mmol/L 3.6-5.0 Critical Value reported toFirst Name:FITO Last Name:CODY READ BACK AND VERIFIEDby N.LAB.[facility] [place], on 09/13/19, @ 8127. CHLORIDE (test code=CL) 90 mmol/L 101-111 CARBON [...] code=CA) 8.5 mg/dL 8.5-10.5 - XR ABDOMEN [id number] 22:19:00Patient Name: ESTHER LOZANO Unit No: [id number] EXAMS: CPT: [id number] XR ABDOMEN 1V 17691 ABDOMEN 1 VIEW: CLINICAL HISTORY: Abdominal pain [...] (2223) BATCH NO: N/A Name: ESTHER LOZANO [facility] Phys: Silvano Hammond DO [address] [facility] : 1970 Age: 49 Sex: [place] [address] Loc: N.ERS Exam Date: 09/13/2019 Status: REG ER PH: FAX: PAGE 1 Signed [id number] 21:40:00 Test Item Value Reference Range Comments TROPONIN-I (test 0.086 ng/mL 0.000-0.034 Critical Value reported toFirst code=TROPI) Name:DR Argueta Name:SAMARIA READ BACK AND VERIFIEDby KWADWO, on 09/13/19, @ 0861. B-TYPE NATRIURETIC [id number] 21:30:00 Test Item Value Reference Range Comments B-TYPE NATRIURETIC PEPTIDE (test code=BNP) 51 pg/ml 0-100 CBC W/AUTO [id number] 21:29:00 Test Item Value Reference Range Comments [...] VOLUME (test 8.5 fl 6.4-10.5 code=MPV) WBC [id number] 21:29:00 Test Item Value Reference Range Comments [...] MORPHOLOGY (test code=PLTMORPH) NORMAL NORMAL BASIC METABOLIC [id number] 21:28:00 Test Item Value Reference Range Comments [...] (test code=CA) 8.8 mg/dL 8.5-10.5 LIVER FUNCTION [id number] 21:28:00 Test Item Value Reference Range Comments TOTAL PROTEIN (test code=PROT) 6.6 g/dL 6.7-8.2 ALBUMIN (test code=ALB) 3.6 g/dL 3.2-5.5 BILIRUBIN TOTAL (test code=BILT) 1.20 mg/dL 0.2-1.3 BILIRUBIN DIRECT (test code=BILD) 0.2 mg/dL 0.00-0.20 SGOT/AST (test code=AST) 178 U/L 10-42 SGPT/ALT (test code=ALT) 111 U/L 10-60 ALKALINE PHOSPHATASE (test code=ALKP) 129 U/L 42-121 [id number] 21:28:00 Test Item Value Reference Range Comments LIPASE (test code=LIP) 31 IU/L 22-51 HCG SERUM [id number] 21:19:00 Test Item Value Reference Range Comments HCG SERUM QUAL (test NEGATIVE NEGATIVE This is a qualitative screening code=HCGQL) test.The quantitative Bhcg may be helpful.Weakly positive results should be repeated in 48 hours. BASIC METABOLIC [id number] 21:16:00 Test Item Value Reference Range Comments [...] (test code=CA) 8.8 mg/dL 8.5-10.5 LIVER FUNCTION [id number] 21:16:00 Test Item Value Reference Range Comments TOTAL PROTEIN (test code=PROT) 6.6 g/dL 6.7-8.2 ALBUMIN (test code=ALB) 3.6 g/dL 3.2-5.5 BILIRUBIN TOTAL (test code=BILT) mg/dL 0.2-1.3 BILIRUBIN DIRECT (test code=BILD) mg/dL 0.00-0.20 SGOT/AST (test code=AST) U/L 10-42 SGPT/ALT (test code=ALT) U/L 10-60 ALKALINE PHOSPHATASE (test code=ALKP) U/L 42-121 [id number] 21:16:00 Test Item Value Reference Range Comments LIPASE (test code=LIP) 31 IU/L 22-51 CBC W/AUTO [id number] 21:06:00 Test Item Value Reference Range Comments [...] VOLUME (test code=MPV) 8.5 fl 6.4-10.5 WBC [id number] 21:06:00 Test Item Value Reference Range Comments TOTAL CELLS COUNTED (test code=TCC) #CELLS RBC MORPHOLOGY COMMENT (test code=MOC) NORMAL PLATELET MORPHOLOGY (test code=PLTMORPH) NORMAL URINALYSIS [id number] 21:06:00 Test Item Value Reference Range Comments [...] code=BACU) None /HPF NONE SEEN CBC W/AUTO [id number] 21:04:00 Test Item Value Reference Range Comments [...] VOLUME (test code=MPV) 8.5 fl 6.4-10.5 WBC [id number] 21:04:00 Test Item Value Reference Range Comments TOTAL CELLS COUNTED (test code=TCC) #CELLS RBC MORPHOLOGY COMMENT (test code=MOC) NORMAL PLATELET MORPHOLOGY (test code=PLTMORPH) NORMAL [id number] 20:52:00 Test Item Value Reference Range Comments GLUBED (test code=GLUBED) 243 MG/DL 70-105 [id number] 15:45:00 Test Item Value Reference Range Comments GLUBED (test code=GLUBED) 86 MG/DL 70-105 BASIC METABOLIC [id number] 14:12:00 Test Item Value Reference Range Comments [...] (test code=CA) 8.3 mg/dL 8.5-10.5 BASIC METABOLIC [id number] 09:30:00 Test Item Value Reference Range Comments SODIUM (test code=NA) 135 mmol/L 135-145 POTASSIUM (test code=K) 2.7 mmol/L 3.6-5.0 Critical Value reported toFirst Name:MIGNON Last Name:SEDRICK RESULTS READ BACK AND VERIFIEDby N.LAB.CL, on 09/07/19, @ 7211. CHLORIDE (test code=CL) 103 mmol/L 101-111 CARBON [...] (test code=CA) 8.5 mg/dL 8.5-10.5 CBC W/AUTO [id number] 09:18:00 Test Item Value Reference Range Comments [...] # (test code=BA#) 0.0 x10 3/uL 0.0-0.1 [id number] 06:45:00 Test Item Value Reference Range Comments GLUBED (test code=GLUBED) 102 MG/DL 70-105 [id number] 22:06:00 Test Item Value Reference Range Comments TROPONIN-I (test code=TROPI) 0.083 ng/mL 0.000-0.034 PREVIOUSLY CALLED [id number] 21:28:00 Test Item Value Reference Range Comments GLUBED (test code=GLUBED) 196 MG/DL 70-105 [id number] 19:05:00 Test Item Value Reference Range Comments GLUBED (test code=GLUBED) 241 MG/DL 70-105 [id number] 16:12:00 Test Item Value Reference Range Comments GLUBED (test code=GLUBED) 254 MG/DL 70-105 [id number] 15:34:00 Test Item Value Reference Range Comments GLUBED (test code=GLUBED) 273 MG/DL 70-105 [id number] 11:20:00 Test Item Value Reference Range Comments GLUBED (test code=GLUBED) 51 MG/DL 70-105 [id number] 11:20:00 Test Item Value Reference Range Comments GLUBED (test code=GLUBED) 54 MG/DL 70-105 CBC W/AUTO [id number] 08:07:00 Test Item Value Reference Range Comments [...] code=BA#) 0.0 x10 3/uL 0.0-0.1 BASIC METABOLIC [id number] 06:25:00 Test Item Value Reference Range Comments [...] code=CREAT) CALCIUM (test code=CA) 7.8 mg/dL 8.5-10.5 [id number] 06:25:00 Test Item Value Reference Range Comments PHOSPHOROUS (test code=PHOS) 4.7 mg/dl 2.5-4.6 [id number] 06:25:00 Test Item Value Reference Range Comments MAGNESIUM (test code=MAG) 1.6 mg/dl 1.8-2.5 [id number] 21:50:00 Test Item Value Reference Range Comments GLUBED (test code=GLUBED) 86 MG/DL 70-105 BASIC METABOLIC [id number] 21:43:00 Test Item Value Reference Range Comments [...] code=CREAT) CALCIUM (test code=CA) 8.5 mg/dL 8.5-10.5 [id number] 21:43:00 Test Item Value Reference Range Comments PHOSPHOROUS (test code=PHOS) < 1.0 mg/dl 2.5-4.6 Critical Value reported toFirst Name: Last Name:RESULTS READ BACK AND VERIFIEDby XI, on 09/05/19, @ 2143. [id number] 21:43:00 Test Item Value Reference Range Comments MAGNESIUM (test code=MAG) 2.0 mg/dl 1.8-2.5 [id number] 20:31:00 Test Item Value Reference Range Comments GLUBED (test code=GLUBED) 80 MG/DL 70-105 [id number] 19:46:00 Test Item Value Reference Range Comments GLUBED (test code=GLUBED) 129 MG/DL 70-105 [id number] 19:15:00 Test Item Value Reference Range Comments GLUBED (test code=GLUBED) 211 MG/DL 70-105 BASIC METABOLIC [id number] 18:31:00 Test Item Value Reference Range Comments [...] 0.44-1.03 CALCIUM (test code=CA) 8.2 mg/dL 8.5-10.5 [id number] 18:31:00 Test Item Value Reference Range Comments PHOSPHOROUS (test code=PHOS) 1.9 mg/dl 2.5-4.6 [id number] 18:31:00 Test Item Value Reference Range Comments MAGNESIUM (test code=MAG) 1.5 mg/dl 1.8-2.5 [id number] 18:21:00 Test Item Value Reference Range Comments TROPONIN-I (test code=TROPI) 0.086 ng/mL 0.000-0.034 PREVIOUSLY CALLED. HGBA1C - GLYCOSYLATED [id number] 18:07:00 Test Item Value Reference Range Comments GLYCOSYLATED HEMOGLOBIN (HA1C) 10.6 % 4.0-6.0 Interpretive Data: Caution (test code=GLYHGB) should be exercised when interpreting the HgbA1c in patients with hemolytic anemia, iron deficiency and when the total hemoglobin is < 9g/dL, due to a decrease in average age of red blood cells URINALYSIS [id number] 17:29:00 Test Item Value Reference Range Comments [...] CAST (test code=FINEU) 2-5 /LPF NONE SEEN [id number] 17:18:00 Test Item Value Reference Range Comments GLUBED (test code=GLUBED) 467 MG/DL 70-105 [id number] 15:53:00 Test Item Value Reference Range Comments GLUBED (test code=GLUBED) 527 MG/DL 70-105 [id number] 15:53:00 Test Item Value Reference Range Comments POTASSIUM (test code=K) 4.4 mmol/L 3.6-5.0 [id number] 15:53:00 Test Item Value Reference Range Comments PHOSPHOROUS (test code=PHOS) 4.4 mg/dl 2.5-4.6 [id number] 15:53:00 Test Item Value Reference Range Comments MAGNESIUM (test code=MAG) 1.7 mg/dl 1.8-2.5 THYROID STIMULATING [id number] 15:53:00 Test Item Value Reference Range Comments THYROID STIMULATING HORMONE (test code=TSH) 1.585 uIU/ml 0.450-5.330 [id number] 15:36:00 Test Item Value Reference Range Comments POTASSIUM (test code=K) 4.4 mmol/L 3.6-5.0 [id number] 15:36:00 Test Item Value Reference Range Comments PHOSPHOROUS (test code=PHOS) 4.4 mg/dl 2.5-4.6 [id number] 15:36:00 Test Item Value Reference Range Comments MAGNESIUM (test code=MAG) 1.7 mg/dl 1.8-2.5 THYROID STIMULATING [id number] 15:36:00 Test Item Value Reference Range Comments THYROID STIMULATING HORMONE (test code=TSH) uIU/ml 0.450-5.330 [id number] 15:33:00 Test Item Value Reference Range Comments POTASSIUM (test code=K) 4.4 mmol/L 3.6-5.0 [id number] 15:33:00 Test Item Value Reference Range Comments PHOSPHOROUS (test code=PHOS) 4.4 mg/dl 2.5-4.6 [id number] 15:33:00 Test Item Value Reference Range Comments MAGNESIUM (test code=MAG) mg/dl 1.8-2.5 THYROID STIMULATING [id number] 15:33:00 Test Item Value Reference Range Comments THYROID STIMULATING HORMONE (test code=TSH) uIU/ml 0.450-5.330 [id number] 15:03:00 Test Item Value Reference Range Comments TROPONIN-I (test 0.081 ng/mL 0.000-0.034 Critical Value reported toFirst code=TROPI) Name:TA Kendall Name:CAITLINRESULTS READ BACK AND VERIFIEDby N.LABLYNDA, on 09/05/19, @ 4353. COMPREHENSIVE METABOLIC [id number] 15:01:00 Test Item Value Reference Range Comments SODIUM (test code=NA) 122 mmol/L 135-145 POTASSIUM (test code=K) 4.3 mmol/L 3.6-5.0 CHLORIDE (test code=CL) 88 mmol/L 101-111 CARBON DIOXIDE (test < 5 mmol/L 21-31 Critical Value reported code=CO2) toFirst Name:TA Last Name:CAITLINRESULTS READ BACK AND VERIFIEDby N.LAB.VES, on 09/05/19, @ 1448. GLUCOSE (test code=GLU) 573 mg/dl 70-100 Critical Value reported toFirst Name:TA Last Name:CAITLINRESULTS READ BACK AND VERIFIEDby N.LAB.VES, on [...] ALKALINE PHOSPHATASE (test 209 U/L 42-121 code=ALKP) [id number] 15:01:00 Test Item Value Reference Range Comments LIPASE (test code=LIP) 24 IU/L 22-51 BETA [id number] 15:01:00 Test Item Value Reference Range Comments BETA HYDROBUTYRATE (test code=BETHYD) 11.77 mmol/L 0.02-0.27 COMPREHENSIVE METABOLIC [id number] 14:48:00 Test Item Value Reference Range Comments SODIUM (test code=NA) 122 mmol/L 135-145 POTASSIUM (test code=K) 4.3 mmol/L 3.6-5.0 CHLORIDE (test code=CL) 88 mmol/L 101-111 CARBON DIOXIDE (test < 5 mmol/L 21-31 Critical Value reported code=CO2) toFirst Name:TA Last Name:CAITLINKitLocateULTS READ BACK AND VERIFIEDby N.LAB.VES, on 09/05/19, @ 1448. GLUCOSE (test code=GLU) 573 mg/dl 70-100 Critical Value reported Yuryirst Name:TA Last Name:JOHN READ BACK AND VERIFIEDby [...] ALKALINE PHOSPHATASE (test 209 U/L 42-121 code=ALKP) [id number] 14:48:00 Test Item Value Reference Range Comments LIPASE (test code=LIP) 24 IU/L 22-51 BETA [id number] 14:48:00 Test Item Value Reference Range Comments BETA HYDROBUTYRATE (test code=BETHYD) mmol/L 0.02-0.27 CBC W/AUTO [id number] 14:33:00 Test Item Value Reference Range Comments [...] x10 3/uL 0.0-0.1 - XR CHEST 1 [id number] 14:12:00Patient Name: ESTHER LOZANO Unit No: [id number] EXAMS: CPT: [id number] XR CHEST 1 V 73102 STUDY: - XR CHEST 1 V INDICATION: [...] m2): Air Kerma (mGy): Trscr Dt/Tm: 09/05/2019 (141) by:Shyla Orig Print D/T: S: 09/05 (1415) BATCH NO: N /A Name: ESTHER LOZANO [facility] Phys: ROME. - Bora Alexander MD [address] [place] : 1970 Age: 49 Sex: [place] [address] Loc: N.ERS Exam Date: 03/2019 Status:PRE ER PH: FAX: PAGE 1 Signed [id number] 13:40:00 Test Item Value Reference Range Comments GLUBED (test code=GLUBED) 558 MG/DL 70-105 [id number] 11:41:00 Test Item Value Reference Range Comments GLUBED (test code=GLUBED) 279 MG/DL 70-105 BASIC METABOLIC [id number] 06:41:00 Test Item Value Reference Range Comments [...] (test code=CA) 8.5 mg/dL 8.5-10.5 CBC W/AUTO [id number] 06:23:00 Test Item Value Reference Range Comments [...] # (test code=BA#) 0.0 x10 3/uL 0.0-0.1 [id number] 06:08:00 Test Item Value Reference Range Comments GLUBED (test code=GLUBED) 323 MG/DL 70-105 [id number] 21:00:00 Test Item Value Reference Range Comments GLUBED (test code=GLUBED) 217 MG/DL 70-105 [id number] 16:59:00 Test Item Value Reference Range Comments GLUBED (test code=GLUBED) 99 MG/DL 70-105 CBC W/AUTO [id number] 11:19:00 Test Item Value Reference Range Comments [...] # (test code=BA#) 0.0 x10 3/uL 0.0-0.1 [id number] 10:58:00 Test Item Value Reference Range Comments TROPONIN-I (test code=TROPI) 0.078 ng/mL 0.000-0.034 PREVIOUSLY CALLED. [id number] 10:56:00 Test Item Value Reference Range Comments MAGNESIUM (test code=MAG) 1.7 mg/dl 1.8-2.5 Spec Comments: Repeat Serum Magnesium level in AM if not alreadyComments to Phleb: ordered.Comments to Phleb: Repeat Serum K level in AM if not already ordered.[id number] 10:54:00 Test Item Value Reference Range Comments GLUBED (test code=GLUBED) 313 MG/DL 70-105 BASIC METABOLIC [id number] 10:54:00 Test Item Value Reference Range Comments [...] code=CREAT) CALCIUM (test code=CA) 8.6 mg/dL 8.5-10.5 [id number] 06:36:00 Test Item Value Reference Range Comments GLUBED (test code=GLUBED) 214 MG/DL 70-105 [id number] 19:50:00 Test Item Value Reference Range Comments GLUBED (test code=GLUBED) 91 MG/DL 70-105 BASIC METABOLIC [id number] 19:35:00 Test Item Value Reference Range Comments [...] code=CREAT) CALCIUM (test code=CA) 8.9 mg/dL 8.5-10.5 [id number] 16:19:00 Test Item Value Reference Range Comments GLUBED (test code=GLUBED) 222 MG/DL 70-105 BASIC METABOLIC [id number] 13:40:00 Test Item Value Reference Range Comments [...] CALCIUM (test code=CA) 8.8 mg/dL 8.5-10.5 LACTIC [id number] 13:17:00 Test Item Value Reference Range Comments LACTIC ACID (test code=LACT) 1.3 mmol/L 0.5-2.0 [id number] 12:51:00 Test Item Value Reference Range Comments GLUBED (test code=GLUBED) 232 MG/DL 70-105 HGBA1C - GLYCOSYLATED [id number] 12:11:00 Test Item Value Reference Range Comments GLYCOSYLATED HEMOGLOBIN (HA1C) 11.3 % 4.0-6.0 Interpretive Data: Caution (test code=GLYHGB) should be exercised when interpreting the HgbA1c in patients with hemolytic anemia, iron deficiency and when the total hemoglobin is < 9g/dL, due to a decrease in average age of red blood cells [id number] 10:17:00 Test Item Value Reference Range Comments GLUBED (test code=GLUBED) 180 MG/DL 70-105 [id number] 09:17:00 Test Item Value Reference Range Comments GLUBED (test code=GLUBED) 273 MG/DL 70-105 B-TYPE NATRIURETIC [id number] 08:38:00 Test Item Value Reference Range Comments B-TYPE NATRIURETIC PEPTIDE (test code=BNP) 48 pg/ml 0-100 BASIC METABOLIC [id number] 08:25:00 Test Item Value Reference Range Comments [...] (test code=CA) 8.6 mg/dL 8.5-10.5 THYROID STIMULATING [id number] 08:25:00 Test Item Value Reference Range Comments THYROID STIMULATING HORMONE (test code=TSH) 1.052 uIU/ml 0.450-5.330 [id number] 08:24:00 Test Item Value Reference Range Comments [...] Risk (3x risk) >23 >11 CBC W/AUTO [id number] 08:07:00 Test Item Value Reference Range Comments [...] code=BA#) 0.0 x10 3/uL 0.0-0.1 BASIC METABOLIC [id number] 08:05:00 Test Item Value Reference Range Comments [...] (test code=CA) 8.6 mg/dL 8.5-10.5 THYROID STIMULATING [id number] 08:05:00 Test Item Value Reference Range Comments THYROID STIMULATING HORMONE (test code=TSH) uIU/ml 0.450-5.330 [id number] 07:29:00 Test Item Value Reference Range Comments GLUBED (test code=GLUBED) 355 MG/DL 70-105 OSMOLALITY [id number] 03:03:00 Test Item Value Reference Range Comments OSMOLALITY SERUM (test code=OSMO) 285 mOsm/kg 275-295 - XR CHEST 1 [id number] 03:03:00Patient Name: ESTHER LOZANO Unit No: [id number] EXAMS: CPT: [id number] XR CHEST 1 V 05416 CHEST 1 VIEW CLINICAL HISTORY: Chest pain [...] m2): Air Kerma (mGy): Trscr Dt/Tm: 2018 (0303) by:[email or web address] Orig Print D/T: S: 08/27/2019 (030) BATCH NO: N/ A Name: ESTHER OLZANO [facility] Phys: Silvano Hammond DO [address] : 03/1970 Age: 49 Sex: [place] [address] Loc: N.ERSD 1 Exam Date: Status: ADM IN PH: FAX: PAGE 1 Signed ReportB-TYPE NATRIURETIC [id number] 02:52:00 Test Item Value Reference Range Comments B-TYPE NATRIURETIC PEPTIDE (test code=BNP) 40 pg/ml 0-100 DRUGS OF ABUSE SCREEN [id number] 02:46:00 Test Item Value Reference Range Comments UR COCAINE (test code=COCAU) NEGATIVE NEGATIVE This is a toxicology qualitative screening test only. Ifconfirmatory testing is desired please request drug screenconfirmation. These results are unconfirmed and should beused only for medical purposes. Cut-off concentration for Cocaine is 300 ng/mLRecommended screening cut-off concentrations by the[facility] Abuse and Mental Health Services Administration. UR [...] is 25 ng/mLRecommended screening cut-off concentrations by the[facility] and Mental Health Services Administration. PROTHROMBIN [id number] 02:12:00 Test Item Value Reference Range Comments [...] - 4.5 recurrent systemic embolism. THROMBOPLASTIN TIME [id number] 02:12:00 Test Item Value Reference Range Comments THROMBOPLASTIN TIME PARTIAL (test code=PTT) 24 SECONDS 25-37 [id number] 02:12:00 Test Item Value Reference Range Comments TROPONIN-I (test 0.074 ng/mL 0.000-0.034 Critical Value reported toFirst code=TROPI) Name:PASCALE Kendall Name:STELLA READ BACK AND VERIFIEDby N.LAB., on 08/27/19, @ 0212. LACTIC [id number] 02:12:00 Test Item Value Reference Range Comments LACTIC ACID (test 2.1 mmol/L 0.5-2.0 Critical Value reported toFirst code=LACT) Name:PASCALEGEOVANI Argueta Name:STELLA READ BACK AND VERIFIEDby N.LAB., on 08/27/19, @ 0212. BASIC METABOLIC [id number] 02:11:00 Test Item Value Reference Range Comments [...] (test code=CA) 9.2 mg/dL 8.5-10.5 LIVER FUNCTION [id number] 02:11:00 Test Item Value Reference Range Comments TOTAL PROTEIN (test code=PROT) 8.1 g/dL 6.7-8.2 ALBUMIN (test code=ALB) 4.4 g/dL 3.2-5.5 BILIRUBIN TOTAL (test code=BILT) 1.50 mg/dL 0.2-1.3 BILIRUBIN DIRECT (test code=BILD) 0.2 mg/dL 0.00-0.20 SGOT/AST (test code=AST) 67 U/L 10-42 SGPT/ALT (test code=ALT) 101 U/L 10-60 ALKALINE PHOSPHATASE (test code=ALKP) 143 U/L 42-121 [id number] 02:11:00 Test Item Value Reference Range Comments LIPASE (test code=LIP) 20 IU/L 22-51 BETA [id number] 02:11:00 Test Item Value Reference Range Comments BETA HYDROBUTYRATE (test code=BETHYD) 3.87 mmol/L 0.02-0.27 HCG SERUM [id number] 02:07:00 Test Item Value Reference Range Comments HCG SERUM QUAL (test NEGATIVE NEGATIVE This is a qualitative screening code=HCGQL) test.The quantitative Bhcg may be helpful.Weakly positive results should be repeated in 48 hours. CBC W/AUTO [id number] 02:00:00 Test Item Value Reference Range Comments [...] code=BA#) 0.1 x10 3/uL 0.0-0.1 BASIC METABOLIC [id number] 01:59:00 Test Item Value Reference Range Comments [...] (test code=CA) 9.2 mg/dL 8.5-10.5 LIVER FUNCTION [id number] 01:59:00 Test Item Value Reference Range Comments TOTAL PROTEIN (test code=PROT) 8.1 g/dL 6.7-8.2 ALBUMIN (test code=ALB) 4.4 g/dL 3.2-5.5 BILIRUBIN TOTAL (test code=BILT) mg/dL 0.2-1.3 BILIRUBIN DIRECT (test code=BILD) mg/dL 0.00-0.20 SGOT/AST (test code=AST) U/L 10-42 SGPT/ALT (test code=ALT) U/L 10-60 ALKALINE PHOSPHATASE (test code=ALKP) U/L 42-121 [id number] 01:59:00 Test Item Value Reference Range Comments LIPASE (test code=LIP) 20 IU/L 22-51 BETA [id number] 01:59:00 Test Item Value Reference Range Comments BETA HYDROBUTYRATE (test code=BETHYD) mmol/L 0.02-0.27 UA RFLX MICR CULT IF [id number] 01:58:00 Test Item Value Reference Range Comments [...] for culture: Sev. Sepsis-no other srcARTERIAL BLOOD [id number] 01:12:00 Test Item Value Reference Range Comments [...] TOTAL HGB (test code=THB) 10.7 g/dL 12.0-16.0 [id number] 16:43:00 Test Item Value Reference Range Comments GLUBED (test code=GLUBED) 350 MG/DL 70-105 [id number] 11:30:00 Test Item Value Reference Range Comments GLUBED (test code=GLUBED) 126 MG/DL 70-105 BASIC METABOLIC [id number] 09:46:00 Test Item Value Reference Range Comments [...] (test code=CA) 8.9 mg/dL 8.5-10.5 CBC W/AUTO [id number] 08:45:00 Test Item Value Reference Range Comments [...] # (test code=BA#) 0.0 x10 3/uL 0.0-0.1 [id number] 08:21:00 Test Item Value Reference Range Comments GLUBED (test code=GLUBED) 235 MG/DL 70-105 [id number] 06:52:00 Test Item Value Reference Range Comments GLUBED (test code=GLUBED) 288 MG/DL 70-105 [id number] 20:06:00 Test Item Value Reference Range Comments GLUBED (test code=GLUBED) 262 MG/DL 70-105 [id number] 17:48:00 Test Item Value Reference Range Comments GLUBED (test code=GLUBED) 225 MG/DL 70-105 [id number] 16:52:00 Test Item Value Reference Range Comments GLUBED (test code=GLUBED) 60 MG/DL 70-105 [id number] 16:52:00 Test Item Value Reference Range Comments GLUBED (test code=GLUBED) 53 MG/DL 70-105 [id number] 11:53:00 Test Item Value Reference Range Comments GLUBED (test code=GLUBED) 214 MG/DL 70-105 [id number] 06:28:00 Test Item Value Reference Range Comments GLUBED (test code=GLUBED) 214 MG/DL 70-105 BASIC METABOLIC [id number] 05:08:00 Test Item Value Reference Range Comments [...] code=CREAT) CALCIUM (test code=CA) 7.9 mg/dL 8.5-10.5 [id number] 05:08:00 Test Item Value Reference Range Comments PHOSPHOROUS (test code=PHOS) 2.6 mg/dl 2.5-4.6 [id number] 05:08:00 Test Item Value Reference Range Comments MAGNESIUM (test code=MAG) 1.7 mg/dl 1.8-2.5 [id number] 04:51:00 Test Item Value Reference Range Comments GLUBED (test code=GLUBED) 141 MG/DL 70-105 [id number] 03:42:00 Test Item Value Reference Range Comments GLUBED (test code=GLUBED) 90 MG/DL 70-105 [id number] 02:50:00 Test Item Value Reference Range Comments GLUBED (test code=GLUBED) 117 MG/DL 70-105 [id number] 01:08:00 Test Item Value Reference Range Comments GLUBED (test code=GLUBED) 191 MG/DL 70-105 BASIC METABOLIC [id number] 00:17:00 Test Item Value Reference Range Comments SODIUM (test code=NA) 131 mmol/L 135-145 POTASSIUM (test code=K) 4.4 mmol/L 3.6-5.0 CHLORIDE (test code=CL) 104 mmol/L 101-111 CARBON DIOXIDE (test 11 mmol/L 21-31 Critical Value reported code=CO2) toFirst Name:SHAQ Kendall Name:ARELY READ BACK AND VERIFIEDby N.LAB.LPP, on 06/21/19, @ 0017. GLUCOSE (test code=GLU) [...] code=CREAT) CALCIUM (test code=CA) 7.7 mg/dL 8.5-10.5 [id number] 00:17:00 Test Item Value Reference Range Comments PHOSPHOROUS (test code=PHOS) 3.1 mg/dl 2.5-4.6 [id number] 00:17:00 Test Item Value Reference Range Comments MAGNESIUM (test code=MAG) 2.9 mg/dl 1.8-2.5 [id number] 00:10:00 Test Item Value Reference Range Comments GLUBED (test code=GLUBED) 248 MG/DL 70-105 [id number] 23:00:00 Test Item Value Reference Range Comments GLUBED (test code=GLUBED) 202 MG/DL 70-105 [id number] 21:43:00 Test Item Value Reference Range Comments GLUBED (test code=GLUBED) 139 MG/DL 70-105 COMPREHENSIVE METABOLIC [id number] 21:09:00 Test Item Value Reference Range Comments [...] ALKALINE PHOSPHATASE 91 U/L 42-121 (test code=ALKP) [id number] 21:09:00 Test Item Value Reference Range Comments PHOSPHOROUS (test code=PHOS) 1.5 mg/dl 2.5-4.6 [id number] 21:09:00 Test Item Value Reference Range Comments MAGNESIUM (test code=MAG) 1.4 mg/dl 1.8-2.5 THYROID STIMULATING [id number] 21:09:00 Test Item Value Reference Range Comments THYROID STIMULATING HORMONE (test code=TSH) 1.407 uIU/ml 0.450-5.330 HGBA1C - GLYCOSYLATED [id number] 21:02:00 Test Item Value Reference Range Comments GLYCOSYLATED HEMOGLOBIN (HA1C) 11.9 % 4.0-6.0 Interpretive Data: Caution (test code=GLYHGB) should be exercised when interpreting the HgbA1c in patients with hemolytic anemia, iron deficiency and when the total hemoglobin is < 9g/dL, due to a decrease in average age of red blood cells COMPREHENSIVE METABOLIC [id number] 20:58:00 Test Item Value Reference Range Comments [...] ALKALINE PHOSPHATASE 91 U/L 42-121 (test code=ALKP) [id number] 20:58:00 Test Item Value Reference Range Comments PHOSPHOROUS (test code=PHOS) 1.5 mg/dl 2.5-4.6 [id number] 20:58:00 Test Item Value Reference Range Comments MAGNESIUM (test code=MAG) 1.4 mg/dl 1.8-2.5 THYROID STIMULATING [id number] 20:58:00 Test Item Value Reference Range Comments THYROID STIMULATING HORMONE (test code=TSH) uIU/ml 0.450-5.330 [id number] 20:37:00 Test Item Value Reference Range Comments GLUBED (test code=GLUBED) 96 MG/DL 70-105 THYROID STIMULATING [id number] 19:49:00 Test Item Value Reference Range Comments THYROID STIMULATING HORMONE (test code=TSH) 1.135 uIU/ml 0.450-5.330 [id number] 19:05:00 Test Item Value Reference Range Comments GLUBED (test code=GLUBED) 241 MG/DL 70-105 [id number] 18:38:00 Test Item Value Reference Range Comments GLUBED (test code=GLUBED) 273 MG/DL 70-105 [id number] 17:42:00 Test Item Value Reference Range Comments GLUBED (test code=GLUBED) 521 MG/DL 70-105 ARTERIAL BLOOD [id number] 16:50:00 Test Item Value Reference Range Comments ARTERIAL BLOOD GAS PH (test 7.103 7.35-7.45 Critical Value reported code=PHA) toFirst Name:MANAGER ACADEMIC Last Name:BOBBYULTS READ BACK AND VERIFIEDby Moe.70, on 06/20/19, @ 1650. ARTERIAL BLOOD GAS PCO2 (test 15.4 mmHg 35-45 Critical Value reported code=PCO2A) toFirst Name:MANAGER ACADEMIC Last Name:YI READ BACK AND VERIFIEDby hcaGEN.70, [...] (test code=THB) 11.0 g/dL 12.0-16.0 BASIC METABOLIC [id number] 16:50:00 Test Item Value Reference Range Comments [...] (test code=CA) 8.6 mg/dL 8.5-10.5 LIVER FUNCTION [id number] 16:50:00 Test Item Value Reference Range Comments TOTAL PROTEIN (test code=PROT) 7.8 g/dL 6.7-8.2 ALBUMIN (test code=ALB) 4.0 g/dL 3.2-5.5 BILIRUBIN TOTAL (test code=BILT) 2.60 mg/dL 0.2-1.3 BILIRUBIN DIRECT (test code=BILD) 0.2 mg/dL 0.00-0.20 SGOT/AST (test code=AST) 39 U/L 10-42 SGPT/ALT (test code=ALT) 60 U/L 10-60 ALKALINE PHOSPHATASE (test code=ALKP) 117 U/L 42-121 [id number] 16:50:00 Test Item Value Reference Range Comments TROPONIN-I (test code=TROPI) 0.080 ng/mL 0.000-0.034 PREVIOUSLY CALLED. UA RFLX MICR CULT IF [id number] 16:15:00 Test Item Value Reference Range Comments [...] Indication for culture: Sev. Sepsis-no other srcLACTIC [id number] 16:12: 00 Test Item Value Reference Range Comments LACTIC ACID (test code=LACT) 1.5 mmol/L 0.5-2.0 CBC W/AUTO [id number] 15:54:00 Test Item Value Reference Range Comments [...] x10 3/uL 0.0-0.1 - XR CHEST 1 [id number] 15:13:00Patient Name: ESTHER LOZANO Unit No: [id number] EXAMS: CPT: [id number] XR CHEST 1 V 21948 History: Weakness Portable AP chest compared to [...] Air Kerma (mGy): Trscr Dt/Tm: 06/20/2019 (1512) by:CarmeloCSK Orig Print D/T: S: 2018 (1515) BATCH NO: N/A Name: ESTHER LOZANO [facility] EDPhys: Chucho Sow MD [address] [facility] : 1970 Age: 49 Sex: F [place] [address] Loc: N.ERS Exam Date: 06/20/2019 Status: PRE ER PH: FAX: PAGE1 Signed [id number] 12:03:00 Test Item Value Reference Range Comments GLUBED (test code=GLUBED) 82 MG/DL 70-105 [id number] 05:53:00 Test Item Value Reference Range Comments GLUBED (test code=GLUBED) 212 MG/DL 70-105 BASIC METABOLIC [id number] 05:24:00 Test Item Value Reference Range Comments [...] 7.0 High Risk (3x risk) >23 >11 [id number] 05:24:00 Test Item Value Reference Range Comments MAGNESIUM (test code=MAG) 1.6 mg/dl 1.8-2.5 CBC W/AUTO [id number] 05:18:00 Test Item Value Reference Range Comments [...] # (test code=BA#) 0.0 x10 3/uL 0.0-0.1 [id number] 21:00:00 Test Item Value Reference Range Comments GLUBED (test code=GLUBED) 169 MG/DL 70-105 [id number] 16:21:00 Test Item Value Reference Range Comments GLUBED (test code=GLUBED) 202 MG/DL 70-105 - XR CHEST 1 [id number] 16:09:00Patient Name: ESTHER LOZANO Unit No: [id number] EXAMS: CPT: [id number] XR CHEST 1 V 06517 CHEST RADIOGRAPH, ONE VIEW: FRONTAL HISTORY: Shortness [...] (Gy m2): AirKerma (mGy): Trscr Dt/Tm: 05/23/2019 (8167) by:[email or web address] Orig Print D/T: S: 05/23/2019 (1613) BATCH NO: N/A Name: ESTHER LOZANO [facility] Phys: HENRY PerryoJory Beltran D [address] [place] : 1970 Age: 49 Sex: F [place] [address] Loc: N.2042 1 Exam Date: 05/23/2019 Status: ADM IN PH: FAX: PAGE 1 Signed [id number] -[id number] 11:50:00 Test Item Value Reference Range Comments GLUBED (test code=GLUBED) 92 MG/DL 70-105 BASIC METABOLIC [id number] 11:39:00 Test Item Value Reference Range Comments [...] code=CREAT) CALCIUM (test code=CA) 8.2 mg/dL 8.5-10.5 [id number] 11:39:00 Test Item Value Reference Range Comments MAGNESIUM (test code=MAG) 1.7 mg/dl 1.8-2.5 CBC W/AUTO [id number] 11:28:00 Test Item Value Reference Range Comments [...] # (test code=BA#) 0.0 x10 3/uL 0.0-0.1 [id number] 09:38:00 Test Item Value Reference Range Comments GLUBED (test code=GLUBED) 62 MG/DL 70-105 [id number] 05:50:00 Test Item Value Reference Range Comments GLUBED (test code=GLUBED) 111 MG/DL 70-105 [id number] 21:20:00 Test Item Value Reference Range Comments GLUBED (test code=GLUBED) 126 MG/DL 70-105 [id number] 17:50:00 Test Item Value Reference Range Comments GLUBED (test code=GLUBED) 200 MG/DL 70-105 [id number] 17:02:00 Test Item Value Reference Range Comments GLUBED (test code=GLUBED) 50 MG/DL 70-105 [id number] 13:36:00 Test Item Value Reference Range Comments GLUBED (test code=GLUBED) 164 MG/DL 70-105 [id number] 12:28:00 Test Item Value Reference Range Comments GLUBED (test code=GLUBED) 68 MG/DL 70-105 [id number] 11:59:00 Test Item Value Reference Range Comments GLUBED (test code=GLUBED) 35 MG/DL 70-105 [id number] 08:40:00 Test Item Value Reference Range Comments GLUBED (test code=GLUBED) 221 MG/DL 70-105 [id number] 07:19:00 Test Item Value Reference Range Comments GLUBED (test code=GLUBED) 517 MG/DL 70-105 [id number] 06:14:00 Test Item Value Reference Range Comments GLUBED (test code=GLUBED) 234 MG/DL 70-105 [id number] 03:28:00 Test Item Value Reference Range Comments GLUBED (test code=GLUBED) 166 MG/DL 70-105 [id number] 01:24:00 Test Item Value Reference Range Comments GLUBED (test code=GLUBED) 80 MG/DL 70-105 BASIC METABOLIC [id number] 01:22:00 Test Item Value Reference Range Comments [...] code=CREAT) CALCIUM (test code=CA) 7.5 mg/dL 8.5-10.5 [id number] 01:22:00 Test Item Value Reference Range Comments PHOSPHOROUS (test code=PHOS) 1.6 mg/dl 2.5-4.6 [id number] 01:22:00 Test Item Value Reference Range Comments MAGNESIUM (test code=MAG) 1.9 mg/dl 1.8-2.5 [id number] 00:26:00 Test Item Value Reference Range Comments GLUBED (test code=GLUBED) 145 MG/DL 70-105 [id number] 22:35:00 Test Item Value Reference Range Comments GLUBED (test code=GLUBED) 264 MG/DL 70-105 [id number] 21:44:00 Test Item Value Reference Range Comments GLUBED (test code=GLUBED) 204 MG/DL 70-105 BASIC METABOLIC [id number] 21:02:00 Test Item Value Reference Range Comments [...] Spec Comments: If not previously obtained.Spec Comments: L5J-Veich on insulin drip. If K is < 3.3 change orComments to Phleb: order to Q1H.[id number] 21:02:00 Test Item Value Reference Range Comments PHOSPHOROUS (test code=PHOS) 1.0 mg/dl 2.5-4.6 Critical Value reported toFirst Name:HUMBERTO Last Name:HEVER READ BACK AND VERIFIEDby NSHADIA.IBT, on 05/21/19, @ 2051. Spec Comments: If not previously obtained.Spec Comments: Q3I-Frfuv on insulin drip. If K is < 3.3 change orComments to Phleb: order to Q1H.CREATINE KINASE (CK)2019-05-21 21:02:00 Test Item Value Reference Range Comments CREATINE KINASE (CK) (test code=CK) 29 U/L 0-210 Spec Comments: If not previously obtained.Spec Comments: S5Z-Rnpky on insulin drip. If K is < 3.3 change orComments to Phleb: order to Q1H.[id number] 21:02:00 Test Item Value Reference Range Comments AMYLASE (test code=BHARAT) 18 U/L 25-125 Spec Comments: If not previously obtained.Spec Comments: H8L-Xjflx on insulin drip. If K is < 3.3 change orComments to Phleb: order to Q1H.[id number] 21:02:00 Test Item Value Reference Range Comments MAGNESIUM (test code=MAG) 1.7 mg/dl 1.8-2.5 Spec Comments: If not previously obtained.Spec Comments: G9K-Ftubk on insulin drip. If K is < 3.3 change orComments to Phleb: order to Q1H.THYROID STIMULATING [id number] 21:02:00 Test Item Value Reference Range Comments THYROID STIMULATING HORMONE (test code=TSH) 0.616 uIU/ml 0.450-5.330 Spec Comments: If not previously obtained.Spec Comments: V5B-Zhcqt on insulin drip. If K is < 3.3 change orComments to Phleb: order to Q1H.BASIC METABOLIC [id number] 20:52:00 Test Item Value Reference Range Comments [...] Spec Comments: If not previously obtained.Spec Comments: Z3K-Stwwc on insulin drip. If K is < 3.3 change orComments to Phleb: order to Q1H.[id number] 20:52:00 Test Item Value Reference Range Comments PHOSPHOROUS (test code=PHOS) 1.0 mg/dl 2.5-4.6 Critical Value reported toFirst Name:HUMBERTO Last Name:HEVER READ BACK AND VERIFIEDby N.LAB.IBT, on 05/21/19, @ 2051. Spec Comments: If not previously obtained.Spec Comments: U0F-Awbbr on insulin drip. If K is < 3.3 change orComments to Phleb: order to Q1H.CREATINE KINASE (CK)2019-05-21 20:52:00 Test Item Value Reference Range Comments CREATINE KINASE (CK) (test code=CK) 29 U/L 0-210 Spec Comments: If not previously obtained.Spec Comments: V0Y-Yugyx on insulin drip. If K is < 3.3 change orComments to Phleb: order to Q1H.[id number] 20:52:00 Test Item Value Reference Range Comments AMYLASE (test code=BHARAT) 18 U/L 25-125 Spec Comments: If not previously obtained.Spec Comments: H0W-Jjgnu on insulin drip. If K is < 3.3 change orComments to Phleb: order to Q1H.[id number] 20:52:00 Test Item Value Reference Range Comments MAGNESIUM (test code=MAG) 1.7 mg/dl 1.8-2.5 Spec Comments: If not previously obtained.Spec Comments: J3F-Duhjp on insulin drip. If K is < 3.3 change orComments to Phleb: order to Q1H.THYROID STIMULATING [id number] 20:52:00 Test Item Value Reference Range Comments THYROID STIMULATING HORMONE (test code=TSH) uIU/ml 0.450-5.330 Spec Comments: If not previously obtained.Spec Comments: Y6J-Ncyjc on insulin drip. If K is < 3.3 change orComments to Phleb: order to Q1H.[id number] 20:42:00 Test Item Value Reference Range Comments GLUBED (test code=GLUBED) 300 MG/DL 70-105 [id number] 20:37:00 Test Item Value Reference Range Comments TROPONIN-I (test code=TROPI) 0.086 ng/mL 0.000-0.034 PREVIOUSLY CALLED. [id number] 20:18:00 Test Item Value Reference Range Comments GLUBED (test code=GLUBED) 326 MG/DL 70-105 HGBA1C - GLYCOSYLATED [id number] 18:10:00 Test Item Value Reference Range Comments GLYCOSYLATED HEMOGLOBIN (HA1C) 10.7 % 4.0-6.0 Interpretive Data: Caution (test code=GLYHGB) should be exercised when interpreting the HgbA1c in patients with hemolytic anemia, iron deficiency and when the total hemoglobin is < 9g/dL, due to a decrease in average age of red blood cells BASIC METABOLIC [id number] 17:24:00 Test Item Value Reference Range Comments [...] 0.44-1.03 CALCIUM (test code=CA) 8.2 mg/dL 8.5-10.5 [id number] 17:24:00 Test Item Value Reference Range Comments MAGNESIUM (test code=MAG) 1.7 mg/dl 1.8-2.5 [id number] 17:22:00 Test Item Value Reference Range Comments TROPONIN-I (test code=TROPI) 0.091 ng/mL 0.000-0.034 PREVIOUSLY CALLED. URINALYSIS [id number] 17:09:00 Test Item Value Reference Range Comments [...] SEEN Spec Comments: If not previously obtainedOSMOLALITY [id number] 17:06:00 Test Item Value Reference Range Comments OSMOLALITY SERUM (test code=OSMO) 301 mOsm/kg 275-295 LACTIC [id number] 16:54:00 Test Item Value Reference Range Comments LACTIC ACID (test 2.6 mmol/L 0.5-2.0 Critical Value reported code=LACT) toFirst Name:DR ROSALES READ BACK AND VERIFIEDby N.LAB.IBT, on 05/21/19, @ 3665. ARTERIAL BLOOD [id number] 14:00:00 Test Item Value Reference Range Comments ARTERIAL BLOOD GAS PH (test 7.198 7.35-7.45 Critical Value reported code=PHA) toFirst Name:MANAGER ACADEMIC Last Name:YI READ BACK AND VERIFIEDby hcaGEN.70, on 05/21/19, @ 1400. ARTERIAL BLOOD GAS PCO2 (test 16.7 mmHg 35-45 Critical Value reported code=PCO2A) toFirst Name:MANAGER ACADEMIC Last Name:YI READ BACK AND VERIFIEDby hcaGEN.70, [...] (test code=THB) 10.7 g/dL 12.0-16.0 COMPREHENSIVE METABOLIC [id number] 13:58:00 Test Item Value Reference Range Comments [...] PHOSPHATASE (test 152 U/L 42-121 code=ALKP) BETA [id number] 13:58:00 Test Item Value Reference Range Comments BETA HYDROBUTYRATE (test code=BETHYD) 11.95 mmol/L 0.02-0.27 COMPREHENSIVE METABOLIC [id number] 12:56:00 Test Item Value Reference Range Comments [...] PHOSPHATASE (test 152 U/L 42-121 code=ALKP) BETA [id number] 12:56:00 Test Item Value Reference Range Comments BETA HYDROBUTYRATE (test code=BETHYD) mmol/L 0.02-0.27 PROTHROMBIN [id number] 12:48:00 Test Item Value Reference Range Comments [...] - 4.5 recurrent systemic embolism. THROMBOPLASTIN TIME [id number] 12:48:00 Test Item Value Reference Range Comments THROMBOPLASTIN TIME PARTIAL (test code=PTT) 17 SECONDS 25-37 CBC W/AUTO [id number] 12:29:00 Test Item Value Reference Range Comments [...] code=BA#) 0.1 x10 3/uL 0.0-0.1 GLUCOSE BEDSIDE [id number] 17:01:00 Test Item Value Reference Range Comments GLUCOSE BEDSIDE TESTING (test code=GLUBED) 105 mg/dL 70-110 COMPREHENSIVE METABOLIC [id number] 16:02:00 Test Item Value Reference Range Comments [...] 208 Unit/L 45-117 code=ALKP) Completed by Nursing: [id number] 16:02:00 Test Item Value Reference Range Comments TROPONIN-I (test < 0.015 NG/ML 0.000-0.045 Negative: </=0.045 Positive: code=TROPI) >/=0.046 Correlation with serial results, other cardiac markers, and clinical findings is necessary to determine the clinical significance of this result. Quantitative results using different methodologies should not be compared to one another as numerical results may varyby method. Completed by Nursing: NOURINALYSIS [id number] 15:45:00 Test Item Value Reference Range Comments [...] code=LEUU) Urine Specimen Type: Clean CatchCBC W/AUTO [id number] 15:43:00 Test Item Value Reference Range Comments [...] NO DIFF/SCN CRITERIA - XR CHEST 1 [id number] 15:40:00 Name: ESTHER LOZANO [facility] : 1970 Age/S: 49 / F [address] Unit #: [id number] Loc: [place] [address] Phys: Mingo James MD Acct: [id number] Dis Date: Status: REG ER PHONE #: [phone] Exam Date: 02/21/2019 1530 FAX #: Reason: chest tightness EXAMS: CPT: [id number] XR CHEST 1 V 88654 Fluoro Time: DAP (Gy m2): Air Kerma [...] PAGE 1 Signed Report Name: ESTHER LOZANO [place] : 03/1970 Age/S: 49 / F [address] [place] Unit #: [id number] Loc: [place] [address] Phys: Mingo James MD Acct: [id number] Dis Date: Status: REG ER PHONE #: [phone] Exam Date: 02/21/2019 1530 FAX #: Reason: chest tightness EXAMS: CPT: [id number] XR CHEST 1 V 27543 Fluoro Time: DAP (Gy m2): Air Kerma (mGy): <Continued> Technologist: Samara Tavarez RT(R)(CT)( MRI) Trnscb Date/Time: 02/21/2019 (1270) tMINHPXC Orig Print D/T: S: 02/21/2019(1918) PAGE 2 Signed ReportGLUCOSE BEDSIDE [id number] 15:15: 00 Test Item Value Reference Range Comments GLUCOSE BEDSIDE TESTING (test code=GLUBED) 290 mg/dL 70-110 GLUCOSE BEDSIDE [id number] 12:06:00 Test Item Value Reference Range Comments GLUCOSE BEDSIDE TESTING (test code=GLUBED) 214 mg/dL 70-110 GLUCOSE BEDSIDE [id number] 07:54:00 Test Item Value Reference Range Comments GLUCOSE BEDSIDE TESTING (test code=GLUBED) 73 mg/dL 70-110 BASIC METABOLIC [id number] 06:15:00 Test Item Value Reference Range Comments [...] (test code=CA) 7.4 MG/DL 8.5-10.1 CBC W/AUTO [id number] 06:15:00 Test Item Value Reference Range Comments [...] (test code=MDIFF) NO DIFF/SCN CRITERIA GLUCOSE BEDSIDE [id number] 21:16:00 Test Item Value Reference Range Comments GLUCOSE BEDSIDE TESTING (test code=GLUBED) 111 mg/dL 70-110 CK [id number] 17:07:00 Test Item Value Reference Range Comments CK ISOENZYMES (test code=CKISOT) 35 U/L 24-173 CK MACRO TYPE 2 (test 0 % Not Observed code=CKMC2%) CKMM/CK3 % (test code=CKMM%) 100 % 97-100 CK MACRO TYPE 1 (test 0 % Not Observed code=CKMC1%) CKMB/CK2 % (test code=CKMB%) 0 % 0-3 CKBB/CK1 % (test code=CKBB%) 0 % >0 Performed At: [facility] [address] [id number] Kyle L MD Ph:[phone] At: [facility] [address] [place], [place] [id number] CN MD Ph:[phone] GLUCOSE BEDSIDE [id number] 11:43:00 Test Item Value Reference Range Comments GLUCOSE BEDSIDE TESTING (test code=GLUBED) 161 mg/dL 70-110 GLUCOSE BEDSIDE [id number] 07:47:00 Test Item Value Reference Range Comments GLUCOSE BEDSIDE TESTING (test code=GLUBED) 149 mg/dL 70-110 PROTHROMBIN [id number] 07:32:00 Test Item Value Reference Range Comments PT PATIENT (test code=PTP) 12.6 SECONDS 9.3-12.9 INTERNATIONAL NORMAL RATIO (test code=INR) 1.09 INR Unit 0.8-1.2 THROMBOPLASTIN TIME [id number] 07:32:00 Test Item Value Reference Range Comments THROMBOPLASTIN TIME PARTIAL (test code=PTT) 25.2 SECONDS 26-35 [id number] 07:32:00 Test Item Value Reference Range Comments FIBRINOGEN (test code=FIB) 143 mg/dL 185-453 PLATELET COUNT W/ [id number] 06:17:00 Test Item Value Reference Range Comments PLATELET COUNT (test code=PLT) 116.0 K/mm3 150-450 MEAN PLATELET VOLUME (test code=MPV) 10.50 fL 7.0-10.5 COMPREHENSIVE METABOLIC [id number] 05:52:00 Test Item Value Reference Range Comments [...] (test 114 Unit/L 45-117 code=ALKP) COMPREHENSIVE METABOLIC [id number] 05:50:00 Test Item Value Reference Range Comments [...] TOTAL (test code=ALKP) Unit/L 45-117 CBC W/AUTO [id number] 05:41:00 Test Item Value Reference Range Comments [...] (test code=MDIFF) NO DIFF/SCN CRITERIA GLUCOSE BEDSIDE [id number] 22:25:00 Test Item Value Reference Range Comments GLUCOSE BEDSIDE TESTING (test code=GLUBED) 144 mg/dL 70-110 GLUCOSE BEDSIDE [id number] 16:44:00 Test Item Value Reference Range Comments GLUCOSE BEDSIDE TESTING (test code=GLUBED) 144 mg/dL 70-110 GLUCOSE BEDSIDE [id number] 11:58:00 Test Item Value Reference Range Comments GLUCOSE BEDSIDE TESTING (test code=GLUBED) 122 mg/dL 70-110 GLUCOSE BEDSIDE [id number] 07:26:00 Test Item Value Reference Range Comments GLUCOSE BEDSIDE TESTING (test code=GLUBED) 91 mg/dL 70-110 FE W/TOTAL IRON BINDING CAP.2019-02-05 06:43:00 Test Item Value Reference Range Comments SERUM IRON (test code=IRON) 41 mcG/DL 50-170 TOTAL IRON BINDING CAPACITY (test code=TIBC) 289 mcG/DL 250-450 IRON SATURATION (test code=FESAT) 14 % calc 12-57 [id number] 06:43:00 Test Item Value Reference Range Comments FERRITIN (test code=YAN) 36.5 NG/ML 3.0-105.0 CBC W/AUTO [id number] 06:21:00 Test Item Value Reference Range Comments [...] (test code=MDIFF) NO DIFF/SCN CRITERIA BASIC METABOLIC [id number] 05:55:00 Test Item Value Reference Range Comments [...] (test code=CA) 7.5 MG/DL 8.5-10.1 GLUCOSE BEDSIDE [id number] 21:10:00 Test Item Value Reference Range Comments GLUCOSE BEDSIDE TESTING (test code=GLUBED) 148 mg/dL 70-110 GLUCOSE BEDSIDE [id number] 16:26:00 Test Item Value Reference Range Comments GLUCOSE BEDSIDE TESTING (test code=GLUBED) 69 mg/dL 70-110 - CT ABD PELVIS [id number] 16:25:00 Name: ESTHER LOZANO [facility] : 1970 Age/S: 49 / F [address] Unit #: [id number] Loc: [place] [address] Phys: Nasim Hunt MD Acct: [id number] Dis Date: Status : ADM IN PHONE #: [phone] Exam Date: 02/04/2019 0280 FAX #: Reason: Diarrhea , r/o Pancreatitis chronic EXAMS: CPT: [id number] CT ABD PELVIS W/CONT 61340 CLINICAL INFORMATION: Diarrhea. Chronic pancreatitis.. Dictation location: [...] Electronically Signed by Radha Farah on02/04/2019 at 1622 Reported and signed by: Mingo Farah M.D. CC: Nasim Hunt MD Technologist:Audra [place], RT(R); ... CTDI: DLP : Trnscb Date/Time: 02/04/2019 (958) [email or web address] Orig Print D/T: S:02/04/2019 (0160) CTDI: DLP: PAGE 1 Signed ReportGLUCOSE BEDSIDE [id number] 11:38:00 Test Item Value Reference Range Comments GLUCOSE BEDSIDE TESTING (test code=GLUBED) 164 mg/dL 70-110 GLUCOSE BEDSIDE [id number] 07:46:00 Test Item Value Reference Range Comments GLUCOSE BEDSIDE TESTING (test code=GLUBED) 73 mg/dL 70-110 BASIC METABOLIC [id number] 06:53:00 Test Item Value Reference Range Comments [...] (test code=CA) 8.0 MG/DL 8.5-10.1 CBC W/AUTO [id number] 06:52:00 Test Item Value Reference Range Comments [...] (test code=MDIFF) NO DIFF/SCN CRITERIA BASIC METABOLIC [id number] 06:49:00 Test Item Value Reference Range Comments [...] concentrations <2 ng/mL are obtained. GLUCOSE BEDSIDE [id number] 20:38:00 Test Item Value Reference Range Comments GLUCOSE BEDSIDE TESTING (test code=GLUBED) 135 mg/dL 70-110 GLUCOSE BEDSIDE [id number] 16:35:00 Test Item Value Reference Range Comments GLUCOSE BEDSIDE TESTING (test code=GLUBED) 332 mg/dL 70-110 GLUCOSE BEDSIDE [id number] 11:55:00 Test Item Value Reference Range Comments GLUCOSE BEDSIDE TESTING (test code=GLUBED) > 600 mg/dL 70-110 CHEMISTRY 8 [id number] 11:53:00 Test Item Value Reference Range Comments [...] POC (test 71 58-135 code=GFRBED) CHEMISTRY 8 [id number] 11:52:00 Test Item Value Reference Range Comments ISTAT-SODIUM (test code=NAP) mmol/L 135-146 ISTAT-POTASSIUM (test code=KP) mmol/L 3.5-4.9 ISTAT-CHLORIDE (test code=CLP) mmol/L 98-109 ISTAT-CARBON DIOXIDE (test code=ISTAT-CO2) mmol/L 24-29 ISTAT CALCIUM IONIZED (test code=ISTAT-IMANI) mmol/L 1.12-1.32 ISTAT-GLUCOSE (test code=GLUP) mg/dL 70-105 ISTAT-BUN (test code=BUNP) mg/dL 8-26 BEDSIDE CREATININE (test code=CREATBED) mg/dL 0.6-1.3 GLOMERULAR FILTRATION RATE POC (test code=GFRBED) 71 58-135 CHEMISTRY 8 [id number] 11:52:00 Test Item Value Reference Range Comments [...] 0.6-1.3 GLOMERULAR FILTRATION RATE POC (test 71 58135 code=GFRBED) GLUCOSE BEDSIDE [id number] 11:34:00 Test Item Value Reference Range Comments GLUCOSE BEDSIDE TESTING (test code=GLUBED) 115 mg/dL 70-110 GLUCOSE BEDSIDE [id number] 07:52:00 Test Item Value Reference Range Comments GLUCOSE BEDSIDE TESTING (test code=GLUBED) 262 mg/dL 70-110 [id number] 04:36:00 Test Item Value Reference Range Comments PHOSPHOROUS (test code=PHOS) 1.8 MG/DL 2.5-4.9 Completed by Nursing: [id number] 04:36:00 Test Item Value Reference Range Comments TROPONIN-I (test < 0.015 NG/ML 0.000-0.045 Negative: </=0.045 Positive: code=TROPI) >/=0.046 Correlation with serial results, other cardiac markers, and clinical findings is necessary to determine the clinical significance of this result. Quantitative results using different methodologies should not be compared to one another as numerical results may varyby method. Completed by Nursing: NOBASIC METABOLIC [id number] 04:25:00 Test Item Value Reference Range Comments [...] 0.6-1.0 CALCIUM (test code=CA) 8.3 MG/DL 8.5-10.1 [id number] 04:25:00 Test Item Value Reference Range Comments MAGNESIUM (test code=MAG) 2.4 MG/DL 1.8-2.4 GLUCOSE BEDSIDE [id number] 04:16:00 Test Item Value Reference Range Comments GLUCOSE BEDSIDE TESTING (test code=GLUBED) 136 mg/dL 70-110 CBC W/AUTO [id number] 04:15:00 Test Item Value Reference Range Comments [...] (test code=MDIFF) NO DIFF/SCN CRITERIA GLUCOSE BEDSIDE [id number] 03:16:00 Test Item Value Reference Range Comments GLUCOSE BEDSIDE TESTING (test code=GLUBED) 25 mg/dL 70-110 [id number] 01:51:00 Test Item Value Reference Range Comments TROPONIN-I (test < 0.015 NG/ML 0.000-0.045 Negative: </=0.045 Positive: code=TROPI) >/=0.046 Correlation with serial results, other cardiac markers, and clinical findings is necessary to determine the clinical significance of this result. Quantitative results using different methodologies should not be compared to one another as numerical results may varyby method. Completed by Nursing: NOCOMPREHENSIVE METABOLIC [id number] 01:39:00 Test Item Value Reference Range Comments [...] 197 Unit/L 45-117 (test code=ALKP) GLUCOSE BEDSIDE [id number] 01:15:00 Test Item Value Reference Range Comments GLUCOSE BEDSIDE TESTING (test code=GLUBED) 120 mg/dL 70-110 GLUCOSE BEDSIDE [id number] 00:32:00 Test Item Value Reference Range Comments GLUCOSE BEDSIDE TESTING (test code=GLUBED) 153 mg/dL 70-110 BASIC METABOLIC [id number] 23:48:00 Test Item Value Reference Range Comments [...] 0.6-1.0 CALCIUM (test code=CA) 8.0 MG/DL 8.5-10.1 [id number] 23:48:00 Test Item Value Reference Range Comments PHOSPHOROUS (test code=PHOS) 1.8 MG/DL 2.5-4.9 [id number] 23:48:00 Test Item Value Reference Range Comments MAGNESIUM (test code=MAG) 1.3 MG/DL 1.8-2.4 HCG SERUM [id number] 23:23:00 Test Item Value Reference Range Comments HCG SERUM QUAL (test code=HCGQL) SERUM NEGATIVE SCREEN NEGATIVE GLUCOSE BEDSIDE [id number] 23:16:00 Test Item Value Reference Range Comments GLUCOSE BEDSIDE TESTING (test code=GLUBED) 123 mg/dL 70-110 GLUCOSE BEDSIDE [id number] 22:16:00 Test Item Value Reference Range Comments GLUCOSE BEDSIDE TESTING (test code=GLUBED) 26 mg/dL 70-110 GLUCOSE BEDSIDE [id number] 21:21:00 Test Item Value Reference Range Comments GLUCOSE BEDSIDE TESTING (test code=GLUBED) 140 mg/dL 70-110 GLUCOSE BEDSIDE [id number] 19:42:00 Test Item Value Reference Range Comments GLUCOSE BEDSIDE TESTING (test code=GLUBED) 404 mg/dL 70-110 RENAL FUNCTION [id number] 19:36:00 Test Item Value Reference Range Comments [...] 0.92 Ratio 1.48-3.22 Avg Completed by Nursing: [id number] 19:36:00 Test Item Value Reference Range Comments AMYLASE (test code=BHARAT) 20 Unit/L 25-115 Completed by Nursing: [id number] 19:36:00 Test Item Value Reference Range Comments LIPASE (test code=LIP) 295 Unit/L 114-286 Completed by Nursing: [id number] 19:36:00 Test Item Value Reference Range Comments MAGNESIUM (test code=MAG) 1.7 MG/DL 1.8-2.4 Completed by Nursing: NOCPK-MB [id number] 19:36:00 Test Item Value Reference Range Comments CREATINE KINASE (CK) (test code=CK) 63 Unit/L 26-192 CKMB (test code=CKMBT) < 1.0 NG/ML 0.0-4.9 RELATIVE % INDEX (test code=REL%) 1.5 % 0.0-2.5 Completed by Nursing: [id number] 19:36:00 Test Item Value Reference Range Comments TROPONIN-I (test < 0.015 NG/ML 0.000-0.045 Negative: </=0.045 Positive: code=TROPI) >/=0.046 Correlation with serial results, other cardiac markers, and clinical findings is necessary to determine the clinical significance of this result. Quantitative results using different methodologies should not be compared to one another as numerical results may varyby method. Completed by Nursing: NOCK [id number] 19:36:00 Test Item Value Reference Range Comments CK MACRO TYPE 2 (test code=CKMC2%) CKMM/CK3 % (test code=CKMM%) CK MACRO TYPE 1 (test code=CKMC1%) CKMB/CK2 % (test code=CKMB%) CKBB/CK1 % (test code=CKBB%) Completed by Nursing: NOGLYCOSYLATED HEMOGLOBIN (HA1C)2019-02-02 19:33:00 Test Item Value Reference Range Comments GLYCOSYLATED HEMOGLOBIN (HA1C) (test code=GLYHGB) 10.3 % A1C 4.2-6.3 RENAL FUNCTION [id number] 18:59:00 Test Item Value Reference Range Comments [...] 0.92 Ratio 1.48-3.22 Avg Completed by Nursing: [id number] 18:59:00 Test Item Value Reference Range Comments AMYLASE (test code=BHARAT) 20 Unit/L 25-115 Completed by Nursing: [id number] 18:59:00 Test Item Value Reference Range Comments LIPASE (test code=LIP) 295 Unit/L 114-286 Completed by Nursing: [id number] 18:59:00 Test Item Value Reference Range Comments MAGNESIUM (test code=MAG) 1.7 MG/DL 1.8-2.4 Completed by Nursing: NOHCG SERUM [id number] 18:59:00 Test Item Value Reference Range Comments HCG SERUM QUAL (test code=HCGQL) SCREEN NEGATIVE Completed by Nursing: NOCPK-MB [id number] 18:59:00 Test Item Value Reference Range Comments CREATINE KINASE (CK) (test code=CK) 63 Unit/L 26-192 CKMB (test code=CKMBT) < 1.0 NG/ML 0.0-4.9 RELATIVE % INDEX (test code=REL%) 1.5 % 0.0-2.5 Completed by Nursing: [id number] 18:59:00 Test Item Value Reference Range Comments TROPONIN-I (test < 0.015 NG/ML 0.000-0.045 Negative: </=0.045 Positive: code=TROPI) >/=0.046 Correlation with serial results, other cardiac markers, and clinical findings is necessary to determine the clinical significance of this result. Quantitative results using different methodologies should not be compared to one another as numerical results may varyby method. Completed by Nursing: NOCK [id number] 18:59:00 Test Item Value Reference Range Comments CK MACRO TYPE 2 (test code=CKMC2%) CKMM/CK3 % (test code=CKMM%) CK MACRO TYPE 1 (test code=CKMC1%) CKMB/CK2 % (test code=CKMB%) CKBB/CK1 % (test code=CKBB%) Completed by Nursing: NORENAL FUNCTION [id number] 18:44:00 Test Item Value Reference Range Comments [...] 0.92 Ratio 1.48-3.22 Avg Completed by Nursing: [id number] 18:44:00 Test Item Value Reference Range Comments AMYLASE (test code=BHARAT) 20 Unit/L 25-115 Completed by Nursing: [id number] 18:44:00 Test Item Value Reference Range Comments LIPASE (test code=LIP) 295 Unit/L 114-286 Completed by Nursing: [id number] 18:44:00 Test Item Value Reference Range Comments MAGNESIUM (test code=MAG) 1.7 MG/DL 1.8-2.4 Completed by Nursing: NOHCG SERUM [id number] 18:44:00 Test Item Value Reference Range Comments HCG SERUM QUAL (test code=HCGQL) SCREEN NEGATIVE Completed by Nursing: NOCPK-MB [id number] 18:44:00 Test Item Value Reference Range Comments CREATINE KINASE (CK) (test code=CK) 63 Unit/L 26-192 CKMB (test code=CKMBT) < 1.0 NG/ML 0.0-4.9 RELATIVE % INDEX (test code=REL%) 1.5 % 0.0-2.5 Completed by Nursing: [id number] 18:44:00 Test Item Value Reference Range Comments TROPONIN-I (test < 0.015 NG/ML 0.000-0.045 Negative: </=0.045 Positive: code=TROPI) >/=0.046 Correlation with serial results, other cardiac markers, and clinical findings is necessary to determine the clinical significance of this result. Quantitative results using different methodologies should not be compared to one another as numerical results may varyby method. Completed by Nursing: NOCK [id number] 18:44:00 Test Item Value Reference Range Comments CK MACRO TYPE 2 (test code=CKMC2%) CKMM/CK3 % (test code=CKMM%) CK MACRO TYPE 1 (test code=CKMC1%) CKMB/CK2 % (test code=CKMB%) CKBB/CK1 % (test code=CKBB%) Completed by Nursing: NOGLUCOSE BEDSIDE [id number] 18:28:00 Test Item Value Reference Range Comments GLUCOSE BEDSIDE TESTING (test code=GLUBED) 542 mg/dL 70-110 [id number] 18:15:00 Test Item Value Reference Range Comments [...] (test code=METHGB) 0.9 % 0.0-0.0 COMPREHENSIVE METABOLIC [id number] 17:36:00 Test Item Value Reference Range Comments [...] (test code=ALKP) 197 Unit/L 45-117 GLUCOSE BEDSIDE [id number] 17:35:00 Test Item Value Reference Range Comments GLUCOSE BEDSIDE TESTING (test code=GLUBED) 504 mg/dL 70-110 URINALYSIS [id number] 17:29:00 Test Item Value Reference Range Comments [...] (NEG) 0 code=LEUU) DRUGS OF ABUSE SCREEN [id number] 17:29:00 Test Item Value Reference Range Comments [...] (test code=METHAURN) NEGATIVE SCcutoff <300 NG/ML URINALYSIS [id number] 17:07:00 Test Item Value Reference Range Comments [...] (NEG) 0 code=LEUU) DRUGS OF ABUSE SCREEN [id number] 17:07:00 Test Item Value Reference Range Comments [...] (test code=METHAURN) SCcutoff <300 NG/ML HEPATIC FUNCTION [id number] 16:18:00 Test Item Value Reference Range Comments TOTAL PROTEIN (test code=PROT) 8.1 G/DL 6.4-8.2 ALBUMIN (test code=ALB) 3.5 G/DL 3.4-5.0 BILIRUBIN TOTAL (test code=BILT) 1.10 MG/DL 0.2-1.2 BILIRUBIN DIRECT (test code=BILD) 0.20 MG/DL 0.00-0.30 BILIRUBIN INDIRECT (test code=BILIND) 0.90 MG/DL 0.2-1.2 SGOT/AST (test code=AST) 71 Unit/L 15-37 SGPT/ALT (test code=ALT) 57 Unit/L 12-78 ALKALINE PHOSPHATASE TOTAL (test code=ALKP) 197 Unit/L 45-117 [id number] 16:18:00 Test Item Value Reference Range Comments LIPASE (test code=LIP) 286 Unit/L 114-286 NT PRO-BRAIN NATRIURETIC [id number] 16:18:00 Test Item Value Reference Range Comments NT PRO-BRAIN NATRIURETIC PEPTI (test code=PROBNP) 438 PG/ML 0-100 CPK-MB [id number] 16:18:00 Test Item Value Reference Range Comments CREATINE KINASE (CK) (test code=CK) 60 Unit/L 26-192 CKMB (test code=CKMBT) < 1.0 NG/ML 0.0-4.9 RELATIVE % INDEX (test code=REL%) 1.6 % 0.0-2.5 CBC W/O [id number] 15:55:00 Test Item Value Reference Range Comments [...] VOLUME (test code=MPV) 10.00 fL 7.0-10.5 PROTHROMBIN [id number] 15:55:00 Test Item Value Reference Range Comments PT PATIENT (test code=PTP) 10.7 SECONDS 9.3-12.9 INTERNATIONAL NORMAL RATIO (test code=INR) 0.93 INR Unit 0.8-1.2 - XR CHEST 1 [id number] 15:47:00 Name: ESTHER LOZANO [facility] : 1970 Age/S: 48 / F [address] Unit #: [id number] Loc: [place] [address] Phys: Weston Mittal MD Acct: [id number] Dis Date: Status: REG ER PHONE #: [phone] Exam Date: 02/02/2019 1530 FAX #: Reason: chest pain EXAMS: CPT: [id number] XR CHEST 1 V 02392 Fluoro Time: DAP (Gy m2): Air Kerma [...] PAGE 1 Signed Report Name: ESTHER LOZANO [facility] : 1970 Age/S: 48 / F [address] [id number] Loc: [place] [address] Phys: Weston Mittal MD Acct: [id number] Dis Date: Status:REG ER PHONE #: [phone] Exam Date: 02/02/2019 1530 FAX #: Reason: chest pain EXAMS: CPT: [id number] XR CHEST 1 V 17882 Fluoro Time: DAP (Gy m2): Air Kerma (mGy): <Continued> Technologist: Ag Machuca, RT(R)(CT); ... Trnscb Date /Time: 02/02/2019 (8127) [email or web address] Orig Print D/T: S: 01/2019 (8552) PAGE 2 Signed ReportTROPONIN I [id number] 15:38:00 Test Item Value Reference Range Comments TROPONIN I RAPID (test 0.00 ng/mL 0.00-0.08 - The use of serial sampling code=TROPIRAP) and testing protocol is a recommended practice- An elevated troponin level alone is often not sufficient for diagnosis of myocardial infarction. GLUCOSE BEDSIDE [id number] 12:22:00 Test Item Value Reference Range Comments GLUCOSE BEDSIDE TESTING (test code=GLUBED) 123 mg/dL 70-110 GLUCOSE BEDSIDE [id number] 08:37:00 Test Item Value Reference Range Comments GLUCOSE BEDSIDE TESTING (test code=GLUBED) 201 mg/dL 70-110 BASIC METABOLIC [id number] 05:09:00 Test Item Value Reference Range Comments [...] (test code=CA) 8.0 MG/DL 8.5-10.1 CBC W/AUTO [id number] 05:04:00 Test Item Value Reference Range Comments [...] (test code=MDIFF) NO DIFF/SCN CRITERIA GLUCOSE BEDSIDE [id number] 01:46:00 Test Item Value Reference Range Comments GLUCOSE BEDSIDE TESTING (test code=GLUBED) 263 mg/dL 70-110 GLUCOSE BEDSIDE [id number] 20:42:00 Test Item Value Reference Range Comments GLUCOSE BEDSIDE TESTING (test code=GLUBED) 195 mg/dL 70-110 GLUCOSE BEDSIDE [id number] 17:29:00 Test Item Value Reference Range Comments GLUCOSE BEDSIDE TESTING (test code=GLUBED) 75 mg/dL 70-110 GLUCOSE BEDSIDE [id number] 13:02:00 Test Item Value Reference Range Comments GLUCOSE BEDSIDE TESTING (test code=GLUBED) 64 mg/dL 70-110 CBC W/AUTO [id number] 11:34:00 Test Item Value Reference Range Comments [...] REQUIRED (test code=MDIFF) NO DIFF/SCN CRITERIA RBC [id number] 11:34:00 Test Item Value Reference Range Comments PLATELET ESTIMATE (test SLIGHTLY DECREASED ADEQUATE PLATE COUNT REVIEWED code=PLTEST) THOUSAND AND VERIFIED. PLATELET MORPHOLOGY NORMAL (test code=PLTMORPH) CBC W/AUTO [id number] 11:32:00 Test Item Value Reference Range Comments [...] (test code=MDIFF) NO DIFF/SCN CRITERIA CBC W/AUTO [id number] 11:32:00 Test Item Value Reference Range Comments [...] (test code=MDIFF) NO DIFF/SCN CRITERIA GLYCOSYLATED HEMOGLOBIN [id number] 10:40:00 Test Item Value Reference Range Comments GLYCOSYLATED HEMOGLOBIN (HA1C) (test 10.1 % A1C 4.2-6.3 code=GLYHGB) ESTIMATED AVERAGE GLUCOSE (test code=EAG) 243 MG/DLest GLUCOSE BEDSIDE [id number] 07:11:00 Test Item Value Reference Range Comments GLUCOSE BEDSIDE TESTING (test code=GLUBED) 178 mg/dL 70-110 COMPREHENSIVE METABOLIC [id number] 06:41:00 Test Item Value Reference Range Comments [...] (test code=ALKP) 93 Unit/L 45-117 CBC W/AUTO [id number] 06:31:00 Test Item Value Reference Range Comments [...] REQUIRED (test code=MDIFF) DIFF/SCN CRITERIA GLUCOSE BEDSIDE [id number] 05:13:00 Test Item Value Reference Range Comments GLUCOSE BEDSIDE TESTING (test code=GLUBED) 133 mg/dL 70-110 GLUCOSE BEDSIDE [id number] 04:39:00 Test Item Value Reference Range Comments GLUCOSE BEDSIDE TESTING (test code=GLUBED) 91 mg/dL 70-110 GLUCOSE BEDSIDE [id number] 04:39:00 Test Item Value Reference Range Comments GLUCOSE BEDSIDE TESTING (test code=GLUBED) 18 mg/dL 70-110 GLUCOSE BEDSIDE [id number] 20:48:00 Test Item Value Reference Range Comments GLUCOSE BEDSIDE TESTING (test code=GLUBED) 228 mg/dL 70-110 GLUCOSE BEDSIDE [id number] 17:05:00 Test Item Value Reference Range Comments GLUCOSE BEDSIDE TESTING (test code=GLUBED) 81 mg/dL 70-110 GLUCOSE BEDSIDE [id number] 11:42:00 Test Item Value Reference Range Comments GLUCOSE BEDSIDE TESTING (test code=GLUBED) 71 mg/dL 70-110 CBC W/AUTO [id number] 07:54:00 Test Item Value Reference Range Comments [...] REQUIRED (test code=MDIFF) NO DIFF/SCN CRITERIA RBC [id number] 07:54:00 Test Item Value Reference Range Comments PLATELET ESTIMATE (test ADEQUATE THOUSAND ADEQUATE PLATELET COUNT REVIEWED code=PLTEST) AND VERIFIED. PLATELET MORPHOLOGY (test NORMAL A FEW AGGREGATES SEEN. code=PLTMORPH) CBC W/AUTO [id number] 07:51:00 Test Item Value Reference Range Comments [...] (test code=MDIFF) NO DIFF/SCN CRITERIA CBC W/AUTO [id number] 07:51:00 Test Item Value Reference Range Comments [...] (test code=MDIFF) NO DIFF/SCN CRITERIA GLUCOSE BEDSIDE [id number] 07:27:00 Test Item Value Reference Range Comments GLUCOSE BEDSIDE TESTING (test code=GLUBED) 206 mg/dL 70-110 BASIC METABOLIC [id number] 06:20:00 Test Item Value Reference Range Comments [...] (test code=CA) 8.1 MG/DL 8.5-10.1 CBC W/AUTO [id number] 06:18:00 Test Item Value Reference Range Comments [...] REQUIRED (test code=MDIFF) DIFF/SCN CRITERIA GLUCOSE BEDSIDE [id number] 20:45:00 Test Item Value Reference Range Comments GLUCOSE BEDSIDE TESTING (test code=GLUBED) 283 mg/dL 70-110 GLUCOSE BEDSIDE [id number] 19:47:00 Test Item Value Reference Range Comments GLUCOSE BEDSIDE TESTING (test code=GLUBED) 150 mg/dL 70-110 GLUCOSE BEDSIDE [id number] 16:52:00 Test Item Value Reference Range Comments GLUCOSE BEDSIDE TESTING (test code=GLUBED) 114 mg/dL 70-110 GLUCOSE BEDSIDE [id number] 07:49:00 Test Item Value Reference Range Comments GLUCOSE BEDSIDE TESTING (test code=GLUBED) 288 mg/dL 70-110 CBC W/AUTO [id number] 07:11:00 Test Item Value Reference Range Comments [...] CONSISTANT code=MDIFF) WITH AUTO DIFFERENTIAL. CBC W/AUTO [id number] 07:11:00 Test Item Value Reference Range Comments [...] REVIEW CONSISTANT code=MDIFF) WITH AUTO DIFFERENTIAL. RBC [id number] 07:11:00 Test Item Value Reference Range Comments PLATELET ESTIMATE (test code=PLTEST) 92,000-115,000 THOUSAND ADEQUATE PLATELET MORPHOLOGY (test NORMAL code=PLTMORPH) CBC W/AUTO [id number] 07:11:00 Test Item Value Reference Range Comments [...] CONSISTANT code=MDIFF) WITH AUTO DIFFERENTIAL. COMPREHENSIVE METABOLIC [id number] 06:34:00 Test Item Value Reference Range Comments [...] PHOSPHATASE TOTAL (test code=ALKP) 73 Unit/L 45-117 [id number] 06:34:00 Test Item Value Reference Range Comments PHOSPHOROUS (test code=PHOS) 1.9 MG/DL 2.5-4.9 [id number] 06:34:00 Test Item Value Reference Range Comments MAGNESIUM (test code=MAG) 1.3 MG/DL 1.8-2.4 CBC W/AUTO [id number] 06:25:00 Test Item Value Reference Range Comments [...] concentrations <2 ng/mL are obtained. GLUCOSE BEDSIDE [id number] 22:22:00 Test Item Value Reference Range Comments GLUCOSE BEDSIDE TESTING (test code=GLUBED) 91 mg/dL 70-110 GLUCOSE BEDSIDE [id number] 21:49:00 Test Item Value Reference Range Comments GLUCOSE BEDSIDE TESTING (test code=GLUBED) 66 mg/dL 70-110 GLUCOSE BEDSIDE [id number] 21:27:00 Test Item Value Reference Range Comments GLUCOSE BEDSIDE TESTING (test code=GLUBED) 63 mg/dL 70-110 GLUCOSE BEDSIDE [id number] 18:18:00 Test Item Value Reference Range Comments GLUCOSE BEDSIDE TESTING (test code=GLUBED) 171 mg/dL 70-110 GLUCOSE BEDSIDE [id number] 18:18:00 Test Item Value Reference Range Comments GLUCOSE BEDSIDE TESTING (test code=GLUBED) 164 mg/dL 70-110 GLUCOSE BEDSIDE [id number] 18:18:00 Test Item Value Reference Range Comments GLUCOSE BEDSIDE TESTING (test code=GLUBED) 145 mg/dL 70-110 GLUCOSE BEDSIDE [id number] 18:18:00 Test Item Value Reference Range Comments GLUCOSE BEDSIDE TESTING (test code=GLUBED) 163 mg/dL 70-110 GLUCOSE BEDSIDE [id number] 16:20:00 Test Item Value Reference Range Comments GLUCOSE BEDSIDE TESTING (test code=GLUBED) 251 mg/dL 70-110 BASIC METABOLIC [id number] 14:11:00 Test Item Value Reference Range Comments [...] (test code=CA) 7.5 MG/DL 8.5-10.1 BASIC METABOLIC [id number] 14:04:00 Test Item Value Reference Range Comments [...] (test code=CA) 7.5 MG/DL 8.5-10.1 GLUCOSE BEDSIDE [id number] 13:18:00 Test Item Value Reference Range Comments GLUCOSE BEDSIDE TESTING (test code=GLUBED) 202 mg/dL 70-110 GLUCOSE BEDSIDE [id number] 13:18:00 Test Item Value Reference Range Comments GLUCOSE BEDSIDE TESTING (test code=GLUBED) 233 mg/dL 70-110 GLUCOSE BEDSIDE [id number] 13:18:00 Test Item Value Reference Range Comments GLUCOSE BEDSIDE TESTING (test code=GLUBED) 254 mg/dL 70-110 GLUCOSE BEDSIDE [id number] 13:18:00 Test Item Value Reference Range Comments GLUCOSE BEDSIDE TESTING (test code=GLUBED) 269 mg/dL 70-110 GLUCOSE BEDSIDE [id number] 13:18:00 Test Item Value Reference Range Comments GLUCOSE BEDSIDE TESTING (test code=GLUBED) 222 mg/dL 70-110 BASIC METABOLIC [id number] 06:51:00 Test Item Value Reference Range Comments [...] (test code=CA) 7.7 MG/DL 8.5-10.1 CBC W/AUTO [id number] 06:35:00 Test Item Value Reference Range Comments [...] (test code=MDIFF) NO DIFF/SCN CRITERIA GLUCOSE BEDSIDE [id number] 06:34:00 Test Item Value Reference Range Comments GLUCOSE BEDSIDE TESTING (test code=GLUBED) 95 mg/dL 70-110 GLUCOSE BEDSIDE [id number] 05:14:00 Test Item Value Reference Range Comments GLUCOSE BEDSIDE TESTING (test code=GLUBED) 122 mg/dL 70-110 GLUCOSE BEDSIDE [id number] 02:34:00 Test Item Value Reference Range Comments GLUCOSE BEDSIDE TESTING (test code=GLUBED) 197 mg/dL 70-110 GLUCOSE BEDSIDE [id number] 00:39:00 Test Item Value Reference Range Comments GLUCOSE BEDSIDE TESTING (test code=GLUBED) 135 mg/dL 70-110 VANCOMYCIN [id number] 22:37:00 Test Item Value Reference Range Comments VANCOMYCIN TROUGH (test code=VANCT) 21.6 mcG/ML 5-15 GLUCOSE BEDSIDE [id number] 22:33:00 Test Item Value Reference Range Comments GLUCOSE BEDSIDE TESTING (test code=GLUBED) 95 mg/dL 70-110 BASIC METABOLIC [id number] 22:25:00 Test Item Value Reference Range Comments [...] (test code=CA) 7.9 MG/DL 8.5-10.1 GLUCOSE BEDSIDE [id number] 21:47:00 Test Item Value Reference Range Comments GLUCOSE BEDSIDE TESTING (test code=GLUBED) 93 mg/dL 70-110 GLUCOSE BEDSIDE [id number] 20:46:00 Test Item Value Reference Range Comments GLUCOSE BEDSIDE TESTING (test code=GLUBED) 98 mg/dL 70-110 GLUCOSE BEDSIDE [id number] 19:38:00 Test Item Value Reference Range Comments GLUCOSE BEDSIDE TESTING (test code=GLUBED) 213 mg/dL 70-110 GLUCOSE BEDSIDE [id number] 19:38:00 Test Item Value Reference Range Comments GLUCOSE BEDSIDE TESTING (test code=GLUBED) 205 mg/dL 70-110 GLUCOSE BEDSIDE [id number] 19:38:00 Test Item Value Reference Range Comments GLUCOSE BEDSIDE TESTING (test code=GLUBED) 306 mg/dL 70-110 BASIC METABOLIC [id number] 18:13:00 Test Item Value Reference Range Comments [...] (test code=CA) 7.6 MG/DL 8.5-10.1 GLUCOSE BEDSIDE [id number] 16:57:00 Test Item Value Reference Range Comments GLUCOSE BEDSIDE TESTING (test code=GLUBED) 384 mg/dL 70-110 GLUCOSE BEDSIDE [id number] 16:57:00 Test Item Value Reference Range Comments GLUCOSE BEDSIDE TESTING (test code=GLUBED) 465 mg/dL 70-110 BASIC METABOLIC [id number] 16:04:00 Test Item Value Reference Range Comments [...] CALCIUM (test code=CA) 7.5 MG/DL 8.5-10.1 URINALYSIS [id number] 13:51:00 Test Item Value Reference Range Comments [...] CELLS (test code=SQU) TRACE /HPF NONE URINALYSIS [id number] 13:14:00 Test Item Value Reference Range Comments [...] Leuk/mcL NEGATIVE code=LEUU) - CT HEAD/BRAIN W/O [id number] 12:48:00 Name: [facility] [place] : 1970 Age/S: 48 / F [id number] Unit #: [id number] Loc: [place] [address] Phys: Nasim Hunt MD Acct: [id number] Dis Date: Status : ADM IN PHONE #: [phone] Exam Date: 01/08/2019 1233 FAX #: Reason: AMS EXAMS: CPT: [id number] CT HEAD/BRAIN W/O CONT 80808 CT HEAD WITHOUT CONTRAST CLINICAL HISTORY : [...] Kaveh Valdivia M.D. CC: Nasim Hunt MD Technologist:TORNI STANTON , RT(R)(CT)(MR) CTDI: DLP: Trnscb Date/Time: 01/08/2019 (1248) [email or web address] Orig Print D/T: S: 01/08/2019 (3470)CTDI: DLP: PAGE 1 Signed ReportHCG [id number] 12:12:00 Test Item Value Reference Range Comments HCG SERUM (test code=HCG) < 1 mi-IU/ML 0-6 0 - 6 NOT > 6 SUGGESTIVE OF EARLY RISES TWO FOLD EVERY 2 DAYS; SUGGEST RECONFIRMING AFTER 2 DAYS. 150,000-200,[address] TRIMESTER 10,000 - 50,000 2ND & 3RD TRIMESTER - USG NDL PLACEMENT (Bxg/Asp)2019-01-08 10:59:00 Name: ESTHER LOZANO [facility] : 1970 Age/S: 48 / F [id number] [address] Unit #: [id number] Loc: [place] [address] Phys: Nasim Hunt MD Acct: [id number] Dis Date: Status : ADM IN PHONE #: [phone] Exam Date: 01/08/2019 1043 FAX #: Reason: CENTRALLINE PLACEMENT EXAMS: CPT: [id number] USG NDL PLACEMENT (Bxg/Asp) 15009 ULTRASOUND-GUIDED CENTRAL LINE PLACEMENT CLINICAL HISTORY: Diabetic [...] Nasim Hunt MD Technologist: AB CHINO Munoz DESKTOP ARCHITECT RVS Trnscb Date/Time: 01/08/2019 (3261) [email or web address] PAGE 1 Signed Report Name: ESTHER LOZANO [place] : 1970 Age/S: 48 / F [address] Unit #: [id number] Loc: [place] [address] Phys: Nasim Hunt MD Acct: [id number] Dis Date: Status: ADM IN PHONE #: [phone] Exam Date: 01/08/2019 1043 FAX #: Reason: CENTRAL LINE PLACEMENT EXAMS:CPT: [id number] USG NDL PLACEMENT (Bxg/Asp) 54354 <Continued> Orig Print D/T: S: 01/08/2019 (6026) Probe: PAGE 2 Signed Report- XR CHEST 1 [id number] 10:56:00 Name: ESTHER LOZANO [place] : 1970 Age/S: 48 / F [address] Unit #: [id number] Loc: [place] [address] Phys: Nasim Hunt MD Acct: [id number] Dis Date: Status: ADM IN PHONE #: [phone] Exam Date: 01/08/2019 1045 FAX #: Reason: CENTRAL LINE PLACEMENT EXAMS: CPT: [id number] XR CHEST 1 V 89895 Fluoro Time: DAP (Gy m2): Air Kerma [...] PAGE 1 Signed Report Name: ESTHER LOZANO [place] : 1970 Age/S: 48 / F [address] Unit #: [id number] Loc: [place] [address] Phys: Nasim Hunt MD Acct: [id number] Dis Date: Status: ADM IN PHONE #: [phone] Exam Date: 01/08/2019 1045 FAX #: Reason: CENTRAL LINE PLACEMENT EXAMS: CPT: [id number] XR CHEST 1 V 99974 Fluoro Time: DAP (Gy m2): Air Kerma (mGy): <Continued> Technologist: Rita Melo, RT(R)(MR) Trnscb Date/Time: 01/08/2019 (1056) t.SDR.PMT Orig Print D/T:S: 01/09/2019 (010) PAGE 2 Signed ReportBASIC METABOLIC [id number] 10:49:00 Test Item Value Reference Range Comments [...] REPORT BLOOD UREA NITROGEN (test 15 MG/DL 05-18 code=BUN) GLOMERULAR FILTRATION RATE 34 estGFR >60 (test code=GFR) CREATININE (test code=CREAT) 1.7 MG/DL 0.6-1.0 CALCIUM (test code=CA) 7.4 MG/DL 8.5-10.1 PROTHROMBIN [id number] 10:12:00 Test Item Value Reference Range Comments PT PATIENT (test code=PTP) 12.3 SECONDS 9.3-12.9 INTERNATIONAL NORMAL RATIO (test code=INR) 1.07 INR Unit 0.8-1.2 THROMBOPLASTIN TIME [id number] 10:12:00 Test Item Value Reference Range Comments THROMBOPLASTIN TIME PARTIAL (test code=PTT) 26.5 SECONDS 26-35 BASIC METABOLIC [id number] 10:11:00 Test Item Value Reference Range Comments SODIUM (test code=NA) 130 mmol/L 134-147 POTASSIUM (test code=K) 2.6 mmol/L 3.4-5.0 Previously reported result: 2.6 mmol/LEdited by: [email or web address] on 01/08/19:1010 ~~~~~~~~~~~~~~~~~~~~~~~~~~~ ~~~~~~~~~~~~~ CHLORIDE (test code=CL) [...] (test code=CA) 7.4 MG/DL 8.5-10.1 BASIC METABOLIC [id number] 10:08:00 Test Item Value Reference Range Comments [...] (test code=CA) 7.4 MG/DL 8.5-10.1 BASIC METABOLIC [id number] 10:01:00 Test Item Value Reference Range Comments [...] (test code=CA) 7.3 MG/DL 8.5-10.1 GLUCOSE BEDSIDE [id number] 09:59:00 Test Item Value Reference Range Comments GLUCOSE BEDSIDE TESTING (test code=GLUBED) 491 mg/dL 70-110 CBC W/AUTO [id number] 09:12:00 Test Item Value Reference Range Comments [...] CONSISTANT code=MDIFF) WITH AUTO DIFFERENTIAL. BASIC METABOLIC [id number] 07:48:00 Test Item Value Reference Range Comments SODIUM (test code=NA) 129 mmol/L 134-147 POTASSIUM (test code=K) 4.1 mmol/L 3.4-5.0 CHLORIDE (test code=CL) 98 mmol/L 100-108 CARBON DIOXIDE (test 6 mmol/L 21-32 Previously reported result: code=CO2) 6 mmol/LEdited by: [email or web address] on 19:0748 ANION GAP (test code=GAP) 25.0 GAP calc 4.0-15.0 GLUCOSE (test code=GLU) 481 MG/DL 70-110 BLOOD UREA NITROGEN (test 14 MG/DL 7-18 code=BUN) GLOMERULAR FILTRATION RATE 40 estGFR >60 (test code=GFR) CREATININE (test code=CREAT) 1.5 MG/DL 0.6-1.0 CALCIUM (test code=CA) 7.3 MG/DL 8.5-10.1 GLUCOSE BEDSIDE [id number] 07:32:00 Test Item Value Reference Range Comments GLUCOSE BEDSIDE TESTING (test code=GLUBED) 467 mg/dL 70-110 BASIC METABOLIC [id number] 07:27:00 Test Item Value Reference Range Comments [...] (test code=CA) 7.3 MG/DL 8.5-10.1 RULE OUT [place] [id number] 07:22:00 Test Item Value Reference Range Comments [...] numerical results may varyby method. CBC W/AUTO [id number] 07:06:00 Test Item Value Reference Range Comments [...] MANUAL DIFF REQUIRED (test code=MDIFF) DIFF/SCN CRITERIA BASIC METABOLIC [id number] 04:29:00 Test Item Value Reference Range Comments [...] any concentrations <2 ng/mL are obtained. PROCALCITONIN (PCT)2019-01-08 04:29:00 Test Item Value Reference [...] concentrations <2 ng/mL are obtained. RULE OUT [place] [id number] 00:34:00 Test Item Value Reference Range Comments [...] numerical results may varyby method. GLUCOSE BEDSIDE [id number] 00:23:00 Test Item Value Reference Range Comments GLUCOSE BEDSIDE TESTING (test code=GLUBED) 196 mg/dL 70-110 - XR CHEST 1 [id number] 22:59:00 Name: ESTHER LOZANO [facility] : 1970 Age/S: 48 / F [address] Unit #: [id number] Loc: [place] [address] Phys: Nasim Hunt MD Acct: [id number] Dis Date: Status: ADM IN PHONE #: [phone] Exam Date: 01/07/2019 8917 FAX #: Reason: SOB EXAMS: CPT: [id number] XR CHEST 1 V 07738 Fluoro Time: DAP (Gy m2): Air Kerma (mGy): HISTORY : Shortness of breath Location code: B2 FINDINGS: Frontal view of the chest demonstrates normal cardiomediastinal silhouette. The trachea is midline. The lungs are clear. There is no effusion or pneumothorax. The bones are intact. IMPRESSION: No acute pulmonary process. at 1713 Reported and signed by: Zaheer Hunt M.D. CC: Nasim Hunt MD PAGE 1 Signed Report Name : ESTHER LOZANO [place] : 1970 Age/S : 48 / F [address] Unit #: [id number] Loc: [place] [address] Phys: Nasim Hunt MD Acct: [id number] Dis Date: Status: ADM IN PHONE #: [phone] Exam Date: 01/07/20192252 FAX #: Reason: SOB EXAMS: CPT: [id number] XR CHEST 1 V 18386 Fluoro Time: DAP (Gy m2): Air Kerma (mGy): <Continued&gt ; Technologist: Makenna Kern, RT(R)(CT); ... Trnscb Date/Time: 2018 (2258) [email or web address] Orig Print D/T: S: 01/07/2019 (7353 ) PAGE 2 Signed [id number] 22:58:00 Test Item Value Reference Range Comments [...] (test code=METHGB) 1.0 % 0.0-0.0 BASIC METABOLIC [id number] 22:44:00 Test Item Value Reference Range Comments [...] Comments PROCALCITONIN (PCT) (test code=PROCAL) ng/ml LACTIC [id number] 22:44:00 Test Item Value Reference Range Comments LACTIC ACID (test code=LACT) 0.8 mmol/L 0.4-2.0 GLUCOSE BEDSIDE [id number] 21:51:00 Test Item Value Reference Range Comments GLUCOSE BEDSIDE TESTING (test code=GLUBED) 126 mg/dL 70-110 GLUCOSE BEDSIDE [id number] 21:28:00 Test Item Value Reference Range Comments GLUCOSE BEDSIDE TESTING (test code=GLUBED) 129 mg/dL 70-110 GLUCOSE BEDSIDE [id number] 20:50:00 Test Item Value Reference Range Comments GLUCOSE BEDSIDE TESTING (test code=GLUBED) 11 mg/dL 70-110 GLUCOSE BEDSIDE [id number] 20:50:00 Test Item Value Reference Range Comments GLUCOSE BEDSIDE TESTING (test code=GLUBED) 127 mg/dL 70-110 BASIC METABOLIC [id number] 17:50:00 Test Item Value Reference Range Comments [...] code=CA) 7.6 MG/DL 8.5-10.1 Completed by Nursing: [id number] 17:50:00 Test Item Value Reference Range Comments TROPONIN-I (test < 0.015 NG/ML 0.000-0.045 Negative: </=0.045 Positive: code=TROPI) >/=0.046 Correlation with serial results, other cardiac markers, and clinical findings is necessary to determine the clinical significance of this result. Quantitative results using different methodologies should not be compared to one another as numerical results may varyby method. Completed by Nursing: NOGLUCOSE BEDSIDE [id number] 16:49:00 Test Item Value Reference Range Comments GLUCOSE BEDSIDE TESTING (test code=GLUBED) 236 mg/dL 70-110 GLUCOSE BEDSIDE [id number] 12:02:00 Test Item Value Reference Range Comments GLUCOSE BEDSIDE TESTING (test code=GLUBED) 72 mg/dL 70-110 LACTIC [id number] 10:52:00 Test Item Value Reference Range Comments LACTIC ACID (test code=LACT) 1.3 mmol/L 0.4-2.0 COMPREHENSIVE METABOLIC [id number] 10:47:00 Test Item Value Reference Range Comments [...] (test 131 Unit/L 45-117 code=ALKP) GLUCOSE BEDSIDE [id number] 10:21:00 Test Item Value Reference Range Comments GLUCOSE BEDSIDE TESTING (test code=GLUBED) 87 mg/dL 70-110 GLUCOSE BEDSIDE [id number] 10:21:00 Test Item Value Reference Range Comments GLUCOSE BEDSIDE TESTING (test code=GLUBED) 313 mg/dL 70-110 GLUCOSE BEDSIDE [id number] 07:03:00 Test Item Value Reference Range Comments GLUCOSE BEDSIDE TESTING (test code=GLUBED) 426 mg/dL 70-110 GLUCOSE BEDSIDE [id number] 07:03:00 Test Item Value Reference Range Comments GLUCOSE BEDSIDE TESTING (test code=GLUBED) 526 mg/dL 70-110 GLUCOSE BEDSIDE [id number] 07:03:00 Test Item Value Reference Range Comments GLUCOSE BEDSIDE TESTING (test code=GLUBED) 525 mg/dL 70-110 LACTIC ACID [id number] 06:02:00 Test Item Value Reference Range Comments LACTIC ACID POC (test code=LACTP) 2.11 MMOL/L 0.90-1.70 VENOUS BLOOD [id number] 05:54:00 Test Item Value Reference Range Comments [...] GAS SITE (test code=SITEV) Other Site DESCRIPTION [id number] 05:50:00 Test Item Value Reference Range Comments TROPONIN-I (test < 0.015 NG/ML 0.000-0.045 Negative: </=0.045 Positive: code=TROPI) >/=0.046 Correlation with serial results, other cardiac markers, and clinical findings is necessary to determine the clinical significance of this result. Quantitative results using different methodologies should not be compared to one another as numerical results may varyby method. Completed by Nursing: NOACETONE [id number] 05:50:00 Test Item Value Reference Range Comments ACETONE QUAL (test code=ACETNQL) SMALL SCREEN NEG Completed by Nursing: [id number] 05:49:00 Test Item Value Reference Range Comments TROPONIN-I (test < 0.015 NG/ML 0.000-0.045 Negative: </=0.045 Positive: code=TROPI) >/=0.046 Correlation with serial results, other cardiac markers, and clinical findings is necessary to determine the clinical significance of this result. Quantitative results using different methodologies should not be compared to one another as numerical results may varyby method. Completed by Nursing: NOACETONE [id number] 05:49:00 Test Item Value Reference Range Comments ACETONE QUAL (test code=ACETNQL) SCREEN NEG Completed by Nursing: NOCOMPREHENSIVE METABOLIC [id number] 05:46:00 Test Item Value Reference Range Comments [...] PHOSPHATASE TOTAL (test code=ALKP) 157 Unit/L 45-117 [id number] 05:46:00 Test Item Value Reference Range Comments AMYLASE (test code=BHARAT) 38 Unit/L 25-115 [id number] 05:46:00 Test Item Value Reference Range Comments LIPASE (test code=LIP) 334 Unit/L 114-286 CBC W/AUTO [id number] 05:25:00 Test Item Value Reference Range Comments [...] (test code=MDIFF) NO DIFF/SCN CRITERIA CHEMISTRY 8 [id number] 05:16:00 Test Item Value Reference Range Comments ISTAT-SODIUM (test code=NAP) mmol/L 135-146 ISTAT-POTASSIUM (test code=KP) mmol/L 3.5-4.9 ISTAT-CHLORIDE (test code=CLP) mmol/L 98-109 ISTAT-CARBON DIOXIDE (test code=ISTAT-CO2) mmol/L 24-29 ISTAT CALCIUM IONIZED (test code=ISTAT-IMANI) mmol/L 1.12-1.32 ISTAT-GLUCOSE (test code=GLUP) mg/dL 70-105 ISTAT-BUN (test code=BUNP) mg/dL 8-26 BEDSIDE CREATININE (test code=CREATBED) mg/dL 0.6-1.3 GLOMERULAR FILTRATION RATE POC (test code=GFRBED) 114 58-135 CHEMISTRY 8 [id number] 05:16:00 Test Item Value Reference Range Comments [...] 114 58-135 code=GFRBED) - XR CHEST 1 [id number] 05:16:00 Name: ESTHER LOZANO [facility] : 1970 Age/S: 48 / F [address] Unit #: [id number] Loc: [place] [address] Phys: Mingo James MD Acct: [id number] Dis Date: Status: REG ER PHONE #: [phone] Exam Date: 01/07/2019 05 FAX #: Reason: dka EXAMS: CPT: [id number] XR CHEST 1 V 35521 Fluoro Time: DAP (Gy m2): Air Kerma [...] PAGE 1 Signed Report Name: ESTHER LOZANO [facility] : 1970 Age/S: 48 / F [address] Unit #: [id number] Loc: [place] [address] Phys: Mingo James MD Acct: [id number] Dis Date: Status: REG ER PHONE #: [phone] Exam Date: 01/07/2019 05 FAX #: Reason: dka EXAMS: CPT: [id number] XR CHEST 1 V 93390 Fluoro Time: DAP (Gy m2): Air Kerma ( mGy): <Continued> Technologist: Leda Brower RT(R)(CT) Trnscb Date/Time: 01/07/2019 (05) Moriah5 Orig Print D/T: S: 01/07/2019 (0584) PAGE 2 Signed ReportComprehensive Metabolic [id number] 05:56:00 Test Item Value Reference Range Comments [...] race is not provided, and the patient isAfrican-Zimbabwean, multiply by 1.212. If sex is not [...] the National Kidney Foundation,http://nkdep.nih .gov CBC with [id number] 05:31:00 Test Item Value Reference Range Comments [...] Lymph Abs (test code=ALYMPH) 3.0 K/cumm 0.5-4.6 [place] Abs (test code=AMONO) 0.5 K/cumm 0.0-1.2 Eos Abs (test code=AEOS) 0.06 K/cumm 0.00-0.74 RBC Morphology (test Not Indicated code=RBCMRPH) Platelet Est (test code=PLTEST) Adequate Platelets on Smear CK [id number] 05:09:00 Test Item Value Reference Range Comments CK (test code=CK) 48 U/L 26-192 Troponin [id number] 05:07:00 Test Item Value Reference Range Comments Troponin T (test code=HIEN) <0.010 ng/mL 0.000-0.090 Urinalysis [id number] 04:50:00 Test Item Value Reference Range Comments Color (test code=COLOR) Yellow Yellow,Straw,Pl yellow Clarity (test code=CLAR) Clear Clear Specific [place] (test code=SPGR) 1.005 1.001-1.035 pH (test code=PH) [...]
[2019-10-20] MEDS ORDERED: ONDANSETRON 4 MG (ODT) TAB ONE (16:14)
[2019-10-20 17:43] LABS: Urine Blood NEGATIVE (NEG); Urine Glucose 2+ (NEG); Urine Protein NEGATIVE (NEG)
--- NOTE | 2019-10-20 18:07 | ER ---
Nurse's Notes [facility] Name: Jocelin Montalvo Age: 49 yrs Sex: Female : 1970 Arrival Date: 10/20/2019 Time: 15:51 Bed 19 Private MD: Diagnosis: Hypoglycemia, unspecified-resolved Presentation: 10/20 15:52 Presenting complaint: EMS states: called out for low blood BGL [employer], was given lots em of snacks and then EMS checked BGL was 123, pt reports not eating since last night, reports nausea and AGUDELO. Transition of care: patient was not received from another setting of care. Onset of symptoms was October 20, 2019. Risk Assessment: Do you want to hurt yourself or someone else? Patient reports no desire to harm self or others. Initial Sepsis Screen: Does the patient meet any 2 criteria? No. Patient's initial sepsis screen is negative. Does the patient have a suspected source of infection? No. Patient's initial sepsis screen is negative. Care prior to arrival: None. 15:52 Method Of Arrival: EMS: [facility] em 16:13 Acuity: TOBIAS 4 iw Historical: - Allergies: 15:58 No Known Allergies; em - Home Meds: 15:58 Cholestyramine Light 4 gram Oral pwpk daily [Active]; clopidogrel 75 mg Oral tab 1 tab em once daily [Active]; Dicyclomine Oral [Active]; gabapentin 300 mg Oral cap 1 cap 3 times per day [Active]; Humalog 10 UNITS Sub-Q twice a day [Active]; losartan 50 mg Oral tab 1 tab 2 times per day [Active]; metoprolol tartrate 25 mg Oral tab 1 tab once daily [Active]; Novolog 6 units Sub-Q three times a day [Active]; - PMHx: 15:58 Diabetes - IDDM; Hypertension; Myocardial infarction; em - PSHx: 15:58 Cholecystectomy; Partial Colon Surgery; Heart stents; em - Immunization history:: Adult Immunizations up to date. - Social history:: Smoking status: Patient/guardian denies using tobacco. - Ebola Screening: : Patient negative for fever greater than or equal to 101.5 degrees Fahrenheit, and additional compatible Ebola Virus Disease symptoms Patient denies exposure to infectious person Patient denies travel to an Ebola-affected area in the 21 days before illness onset No symptoms or risks identified at this time. Screenin:59 Abuse screen: Denies threats or abuse. Nutritional screening: No deficits noted. em Tuberculosis screening: No symptoms or risk factors identified. Fall Risk None identified. Assessment: 15:58 General: Appears in no apparent distress. comfortable, ill, Behavior is calm, em cooperative. Pain: Complains of pain in head and abdomen Pain currently is 8 out of 10 on a pain scale. Neuro: Level of Consciousness is awake, alert, obeys commands, Oriented to person, place, time, situation, Appropriate for age. Cardiovascular: Capillary refill < 3 seconds Patient's skin is warm and dry. Respiratory: Airway is patent Respiratory effort is even, unlabored, Respiratory pattern is regular, symmetrical. GI: Abdomen is flat, Reports nausea, Patient currently denies vomiting. Derm: Skin is intact, is healthy with good turgor, Skin is pink, warm \T\ dry. Musculoskeletal: Capillary refill < 3 seconds, Range of motion: intact in all extremities. 16:21 Reassessment: sandwich and chips given, pending dinner tray. em 17:34 Reassessment: Patient appears in no apparent distress at this time. Patient and/or em family updated on plan of care and expected duration. Pain level reassessed. Patient is alert, oriented x 3, equal unlabored respirations, skin warm/dry/pink. Patient states feeling better. 18:35 Reassessment: Patient appears in no apparent distress at this time. Patient and/or em family updated on plan of care and expected duration. Pain level reassessed. Patient is alert, oriented x 3, equal unlabored respirations, skin warm/dry/pink. feeling better, pending transportation from [facility]. Vital Signs: 15:58 BP 92 / 65; Pulse 81; Resp 16; Temp 97.9(O); Pulse Ox 100% on R/A; Weight 53.52 kg; em Height 5 ft. 4 in. (162.56 cm); Pain 8/10; 17:35 BP 98 / 73; Pulse 109; Resp 23; Pulse Ox 100% on R/A; mh5 15:58 Body Mass Index 20.25 (53.52 kg, 162.56 cm) em ED Course: 15:51 Patient arrived in ED. em 15:52 Connie Kern FNP-C is PHCP. kb 15:52 Juan Vigil MD is Attending Physician. kb 15:58 Arm band placed on. em 15:59 Patient has correct armband on for positive identification. Bed in low position. Call em light in reach. Adult w/ patient. 16:00 Darien Rowe LVN is Primary Nurse. em 16:14 Triage completed. iw 16:23 Warm blanket given. Diet: Patient given snack. FINGER GLUCOSE 101. mh5 17:30 Diet: Patient given a regular meal tray. mh5 18:35 No provider procedures requiring assistance completed. Patient did not have IV access em during this emergency room visit. Administered Medications: 16:13 Drug: Zofran 4 mg Route: PO; em 16:30 Follow up: Response: No adverse reaction; Nausea is decreased em Outcome: 18:06 Discharge ordered by MD. kb 19:03 Discharged to home ambulatory. em 19:03 Condition: good 19:03 Discharge instructions given to patient, Instructed on discharge instructions, follow up and referral plans. Demonstrated understanding of instructions, follow-up care. 19:04 Patient left the ED. em Signatures: Connie Kern FNP-C FIELD SERVICE POULTRY TECHNICIAN-Darien Reeder LVN LVN em Jolie Worthington, MABLE RN Bridgette Ortega [facility]
--- NOTE | 2019-10-20 18:07 | EDPHYS ---
Physician Documentation [facility] Name: Jocelin Montalvo Age: 49 yrs Sex: Female : 1970 Arrival Date: 10/20/2019 Time: 15:51 Bed 19 Private MD: ED Physician Juan Vigil HPI: 10/20 16:00 This 49 yrs old Female presents to ER via EMS with complaints of Low Blood kb Sugar. 16:00 The patient or guardian reports hypoglycemia. Onset: The symptoms/episode kb began/occurred just prior to arrival. Associated signs and symptoms: Pertinent positives: None. Current symptoms: In the emergency department the patient's symptoms have improved, moderately. The patient has experienced similar episodes in the past. The patient has been recently seen at the [facility] Emergency Department, yesterday, hyperglycemia. Pt was seen here yesterday for abd pain and hyperglycemia. Labs and CT were negative. Pt given NS bolus, no insulin. Today they checked her sugar at [facility] and it was 58 so they called 911. Pt awake, alert and oriented. States they gave her some orange juice and nutty bars to get her sugar up. States she hasn't eaten since dinner last night.. Historical: - Allergies: 15:58 No Known Allergies; em - Home Meds: 15:58 Cholestyramine Light 4 gram Oral pwpk daily [Active]; clopidogrel 75 mg Oral tab 1 tab em once daily [Active]; Dicyclomine Oral [Active]; gabapentin 300 mg Oral cap 1 cap 3 times per day [Active]; Humalog 10 UNITS Sub-Q twice a day [Active]; losartan 50 mg Oral tab 1 tab 2 times per day [Active]; metoprolol tartrate 25 mg Oral tab 1 tab once daily [Active]; Novolog 6 units Sub-Q three times a day [Active]; - PMHx: 15:58 Diabetes - IDDM; Hypertension; Myocardial infarction; em - PSHx: 15:58 Cholecystectomy; Partial Colon Surgery; Heart stents; em - Immunization history:: Adult Immunizations up to date. - Social history:: Smoking status: Patient/guardian denies using tobacco. - Ebola Screening: : Patient negative for fever greater than or equal to 101.5 degrees Fahrenheit, and additional compatible Ebola Virus Disease symptoms Patient denies exposure to infectious person Patient denies travel to an Ebola-affected area in the 21 days before illness onset No symptoms or risks identified at this time. ROS: 16:00 Constitutional: Negative for fever, chills, and weight loss, ENT: Negative for injury, kb pain, and discharge, Neck: Negative for injury, pain, and swelling, Cardiovascular: Negative for chest pain, palpitations, and edema, Respiratory: Negative for shortness of breath, cough, wheezing, and pleuritic chest pain, Abdomen/GI: Negative for abdominal pain, nausea, vomiting, diarrhea, and constipation, Back: Negative for injury and pain, MS/Extremity: Negative for injury and deformity, Skin: Negative for injury, rash, and discoloration, Neuro: Negative for headache, weakness, numbness, tingling, and seizure. Exam: 16:00 Constitutional: This is a well developed, well nourished patient who is awake, alert, kb and in no acute distress. Head/Face: Normocephalic, atraumatic. ENT: Nares patent. No nasal discharge, no septal abnormalities noted. Tympanic membranes are normal and external auditory canals are clear. Oropharynx with no redness, swelling, or masses, exudates, or evidence of obstruction, uvula midline. Mucous membranes moist. Neck: Trachea midline, no thyromegaly or masses palpated, and no cervical lymphadenopathy. Supple, full range of motion without nuchal rigidity, or vertebral point tenderness. No Meningismus. Chest/axilla: Normal chest wall appearance and motion. Nontender with no deformity. No lesions are appreciated. Cardiovascular: Regular rate and rhythm with a normal S1 and S2. No gallops, murmurs, or rubs. Normal PMI, no JVD. No pulse deficits. Respiratory: Lungs have equal breath sounds bilaterally, clear to auscultation and percussion. No rales, rhonchi or wheezes noted. No increased work of breathing, no retractions or nasal flaring. Abdomen/GI: Soft, non-tender, with normal bowel sounds. No distension or tympany. No guarding or rebound. No evidence of tenderness throughout. Skin: Warm, dry with normal turgor. Normal color with no rashes, no lesions, and no evidence of cellulitis. MS/ Extremity: Pulses equal, no cyanosis. Neurovascular intact. Full, normal range of motion. Neuro: Awake and alert, GCS 15, oriented to person, place, time, and situation. Cranial nerves II-XII grossly intact. Motor strength 5/5 in all extremities. Sensory grossly intact. Cerebellar exam normal. Normal gait. 16:00 Cardiovascular: Edema: 1+ edema to level of left foot and right foot. Vital Signs: 15:58 BP 92 / 65; Pulse 81; Resp 16; Temp 97.9(O); Pulse Ox 100% on R/A; Weight 53.52 kg; em Height 5 ft. 4 in. (162.56 cm); Pain 8/10; 17:35 BP 98 / 73; Pulse 109; Resp 23; Pulse Ox 100% on R/A; mh5 15:58 Body Mass Index 20.25 (53.52 kg, 162.56 cm) em MDM: 15:52 Patient medically screened. kb 16:03 Data reviewed: vital signs, nurses notes. Data interpreted: Pulse oximetry: on room air kb is 100 %. Interpretation: normal. 18:07 Counseling: I had a detailed discussion with the patient and/or guardian regarding: the kb historical points, exam findings, and any diagnostic results supporting the discharge/admit diagnosis, lab results, the need for outpatient follow up, a family practitioner, to return to the emergency department if symptoms worsen or persist or if there are any questions or concerns that arise at home. 10/20 16:23 Order name: Glucose, Ancillary Testing; Complete Time: 16:27 EDMS 10/20 16:32 Order name: Urine Dipstick--Ancillary (enter results); Complete Time: 17:45 eb 10/20 15:53 Order name: Diet Regular; Complete Time: 15:53 kb 10/20 16:32 Order name: Urine --Ancillary (enter results); Complete Time: 17:45 eb 10/20 18:05 Order name: Glucose, Ancillary Testing; Complete Time: 18:06 EDMS 10/20 17:37 Order name: Blood Glucose Level; Complete Time: 17:53 kb Administered Medications: 16:13 Drug: Zofran 4 mg Route: PO; em 16:30 Follow up: Response: No adverse reaction; Nausea is decreased em Disposition: 10/20/19 18:06 Discharged to Home. Impression: Hypoglycemia, unspecified - resolved. - Condition is Stable. - Discharge Instructions: Hypoglycemia, [id number]. - Medication Reconciliation Form, Thank You Letter, Antibiotic Education, Prescription Opioid Use form. - Follow up: Emergency Department; When: As needed; Reason: Worsening of condition. Follow up: Private Physician; When: 2 - 3 days; Reason: Recheck today's complaints, Continuance of care, Re-evaluation by your physician. Addendum: 10/26/2019 07:08 Co-signature as Attending Physician, Juan Vigil MD. r n Signatures: Dispatcher [employer] EDMS Connie Kern, DIRECTOR POWER-C DIRECTOR POWER-Ckb Darien Rowe, SKOOG OPERATOR SKOOG OPERATOR em Juan Vigil MD MD call center rn: (The following items were deleted from the chart) 10/20 19:04 18:06 10/20/2019 18:06 Discharged to Home. Impression: Hypoglycemia, unspecified - em resolved. Condition is Stable. Forms are Medication Reconciliation Form, Thank You Letter, Antibiotic Education, Prescription Opioid Use. Follow up: Emergency Department; When: As needed; Reason: Worsening of condition. Follow up: Private Physician; When: 2 - 3 days; Reason: Recheck today's complaints, Continuance of care, Re-evaluation by your physician. kb
[2019-10-20 22:00] VITALS: TEMP 97.9; O2SAT 100
[2019-10-20 22:04] VITALS: BP 98/73
== END 2019-10-20 19:04 | disposition home or self-care (01) ==
LOC: ER 15:47
DX: E11.649 Type 2 diabetes mellitus with hypoglycemia without coma (principal); Z79.4 Long term (current) use of insulin; I10 Essential (primary) hypertension; I25.2 Old myocardial infarction; Z95.5 Presence of coronary angioplasty implant and graft
CPT/HCPCS: 81003; 81025; 82947; 99283